=== PATIENT | male | born 1940 | race Caucasian/White ===

== ENCOUNTER 2017-01-29 10:31 | Inpatient (IN) | payer OTHER ==
[2017-01-29 10:45] VITALS: BMI 25.8
--- NOTE | 2017-01-29 10:51 | PDOC ---
History of Present Illness - General Chief Complaint: Weakness Stated Complaint: WEAKNESS Time Seen by Provider: 01/29/17 10:47 History Source: Patient Exam Limitations: No Limitations - History of Present Illness Initial Comments: 01/29/17 10:51 Patient is a 76 year old male with history of ESRD and DM who presents with a reported lab abnormality According to patient's PCP the patient is refusing dialysis following 2 failed/ infected grafts. Patient denies refusal of dialysis but states he does not want a graft until continuous dialysis is required. PCP: Dr. Donis at [facility] ([phone]) Past History - Past Medical History Allergies/Adverse Reactions: Allergies Allergy/AdvReac Type Severity Reaction Status Date / Time No Known Allergies Allergy Verified 02/12/16 16:59 Home Medications: Ambulatory Orders Metoprolol Succinate [Toprol XL -] 100 mg PO DAILY 02/12/16 Ferrous Sulfate 325 mg PO DAILY 02/14/16 Cyanocobalamin [Vitamin B12 -] 1,000 mcg PO DAILY tablet 02/24/16 Cholecalciferol (Vitamin D3) [Vitamin D -] 2,000 unit PO DAILY 01/29/17 Hydralazine HCl [Apresoline -] 25 mg PO BID 01/29/17 Docusate Sodium [Colace -] 100 mg PO TID #90 cap 01/31/17 Rosuvastatin [Crestor -] 20 mg PO HS tablet 01/31/17 Sitagliptin Phosphate [Januvia] 25 mg PO DAILY #30 tablet 01/31/17 Sodium Bicarbonate - 650 mg PO BID #60 tablet 01/31/17 Anemia: No Asthma: No Cancer: No Cardiac Disorders: No CVA: No COPD: No CHF: No Dementia: No Diabetes: Yes GI Disorders: Yes (GERD) Disorders: No HTN: Yes Hypercholesterolemia: Yes Liver Disease: No Seizures: No Thyroid Disease: No - Surgical History Abdominal Surgery: No Appendectomy: No Cardiac Surgery: No Cholecystectomy: No Lung Surgery: No Neurologic Surgery: Yes (back sx) Orthopedic Surgery: No - Family Disease History Family Disease History: Diabetes: Mother, Heart Disease: Father - Immunization History Immunization Up to Date: Yes - Psycho/Social/Smoking Cessation Hx Anxiety: No Suicidal Ideation: No Smoking History: Never smoked Have you smoked in the past 12 months: No Number of Cigarettes Smoked Daily: 10 Hx Alcohol Use: No Drug/Substance Use Hx: No Substance Use Type: None Hx Substance Use Treatment: No Review of Systems - Review of Systems Able to Perform ROS?: Yes Is the patient limited Bengali proficient: No Constitutional: Yes: Loss of Appetite, Weakness, Unintentional Wgt. Loss, Other (Fatigue). No: Chills, Fever HEENTM: No: Throat Pain Respiratory: Yes: SOB with Exertion, SOB at Rest (Mild). No: Stridor, Wheezing , Hemoptysis Cardiac (ROS): No: Chest Pain, Lightheadedness, Palpitations, Syncope ABD/GI: No: Blood Streaked Bowels, Constipated, Diarrhea, Nausea, Rectal Bleeding, Vomiting : No: Hematuria Musculoskeletal: Yes: Muscle Weakness Integumentary: Yes: Change in Color (Pallor), Pallor. No: Bruising Neurological: Yes: Weakness. No: Headache, Numbness, Dizziness Hematologic/Lymphatic: Yes: Anemia. No: Easy Bleeding, Easy Bruising, Bleeding Diathesis *Physical Exam - Vital Signs Last Vital Signs Temp Pulse Resp BP Pulse Ox 97.4 F L 62 14 174/54 100 01/29/17 10:40 01/29/17 10:40 01/29/17 10:40 01/29/17 10:40 01/29/17 10:40 - Physical Exam General Appearance: Yes: Appropriately Dressed, Mild Distress, Other (Very pale , difficult staying awake, easil aroused) HEENT: positive: EOMI, ANGELIA, Pale Conjunctivae, Hearing Grossly Normal. negative: Normal ENT Inspection (Significant pallor of eyes, eye lids, oral mucosa, tounge, lips) Neck: positive: Supple. negative: Tender Respiratory/Chest: positive: Lungs Clear, Normal Breath Sounds. negative: Chest Tender, Respiratory Distress, Accessory Muscle Use, Labored Respiration, Rapid RR, Crackles Cardiovascular: positive: Regular Rhythm, Regular Rate, Other (Diminished heart sounds). negative: Murmur Vascular Pulses: Dorsalis-Pedis (R): 1+, Doralis-Pedis (L): 1+ Gastrointestinal/Abdominal: positive: Normal Bowel Sounds, Flat, Soft. negative : Tender, Pulsatile Mass, Distended, Guarding, Rebound, Mass Rectal Exam: positive: normal exam, other (No song blood) Musculoskeletal: positive: Normal Inspection, Other (multiple PIP/DIP amputations) Extremity: positive: Delayed Capillary Refill, Other (Nailbed pallor ) Integumentary: positive: Pale, Cold. 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 negative: Confused, Disoriented ED Treatment Course - LABORATORY CBC & Chemistry Diagram: 01/31/17 07:30 01/31/17 07:30 Medical Decision Making - Medical Decision Making 01/29/17 10:51 76 year old male with chronic anemia 2/2 ESRD and a hemoglobin of 4.5. Plan Repeat labs RBC transfusion Admit to hospitalist 01/29/17 12:08 CBC WBC 7.5 K/mm3 (4.0-10.0) 01/29/17 11:00 RBC 1.66 M/mm3 (4.00-5.60) L D 01/29/17 11:00 Hgb 4.5 GM/dL (11.7-16.9) L* D 01/29/17 11:00 Hct 14.7 % (35.4-49) L 01/29/17 11:00 MCV 88.3 fl (80-96) 01/29/17 11:00 MCH 27.3 pg (25.7-33.7) 01/29/17 11:00 MCHC 30.9 g/dl (32.0-35.9) L 01/29/17 11:00 RDW 16.1 % (11.9-15.9) H 01/29/17 11:00 Plt Count 191 K/MM3 (134-434) 01/29/17 11:00 MPV 8.7 fl (7.5-11.1) 01/29/17 11:00 Neutrophils % 55.7 % (42.8-82.8) D 01/29/17 11:00 Lymphocytes % 26.2 % (8-40) D 01/29/17 11:00 Monocytes % 13.4 % (3.8-10.2) H 01/29/17 11:00 Eosinophils % 4.2 % (0-4.5) D 01/29/17 11:00 Basophils % 0.5 % (0-2.0) 01/29/17 11:00 Severe anemia per faxed PCP records, patient was 9.4/29 on 07/19/2016 CMP Sodium 140 mmol/L (136-145) 01/29/17 11:00 Potassium 5.2 mmol/L (3.5-5.1) H D 01/29/17 11:00 Chloride 112 mmol/L (98-107) H 01/29/17 11:00 Carbon Dioxide 17 mmol/L (21-32) L 01/29/17 11:00 Anion Gap 11 (8-16) 01/29/17 11:00 BUN 28 mg/dL (7-18) H 01/29/17 11:00 Creatinine 3.1 mg/dL (0.7-1.3) H D 01/29/17 11:00 Creat Clearance w eGFR 19.64 (>60) 01/29/17 11:00 Random Glucose 217 mg/dL (74-106) H D 01/29/17 11:00 Calcium 7.9 mg/dL (8.5-10.1) L 01/29/17 11:00 Total Bilirubin 0.3 mg/dL (0.2-1.0) D 01/29/17 11:00 AST 89 U/L (15-37) H D 01/29/17 11:00 ALT 61 U/L (12-78) D 01/29/17 11:00 Alkaline Phosphatase 94 U/L (45-117) 01/29/17 11:00 Creatine Kinase 3431 IU/L (39-308) H 01/29/17 11:00 Troponin I 0.08 ng/ml (0.00-0.05) H D 01/29/17 11:00 Total Protein 5.8 g/dl (6.4-8.2) L 01/29/17 11:00 Albumin 2.5 g/dl (3.4-5.0) L 01/29/17 11:00 Hyperkalemia 01/29/17 12:16 Per hospitalist patient will be admitted by CARTOGRAPHIC TECHNICIAN service 01/29/17 12:26 Spoke with CARTOGRAPHIC TECHNICIAN service who agreed to admission to [facility] levon Varela 01/29/17 14:44 Patient receiving blood, reports no problems EKG (unofficial): sinus rhythm, slightly bradycardic (59), normal axis, normal intervals, slightly peaked T waves when compared with EKG of 10/19/2014. *DC/Admit/Observation/Transfer Diagnosis at time of Disposition: Anemia Qualifiers: Anemia type: due to chronic kidney disease Chronic kidney disease stage: stage 4 (severe) Qualified Code(s): N18.4 - Chronic kidney disease, stage 4 (severe) - Discharge Dispostion Disposition: HOME Condition at time of disposition: Improved Admit: Yes - Prescriptions - Referrals - Attestations Physician Attestion: 01/29/17 12:35 I, Dr. Tommy Cole, attest that this document has been prepared under my direction and personally reviewed by me in its entirety. I further attest, that it accurately reflects all work, treatment, procedures and medical decision -making performed by me.
[2017-01-29 11:14] LABS: BASOPHIL 0.5 % (0-2.0); EOSINOPHIL 4.2 % (0-4.5); MCH 27.3 pg (25.7-33.7); MCHC 30.9 g/dl (32.0-35.9); MEAN CELL VOLUME 88.3 fl (80-96); MEAN PLT VOLUME 8.7 fl (7.5-11.1); NEUTROPHILS 55.7 % (42.8-82.8); PLATELET COUNT 191 K/MM3 (134-434); RDW 16.1 % (11.9-15.9); WHITE BLOOD COUNT 7.5 K/mm3 (4.0-10.0)
[2017-01-29 11:45] LABS: ALBUMIN 2.5 g/dl (3.4-5.0); ANION GAP 11 (8-16); CALCIUM 7.9 mg/dL (8.5-10.1); CO2 17 mmol/L (21-32); CREATININE 3.1 mg/dL (0.7-1.3); GLUCOSE,RANDOM 217 mg/dL (74-106); SGOT/AST 89 U/L (15-37); SGPT/ALT 61 U/L (12-78)
[2017-01-29 11:46] LABS: INR 1.01 (0.82-1.09); PROTHROMBIN TIME (PATIENT) 11.1 SEC (9.98-11.88)
[2017-01-29 11:47] LABS: BILIRUBIN,TOTAL 0.3 mg/dL (0.2-1.0); TOT PROT 5.8 g/dl (6.4-8.2)
[2017-01-29 12:05] LABS: ALK PHOS 94 U/L (45-117); TROPONIN I 0.08 ng/ml (0.00-0.05)
[2017-01-29 12:10] LABS: CPK 3431 IU/L (39-308)
--- NOTE | 2017-01-29 12:26 | PDOC ---
Attending Attestation - Resident Resident Name: Tommy Cole - ED Attending Attestation I have performed the following: I have examined & evaluated the patient, The case was reviewed & discussed with the resident, I agree w/resident's findings & plan, Exceptions are as noted - HPI HPI: 01/29/17 12:23 76 M with h/o CKD, DM, chronic anemia, presenting to ER after outpt labs showed a Hb of 4.5. Pt complains of severe weakness and lethargy. Denies CP/SOB. Denies syncopal episodes. Denies dark tarry stools or BRBPR. Pt states that he needed a transfusion when he was young but has not required one recently. - Physicial Exam PE: 01/29/17 12:24 "GENERAL: Awake, alert, and fully oriented, in no acute distress HEAD: No signs of trauma EYES: PERRLA, EOMI, sclera anicteric, conjunctiva pale ENT: Auricles normal inspection, hearing grossly normal, nares patent, oropharynx clear without exudates. Moist mucosa NECK: Normal ROM, supple, no lymphadenopathy, JVD, or masses LUNGS: Breath sounds equal, clear to auscultation bilaterally. No wheezes, and no crackles HEART: Regular rate and rhythm, normal S1 and S2, no murmurs, rubs or gallops ABDOMEN: Soft, nontender, normoactive bowel sounds. No guarding, no rebound. No masses EXTREMITIES: Normal range of motion, no edema. No clubbing or cyanosis. No cords, erythema, or tenderness NEUROLOGICAL: Cranial nerves II through XII grossly intact. Normal speech, normal gait SKIN: Warm, Dry, normal turgor, no rashes or lesions noted. " - Medical Decision Making 01/29/17 12:25 76 M with severe anemia. Possibly 2/2 CKD and anemia of chronic disease. Will r/ o GI bleed with stool guaiac and transfuse. - Labs, serial CBCs - Transfuse PRBCs - Admit for further work up
[2017-01-29] MEDS ORDERED: FUROSEMIDE 40 MG/4 ML INJECTABLE VIAL IVPUSH ONE (12:47)
[2017-01-29] MEDS ORDERED: ACETAMINOPHEN 325 MG TABLET (FP) PO PRN (12:48)
--- NOTE | 2017-01-29 12:51 | HP ---
CHIEF COMPLAINT: Weakness PCP: Dr. Walter HISTORY OF PRESENT ILLNESS: This is a 76 year old male with a history of DM ( previously on insulin, but now on Januvia), neuropathy, osteomylitis of the left hand, HTN, and CKD 4. He had 2 attempts at AV graft at [facility] in 2016 both of which were unsuccessful and complicated by infection. He also has a history of anemia and is taking daily iron supplementation, but has never required a transfusion. He presented to the ED today complaining of 3-4 months of generalized weakness and fatigue, now with dyspnea on minimal exertion. He was seen by his PCP yesterday and was found to have a hemoglobin of 4.5. ER course was notable for: (1) H/H 4.5/14.7 (2) EKG: Sinus bradycardia, peaked T waves V2-V4 only (3) Troponin 0.08 with CPK 3431 (4) BUN/Cr 28/3.1, K 5.2 Recent Travel: None PAST MEDICAL HISTORY: As above PAST SURGICAL HISTORY: Left third finger amputation, attempted right AV graft x 2 Last colonoscopy: 2015 and normal Social History: From [place]. 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 Lives with . Smoking: Quit "a few years ago" Alcohol: None Drugs: None NSAIDS: None Family History: No known family history of renal disease Allergies No Known Allergies Allergy (Verified 02/12/16 16:59) HOME MEDICATIONS: Home Medications Medication Instructions Recorded Aspirin [ASA -] 81 mg PO DAILY #30 tab.chew 10/21/14 Metoprolol Succinate [Toprol XL -] 100 mg PO DAILY 02/12/16 Ferrous Sulfate 325 mg PO DAILY 02/14/16 Cyanocobalamin [Vitamin B12 -] 1,000 mcg PO DAILY tablet 02/24/16 Cholecalciferol (Vitamin D3) 2,000 unit PO DAILY 01/29/17 [Vitamin D3 -] Hydralazine HCl [Apresoline -] 25 mg PO BID 01/29/17 Losartan Potassium [Cozaar] 100 mg PO DAILY 01/29/17 Rosuvastatin [Crestor -] 20 mg PO HS 01/29/17 REVIEW OF SYSTEMS CONSTITUTIONAL: Generalized weakness, fatigue Absent: fever, chills, diaphoresis, loss of appetite, weight change HEENT: Absent: rhinorrhea, nasal congestion, throat pain, throat swelling, difficulty swallowing, mouth swelling, ear pain, eye pain, visual changes CARDIOVASCULAR: Dyspnea on minimal exertion Absent: chest pain, syncope, palpitations, irregular heart rate, lightheadedness , peripheral edema RESPIRATORY: Absent: cough, orthopnea, wheezing, stridor, hemoptysis GASTROINTESTINAL: Absent: abdominal pain, abdominal distension, nausea, vomiting, diarrhea, constipation, melena, hematochezia GENITOURINARY: Absent: dysuria, frequency, urgency, hesitancy, hematuria, flank pain, genital pain MUSCULOSKELETAL: Absent: myalgia, arthralgia, joint swelling, back pain, neck pain SKIN: Absent: rash, itching, pallor HEMATOLOGIC/IMMUNOLOGIC: Absent: easy bleeding, easy bruising, lymphadenopathy, frequent infections ENDOCRINE: Absent: unexplained weight gain, unexplained weight loss, heat intolerance, cold intolerance NEUROLOGIC: Absent: headache, focal weakness or paresthesias, dizziness, unsteady gait, seizure, mental status changes, bladder or bowel incontinence PSYCHIATRIC: Absent: anxiety, depression, suicidal or homicidal ideation, hallucinations. PHYSICAL EXAMINATION Vital Signs - 24 hr 01/29/17 01/29/17 10:40 11:07 Temperature 97.4 F L Pulse Rate 62 Respiratory 14 Rate Blood Pressure 174/54 O2 Sat by Pulse 100 98 Oximetry (%) GENERAL: Awake, alert, and fully oriented, in no acute distress. EYES: Pupils equal, round and reactive to light, extraocular movements intact, sclera anicteric, conjunctivae pale. No lid lag. EARS, NOSE, THROAT: Ears normal, nares patent, oropharynx clear without exudates. Moist mucous membranes. NECK: Normal range of motion, supple without lymphadenopathy, JVD, or masses. LUNGS: Breath sounds equal, clear to auscultation bilaterally. No wheezes, and no crackles. No accessory muscle use. HEART: Regular rate and rhythm, normal S1 and S2 without murmur, rub or gallop. ABDOMEN: Soft, nontender, not distended, normoactive bowel sounds, no guarding, no rebound, no masses. No hepatomegaly or splenomegaly. MUSCULOSKELETAL: Normal range of motion at all joints. No bony deformities or tenderness. No CVA tenderness. UPPER EXTREMITIES: 2+ pulses, warm, well-perfused. No cyanosis. No clubbing. No peripheral edema. LOWER EXTREMITIES: 2+ pulses, warm, well-perfused. No calf tenderness. No peripheral edema. NEUROLOGICAL: Cranial nerves II-XII intact. Normal speech. Normal gait. PSYCHIATRIC: Cooperative. Good eye contact. Appropriate mood and affect. SKIN: Warm, dry, normal turgor, no rashes or lesions noted, normal capillary refill. Laboratory Results - last 24 hr 01/29/17 01/29/17 01/29/17 11:00 11:00 11:00 WBC 7.5 RBC 1.66 L D Hgb 4.5 L* D Hct 14.7 L MCV 88.3 MCH 27.3 MCHC 30.9 L RDW 16.1 H Plt Count 191 MPV 8.7 Neutrophils % 55.7 D Lymphocytes % 26.2 D Monocytes % 13.4 H Eosinophils % 4.2 D Basophils % 0.5 INR 1.01 Sodium 140 Potassium 5.2 H D Chloride 112 H Carbon Dioxide 17 L Anion Gap 11 BUN 28 H Creatinine 3.1 H D Creat Clearance w eGFR 19.64 Random Glucose 217 H D Calcium 7.9 L Total Bilirubin 0.3 D AST 89 H D ALT 61 D Alkaline Phosphatase 94 Creatine Kinase 3431 H Creatine Kinase Index 0.4 CK-MB (CK-2) 15 H Troponin I 0.08 H D Total Protein 5.8 L Albumin 2.5 L Stool Occult Blood Crossmatch 01/29/17 01/29/17 11:00 11:59 WBC RBC Hgb Hct MCV MCH MCHC RDW Plt Count MPV Neutrophils % Lymphocytes % Monocytes % Eosinophils % Basophils % INR Sodium Potassium Chloride Carbon Dioxide Anion Gap BUN Creatinine Creat Clearance w eGFR Random Glucose Calcium Total Bilirubin AST ALT Alkaline Phosphatase Creatine Kinase Creatine Kinase Index CK-MB (CK-2) Troponin I Total Protein Albumin Stool Occult Blood Negative Crossmatch See Detail ASSESSMENT/PLAN: 76 year old male with profound anemia. Problem List - Problem (1) Anemia Assessment/Plan: -Normocytic, mildly hypochromic -No signs of bleeding by history or by exam, stool negative for occult blood -Suspect anemia of renal disease + iron deficiency -Add on iron studies to pre-transfusion labs -Transfuse 2 units PRBCs with Lasix 20mg IVP in between -Check CBC tonight; will likely need additional 1-2 units -Continue iron supplementation -Renal evaluation Code(s): D64.9 - ANEMIA, UNSPECIFIED Qualifiers: Anemia type: due to chronic kidney disease Chronic kidney disease stage : stage 4 (severe) Qualified Code(s): N18.4 - Chronic kidney disease, stage 4 (severe); D63.1 - Anemia in chronic kidney disease (2) Diabetes Assessment/Plan: -Hold Januvia while inpatient -FSACHS -ISS -Check HgbA1C Code(s): E11.9 - TYPE 2 DIABETES MELLITUS WITHOUT COMPLICATIONS (3) Hypertension Assessment/Plan: -Continue metoprolol, hydralazine -Hold Cozaar pending renal evaluation Code(s): I10 - ESSENTIAL (PRIMARY) HYPERTENSION Qualifiers: Hypertension type: essential hypertension Qualified Code(s): I10 - Essential (primary) hypertension (4) CKD (chronic kidney disease) Assessment/Plan: -Progressive -Renal diet -Follow electrolytes -Avoid nephrotoxic meds as able -Renal evaluation Code(s): N18.9 - CHRONIC KIDNEY DISEASE, UNSPECIFIED (5) Hyperkalemia Assessment/Plan: -Mild, but with some ?EKG changes -Receiving Lasix -Repeat in evening post-transfusion Code(s): E87.5 - HYPERKALEMIA (6) Elevated CPK Assessment/Plan: -Trend Code(s): R74.8 - ABNORMAL LEVELS OF OTHER SERUM ENZYMES (7) DVT prophylaxis Assessment/Plan: -Moderate risk -SCDs -Avoid chemical ppx for now given profound anemia Code(s): KBI4752 - Visit type - Emergency Visit Emergency Visit: Yes ED Registration Date: 01/29/17 Care time: The patient presented to the Emergency Department on the above date and was hospitalized for further evaluation of their emergent condition. - New Patient This patient is new to me today: Yes Date on this admission: 01/29/17 - Critical Care Critical Care patient: No
[2017-01-29] MEDS ORDERED: FUROSEMIDE 40 MG/4 ML INJECTABLE VIAL ONE (15:32)
[2017-01-29] MEDS: DOCUSATE SODIUM 100 MG CAPSULE (FP) PO SCH ×2 (15:35→21:42)
--- NOTE | 2017-01-29 15:37 | CON.NEP ---
Consult Consult Specialty:: Nephrology (Td/Faizan) Referred by:: Eliana Peña Reason for Consultation:: CKD, Hyperkalemia, Anemia - History of Present Illness Chief Complaint: Abnormal Labs, low Hgb History of Present Illness: This is a 76 year old Gentleman with PMhx of SAMANTHA/progressive CKD (likely diabetic nephropathy, no Bx done), DM Type 2 (was on insulin, now off), Hx of failed graft placement x 2 at [facility] who presents with abnormal outpatient labs and found to have Hgb of 4.5 with BUN/Cr of 28/3.1 and K of 5.2. Pt was seen by Dr. Appiah in October of this year. Last outpatient Cr we have is 1.9 (07/2016). Pt reports fatigue, weakness, and STINSON. Denies any cough, chest pain, abd pain, melena, hematuria, bruising. Denies any NSAID use. No recent contrast exposure. No flank pain, Good urine output. No recent Abx use. - History Source History Provided By: Patient Limitations to Obtaining History: No Limitations - Past Medical History Renal/: Yes: Renal Inusuff Endocrine: Yes: Diabetes Mellitus - Alcohol/Substance Use Hx Alcohol Use: No - Smoking History Smoking history: Never smoked Have you smoked in the past 12 months: No Aproximately how many cigarettes per day: 10 Home Medications - Allergies Allergies/Adverse Reactions: Allergies Allergy/AdvReac Type Severity Reaction Status Date / Time No Known Allergies Allergy Verified 02/12/16 16:59 - Home Medications Home Medications: Ambulatory Orders Aspirin [ASA -] 81 mg PO DAILY #30 tab.chew 10/21/14 Metoprolol Succinate [Toprol XL -] 100 mg PO DAILY 02/12/16 Ferrous Sulfate 325 mg PO DAILY 02/14/16 Cyanocobalamin [Vitamin B12 -] 1,000 mcg PO DAILY tablet 02/24/16 Cholecalciferol (Vitamin D3) [Vitamin D3 -] 2,000 unit PO DAILY 01/29/17 Hydralazine HCl [Apresoline -] 25 mg PO BID 01/29/17 Losartan Potassium [Cozaar] 100 mg PO DAILY 01/29/17 Rosuvastatin [Crestor -] 20 mg PO HS 01/29/17 Sitagliptin Phosphate [Januvia] 50 mg PO DAILY 01/29/17 Family Disease History - Family Disease History Family History: Unremarkable Review of Systems - Review of Systems Constitutional: reports: Lethargy, Loss of Appetite, Malaise, Weakness Eyes: reports: No Symptoms HENT: reports: No Symptoms Neck: reports: No Symptoms Cardiovascular: reports: No Symptoms Respiratory: reports: No Symptoms Gastrointestinal: reports: No Symptoms Genitourinary: reports: No Symptoms Musculoskeletal: reports: No Symptoms Integumentary: reports: No Symptoms Neurological: reports: No Symptoms Endocrine: reports: No Symptoms Hematology/Lymphatic: reports: No Symptoms Nephrology Consult - Height Height: 5 ft 8 in - Weight Weight: 170 lb - BMI Body Mass Index (BMI): 25.8 - Lab Results Anion Gap: Anion Gap Anion Gap 11 (8-16) 01/29/17 11:00 - Imaging Chest X-ray: Report Reviewed - Physical Examination Vital Signs: Vital Signs Temperature 97.9 F 01/29/17 13:45 Pulse Rate 58 L 01/29/17 13:45 Respiratory Rate 16 01/29/17 13:45 Blood Pressure 145/53 01/29/17 13:45 O2 Sat by Pulse Oximetry (%) 99 01/29/17 13:45 Constitutional: Yes: No Distress, Calm Eyes: Yes: Conjunctiva Clear HENT: Yes: Atraumatic Neck: Yes: Supple, Trachea Midline Cardiovascular: Yes: Regular Rate and Rhythm, S1, S2. No: Murmur, Rub Respiratory: Yes: Regular, CTA Bilaterally. No: Rales, Rhonchi Gastrointestinal: Yes: Normal Bowel Sounds, Soft, Abdomen, Obese. No: Tenderness, Vomiting Renal/: No: Anuria, Bladder Distention, CVA Tenderness - Left, CVA Tenderness - Right, Engle Present Extremities: No: Cold, Cool, Cyanosis Edema: No Peripheral Pulses WNL: Yes Neurological: Yes: Alert, Oriented. No: Asterixis Problem List - Problems (1) Acute renal failure Code(s): N17.9 - ACUTE KIDNEY FAILURE, UNSPECIFIED (2) Anemia Code(s): D64.9 - ANEMIA, UNSPECIFIED Qualifiers: Anemia type: due to chronic kidney disease Chronic kidney disease stage : stage 4 (severe) Qualified Code(s): N18.4 - Chronic kidney disease, stage 4 (severe); D63.1 - Anemia in chronic kidney disease (3) CKD (chronic kidney disease) Code(s): N18.9 - CHRONIC KIDNEY DISEASE, UNSPECIFIED (4) Diabetes Code(s): E11.9 - TYPE 2 DIABETES MELLITUS WITHOUT COMPLICATIONS Assessment/Plan 76 year old Gentleman with PMhx of SAMANTHA / progressive CKD (likely diabetic nephropathy, no Bx done), DM Type 2 (was on insulin, now off), Hx of failed graft placement x 2 at [facility] who presents with abnormal outpatient labs and found to have Hgb of 4.5 with BUN/Cr of 28/3.1 and K of 5.2. #Acute Kidney Injury vs. Progressive CKD Cr was 1.9 in 07/2016, Cr now 3.1 Check Urine studies (FeNa, UPCR) Give PRBC transfusion to keep Hgb > 8 Keep MAP> 65 Trial of gentle IVF : NS at 75cc per hour (hold when getting prbc) Check Renal US to access kidney size and structure no acute indication for dialysis at this time #Acute Anemia with normal stool occult blood pt reports normal colonoscopy last year check LDH, Haptogobin iron profile pending if iron stores are replete can start Epogen given advanced level of kidney disease Transfuse as per primary team #Hyperkalmeia in setting of SAMANTHA/CKD and ARB hold ARB for now low k diet Trend with PRBC transfusion #Metabolic acidosis Non-anion gap acidosis from CKD Check Urine anion gap start sodium bicarb 650mg BID goal Bicarb > 22 Thank you Will follow Slava Gloria DO
[2017-01-29] MEDS ORDERED: SODIUM CHLORIDE 1,000 ML IV SCH (15:45)
[2017-01-29] MEDS: INSULIN SLIDING SCALE (NOVOLOG) 1 VIAL SQ SCH ×3 (16:48→21:46)
[2017-01-29 20:39] LABS: ANION GAP 8 (8-16); BASOPHIL 0.5 % (0-2.0); CO2 18 mmol/L (21-32); EOSINOPHIL 3.4 % (0-4.5); GLUCOSE,RANDOM 176 mg/dL (74-106); MCH 28.2 pg (25.7-33.7); MEAN PLT VOLUME 9.8 fl (7.5-11.1); NEUTROPHILS 43.2 % (42.8-82.8); PLATELET COUNT 191 K/MM3 (134-434); RDW 15.6 % (11.9-15.9); WHITE BLOOD COUNT 6.3 K/mm3 (4.0-10.0)
[2017-01-29 20:54] LABS: TROPONIN I 0.07 ng/ml (0.00-0.05)
[2017-01-29] MEDS ORDERED: ROSUVASTATIN CA 10 MG TABLET (FP) ONE (21:41)
[2017-01-29] MEDS: SODIUM BICARBONATE 650 MG TABLET PO SCH (21:42)
[2017-01-29] MEDS: hydrALAZINE HCL 25 MG TABLET (FP) PO SCH (21:42)
[2017-01-29] MEDS: ROSUVASTATIN CA 20 MG TABLET (FP) PO SCH (21:42)
[2017-01-30] MEDS: INSULIN SLIDING SCALE (NOVOLOG) 1 VIAL SQ SCH ×4 (05:59→22:12)
[2017-01-30] MEDS: DOCUSATE SODIUM 100 MG CAPSULE (FP) PO SCH ×3 (06:01→22:11)
[2017-01-30 06:07] LABS: SERUM IRON 16 ug/dL (38-169); TOTAL IRON BINDING CAPACITY 315 ug/dL (250-450); UIBC 299 ug/dL (111-343)
[2017-01-30 08:56] LABS: BASOPHIL 0.6 % (0-2.0); EOSINOPHIL 3.7 % (0-4.5); MCH 28.6 pg (25.7-33.7); MCHC 33.2 g/dl (32.0-35.9); MEAN CELL VOLUME 86.3 fl (80-96); MEAN PLT VOLUME 8.9 fl (7.5-11.1); NEUTROPHILS 50.3 % (42.8-82.8); PLATELET COUNT 185 K/MM3 (134-434); RDW 14.6 % (11.9-15.9); WHITE BLOOD COUNT 6.8 K/mm3 (4.0-10.0)
[2017-01-30 09:24] LABS: ALBUMIN 2.3 g/dl (3.4-5.0); ANION GAP 8 (8-16); CALCIUM 8.1 mg/dL (8.5-10.1); CO2 20 mmol/L (21-32); CREATININE 2.8 mg/dL (0.7-1.3); GLUCOSE,RANDOM 161 mg/dL (74-106); MAGNESIUM 2.3 mg/dL (1.8-2.4); PHOSPHOROUS 4.5 mg/dL (2.5-4.9); SGOT/AST 83 U/L (15-37); SGPT/ALT 57 U/L (12-78)
[2017-01-30 09:27] LABS: ALK PHOS 89 U/L (45-117); TOT PROT 5.3 g/dl (6.4-8.2)
--- NOTE | 2017-01-30 10:20 | PN ---
Physical Exam: SUBJECTIVE: Patient seen and examined. Patient lying comfortably in bed. Statets his breathing has improved since yesterday. Feels better than before. States his dizziness and generalized weakness has improved. Got 4 units of blood Hb 8.7. OBJECTIVE: Vital Signs Period Temp Pulse Resp BP Sys/Bo Pulse Ox Last 24 Hr 97.4 F-98.3 F 55-65 15-18 133-168/53-80 99-100 GENERAL: The patient is awake, alert, and fully oriented, ENT:moist mucous membranes. NECK: Trachea midline, full range of motion, supple. LUNGS: Breath sounds equal, clear to auscultation bilaterally, no wheezes, no crackles, no accessory muscle use. HEART: s1s2 normal, regular, no murmur ABDOMEN: Soft, nontender, nondistended, normoactive bowel sounds, no guarding, no rebound, EXTREMITIES: warm, no edema. PSYCH: Normal mood, normal affect. SKIN: Warm, dry, Laboratory Results - last 24 hr 01/29/17 01/29/17 01/29/17 14:40 16:46 19:00 WBC 6.3 RBC 2.37 L D Hgb 6.7 L* D Hct 20.9 L D MCV 88.0 MCH 28.2 MCHC 32.0 RDW 15.6 Plt Count 191 MPV 9.8 D Neutrophils % 43.2 D Lymphocytes % 36.6 D Monocytes % 16.3 H Eosinophils % 3.4 Basophils % 0.5 Sodium Potassium Chloride Carbon Dioxide Anion Gap BUN Creatinine Creat Clearance w eGFR POC Glucometer [phone] Random Glucose Calcium Phosphorus Magnesium Iron 16 L TIBC 315 Iron Saturation 5 L Total Bilirubin AST ALT Alkaline Phosphatase LD Total Creatine Kinase Creatine Kinase Index CK-MB (CK-2) Troponin I Total Protein Albumin Vitamin B12 01/29/17 01/29/17 01/29/17 19:00 19:00 19:00 WBC RBC Hgb Hct MCV MCH MCHC RDW Plt Count MPV Neutrophils % Lymphocytes % Monocytes % Eosinophils % Basophils % Sodium 140 Potassium 4.9 Chloride 114 H Carbon Dioxide 18 L Anion Gap 8 BUN 30 H Creatinine 3.0 H Creat Clearance w eGFR POC Glucometer Random Glucose 176 H Calcium 8.0 L Phosphorus Magnesium Iron TIBC Iron Saturation Total Bilirubin AST ALT Alkaline Phosphatase LD Total Creatine Kinase 3626 H Creatine Kinase Index 0.4 CK-MB (CK-2) 16.804 H Troponin I 0.07 H Total Protein Albumin Vitamin B12 454 01/29/17 01/29/17 01/30/17 19:00 21:45 05:56 WBC RBC Hgb Hct MCV MCH MCHC RDW Plt Count MPV Neutrophils % Lymphocytes % Monocytes % Eosinophils % Basophils % Sodium Potassium Chloride Carbon Dioxide Anion Gap BUN Creatinine Creat Clearance w eGFR POC Glucometer 206 148 Random Glucose Calcium Phosphorus Magnesium Iron TIBC Iron Saturation Total Bilirubin AST ALT Alkaline Phosphatase LD Total 278 H D Creatine Kinase Creatine Kinase Index CK-MB (CK-2) Troponin I Total Protein Albumin Vitamin B12 01/30/17 01/30/17 08:40 08:40 WBC 6.8 RBC 3.04 L D Hgb 8.7 L D Hct 26.3 L D MCV 86.3 MCH 28.6 MCHC 33.2 RDW 14.6 Plt Count 185 MPV 8.9 Neutrophils % 50.3 Lymphocytes % 29.0 D Monocytes % 16.4 H Eosinophils % 3.7 Basophils % 0.6 Sodium 140 Potassium 5.3 H Chloride 112 H Carbon Dioxide 20 L Anion Gap 8 BUN 28 H Creatinine 2.8 H Creat Clearance w eGFR 22.08 POC Glucometer Random Glucose 161 H Calcium 8.1 L Phosphorus 4.5 D Magnesium 2.3 D Iron TIBC Iron Saturation Total Bilirubin 1.0 D AST 83 H ALT 57 Alkaline Phosphatase 89 LD Total Creatine Kinase Creatine Kinase Index CK-MB (CK-2) Troponin I Total Protein 5.3 L Albumin 2.3 L Vitamin B12 Active Medications Generic Name Dose Route Start Last Admin Trade Name Freq PRN Reason Stop Dose Admin Acetaminophen 650 mg 01/29/17 12:48 Tylenol - PO Q4H PRN FEVER OR PAIN Cholecalciferol 2,000 unit 01/30/17 10:00 Vitamin D3 - PO DAILY [facility] Cyanocobalamin 1,000 mcg 01/30/17 10:00 Vitamin B12 - PO DAILY [facility] Docusate Sodium 100 mg 01/29/17 14:00 01/30/17 06:01 Colace - PO 100 mg TID ROB Administration Ferrous Sulfate 325 mg 01/30/17 10:00 Feosol - PO DAILY [facility] Hydralazine HCl 25 mg 01/29/17 22:00 01/29/17 21:42 Apresoline - PO 25 mg BID ROB Administration Sodium Chloride 1,000 mls @ 75 mls/hr 01/29/17 15:45 01/29/17 16:41 Normal Saline - IV 01/30/17 15:44 Not Given ASDIR ROB Insulin Aspart 1 vial 01/29/17 16:30 01/30/17 05:59 Novolog Vial Sliding Scale - SQ Not Given ACHS [facility] Protocol Metoprolol Succinate 100 mg 01/30/17 10:00 Toprol Xl - PO DAILY ROB Rosuvastatin Calcium 20 mg 01/29/17 22:00 01/29/17 21:42 Crestor - PO 20 mg HS ROB Administration Sodium Bicarbonate 650 mg 01/29/17 22:00 01/29/17 21:42 Sodium Bicarbonate - PO 650 mg BID ROB Administration ASSESSMENT/PLAN: 76 year old Gentleman with PMhx of SAMANTHA / progressive CKD ( likely diabetic nephropathy, no Bx done), DM Type 2 (was on insulin, now off), Hx of failed graft placement x 2 at [facility] who presents with abnormal outpatient labs and found to have Hgb of 4.5 with BUN/Cr of 28/3.1 and K of 5.2. (1) Acute kidney injury on CKD. (2) Anemia (3) CKD (chronic kidney disease) (4) Diabetes (5) Hyperkalemia (6) metabolic acidosis (7)h/o Failed graft placement x2 in [facility] (8) HTN Plan Got 4 units of blood and Hb increased to 8.7. Goal to keep Hgb> 8 Iron saturation is <20, serum iron is low will start his on IV ferrous sulphate one time ( patient got 4 units of blood that can also increase iron in blood. But his saturation is 5% so we will still give him one time IV) Hepatoglobin is pending but LDH is elevated. No active source of bleeding. Patient reports colonscopy from last year was normal. Sr creatnine improved to 2.8, Urine labs pending. BUN : cr 10, renal ultrasound shows hyperechoic kidney, no hydronephrosis. Sr K is 5.3 could be due to SAMANTHA or multiple blood transfusions. Continue to hold ARB/ samreen inhibitor. Continue with low potassium diet. Metabolic acidosis could be due to CKD Sr bicarb has improved from 18 to 20, continue with sodium bicarb 650 bid, goal to keep bicarb>22. Corrected ca 9.45 Monitor vitals. Monitor intake output. avoid nephrotoxic drugs. Start IV fluid. Repeat iron studies in outpatient. Visit type - Emergency Visit Emergency Visit: Yes ED Registration Date: 01/29/17 Care time: The patient presented to the Emergency Department on the above date and was hospitalized for further evaluation of their emergent condition. - New Patient This patient is new to me today: Yes Date on this admission: 01/30/17 - Critical Care Critical Care patient: No
[2017-01-30] MEDS: hydrALAZINE HCL 25 MG TABLET (FP) PO SCH ×2 (10:58→22:11)
[2017-01-30] MEDS: FERROUS SO4 325 MG TABLET (FP) PO SCH (10:58)
[2017-01-30] MEDS: SODIUM BICARBONATE 650 MG TABLET PO SCH ×2 (10:59→22:11)
[2017-01-30] MEDS: CHOLECALCIFEROL (VITAMIN D3) 1,000 UNIT TABLET (FP) PO SCH (10:59)
[2017-01-30] MEDS: CYANOCOBALAMIN 1,000 MCG TABLET (FP) PO SCH (10:59)
[2017-01-30] MEDS: METOPROLOL SUCCINATE 50 MG TAB.SR.24H (FP) PO SCH (10:59)
--- NOTE | 2017-01-30 11:16 | PN ---
Progress Note (short form) - Note Progress Note: Subjective: The patient was seen at the bedside, he has no complaints at this time. S/p 4u PRBC, Hgb 8.7 today Cr improving 2.8 Current Medications Generic Name Dose Route Start Last Admin Trade Name [place] PRN Reason Stop Dose Admin Acetaminophen 650 mg 01/29/17 12:48 Tylenol - PO Q4H PRN FEVER OR PAIN Cholecalciferol 2,000 unit 01/30/17 10:00 01/30/17 10:59 Vitamin D3 - PO 2,000 unit DAILY ROB Administration Cyanocobalamin 1,000 mcg 01/30/17 10:00 01/30/17 10:59 Vitamin B12 - PO 1,000 mcg DAILY ROB Administration Docusate Sodium 100 mg 01/29/17 14:00 01/30/17 06:01 Colace - PO 100 mg TID ROB Administration Ferrous Sulfate 325 mg 01/30/17 10:00 01/30/17 10:58 Feosol - PO 325 mg DAILY ROB Administration Hydralazine HCl 25 mg 01/29/17 22:00 01/30/17 10:58 Apresoline - PO 25 mg BID ROB Administration Sodium Chloride 1,000 mls @ 75 mls/hr 01/29/17 15:45 01/29/17 16:41 Normal Saline - IV 01/30/17 15:44 Not Given ASDIR ROB Insulin Aspart 1 vial 01/29/17 16:30 01/30/17 05:59 Novolog Vial Sliding Scale - SQ Not Given ACHS [facility] Protocol Metoprolol Succinate 100 mg 01/30/17 10:00 01/30/17 10:59 Toprol Xl - PO 100 mg DAILY ROB Administration Rosuvastatin Calcium 20 mg 01/29/17 22:00 01/29/17 21:42 Crestor - PO 20 mg HS ROB Administration Sodium Bicarbonate 650 mg 01/29/17 22:00 01/30/17 10:59 Sodium Bicarbonate - PO 650 mg BID ROB Administration Objective: Vital Signs Period Temp Pulse Resp BP Sys/Bo Pulse Ox Last 24 Hr 97.4 F-98.3 F 55-65 15-18 133-168/53-80 99-100 Physical Exam: General: NAD, A&Ox3 Lungs: CTA bilaterally Heart: RRR, S1S2 Abd: Soft, non-tender, non-distended. Normoactive bowel sounds Ext: Warm, well-perfused. 2+ DP/PT bilaterally Neuro: CN 2-12 intact CBCD WBC 6.8 K/mm3 (4.0-10.0) 01/30/17 08:40 RBC 3.04 M/mm3 (4.00-5.60) L D 01/30/17 08:40 Hgb 8.7 GM/dL (11.7-16.9) L D 01/30/17 08:40 Hct 26.3 % (35.4-49) L D 01/30/17 08:40 MCV 86.3 fl (80-96) 01/30/17 08:40 MCHC 33.2 g/dl (32.0-35.9) 01/30/17 08:40 RDW 14.6 % (11.9-15.9) 01/30/17 08:40 Plt Count 185 K/MM3 (134-434) 01/30/17 08:40 MPV 8.9 fl (7.5-11.1) 01/30/17 08:40 CMP Sodium 140 mmol/L (136-145) 01/30/17 08:40 Potassium 5.3 mmol/L (3.5-5.1) H 01/30/17 08:40 Chloride 112 mmol/L (98-107) H 01/30/17 08:40 Carbon Dioxide 20 mmol/L (21-32) L 01/30/17 08:40 Anion Gap 8 (8-16) 01/30/17 08:40 BUN 28 mg/dL (7-18) H 01/30/17 08:40 Creatinine 2.8 mg/dL (0.7-1.3) H 01/30/17 08:40 Creat Clearance w eGFR 22.08 (>60) 01/30/17 08:40 Random Glucose 161 mg/dL (74-106) H 01/30/17 08:40 Calcium 8.1 mg/dL (8.5-10.1) L 01/30/17 08:40 Total Bilirubin 1.0 mg/dL (0.2-1.0) D 01/30/17 08:40 AST 83 U/L (15-37) H 01/30/17 08:40 ALT 57 U/L (12-78) 01/30/17 08:40 Alkaline Phosphatase 89 U/L (45-117) 01/30/17 08:40 Total Protein 5.3 g/dl (6.4-8.2) L 01/30/17 08:40 Albumin 2.3 g/dl (3.4-5.0) L 01/30/17 08:40 CARDIAC ENZYMES Creatine Kinase 3626 IU/L (39-308) H 01/29/17 19:00 Troponin I 0.07 ng/ml (0.00-0.05) H 01/29/17 19:00 Assessment: This is a 76 year old male with PMHx of DM, neuropathy, osteomyelitis of the left hand, HTN, CKD stage 4, anemia, who presented to the ED with fatigue and generalized weakness with dyspnea on exertion and was found to have a Hgb of 4.5. Plan: 1) Hematology: Severe symptomatic anemia - S/p 4u PRBC - Hgb 8.7 today. Keep Hgb >8 - Patient reports normal colonoscopy last year - Iron panel reviewed - Continue ferrous sulfate - No evidence of active bleeding, stool for occult blood negative 2) : SAMANTHA on CKD - Cr improving - Kidney ultrasound with slightly hyperechoic kidneys suggesting medical renal disease. No evidence of hydronephrosis or acute renal pathology - Continue sodium bicard for metabolic acidosis. Bicarb improving Elevated CK levels - Continue to trend 3) Endocrine: DM - BGM ACHS - ISS ACHS - HgbA1c pending 4) F/E/N: - Monitor electrolytes - Hyperkalemia: monitor - Renal, diabetic diet 5) Prophylaxis: - Hold all chemica DVT prophylaxis 2/2 severe anemia - SCDs bilaterally - OOB ambulating 6) Dispo: - Requires continued inpatient care CODE STATUS: FULL CODE Visit type - Emergency Visit Emergency Visit: Yes ED Registration Date: 01/29/17 Care time: The patient presented to the Emergency Department on the above date and was hospitalized for further evaluation of their emergent condition. - New Patient This patient is new to me today: Yes Date on this admission: 01/30/17 - Critical Care Critical Care patient: No
[2017-01-30 13:02] LABS: URINE CREATININE 30.9 mg/dL (20-370)
[2017-01-30] MEDS ORDERED: SODIUM CHLORIDE 1,000 ML IV SCH (14:30)
--- NOTE | 2017-01-30 14:38 | PN ---
Progress Note (short form) - Note Progress Note: Renal follow up for CKD Pt seen and examined at the bedside awake and alert no acute complaints feels better s/p transfusion Vital Signs Temperature 97.9 F 01/30/17 10:00 Pulse Rate 66 01/30/17 10:00 Respiratory Rate 18 01/30/17 10:00 Blood Pressure 150/51 01/30/17 10:00 O2 Sat by Pulse Oximetry (%) 99 01/29/17 17:32 Intake & Output 01/27/17 01/28/17 01/29/17 01/30/17 23:59 23:59 23:59 23:59 Intake Total 650 1300 Balance 650 1300 Weight 170 lb 172 lb 4 oz Gen: NAD, awake and alert CVS: RRR, No M/R Lungs: CTA Abd: soft NT/ND Ext: no edema CBC, BMP 01/30/17 08:40 01/30/17 08:40 Current Medications Acetaminophen (Tylenol -) 650 mg PO Q4H PRN PRN Reason: FEVER OR PAIN Cholecalciferol (Vitamin D3 -) 2,000 unit PO DAILY [facility] Last Admin: 01/30/17 10:59 Dose: 2,000 unit Cyanocobalamin (Vitamin B12 -) 1,000 mcg PO DAILY [facility] Last Admin: 01/30/17 10:59 Dose: 1,000 mcg Docusate Sodium (Colace -) 100 mg PO TID [facility] Last Admin: 01/30/17 06:01 Dose: 100 mg Ferrous Sulfate (Feosol -) 325 mg PO DAILY [facility] Last Admin: 01/30/17 10:58 Dose: 325 mg Hydralazine HCl (Apresoline -) 25 mg PO BID [facility] Last Admin: 01/30/17 10:58 Dose: 25 mg Sodium Chloride (Normal Saline -) 1,000 mls @ 75 mls/hr IV ASDIR ROB Stop: 01/30/17 15:44 Last Admin: 01/29/17 16:41 Dose: Not Given Iron Sucrose 200 mg/ Sodium (Chloride) 250 mls @ 250 mls/hr IVPB ONCE ONE Stop: 01/30/17 15:24 Insulin Aspart (Novolog Vial Sliding Scale -) 1 vial SQ ACHS ROB PRN Reason: Protocol Last Admin: 01/30/17 11:43 Dose: Not Given Metoprolol Succinate (Toprol Xl -) 100 mg PO DAILY [facility] Last Admin: 01/30/17 10:59 Dose: 100 mg Rosuvastatin Calcium (Crestor -) 20 mg PO HS [facility] Last Admin: 01/29/17 21:42 Dose: 20 mg Sodium Bicarbonate (Sodium Bicarbonate -) 650 mg PO BID [facility] Last Admin: 01/30/17 10:59 Dose: 650 mg A/P 76 year old Gentleman with PMhx of SAMANTHA / progressive CKD (likely diabetic nephropathy, no Bx done), DM Type 2 (was on insulin, now off), Hx of failed graft placement x 2 at [facility] who presents with abnormal outpatient labs and found to have Hgb of 4.5 with BUN/Cr of 28/3.1 and K of 5.2. #Acute Kidney Injury vs. Progressive CKD Cr was 1.9 in 07/2016 Cr 2.8 today, s/p PRBC transfusion trial of IVF today #Acute Anemia with normal stool occult blood pt reports normal colonoscopy last year Iron studies show very low iron will give iron sucrose 200mg IVPB today start EPOgen [id number] units Q week starting tomorrow #Hyperkalmeia in setting of SAMANTHA/CKD and ARB hold ARB for now low k diet #Metabolic acidosis continue oral sodium bicarb Thank you Will follow Slava Gloria DO Problem List - Problems (1) Acute renal failure Code(s): N17.9 - ACUTE KIDNEY FAILURE, UNSPECIFIED (2) Anemia Code(s): D64.9 - ANEMIA, UNSPECIFIED Qualifiers: Anemia type: due to chronic kidney disease Chronic kidney disease stage : stage 4 (severe) Qualified Code(s): N18.4 - Chronic kidney disease, stage 4 (severe); D63.1 - Anemia in chronic kidney disease (3) CKD (chronic kidney disease) Code(s): N18.9 - CHRONIC KIDNEY DISEASE, UNSPECIFIED (4) Diabetes Code(s): E11.9 - TYPE 2 DIABETES MELLITUS WITHOUT COMPLICATIONS
[2017-01-30] MEDS ORDERED: IRON SUCROSE INJECTION 200 MG in SODIUM CHLORIDE 100 ML IVPB ONE (16:30)
--- NOTE | 2017-01-30 16:42 | EKG ---
Test Reason : Blood Pressure : / mmHG Vent. Rate : 059 BPM Atrial Rate : 059 BPM P-R Int : 180 ms QRS Dur : 094 ms QT Int : 432 ms P-R-T Axes : -10 016 021 degrees QTc Int : 427 ms SINUS BRADYCARDIA OTHERWISE NORMAL ECG WHEN COMPARED WITH ECG OF 12-FEB-2016 18:11, VENT. RATE HAS DECREASED BY 37 BPM T WAVE AMPLITUDE HAS INCREASED IN ANTERIOR LEADS Confirmed by SHEIKH JORGE, HARDY ([id number] on 01/30/2017 4:41:58 PM Referred By: Confirmed By:HARDY ALEXIS MD
[2017-01-30] MEDS ORDERED: INSULIN (NOVOLOG) ASPART 100 UNITS/ML 10ML VIAL ONE (18:46)
[2017-01-30] MEDS ORDERED: ROSUVASTATIN CA 10 MG TABLET (FP) ONE (21:55)
[2017-01-30] MEDS: ROSUVASTATIN CA 20 MG TABLET (FP) PO SCH (22:11)
[2017-01-31] MEDS: DOCUSATE SODIUM 100 MG CAPSULE (FP) PO SCH (06:35)
[2017-01-31] MEDS: INSULIN SLIDING SCALE (NOVOLOG) 1 VIAL SQ SCH ×2 (06:35→11:24)
[2017-01-31 08:35] LABS: BASOPHIL 0.5 % (0-2.0); EOSINOPHIL 2.8 % (0-4.5); MCHC 33.5 g/dl (32.0-35.9); MEAN CELL VOLUME 86.7 fl (80-96); MEAN PLT VOLUME 9.1 fl (7.5-11.1); NEUTROPHILS 51.9 % (42.8-82.8); PLATELET COUNT 234 K/MM3 (134-434); RDW 15.1 % (11.9-15.9); WHITE BLOOD COUNT 8.1 K/mm3 (4.0-10.0)
--- NOTE | 2017-01-31 08:49 | PN ---
Physical Exam: SUBJECTIVE: Patient seen and examined Lying comfortably in bed Denies chest pain, sob, dizziness, nausea, vomiting. Denies swelling in leg. Got IV iron yesterday. Tolerating diet. OBJECTIVE: Vital Signs Period Temp Pulse Resp BP Sys/Bo Pulse Ox Last 24 Hr 97.6 F-98.7 F 61-68 18-20 150-159/51-64 98-98 GENERAL: The patient is awake, alert, and fully oriented, ENT:moist mucous membranes. NECK: Trachea midline, full range of motion, supple. LUNGS: Breath sounds equal, clear to auscultation bilaterally, no wheezes, no crackles, no accessory muscle use. HEART: s1s2 normal, regular, no murmur ABDOMEN: Soft, nontender, nondistended, normoactive bowel sounds, no guarding, no rebound, EXTREMITIES: warm, no edema. PSYCH: Normal mood, normal affect. SKIN: Warm, dry, Laboratory Results - last 24 hr 01/29/17 01/30/17 01/30/17 19:00 08:40 08:40 WBC 6.8 RBC 3.04 L D Hgb 8.7 L D Hct 26.3 L D MCV 86.3 MCH 28.6 MCHC 33.2 RDW 14.6 Plt Count 185 MPV 8.9 Neutrophils % 50.3 Lymphocytes % 29.0 D Monocytes % 16.4 H Eosinophils % 3.7 Basophils % 0.6 Haptoglobin 294 H Sodium 140 Potassium 5.3 H Chloride 112 H Carbon Dioxide 20 L Anion Gap 8 BUN 28 H Creatinine 2.8 H Creat Clearance w eGFR 22.08 POC Glucometer Random Glucose 161 H Calcium 8.1 L Phosphorus 4.5 D Magnesium 2.3 D Total Bilirubin 1.0 D AST 83 H ALT 57 Alkaline Phosphatase 89 Total Protein 5.3 L Albumin 2.3 L Urine Protein U Random Total Protein Ur Random Sodium Ur Random Potassium Ur Random Chloride Urine Creatinine Protein/Creatinin Ratio 01/30/17 01/30/17 01/30/17 10:50 10:50 10:50 WBC RBC Hgb Hct MCV MCH MCHC RDW Plt Count MPV Neutrophils % Lymphocytes % Monocytes % Eosinophils % Basophils % Haptoglobin Sodium Potassium Chloride Carbon Dioxide Anion Gap BUN Creatinine Creat Clearance w eGFR POC Glucometer Random Glucose Calcium Phosphorus Magnesium Total Bilirubin AST ALT Alkaline Phosphatase Total Protein Albumin Urine Protein 232 U Random Total Protein Cancelled 232 H Ur Random Sodium Cancelled 81 Ur Random Potassium Cancelled 16.3 Ur Random Chloride Cancelled 83 Urine Creatinine Cancelled 30.9 Protein/Creatinin Ratio Cancelled 01/30/17 01/30/17 01/30/17 11:42 16:49 22:10 WBC RBC Hgb Hct MCV MCH MCHC RDW Plt Count MPV Neutrophils % Lymphocytes % Monocytes % Eosinophils % Basophils % Haptoglobin Sodium Potassium Chloride Carbon Dioxide Anion Gap BUN Creatinine Creat Clearance w eGFR POC Glucometer 148 195 177 Random Glucose Calcium Phosphorus Magnesium Total Bilirubin AST ALT Alkaline Phosphatase Total Protein Albumin Urine Protein U Random Total Protein Ur Random Sodium Ur Random Potassium Ur Random Chloride Urine Creatinine Protein/Creatinin Ratio 01/31/17 06:34 WBC RBC Hgb Hct MCV MCH MCHC RDW Plt Count MPV Neutrophils % Lymphocytes % Monocytes % Eosinophils % Basophils % Haptoglobin Sodium Potassium Chloride Carbon Dioxide Anion Gap BUN Creatinine Creat Clearance w eGFR POC Glucometer 133 Random Glucose Calcium Phosphorus Magnesium Total Bilirubin AST ALT Alkaline Phosphatase Total Protein Albumin Urine Protein U Random Total Protein Ur Random Sodium Ur Random Potassium Ur Random Chloride Urine Creatinine Protein/Creatinin Ratio Active Medications Generic Name Dose Route Start Last Admin Trade Name Freq PRN Reason Stop Dose Admin Acetaminophen 650 mg 01/29/17 12:48 Tylenol - PO Q4H PRN FEVER OR PAIN Cholecalciferol 2,000 unit 01/30/17 10:00 01/30/17 10:59 Vitamin D3 - PO 2,000 unit DAILY ROB Administration Cyanocobalamin 1,000 mcg 01/30/17 10:00 01/30/17 10:59 Vitamin B12 - PO 1,000 mcg DAILY [facility] Administration Docusate Sodium 100 mg 01/29/17 14:00 01/31/17 06:35 Colace - PO 100 mg TID ROB Administration Ferrous Sulfate 325 mg 01/30/17 10:00 01/30/17 10:58 Feosol - PO 325 mg DAILY [facility] Administration Hydralazine HCl 25 mg 01/29/17 22:00 01/30/17 22:11 Apresoline - PO 25 mg BID ROB Administration Insulin Aspart 1 vial 01/29/17 16:30 01/31/17 06:35 Novolog Vial Sliding Scale - SQ Not Given ACHS [facility] Protocol Metoprolol Succinate 100 mg 01/30/17 10:00 01/30/17 10:59 Toprol Xl - PO 100 mg DAILY ROB Administration Rosuvastatin Calcium 20 mg 01/29/17 22:00 01/30/17 22:11 Crestor - PO 20 mg HS ROB Administration Sodium Bicarbonate 650 mg 01/29/17 22:00 01/30/17 22:11 Sodium Bicarbonate - PO 650 mg BID ROB Administration ASSESSMENT/PLAN: 76 year old Gentleman with PMhx of SAMANTHA / progressive CKD (likely diabetic nephropathy, no Bx done), DM Type 2 (was on insulin, now off), Hx of failed graft placement x 2 at [facility] who presents with abnormal outpatient labs and found to have Hgb of 4.5 with BUN/Cr of 28/3.1 and K of 5.2. (1) Acute kidney injury on CKD. (2) Anemia (3) CKD (chronic kidney disease) (4) Diabetes (5) Hyperkalemia (6) metabolic acidosis (7)h/o Failed graft placement x2 in [facility] (8) HTN Plan Hgb 9.7 s/p 4 unit BT. Patient reports colonscopy from last year was normal. Got IV iron yesterday. Need to repeat iron studies after two week as an outpatient Metabolic acidosis could be due to CKD. Continue with Sodium bicarb. Goal >22 Potassium decreased to 4.4. Creatinine stable at 2.7 Labs pending. Corrected ca 9.45 Monitor vitals. Monitor intake output. Avoid nephrotoxic drugs. Visit type - Emergency Visit Emergency Visit: Yes ED Registration Date: 01/29/17 Care time: The patient presented to the Emergency Department on the above date and was hospitalized for further evaluation of their emergent condition. - New Patient This patient is new to me today: No - Critical Care Critical Care patient: No
[2017-01-31 08:58] LABS: ALBUMIN 2.5 g/dl (3.4-5.0); ANION GAP 9 (8-16); CALCIUM 8.1 mg/dL (8.5-10.1); CO2 20 mmol/L (21-32); GLUCOSE,RANDOM 141 mg/dL (74-106); MAGNESIUM 2.2 mg/dL (1.8-2.4); PHOSPHOROUS 3.7 mg/dL (2.5-4.9); SGOT/AST 63 U/L (15-37)
[2017-01-31 09:00] LABS: ALK PHOS 103 U/L (45-117); BILIRUBIN,TOTAL 0.8 mg/dL (0.2-1.0); CREATININE 2.7 mg/dL (0.7-1.3); SGPT/ALT 56 U/L (12-78)
[2017-01-31 10:21] VITALS: TEMP 98.3
[2017-01-31 10:30] VITALS: PULSE 69
--- NOTE | 2017-01-31 10:53 | PN ---
Progress Note (short form) - Note Progress Note: Subjective: The patient was seen at the bedside, he has no complaints at this time. Current Medications Generic Name Dose Route Start Last Admin Trade Name Derek PRN Reason Stop Dose Admin Acetaminophen 650 mg 01/29/17 12:48 Tylenol - PO Q4H PRN FEVER OR PAIN Cholecalciferol 2,000 unit 01/30/17 10:00 01/30/17 10:59 Vitamin D3 - PO 2,000 unit DAILY ROB Administration Cyanocobalamin 1,000 mcg 01/30/17 10:00 01/30/17 10:59 Vitamin B12 - PO 1,000 mcg DAILY ROB Administration Docusate Sodium 100 mg 01/29/17 14:00 01/31/17 06:35 Colace - PO 100 mg TID ROB Administration Epoetin Aakash 20,000 units 01/31/17 10:32 Epogen - SQ 01/31/17 10:33 ONCE ONE Ferrous Sulfate 325 mg 01/30/17 10:00 01/30/17 10:58 Feosol - PO 325 mg DAILY ROB Administration Hydralazine HCl 25 mg 01/29/17 22:00 01/30/17 22:11 Apresoline - PO 25 mg BID ROB Administration Insulin Aspart 1 vial 01/29/17 16:30 01/31/17 06:35 Novolog Vial Sliding Scale - SQ Not Given ACHS [facility] Protocol Metoprolol Succinate 100 mg 01/30/17 10:00 01/30/17 10:59 Toprol Xl - PO 100 mg DAILY ROB Administration Rosuvastatin Calcium 20 mg 01/29/17 22:00 01/30/17 22:11 Crestor - PO 20 mg HS ROB Administration Sodium Bicarbonate 650 mg 01/29/17 22:00 01/30/17 22:11 Sodium Bicarbonate - PO 650 mg BID ROB Administration Objective: Vital Signs Period Temp Pulse Resp BP Sys/Bo Pulse Ox Last 24 Hr 97.6 F-98.7 F 61-69 18-20 156-159/52-64 98-98 Physical Exam: General: NAD, A&Ox3 Lungs: CTA bilaterally Heart: RRR, S1S2 Abd: Soft, non-tender, non-distended. Normoactive bowel sounds Ext: Warm, well-perfused. 2+ DP/PT bilaterally Neuro: CN 2-12 intact CBCD WBC 8.1 K/mm3 (4.0-10.0) 01/31/17 07:30 RBC 3.35 M/mm3 (4.00-5.60) L 01/31/17 07:30 Hgb 9.7 GM/dL (11.7-16.9) L D 01/31/17 07:30 Hct 29.0 % (35.4-49) L 01/31/17 07:30 MCV 86.7 fl (80-96) 01/31/17 07:30 MCHC 33.5 g/dl (32.0-35.9) 01/31/17 07:30 RDW 15.1 % (11.9-15.9) 01/31/17 07:30 Plt Count 234 K/MM3 (134-434) D 01/31/17 07:30 MPV 9.1 fl (7.5-11.1) 01/31/17 07:30 CMP Sodium 141 mmol/L (136-145) 01/31/17 07:30 Potassium 4.4 mmol/L (3.5-5.1) 01/31/17 07:30 Chloride 112 mmol/L (98-107) H 01/31/17 07:30 Carbon Dioxide 20 mmol/L (21-32) L 01/31/17 07:30 Anion Gap 9 (8-16) 01/31/17 07:30 BUN 27 mg/dL (7-18) H 01/31/17 07:30 Creatinine 2.7 mg/dL (0.7-1.3) H 01/31/17 07:30 Creat Clearance w eGFR 23.03 (>60) 01/31/17 07:30 Random Glucose 141 mg/dL (74-106) H 01/31/17 07:30 Calcium 8.1 mg/dL (8.5-10.1) L 01/31/17 07:30 Total Bilirubin 0.8 mg/dL (0.2-1.0) 01/31/17 07:30 AST 63 U/L (15-37) H D 01/31/17 07:30 ALT 56 U/L (12-78) 01/31/17 07:30 Alkaline Phosphatase 103 U/L (45-117) 01/31/17 07:30 Total Protein 6.0 g/dl (6.4-8.2) L 01/31/17 07:30 Albumin 2.5 g/dl (3.4-5.0) L 01/31/17 07:30 CARDIAC ENZYMES Creatine Kinase 3626 IU/L (39-308) H 01/29/17 19:00 Troponin I 0.07 ng/ml (0.00-0.05) H 01/29/17 19:00 Assessment: This is a 76 year old male with PMHx of DM, neuropathy, osteomyelitis of the left hand, HTN, CKD stage 4, anemia, who presented to the ED with fatigue and generalized weakness with dyspnea on exertion and was found to have a Hgb of 4.5. Plan: 1) Hematology: Severe symptomatic anemia - S/p 4u PRBC - Hgb 9.7 today. Keep Hgb >8 - Patient reports normal colonoscopy last year - Iron panel reviewed - Continue ferrous sulfate - No evidence of active bleeding, stool for occult blood negative - Received Venofer yesterday - Epogen today 2) : SAMANTHA on CKD - Cr improving - Kidney ultrasound with slightly hyperechoic kidneys suggesting medical renal disease. No evidence of hydronephrosis or acute renal pathology - Continue sodium bicard for metabolic acidosis. Bicarb 20 today Elevated CK levels - Continue to trend 3) Endocrine: DM - BGM ACHS - ISS ACHS - HgbA1c pending 4) F/E/N: - Monitor electrolytes - Hyperkalemia: monitor - Renal, diabetic diet 5) Prophylaxis: - Hold all chemica DVT prophylaxis 2/2 severe anemia - SCDs bilaterally - OOB ambulating 6) Dispo: - Requires continued inpatient care - May be discharged if CK wnl CODE STATUS: FULL CODE Visit type - Emergency Visit Emergency Visit: Yes ED Registration Date: 01/29/17 Care time: The patient presented to the Emergency Department on the above date and was hospitalized for further evaluation of their emergent condition. - New Patient This patient is new to me today: No - Critical Care Critical Care patient: No
[2017-01-31] MEDS: CYANOCOBALAMIN 1,000 MCG TABLET (FP) PO SCH (11:05)
[2017-01-31] MEDS: hydrALAZINE HCL 25 MG TABLET (FP) PO SCH (11:05)
[2017-01-31] MEDS: SODIUM BICARBONATE 650 MG TABLET PO SCH (11:05)
[2017-01-31] MEDS: METOPROLOL SUCCINATE 50 MG TAB.SR.24H (FP) PO SCH (11:05)
[2017-01-31] MEDS: FERROUS SO4 325 MG TABLET (FP) PO SCH (11:06)
[2017-01-31] MEDS: CHOLECALCIFEROL (VITAMIN D3) 1,000 UNIT TABLET (FP) PO SCH (11:06)
[2017-01-31 11:11] VITALS: BP 130/60
[2017-01-31] MEDS ORDERED: EPOETIN ALFA 20,000 UNIT/1 ML VIAL SQ ONE (12:15)
[2017-01-31 12:37] LABS: CPK 1873 IU/L (39-308)
--- NOTE | 2017-01-31 13:14 | DS ---
Physical Examination Vital Signs: Vital Signs Temperature 98.3 F 01/31/17 10:00 Pulse Rate 69 01/31/17 10:00 Respiratory Rate 20 01/31/17 10:00 Blood Pressure 130/60 01/31/17 11:11 O2 Sat by Pulse Oximetry (%) 98 01/31/17 09:00 Labs: CBC, BMP 01/31/17 07:30 01/31/17 07:30 Discharge Summary Reason For Visit: ANEMIA Current Active Problems Acute renal failure (Acute) Anemia (Acute) Avulsed fingernail (Acute) CKD (chronic kidney disease) (Acute) DVT prophylaxis (Acute) Diabetes (Acute) Diabetic neuropathy (Acute) Diarrhea (Acute) Elevated CPK (Acute) Finger osteomyelitis, left (Acute) GERD (gastroesophageal reflux disease) (Acute) Hyperkalemia (Acute) Hyperlipidemia (Acute) Osteomyelitis of finger (Acute) Previous back surgery (Acute) Hospital Course: Discussed with Dr. Gloria, CPK reviewed, recommending discharge with close follow -up and instructions to drink plenty of water. Condition: Improved - Instructions Diet, Activity, Other Instructions: Please return to the ED with new, persistent, or worsening symptoms. Please follow-up with providers as indicated. Continue to drink plenty of water and follow-up in 1 week with your primary care provider to have your creatinine phospokinase checked. Referrals: Jayshree Soto MD [Primary Care Provider] - (Please follow-up with your pcp within 1 week for further management of your blood pressure and diabetes) Slava Gloria MD [Staff Physician] - (Please follow-up with nephrology (Dr. Gloria) within 1 week for further management of your anemia and chronic kidney disease. ) Disposition: HOME - Home Medications Comprehensive Discharge Medication List: Ambulatory Orders Metoprolol Succinate [Toprol XL -] 100 mg PO DAILY 02/12/16 Ferrous Sulfate 325 mg PO DAILY 02/14/16 Cyanocobalamin [Vitamin B12 -] 1,000 mcg PO DAILY tablet 02/24/16 Cholecalciferol (Vitamin D3) [Vitamin D -] 2,000 unit PO DAILY 01/29/17 Hydralazine HCl [Apresoline -] 25 mg PO BID 01/29/17 Docusate Sodium [Colace -] 100 mg PO TID #90 cap 01/31/17 Rosuvastatin [Crestor -] 20 mg PO HS tablet 01/31/17 Sitagliptin Phosphate [Januvia] 25 mg PO DAILY #30 tablet 01/31/17 Sodium Bicarbonate - 650 mg PO BID #60 tablet 01/31/17
--- NOTE | 2017-01-31 13:47 | PN ---
Progress Note (short form) - Note Progress Note: Renal follow up for CKD Pt seen and examined at the bedside no complaints for discharge home Vital Signs Temperature 98.3 F 01/31/17 10:00 Pulse Rate 69 01/31/17 10:00 Respiratory Rate 20 01/31/17 10:00 Blood Pressure 130/60 01/31/17 11:11 O2 Sat by Pulse Oximetry (%) 98 01/31/17 09:00 Gen: NAD, awake and alert CVS: RRR, No M/R Lungs: CTA Abd: soft NT/ND Ext: no edema CBC, BMP 01/31/17 07:30 01/31/17 07:30 Current Medications Acetaminophen (Tylenol -) 650 mg PO Q4H PRN PRN Reason: FEVER OR PAIN Cholecalciferol (Vitamin D3 -) 2,000 unit PO DAILY [facility] Last Admin: 01/31/17 11:06 Dose: 2,000 unit Cyanocobalamin (Vitamin B12 -) 1,000 mcg PO DAILY [facility] Last Admin: 01/31/17 11:05 Dose: 1,000 mcg Docusate Sodium (Colace -) 100 mg PO TID [facility] Last Admin: 01/31/17 06:35 Dose: 100 mg Ferrous Sulfate (Feosol -) 325 mg PO DAILY [facility] Last Admin: 01/31/17 11:06 Dose: 325 mg Hydralazine HCl (Apresoline -) 25 mg PO BID [facility] Last Admin: 01/31/17 11:05 Dose: 25 mg Insulin Aspart (Novolog Vial Sliding Scale -) 1 vial SQ ACHS [facility] PRN Reason: Protocol Last Admin: 01/31/17 11:24 Dose: 2 units Metoprolol Succinate (Toprol Xl -) 100 mg PO DAILY [facility] Last Admin: 01/31/17 11:05 Dose: 100 mg Rosuvastatin Calcium (Crestor -) 20 mg PO HS [facility] Last Admin: 01/30/17 22:11 Dose: 20 mg Sodium Bicarbonate (Sodium Bicarbonate -) 650 mg PO BID [facility] Last Admin: 01/31/17 11:05 Dose: 650 mg A/P 76 year old Gentleman with PMhx of SAMANTHA / progressive CKD (likely diabetic nephropathy, no Bx done), DM Type 2 (was on insulin, now off), Hx of failed graft placement x 2 at [facility] who presents with abnormal outpatient labs and found to have Hgb of 4.5 with BUN/Cr of 28/3.1 and K of 5.2. #Acute Kidney Injury vs. Progressive CKD Renal function stable would maintain off ARB for now low potassium diet #Acute Anemia with normal stool occult blood s/p Transfusion, IV iron and JOSE DAVID will trend as outpatient #Hyperkalmeia in setting of SAMANTHA/CKD and ARB hold ARB for now low k diet #Metabolic acidosis continue oral sodium bicarb #Elevated CK levels improving encourage oral hydration to follow up in the office as outpatient Slava Gloria DO Problem List - Problems (1) Acute renal failure Code(s): N17.9 - ACUTE KIDNEY FAILURE, UNSPECIFIED (2) Anemia Code(s): D64.9 - ANEMIA, UNSPECIFIED Qualifiers: Anemia type: due to chronic kidney disease Chronic kidney disease stage : stage 4 (severe) Qualified Code(s): N18.4 - Chronic kidney disease, stage 4 (severe); D63.1 - Anemia in chronic kidney disease (3) CKD (chronic kidney disease) Code(s): N18.9 - CHRONIC KIDNEY DISEASE, UNSPECIFIED (4) Diabetes Code(s): E11.9 - TYPE 2 DIABETES MELLITUS WITHOUT COMPLICATIONS
== END 2017-01-31 14:01 | disposition home or self-care (01) | DRG 683 ==
LOC: JER 10:31 → JERBED 12:35 → J6S 18:05
PROVIDERS: ADMIT Internal Medicine; ATTEND Registered Nurse
PROC: 30233N1 Transfusion of Nonautologous Red Blood Cells into Peripheral Vein, Percutaneous Approach (ICD-10-PCS; principal; 2017-01-29)
DX: I12.9 Hypertensive chronic kidney disease with stage 1 through stage 4 chronic kidney disease, or unspecified chronic kidney disease (principal); N17.9 Acute kidney failure, unspecified; E87.2 Acidosis; N18.4 Chronic kidney disease, stage 4 (severe); E87.5 Hyperkalemia; E11.22 Type 2 diabetes mellitus with diabetic chronic kidney disease; D63.1 Anemia in chronic kidney disease
CPT/HCPCS: 36415; 36430; 71010-TC; 76775-TC; 76856-TC; 80048; 80053; 82272; 82436; 82553; 82570; 82607; 83010; 83036; 83540; 83550; 83615; 83735; 84100; 84133; 84156; 84300; 84484; 85025; 85610; 86850; 86900; 86901; 86922; 87081; 93005; 93010; 99285-25; J0885; J1756; P9021; P9038; P9058

== ENCOUNTER 2019-01-27 16:01 | Inpatient (IN) | payer OTHER ==
--- NOTE | 2019-01-27 17:20 | PDOC ---
Documentation entered by Dolores Kee SCRIBE, acting as scribe for Laura Sher MD. Laura Sher MD: This documentation has been prepared by the Vidhya tang Xhesika, SCRIBE, under my direction and personally reviewed by me in its entirety. I confirm that the documentation accurately reflects all work, treatment, procedures, and medical decision making performed by me. History of Present Illness - General Chief Complaint: Shortness of Breath Stated Complaint: SOB Time Seen by Provider: 01/27/19 16:43 History Source: Patient Exam Limitations: No Limitations - History of Present Illness Initial Comments: 01/27/19 17:02 The patient is a 78 year old male with a significant PMH of CKD, DM, HLD, HTN, CHF, CAD s/p angioplasty, and chronic anemia who presents to the emergency department with "many weeks" of progressive difficulty breathing, generalized weakness and lightheadedness. He reports feeling SOB with minimal exertion across the room. Patient states he had a scheduled appointment with Dr. Guerra this AM, the patient was noted to be hypotensive (98/50) and pale appearing and was advised to come to the ED for further evaluation. Pt notes he endorses poor appetite and he lost 29 pounds in the last couple weeks (went from 219 to 190). Patient notes he had a similar episode years back and was told he has anemia. The patient denies any recent travels, chest pain, headache and focal weakness/ dizziness. Denies fever, chills, cough, nausea, vomiting, diarrhea and constipation. Denies dysuria, frequency, urgency and hematuria. Allergies: NKDA PCP: Jayshree Pardo Past History - Past Medical History Allergies/Adverse Reactions: Allergies Allergy/AdvReac Type Severity Reaction Status Date / Time No Known Allergies Allergy Verified 01/27/19 18:42 Home Medications: Ambulatory Orders Metoprolol Succinate [Toprol XL -] 100 mg PO DAILY 02/12/16 Ferrous Sulfate 325 mg PO DAILY 02/14/16 Cholecalciferol (Vitamin D3) [Vitamin D -] 2,000 unit PO DAILY 01/29/17 hydrALAZINE HCL [Apresoline -] 25 mg PO BID 01/29/17 Docusate Sodium [Colace -] 100 mg PO TID #90 cap 01/31/17 Sitagliptin Phosphate [Januvia] 25 mg PO DAILY #30 tablet 01/31/17 Aspirin [ASA -] 81 mg PO DAILY 01/27/19 Cyanocobalamin [Vitamin B12 -] 1,000 mcg PO DAILY 01/27/19 Fluticasone Prop 0.05% Nasal [Flonase -] 1 - 2 spray NS DAILY 01/27/19 Furosemide [Lasix] 20 mg PO DAILY 01/27/19 Gabapentin [Neurontin -] 100 mg PO HS 01/27/19 Insulin Glargine,Hum.rec.anlog [Lantus] 8 unit SQ HS 01/27/19 Losartan Potassium 100 mg PO DAILY 01/27/19 Rosuvastatin Calcium [Crestor] 20 mg PO DAILY 01/27/19 Anemia: No Asthma: No Cancer: No Cardiac Disorders: No CVA: No COPD: No CHF: No Dementia: No Diabetes: Yes GI Disorders: Yes (GERD) Disorders: No HTN: Yes Hypercholesterolemia: Yes Liver Disease: No Seizures: No Thyroid Disease: No - Surgical History Abdominal Surgery: No Appendectomy: No Cardiac Surgery: No Cholecystectomy: No Lung Surgery: No Neurologic Surgery: Yes (back sx) Orthopedic Surgery: No - Family Disease History Family Disease History: Diabetes: Mother, Heart Disease: Father - Immunization History Immunization Up to Date: Yes - Suicide/Smoking/Psychosocial Hx Smoking History: Never smoked Have you smoked in the past 12 months: No Number of Cigarettes Smoked Daily: 10 Hx Alcohol Use: No Drug/Substance Use Hx: No Substance Use Type: None Hx Substance Use Treatment: No Review of Systems - Review of Systems Able to Perform ROS?: Yes Comments:: 01/27/19 17:03 GENERAL/CONSTITUTIONAL: No fever or chills. (+) generalized weakness. HEAD, EYES, EARS, NOSE AND THROAT: No change in vision. No ear pain or discharge. No sore throat. GASTROINTESTINAL: No nausea, vomiting, diarrhea or constipation. GENITOURINARY: No dysuria, frequency, or change in urination. CARDIOVASCULAR: No chest pain. (+) shortness of breath. RESPIRATORY: No cough, wheezing, or hemoptysis. MUSCULOSKELETAL: No joint or muscle swelling or pain. No neck or back pain. SKIN: No rash NEUROLOGIC: (+) lightheaded. No headache, vertigo, loss of consciousness, or change in strength/sensation. ENDOCRINE: No increased thirst. No abnormal weight change. HEMATOLOGIC/LYMPHATIC: No anemia, easy bleeding, or history of blood clots. ALLERGIC/IMMUNOLOGIC: No hives or skin allergy. *Physical Exam - Physical Exam Comments: 01/27/19 17:04 GENERAL: Awake, alert, and fully oriented, in no acute distress. Pale. EYES: PERRLA, EOMI, sclera anicteric, conjunctiva clear ENT: Nares patent, oropharynx clear without exudates. Moist mucosa NECK: Normal ROM, supple, no lymphadenopathy, JVD, or masses LUNGS: Breath sounds equal, clear to auscultation bilaterally. No wheezes, and no crackles HEART: Regular rate and rhythm, normal S1 and S2, no murmurs, rubs or gallops ABDOMEN: Soft, nontender, normoactive bowel sounds. No guarding, no rebound. No masses : brown stool, non bloody. Rectal temp 98.3 EXTREMITIES: Normal range of motion, no edema. No clubbing or cyanosis. No cords , erythema, or tenderness BACK: No midline spinal tenderness in cervical/thoracic/lumbar region NEUROLOGICAL: Normal speech, cranial nerves intact,5/5 strength in all 4 extremities, normal sensation to light touch in all 4 extremities, normal cerebellar exam, normal gait, normal reflexes and tone SKIN: L lateral proximal wood with healing 1x1cm wound. Minimal surrounding erythema, no induration or discharge. Otherwise, warm, Dry, normal turgor, no rashes or lesions noted. Heart Score/ECG Review #1 01/27/19 17:18 EKG read and interpreted by me: NSR, rate 76. Wavy baseline but no VILMA ED Treatment Course - LABORATORY CBC & Chemistry Diagram: 01/27/19 17:15 01/27/19 17:15 - ADDITIONAL ORDERS Additional order review: Laboratory Results 01/27/19 16:30 POC Glucometer 190 01/27/19 16:30 POC Glucometer 190 - RADIOLOGY Radiology Studies Ordered: Category Date Time Status CHEST X-RAY PORTABLE* [RAD] Stat Radiology 01/27/19 16:56 Ordered Medical Decision Making - Medical Decision Making 01/27/19 17:18 78yo M with MMP including CKD, CAD, DM presents to the ED with several weeks of paleness, SOB, weakness. Vitals with improved BP compared to hypotension at clinic Rectal temp afebrile Likely anemia 2/2 CKD but will do broad metabolic, infectious, ischemic w/u Anticipate admission CBC,CMP WBC 6.1 K/mm3 (4.0-10.0) 01/27/19 17:15 RBC 2.24 M/mm3 (4.00-5.60) L 01/27/19 17:15 Hgb 6.8 GM/dL (11.7-16.9) L* 01/27/19 17:15 Hct 20.7 % (35.4-49) L D 01/27/19 17:15 MCV 92.3 fl (80-96) 01/27/19 17:15 MCH 30.3 pg (25.7-33.7) 01/27/19 17:15 MCHC 32.9 g/dl (32.0-35.9) 01/27/19 17:15 RDW 14.9 % (11.9-15.9) 01/27/19 17:15 Plt Count 199 K/MM3 (134-434) 01/27/19 17:15 MPV 8.3 fl (7.5-11.1) 01/27/19 17:15 Absolute Neuts (auto) 4.2 K/mm3 (1.5-8.0) 01/27/19 17:15 Neutrophils % 68.2 % (42.8-82.8) D 01/27/19 17:15 Lymphocytes % 15.9 % (8-40) D 01/27/19 17:15 Monocytes % 13.3 % (3.8-10.2) H 01/27/19 17:15 Eosinophils % 1.9 % (0-4.5) 01/27/19 17:15 Basophils % 0.7 % (0-2.0) 01/27/19 17:15 Nucleated RBC % 0 % (0-0) 01/27/19 17:15 Sodium 143 mmol/L (136-145) 01/27/19 17:15 Potassium 5.6 mmol/L (3.5-5.1) H 01/27/19 17:15 Chloride 118 mmol/L (98-107) H 01/27/19 17:15 Carbon Dioxide 17 mmol/L (21-32) L 01/27/19 17:15 Anion Gap 8 MMOL/L (8-16) 01/27/19 17:15 BUN 52.8 mg/dL (7-18) H 01/27/19 17:15 Creatinine 6.9 mg/dL (0.55-1.3) H 01/27/19 17:15 Est GFR (CKD-EPI)AfAm 7.99 01/27/19 17:15 Est GFR (CKD-EPI)NonAf 6.90 01/27/19 17:15 POC Glucometer 103 UNITS (80-120) 01/27/19 20:27 Random Glucose 151 mg/dL (74-106) H 01/27/19 17:15 Calcium 7.7 mg/dL (8.5-10.1) L 01/27/19 17:15 Magnesium 2.3 mg/dL (1.8-2.4) 01/27/19 17:15 Total Bilirubin 0.2 mg/dL (0.2-1) 01/27/19 17:15 AST 12 U/L (15-37) L 01/27/19 17:15 ALT 11 U/L (13-61) L 01/27/19 17:15 Alkaline Phosphatase 107 U/L (45-117) 01/27/19 17:15 Troponin I 0.05 ng/ml (0.00-0.05) 01/27/19 17:15 Total Protein 5.5 g/dl (6.4-8.2) L 01/27/19 17:15 Albumin 2.4 g/dl (3.4-5.0) L 01/27/19 17:15 TSH 1.04 uIU/ml (0.358-3.74) 01/27/19 17:15 01/27/19 20:02 Hgb 6.8 -> Pt ordered for 1 unit PRBC Consented, risks/benefits discussed Labs also with elevated creatinine, hyperK to 5.6 EKG with no peak t wives, normal QRS/p waves Treated with bicarb, d50, insulin, lasix Case discussed with Dr. Morse, pt accepted for admission to Dr. Boone's service Case discussed in detail with admitting physician including history, physical exam and ancillary studies. Admitting physician has assumed care for the patient, will follow all pending diagnostics and will complete the evaluation and treatment. *DC/Admit/Observation/Transfer Diagnosis at time of Disposition: Renal failure, Anemia requiring transfusions - Discharge Dispostion Condition at time of disposition: Stable Decision to Admit order Date/Time: Decision to Admit Order Category Date Time Status Decision to Admit to Hospital Routine Admission 01/27/19 16:56 Active - Referrals - Patient Instructions - Post Discharge Activity - Attestations Physician Attestion: 01/27/19 22:26 I, Dr. Laura Sher MD, attest that this document has been prepared under my direction and personally reviewed by me in its entirety. I further attest, that it accurately reflects all work, treatment, procedures and medical decision -making performed by me.
[2019-01-27 18:20] LABS: BASO % 0.7 % (0-2.0); EOS % 1.9 % (0-4.5); LYMPH % 15.9 % (8-40); MCH 30.3 pg (25.7-33.7); MCHC 32.9 g/dl (32.0-35.9); MEAN CELL VOLUME 92.3 fl (80-96); MEAN PLT VOLUME 8.3 fl (7.5-11.1); MONO % 13.3 % (3.8-10.2); NEUT % 68.2 % (42.8-82.8); PLATELET COUNT 199 K/MM3 (134-434); RBC 2.24 M/mm3 (4.00-5.60); RDW 14.9 % (11.9-15.9); WHITE BLOOD COUNT 6.1 K/mm3 (4.0-10.0)
[2019-01-27 18:31] LABS: HEMATOCRIT 20.7 % (35.4-49); HEMOGLOBIN 6.8 GM/dL (11.7-16.9)
[2019-01-27 18:43] LABS: INR 0.95 (0.83-1.09); PROTHROMBIN TIME (PATIENT) 11.2 SEC (9.7-13.0)
[2019-01-27 19:01] LABS: ALBUMIN 2.4 g/dl (3.4-5.0); BILIRUBIN,TOTAL 0.2 mg/dL (0.2-1); BLOOD UREA NITROGEN 52.8 mg/dL (7-18); CALCIUM 7.7 mg/dL (8.5-10.1); CREATININE 6.9 mg/dL (0.55-1.3); POTASSIUM 5.6 mmol/L (3.5-5.1); TOT PROT 5.5 g/dl (6.4-8.2)
[2019-01-27 19:08] LABS: EPI CELLS 2.5 /HPF (0-5/HPF); HYALINE CASTS 7 /lpf (0-8); URINE APPEARANCE CLEAR; URINE BACTERIA 3.5 /hpf (NEGATIVE); URINE BILIRUBIN NEGATIVE (NEGATIVE); URINE COLOR YELLOW; URINE GLUCOSE (UA) 1+ (NEGATIVE); URINE KETONE NEGATIVE (NEGATIVE); URINE LEUK ESTERASE NEGATIVE (NEGATIVE); URINE NITRITE NEGATIVE (NEGATIVE); URINE PROTEIN 4+ (NEGATIVE); URINE RBC 0 /hpf (0-4); URINE UROBILINOGEN 0.2 mg/dL (0.2-1.0); URINE WBC 0 /hpf (0-5)
[2019-01-27] MEDS ORDERED: SODIUM BICARBONATE 8.4% 50 MEQ/50 ML DISP.SYRIN IVPUSH ONE (19:48)
[2019-01-27] MEDS ORDERED: INSULIN REGULAR HUMAN 100 UNITS/ML *VIAL IVPUSH ONE (19:49)
[2019-01-27] MEDS ORDERED: DEXTROSE 50%-WATER - 25 GM/50 ML VIAL IVPUSH ONE (19:49)
[2019-01-27] MEDS ORDERED: SODIUM BICARBONATE 8.4% 50 MEQ/50 ML VIAL ONE (20:15)
[2019-01-27] MEDS ORDERED: FUROSEMIDE 40 MG/4 ML INJECTABLE VIAL ONE (20:15)
[2019-01-27] MEDS ORDERED: DEXTROSE 50%-WATER - 25 GM/50 ML VIAL ONE (20:16)
[2019-01-27] MEDS ORDERED: PANTOPRAZOLE SODIUM 40 MG VIAL IVPUSH ONE (20:29)
[2019-01-27] MEDS: FUROSEMIDE 40 MG/4 ML INJECTABLE VIAL IVPUSH ONE (20:30)
--- NOTE | 2019-01-27 22:17 | HP ---
CHIEF COMPLAINT: sob, decreased appetite, weight loss recent, weakness PCP: Dr. Guerra, HISTORY OF PRESENT ILLNESS: 78 y/o M, pmh of DM type 2, HLD, CKD, left hearing loss, presents to the ED from his doctor's office, Dr. Guerra, s/p hypotension (98/50) and sob. Pt reports sob, weakness, dizziness and recent weight loss of several weeks duration that has since worsened. Pt says that he has dysnea on exertion that improves with rest. He gives hx of multiple night time awakenings due to sob. 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 In the ED he was found with anemia of 6.8 hg and blood transfusion was started. He has had similar episodes in the past requiring blood transfusions, 3 at [facility] and 2 at [facility] as per family. Pt also reports middle digit infection treated w/ abx and amputation at [place] a few years ago. Pt was also supposed to begin dialysis for CKD via right arm fistula, however, fistula did not mature and patient declined any further tests or procedures, therefore denying dialysis. Currently pt appears asymptomatic and stable. Denies f/c/n/v/d, chest pain, LOC, headaches, changes in vision. ROS is negative. ER course was notable for: (1) pRBC transfused (2) Fluids given- BP stable (3) CXR-pending Recent Travel: denies PAST MEDICAL HISTORY: CKD, DM, HLD, left hearing loss PAST SURGICAL HISTORY: Colonoscopy several years ago- as per pt it was normal Left middle digit amputation Denies CAD or angioplasty Social History: Smoking: denies Alcohol: denies Drugs: denies Family History: Diabetes: Mother, Heart Disease: Father Allergies Clindamycin, amp/sulbactam-- rash HOME MEDICATIONS: Home Medications Medication Instructions Recorded Metoprolol Succinate [Toprol XL -] 100 mg PO DAILY 02/12/16 Ferrous Sulfate 325 mg PO DAILY 02/14/16 Cholecalciferol (Vitamin D3) 2,000 unit PO DAILY 01/29/17 [Vitamin D -] hydrALAZINE HCL [Apresoline -] 25 mg PO BID 01/29/17 Docusate Sodium [Colace -] 100 mg PO TID #90 cap 01/31/17 Sitagliptin Phosphate [Januvia] 25 mg PO DAILY #30 tablet 01/31/17 Aspirin [ASA -] 81 mg PO DAILY 01/27/19 Cyanocobalamin [Vitamin B12 -] 1,000 mcg PO DAILY 01/27/19 Fluticasone Prop 0.05% Nasal 1 - 2 spray NS DAILY 01/27/19 [Flonase -] Furosemide [Lasix] 20 mg PO DAILY 01/27/19 Gabapentin [Neurontin -] 100 mg PO HS 01/27/19 Insulin Glargine,Hum.rec.anlog 8 unit SQ HS 01/27/19 [Lantus] Losartan Potassium 100 mg PO DAILY 01/27/19 Rosuvastatin Calcium [Crestor] 20 mg PO DAILY 01/27/19 REVIEW OF SYSTEMS CONSTITUTIONAL: Admits: diaphoresis, generalized weakness, malaise, loss of appetite, weight loss- dropped from 129 Ibs to 190 Ibs over the past few months Absent: fever, chills, HEENT: Absent: throat pain, difficulty swallowing, ear pain, eye pain, visual changes CARDIOVASCULAR: Admits: lightheadedness, Absent: chest pain, syncope, palpitations, irregular heart rate, peripheral edema RESPIRATORY: Admits: shortness of breath, dyspnea with exertion, Absent: cough, orthopnea, wheezing, stridor, hemoptysis GASTROINTESTINAL: Absent: abdominal pain, abdominal distension, nausea, vomiting, diarrhea, constipation, melena, hematochezia GENITOURINARY: Absent: dysuria, frequency, hematuria, SKIN: Absent: rash, itching, pallor NEUROLOGIC: Absent: headache, focal weakness or paresthesias, bladder or bowel incontinence PSYCHIATRIC: Absent: anxiety, depression, PHYSICAL EXAMINATION Vital Signs - 24 hr Last Vital Signs Temp Pulse Resp BP Pulse Ox 98.2 F 78 18 153/71 98 01/27/19 18:29 01/27/19 18:07 01/27/19 18:07 01/27/19 18:07 01/27/19 18:29 GENERAL: Awake, alert, and fully oriented, in no acute distress. EYES: Pupils equal, round and reactive to light, extraocular movements intact NECK: supple without lymphadenopathy, JVD, or masses. LUNGS: Breath sounds equal, clear to auscultation bilaterally. No wheezes, and no crackles. HEART: Regular rate and rhythm, normal S1 and S2 without murmur, rub or gallop. ABDOMEN: Soft, nontender, not distended, normoactive bowel sounds, no guarding, no rebound, no masses. No hepatomegaly or splenomegaly. UPPER EXTREMITIES: Fistula on right arm- murmur present, patent fistula. 2+ pulses, warm, well-perfused. No cyanosis. No peripheral edema. LOWER EXTREMITIES: decreased pulses b/l, warm. No calf tenderness. No peripheral edema. PSYCHIATRIC: Cooperative. Good eye contact. Appropriate mood and affect. Laboratory Results - last 24 hr CBC, BMP 01/27/19 17:15 01/27/19 17:15 ASSESSMENT/PLAN: 78 y/o M, pmh of DM type 2, HLD, CKD, left hearing loss, presents to the ED from his doctor's office s/p hypotension (98/50) and sob likely 2/2 to anemia #Anemia SOB and hypotension likely 2/2 to anemia which could be 2/2 to GI bleed vs chronic disease v.s Unknown source 1 Unit pRBC transfused in ED FOBT+ Protonix 80 bolus given + 40 daily after 12 hrs f/u CBC reticulocytes stat ordered Keep on Tele Iron-TIBC profile ordered Iron ordered GI consulted #Cannot r/o CHF exacerbation although does not appear to be overloaded or exacerbation Per pt denies CHF f/u ECHO ordered EKG- no acute changes BNP ordered #DM A1c stat BGM-f/u Insulin sliding scale #CKD UA showed protein, r/o nephrotic syndrome 24 hr protein ordered EPO and Vit D ordered #Hypotension Hold metoprolol BP normalized continue BP monitoring #Hyperkalemia monitor postassium r/p BMP midnight #HLD continue home med- Rosuvastatin, ASA #DVT ppx SCDs FEN: NPO Dispo: f/u ECHO, consult GI, monitor Hg, transfuse if <7 hg Visit type - Emergency Visit Emergency Visit: Yes ED Registration Date: 01/27/19 Care time: The patient presented to the Emergency Department on the above date and was hospitalized for further evaluation of their emergent condition. - New Patient This patient is new to me today: Yes Date on this admission: 02/03/19 - Critical Care Critical Care patient: No ATTENDING PHYSICIAN STATEMENT I saw and evaluated the patient. I reviewed the resident's note and discussed the case with the resident. I agree with the resident's findings and plan as documented. SUBJECTIVE: OBJECTIVE: ASSESSMENT AND PLAN:
--- NOTE | 2019-01-27 23:13 | PN ---
Teaching Attending Note Name of Resident: Nito Matson ATTENDING PHYSICIAN STATEMENT I saw and evaluated the patient. I reviewed the resident's note and discussed the case with the resident. I agree with the resident's findings and plan as documented. Seen and examined; please refer to resident note for further historical information. Bettie, chun is a 78 y/o male presenting to the ER with worsening renal failure and anemia; he has seen Dr. Pedersen before and has history of failed grafting resulting in transfusion; s/p finger amputation, was XF to tertiary center, etc. Some dyspnea on exertion but he minimally exerts himself at baseline (room to room, no stairs, etc.) Today he has Hb in high 6- range with no noted bleeding but +FOBT (brown stool without obvious blood on glove with exam) and once again is denying any melena or hematochezia/ hemetemesis. I spoke with his son at length; son is HCP and he postulates that his dad would not want to be dialysis-dependent and that he has a worsening functional status at home. He is full code but will discuss. Tranfused unfortuantely before the anemia workup was drawn. Admitting to medicine with nephrology, GI consultation. VS, labs, imaging reviewed NAD, pale, resting in bed asleep NC AT EOMI PERRLA RRR s1/2 NT ND +BS Trace LE edema, no calf tenderness CN2-12 wnl, no fnd Normal mood, appropriate affect. Arrousable. EKG reviewed CXR reviewed. ASSESSMENT AND PLAN: Patient presents with worsening renal failure and anemia; he is unsure if he would want HD. Consulting nephrology, transfusing, and monitoring on the floor. # Advanced CKD # Dyspnea on Exertion # Severe anemia, likely symptomatic # AV graft issues # Hyperkalemia # NAGMA # Hx HTN #
[2019-01-28] MEDS ORDERED: PANTOPRAZOLE SODIUM 40 MG VIAL ONE (00:24)
[2019-01-28] MEDS: INSULIN SLIDING SCALE (NOVOLOG) 1 VIAL SQ SCH ×5 (00:55→22:47)
[2019-01-28] MEDS: SODIUM BICARBONATE 650 MG TABLET PO SCH ×3 (00:55→22:46)
[2019-01-28 01:17] LABS: HEMATOCRIT 23.4 % (35.4-49); HEMOGLOBIN 7.5 GM/dL (11.7-16.9); MCH 29.7 pg (25.7-33.7); MCHC 32.2 g/dl (32.0-35.9); MEAN CELL VOLUME 92.3 fl (80-96); MEAN PLT VOLUME 8.3 fl (7.5-11.1); PLATELET COUNT 186 K/MM3 (134-434); RBC 2.53 M/mm3 (4.00-5.60); RDW 14.5 % (11.9-15.9); WHITE BLOOD COUNT 5.9 K/mm3 (4.0-10.0)
[2019-01-28 01:21] LABS: EPI CELLS 1.4 /HPF (0-5/HPF); HYALINE CASTS 2 /lpf (0-8); URINE APPEARANCE CLEAR; URINE BACTERIA 1.5 /hpf (NEGATIVE); URINE BILIRUBIN NEGATIVE (NEGATIVE); URINE COLOR YELLOW; URINE GLUCOSE (UA) 1+ (NEGATIVE); URINE KETONE NEGATIVE (NEGATIVE); URINE LEUK ESTERASE NEGATIVE (NEGATIVE); URINE NITRITE NEGATIVE (NEGATIVE); URINE PROTEIN 3+ (NEGATIVE); URINE RBC 0 /hpf (0-4); URINE UROBILINOGEN 0.2 mg/dL (0.2-1.0); URINE WBC 0 /hpf (0-5)
[2019-01-28 01:35] LABS: BLOOD UREA NITROGEN 50.9 mg/dL (7-18); CALCIUM 7.5 mg/dL (8.5-10.1); CREATININE 6.8 mg/dL (0.55-1.3); POTASSIUM 5.1 mmol/L (3.5-5.1)
[2019-01-28 02:13] LABS: PREALBUMIN 17.4 mg/dl (20-40)
[2019-01-28 07:06] LABS: HEMATOCRIT 21.6 % (35.4-49); HEMOGLOBIN 7.3 GM/dL (11.7-16.9); MCH 30.6 pg (25.7-33.7); MCHC 33.6 g/dl (32.0-35.9); MEAN CELL VOLUME 91.1 fl (80-96); MEAN PLT VOLUME 8.3 fl (7.5-11.1); PLATELET COUNT 176 K/MM3 (134-434); RBC 2.37 M/mm3 (4.00-5.60); RDW 14.3 % (11.9-15.9)
[2019-01-28 07:30] LABS: ALBUMIN 2.2 g/dl (3.4-5.0); BILIRUBIN,TOTAL 0.7 mg/dL (0.2-1); BLOOD UREA NITROGEN 49.3 mg/dL (7-18); CALCIUM 7.4 mg/dL (8.5-10.1); CREATININE 6.9 mg/dL (0.55-1.3); POTASSIUM 5.3 mmol/L (3.5-5.1); TOT PROT 4.9 g/dl (6.4-8.2)
--- NOTE | 2019-01-28 07:33 | PN ---
Physical Exam: SUBJECTIVE: Patient seen and examined at bed side , complain of generalized fatigue , light headedness and sob on exertion for the last 2 weeks . denies any cp , abdominal pain , N/V/D/C, he recieved one unit of blood over night denies nay blood in stool or urine , recent colonoscopy 2 years ago with negative founding per pt. OBJECTIVE: Vital Signs Period Temp Pulse Resp BP Sys/Bo Pulse Ox Last 24 Hr 97.3 F-98.2 F 78-86 14-20 153-186/58-72 97-100 GENERAL: AAOx3 in NAD HEAD: NC/AT EYES: EOMI, Conjunctiva clear, sclera anicteric ENT: moist mucous membrane NECK: Supple, no JVD LUNGS: CTA B/L, no crackles no wheezing no accessory muscle use. HEART: RRR, normal s1, s2 no M/R/G ABDOMEN: Obese Soft, ND, NT, +BS 4 Q, no CVA Tenderness LOWER EXTREMITIES: no edema, +2DP pulse, NEUROLOGICAL: No focal deficit. Normal speech. gait not observed. PSYCHIATRIC: Cooperative. Good eye contact. Appropriate mood and affect. SKIN: Warm, dry, Laboratory Results - last 24 hr 01/27/19 01/27/19 01/27/19 16:30 17:15 17:15 WBC 6.1 RBC 2.24 L Hgb 6.8 L* Hct 20.7 L D MCV 92.3 MCH 30.3 MCHC 32.9 RDW 14.9 Plt Count 199 MPV 8.3 Absolute Neuts (auto) 4.2 Neutrophils % 68.2 D Lymphocytes % 15.9 D Monocytes % 13.3 H Eosinophils % 1.9 Basophils % 0.7 Nucleated RBC % 0 ESR Retic Count PT with INR INR PTT (Actin FS) 30.5 Sodium Potassium Chloride Carbon Dioxide Anion Gap BUN Creatinine Est GFR (CKD-EPI)AfAm Est GFR (CKD-EPI)NonAf POC Glucometer 190 Random Glucose Hemoglobin A1c % Calcium Phosphorus Magnesium Iron TIBC Iron Saturation Unsaturated IBC Total Bilirubin AST ALT Alkaline Phosphatase Troponin I C-Reactive Protein Total Protein Albumin Prealbumin Vitamin B12 TSH Urine Color Urine Appearance Urine pH Ur Specific Gordon Urine Protein Urine Glucose (UA) Urine Ketones Urine Blood Urine Nitrite Urine Bilirubin Urine Urobilinogen Ur Leukocyte Esterase Urine WBC (Auto) Urine RBC (Auto) Urine Casts (Auto) U Epithel Cells (Auto) Urine Bacteria (Auto) Stool Occult Blood Blood Type Antibody Screen Crossmatch 01/27/19 01/27/19 01/27/19 17:15 17:15 17:15 WBC RBC Hgb Hct MCV MCH MCHC RDW Plt Count MPV Absolute Neuts (auto) Neutrophils % Lymphocytes % Monocytes % Eosinophils % Basophils % Nucleated RBC % ESR Retic Count PT with INR 11.20 INR 0.95 PTT (Actin FS) Sodium 143 Potassium 5.6 H Chloride 118 H Carbon Dioxide 17 L Anion Gap 8 BUN 52.8 H Creatinine 6.9 H Est GFR (CKD-EPI)AfAm 7.99 Est GFR (CKD-EPI)NonAf 6.90 POC Glucometer Random Glucose 151 H Hemoglobin A1c % Calcium 7.7 L Phosphorus Magnesium 2.3 Iron TIBC Iron Saturation Unsaturated IBC Total Bilirubin 0.2 AST 12 L ALT 11 L Alkaline Phosphatase 107 Troponin I 0.05 C-Reactive Protein Total Protein 5.5 L Albumin 2.4 L Prealbumin Vitamin B12 TSH 1.04 Urine Color Urine Appearance Urine pH Ur Specific Gordon Urine Protein Urine Glucose (UA) Urine Ketones Urine Blood Urine Nitrite Urine Bilirubin Urine Urobilinogen Ur Leukocyte Esterase Urine WBC (Auto) Urine RBC (Auto) Urine Casts (Auto) U Epithel Cells (Auto) Urine Bacteria (Auto) Stool Occult Blood Blood Type Antibody Screen Crossmatch 01/27/19 01/27/19 01/27/19 17:15 17:15 18:00 WBC RBC Hgb Hct MCV MCH MCHC RDW Plt Count MPV Absolute Neuts (auto) Neutrophils % Lymphocytes % Monocytes % Eosinophils % Basophils % Nucleated RBC % ESR Retic Count PT with INR INR PTT (Actin FS) Sodium Potassium Chloride Carbon Dioxide Anion Gap BUN Creatinine Est GFR (CKD-EPI)AfAm Est GFR (CKD-EPI)NonAf POC Glucometer Random Glucose Hemoglobin A1c % Calcium Phosphorus Magnesium Iron TIBC Iron Saturation Unsaturated IBC Total Bilirubin AST ALT Alkaline Phosphatase Troponin I C-Reactive Protein Total Protein Albumin Prealbumin Vitamin B12 TSH Urine Color Yellow Urine Appearance Clear Urine pH 6.0 Ur Specific Gordon 1.016 Urine Protein 4+ H Urine Glucose (UA) 1+ H Urine Ketones Negative Urine Blood Negative Urine Nitrite Negative Urine Bilirubin Negative Urine Urobilinogen 0.2 Ur Leukocyte Esterase Negative Urine WBC (Auto) 0 Urine RBC (Auto) 0 Urine Casts (Auto) 7 U Epithel Cells (Auto) 2.5 Urine Bacteria (Auto) 3.5 Stool Occult Blood Positive Blood Type O POSITIVE Antibody Screen Negative Crossmatch See Detail 01/27/19 01/28/19 01/28/19 20:27 00:44 00:45 WBC 5.9 RBC 2.53 L Hgb 7.5 L Hct 23.4 L MCV 92.3 MCH 29.7 MCHC 32.2 RDW 14.5 Plt Count 186 MPV 8.3 Absolute Neuts (auto) Neutrophils % Lymphocytes % Monocytes % Eosinophils % Basophils % Nucleated RBC % ESR Retic Count PT with INR INR PTT (Actin FS) Sodium Potassium Chloride Carbon Dioxide Anion Gap BUN Creatinine Est GFR (CKD-EPI)AfAm Est GFR (CKD-EPI)NonAf POC Glucometer 103 99 Random Glucose Hemoglobin A1c % Calcium Phosphorus Magnesium Iron TIBC Iron Saturation Unsaturated IBC Total Bilirubin AST ALT Alkaline Phosphatase Troponin I C-Reactive Protein Total Protein Albumin Prealbumin Vitamin B12 TSH Urine Color Urine Appearance Urine pH Ur Specific Gordon Urine Protein Urine Glucose (UA) Urine Ketones Urine Blood Urine Nitrite Urine Bilirubin Urine Urobilinogen Ur Leukocyte Esterase Urine WBC (Auto) Urine RBC (Auto) Urine Casts (Auto) U Epithel Cells (Auto) Urine Bacteria (Auto) Stool Occult Blood Blood Type Antibody Screen Crossmatch 01/28/19 01/28/19 01/28/19 00:45 00:45 00:45 WBC RBC Hgb Hct MCV MCH MCHC RDW Plt Count MPV Absolute Neuts (auto) Neutrophils % Lymphocytes % Monocytes % Eosinophils % Basophils % Nucleated RBC % ESR 115 H Retic Count PT with INR INR PTT (Actin FS) Sodium 147 H Potassium 5.1 Chloride 119 H Carbon Dioxide 19 L Anion Gap 8 BUN 50.9 H Creatinine 6.8 H Est GFR (CKD-EPI)AfAm 8.14 Est GFR (CKD-EPI)NonAf 7.02 POC Glucometer Random Glucose 98 Hemoglobin A1c % Calcium 7.5 L Phosphorus Magnesium Iron 93 TIBC 228 L Iron Saturation 40 H Unsaturated IBC 135 L Total Bilirubin AST ALT Alkaline Phosphatase Troponin I C-Reactive Protein 0.4 H Total Protein Albumin Prealbumin 17.4 L Vitamin B12 551 TSH Urine Color Urine Appearance Urine pH Ur Specific Gordon Urine Protein Urine Glucose (UA) Urine Ketones Urine Blood Urine Nitrite Urine Bilirubin Urine Urobilinogen Ur Leukocyte Esterase Urine WBC (Auto) Urine RBC (Auto) Urine Casts (Auto) U Epithel Cells (Auto) Urine Bacteria (Auto) Stool Occult Blood Blood Type Antibody Screen Crossmatch 01/28/19 01/28/19 01/28/19 00:45 00:45 00:45 WBC RBC Hgb Hct MCV MCH MCHC RDW Plt Count MPV Absolute Neuts (auto) Neutrophils % Lymphocytes % Monocytes % Eosinophils % Basophils % Nucleated RBC % ESR Retic Count PT with INR INR PTT (Actin FS) Sodium Potassium Chloride Carbon Dioxide Anion Gap BUN Creatinine Est GFR (CKD-EPI)AfAm Est GFR (CKD-EPI)NonAf POC Glucometer Random Glucose Hemoglobin A1c % 6.5 H Calcium Phosphorus Magnesium Iron Cancelled TIBC Cancelled Iron Saturation Cancelled Unsaturated IBC Cancelled Total Bilirubin AST ALT Alkaline Phosphatase Troponin I C-Reactive Protein Total Protein Albumin Prealbumin Cancelled Vitamin B12 TSH Urine Color Urine Appearance Urine pH Ur Specific Gordon Urine Protein Urine Glucose (UA) Urine Ketones Urine Blood Urine Nitrite Urine Bilirubin Urine Urobilinogen Ur Leukocyte Esterase Urine WBC (Auto) Urine RBC (Auto) Urine Casts (Auto) U Epithel Cells (Auto) Urine Bacteria (Auto) Stool Occult Blood Blood Type Antibody Screen Crossmatch 01/28/19 01/28/19 01/28/19 00:45 00:45 00:48 WBC RBC Hgb Hct MCV MCH MCHC RDW Plt Count MPV Absolute Neuts (auto) Neutrophils % Lymphocytes % Monocytes % Eosinophils % Basophils % Nucleated RBC % ESR Retic Count 1.07 PT with INR INR PTT (Actin FS) Sodium Potassium Chloride Carbon Dioxide Anion Gap BUN Creatinine Est GFR (CKD-EPI)AfAm Est GFR (CKD-EPI)NonAf POC Glucometer Random Glucose Hemoglobin A1c % Calcium Phosphorus Magnesium Iron TIBC Iron Saturation Unsaturated IBC Total Bilirubin AST ALT Alkaline Phosphatase Troponin I C-Reactive Protein Total Protein Albumin Prealbumin Vitamin B12 Cancelled TSH Urine Color Yellow Urine Appearance Clear Urine pH 6.0 Ur Specific Gordon 1.013 Urine Protein 3+ H Urine Glucose (UA) 1+ H Urine Ketones Negative Urine Blood Negative Urine Nitrite Negative Urine Bilirubin Negative Urine Urobilinogen 0.2 Ur Leukocyte Esterase Negative Urine WBC (Auto) 0 Urine RBC (Auto) 0 Urine Casts (Auto) 2 U Epithel Cells (Auto) 1.4 Urine Bacteria (Auto) 1.5 Stool Occult Blood Blood Type Antibody Screen Crossmatch 01/28/19 01/28/19 06:16 06:36 WBC RBC Hgb Hct MCV MCH MCHC RDW Plt Count MPV Absolute Neuts (auto) Neutrophils % Lymphocytes % Monocytes % Eosinophils % Basophils % Nucleated RBC % ESR Retic Count PT with INR INR PTT (Actin FS) Sodium 145 Potassium 5.3 H Chloride 118 H Carbon Dioxide 18 L Anion Gap 9 BUN 49.3 H Creatinine 6.9 H Est GFR (CKD-EPI)AfAm 7.99 Est GFR (CKD-EPI)NonAf 6.90 POC Glucometer 85 Random Glucose 87 Hemoglobin A1c % Calcium 7.4 L Phosphorus 6.0 H Magnesium 2.0 Iron TIBC Iron Saturation Unsaturated IBC Total Bilirubin 0.7 AST 10 L ALT 10 L Alkaline Phosphatase 95 Troponin I C-Reactive Protein Total Protein 4.9 L Albumin 2.2 L Prealbumin Vitamin B12 TSH Urine Color Urine Appearance Urine pH Ur Specific Gordon Urine Protein Urine Glucose (UA) Urine Ketones Urine Blood Urine Nitrite Urine Bilirubin Urine Urobilinogen Ur Leukocyte Esterase Urine WBC (Auto) Urine RBC (Auto) Urine Casts (Auto) U Epithel Cells (Auto) Urine Bacteria (Auto) Stool Occult Blood Blood Type Antibody Screen Crossmatch Active Medications Generic Name Dose Route Start Last Admin Trade Name Freq PRN Reason Stop Dose Admin Aspirin 81 mg 01/28/19 10:00 Asa - PO DAILY [facility] Cholecalciferol 2,000 unit 01/28/19 10:00 Vitamin D3 - PO DAILY [facility] Cyanocobalamin 1,000 mcg 01/28/19 10:00 Vitamin B12 - PO DAILY [facility] Ferrous Sulfate 325 mg 01/28/19 10:00 Feosol - PO DAILY [facility] Furosemide 40 mg 01/28/19 19:49 01/27/19 20:30 Lasix Injection - IVPUSH 01/28/19 19:50 40 mg ONCE ONE Administration Gabapentin 100 mg 01/28/19 22:00 Neurontin - PO HS [facility] Insulin Aspart 1 vial 01/27/19 23:30 01/28/19 06:23 Novolog Vial Sliding Scale - SQ Not Given Q6H [facility] Protocol Pantoprazole Sodium 40 mg 01/28/19 10:00 Protonix Iv IVPUSH BID ROB Rosuvastatin Calcium 20 mg 01/28/19 22:00 Crestor - PO HS ROB Sodium Bicarbonate 650 mg 01/27/19 22:00 01/28/19 06:23 Sodium Bicarbonate - PO 650 mg TID ROB Administration CBC, BMP 01/28/19 06:36 01/28/19 06:36 ASSESSMENT/PLAN: 78 y/o M, pmh of DM type 2, HLD, CKD, left hearing loss, presents to the ED from his doctor's office s/p hypotension (98/50) and sob likely 2/2 to anemia #Anemia acute on chronic * SOB and fatigue and lightheaded likely 2/2 to anemia which could be 2/2 to GI bleed vs chronic disease v.s Unknown source * S.P 1 Unit pRBC transfused in ED * FOBT+ * Protonix 40 IV BID * monitor H/H daily * reticulocytes stat ordered * monitor on Tele * GI consulted * irone studies done after transfusion #Cannot r/o CHF exacerbation * f/u ECHO ordered * EKG- no acute changes * BNP ordered #DM * A1c stat 6.5 * BGM ACHS * Insulin sliding scale #Acute on CKD * UA showed protein, r/o nephrotic syndrome * 24 hr protein ordered * EPO and Vit D ordered * consult Dr Faizan Pedersen Nephrology recommend Renal/bladder US, phosphate binders, JOSE DAVID, sodium bicarbonate. #Hypertension * continue Hydralizine and hold losartan for now due to hyperkalemia * #Hyperkalemia 5.3 this am no EKG changes will trate with Gluconate Ca, and kayexylate * recheck BMP after noon #HLD * continue home med- Rosuvastatin, * hold ASA #DVT ppx * SCDs #FEN: * clear liquid * monitor lytes Dispo : pending clinical improvement , consult paliative care for goal of care as pt refusing HD Visit type - Emergency Visit Emergency Visit: Yes ED Registration Date: 01/27/19 Care time: The patient presented to the Emergency Department on the above date and was hospitalized for further evaluation of their emergent condition. - New Patient This patient is new to me today: Yes Date on this admission: 01/28/19 - Critical Care Critical Care patient: No ATTENDING PHYSICIAN STATEMENT I saw and evaluated the patient. I reviewed the resident's note and discussed the case with the resident. I agree with the resident's findings and plan as documented. SUBJECTIVE: OBJECTIVE: ASSESSMENT AND PLAN:
[2019-01-28] MEDS ORDERED: SODIUM POLYSTYRENE SULFONATE 15 GM/60 ML BOTTLE PO ONE (09:49)
[2019-01-28] MEDS ORDERED: CALCIUM GLUCONATE 10% - 1,000 MG/10 ML VIAL IVPB ONE (09:50)
[2019-01-28] MEDS ORDERED: SODIUM POLYSTYRENE SULFONATE 15 GM/60 ML BOTTLE ONE (09:56)
[2019-01-28] MEDS ORDERED: CALCIUM GLUCONATE 10% - 1,000 MG/10 ML VIAL ONE (09:56)
[2019-01-28] MEDS ORDERED: PANTOPRAZOLE SODIUM 40 MG VIAL IVPUSH SCH (10:00)
[2019-01-28] MEDS ORDERED: ASPIRIN 81 MG CHEWABLE TABLETS PO SCH (10:00)
[2019-01-28] MEDS: CHOLECALCIFEROL (VIT D3) 1,000 UNIT (25 MCG) TABLET PO SCH (10:19)
[2019-01-28] MEDS: PANTOPRAZOLE SODIUM 40 MG VIAL IVPUSH SCH ×2 (10:19→22:45)
[2019-01-28] MEDS: CYANOCOBALAMIN 1,000 MCG TABLET (FP) PO SCH (10:19)
[2019-01-28] MEDS: FERROUS SO4 325 MG TABLET (FP) PO SCH (10:19)
[2019-01-28] MEDS ORDERED: hydrALAZINE HCL 25 MG TABLET (FP) ONE (10:50)
[2019-01-28] MEDS: hydrALAZINE HCL 25 MG TABLET (FP) PO SCH ×2 (11:15→22:46)
--- NOTE | 2019-01-28 12:10 | CONSULT ---
Consult - text type - Consultation Consultation Note: Renal consult for SAMANTHA on CKD This is a 78 year old gentleman with history of CKD stage 4, DM type 2 on insulin, hyperlipidemia, hypertension and hearing loss who presented with complaints of SOB over several days and admitted for acute CHF exacerbation with SAMANTHA and anemia. Pt awake and alert in the ER. Reports making urine w/o difficutly. Denies any flank pain, lower abd pain, frequency, uregency or dysuria. Denies any NSAID use, no recent contrast exposure. No skin rash. No COLLINS , chest pain, fever, chills, n/v/d. Had a AVF placed in [facility] about 2 years ago but has not followed with a medical orderly since then. PMHx: as above Allergies: NKDA Family Hx: NC Social Hx: No T/A/D ROS: as per HPI, all other pertinent ros negative Home Medications Medication Instructions Recorded Metoprolol Succinate [Toprol XL -] 100 mg PO DAILY 02/12/16 Ferrous Sulfate 325 mg PO DAILY 02/14/16 Cholecalciferol (Vitamin D3) 2,000 unit PO DAILY 01/29/17 [Vitamin D -] hydrALAZINE HCL [Apresoline -] 25 mg PO BID 01/29/17 Docusate Sodium [Colace -] 100 mg PO TID #90 cap 01/31/17 Sitagliptin Phosphate [Januvia] 25 mg PO DAILY #30 tablet 01/31/17 Aspirin [ASA -] 81 mg PO DAILY 01/27/19 Cyanocobalamin [Vitamin B12 -] 1,000 mcg PO DAILY 01/27/19 Fluticasone Prop 0.05% Nasal 1 - 2 spray NS DAILY 01/27/19 [Flonase -] Furosemide [Lasix] 20 mg PO DAILY 01/27/19 Gabapentin [Neurontin -] 100 mg PO HS 01/27/19 Insulin Glargine,Hum.rec.anlog 8 unit SQ HS 01/27/19 [Lantus] Losartan Potassium 100 mg PO DAILY 01/27/19 Rosuvastatin Calcium [Crestor] 20 mg PO DAILY 01/27/19 Vital Signs Temperature 97.9 F 01/28/19 00:55 Pulse Rate 91 H 01/28/19 11:52 Respiratory Rate 14 01/28/19 10:00 Blood Pressure 176/59 H 01/28/19 10:00 O2 Sat by Pulse Oximetry (%) 100 01/28/19 10:00 Intake & Output 01/25/19 01/26/19 01/27/19 01/28/19 23:59 23:59 23:59 23:59 Weight 86.183 kg NAD awake and alert neck supple, no JVD RRR, M/R/G CTA, no rales soft NT/ND no Le edema no bladder distension no asterxisis/flap CBC, BMP 01/28/19 06:36 01/28/19 06:36 Laboratory Tests 01/28/19 06:36 Calcium 7.4 L Phosphorus 6.0 H Magnesium 2.0 Albumin 2.2 L Current Medications Cholecalciferol (Vitamin D3 -) 2,000 unit PO DAILY ON LICENSE OF [facility] Last Admin: 01/28/19 10:19 Dose: 2,000 unit Cyanocobalamin (Vitamin B12 -) 1,000 mcg PO DAILY ON LICENSE OF [facility] Last Admin: 01/28/19 10:19 Dose: 1,000 mcg Docusate Sodium (Colace -) 100 mg PO TID ON LICENSE OF [facility] Ferrous Sulfate (Feosol -) 325 mg PO DAILY ON LICENSE OF [facility] Last Admin: 01/28/19 10:19 Dose: 325 mg Furosemide (Lasix Injection -) 40 mg IVPUSH ONCE ONE Stop: 01/28/19 19:50 Last Admin: 01/27/19 20:30 Dose: 40 mg Gabapentin (Neurontin -) 100 mg PO [facility] Hydralazine HCl (Apresoline -) 25 mg PO BID ON LICENSE OF [facility] Last Admin: 01/28/19 11:15 Dose: 25 mg Insulin Aspart (Novolog Vial Sliding Scale -) 1 vial SQ Q6H ON LICENSE OF [facility]; Protocol Last Admin: 01/28/19 11:15 Dose: Not Given Pantoprazole Sodium (Protonix Iv) 40 mg IVPUSH BID ON LICENSE OF [facility] Last Admin: 01/28/19 10:19 Dose: 40 mg Rosuvastatin Calcium (Crestor -) 20 mg PO HS ON LICENSE OF [facility] Sodium Bicarbonate (Sodium Bicarbonate -) 650 mg PO TID ON LICENSE OF [facility] Last Admin: 01/28/19 06:23 Dose: 650 mg 78 year old gentleman with history of CKD stage 4, DM type 2 on insulin , hyperlipidemia, hypertension and hearing loss who presented with complaints of SOB over several days and admitted for acute CHF exacerbation with SAMANTHA and anemia. 1. Acute Kidney injury vs. progressive CKD 2. CKD stage 4 3. Proteinuria 4. Hyperphosphtaemia 5. Fluid overload/CHF 6. Anemia (acute vs. chronic) 7. Metabolic acidosis 8. Hyperkalemia Unclear at this time if the rise in BUN/Cr is acute injury vs. progressive underlying CKD. Check Renal and Bladder US to r/o obstruction and access kidney size and structure. Check Urine studies for FeUrea and urine protein to creatinine ratio. Prior work up showed No M-spike on Spep and normal complement levels At this time there is no emergent indication for dialysis as pt is responsive to diuretics. Start a renal diet and start phos binders for hyperphosphtemia Continue Lasix Daily and trend weights Check ECHO to monitor LV function Check iron studies, no emergent indication for transfusion at this time. Likely would benifit from JOSE DAVID/Venofer. Start Sodium bicarb 650mg BID for metabolic acidosis. Trend serum K on renal diet, treat if K > 5.5 (can consider Lokelma) Thank you Will follow Slava Gloria DO
[2019-01-28] MEDS ORDERED: Darbepoetin Alfa in Polysorbat 25 MCG/0.4 ML DISP.SYRIN SQ ONE (12:16)
[2019-01-28] MEDS ORDERED: DOCUSATE SODIUM 100 MG CAPSULE (FP) PO ONE (12:56)
[2019-01-28] MEDS: DOCUSATE SODIUM 100 MG CAPSULE (FP) PO SCH ×2 (13:02→22:45)
--- NOTE | 2019-01-28 13:17 | PN ---
Teaching Attending Note Name of Resident: Johnny Mendosa ATTENDING PHYSICIAN STATEMENT I saw and evaluated the patient. I reviewed the resident's note and discussed the case with the resident. I agree with the resident's findings and plan as documented with exceptions below. SUBJECTIVE: Patient seen and examined. reports exertional dyspnea, dizziness and weakness, currently resting with no complaints. Denies any nausea, vomiting, abdominal pain, dark or bloody stools. Reports poor appetite and recent weight loss. OBJECTIVE: Vital Signs Period Temp Pulse Resp BP Sys/Bo Pulse Ox Last 24 Hr 97.3 F-98.2 F 78-100 14-20 153-186/58-72 97-100 Intake & Output 01/25/19 01/26/19 01/27/19 01/28/19 23:59 23:59 23:59 23:59 Weight 190 lb General: sitting in bed in no acute distress, pos pallor Neck: soft, supple, no JVD CVS:S1S2 regular Chest: no rales or wheezing, good air entry bilaterally Abdomen:Soft, NT throughout, ND, pos bowel sounds Extremities: no edema Home Medications Medication Instructions Recorded Metoprolol Succinate [Toprol XL -] 100 mg PO DAILY 02/12/16 Ferrous Sulfate 325 mg PO DAILY 02/14/16 Cholecalciferol (Vitamin D3) 2,000 unit PO DAILY 01/29/17 [Vitamin D -] hydrALAZINE HCL [Apresoline -] 25 mg PO BID 01/29/17 Docusate Sodium [Colace -] 100 mg PO TID #90 cap 01/31/17 Sitagliptin Phosphate [Januvia] 25 mg PO DAILY #30 tablet 01/31/17 Aspirin [ASA -] 81 mg PO DAILY 01/27/19 Cyanocobalamin [Vitamin B12 -] 1,000 mcg PO DAILY 01/27/19 Fluticasone Prop 0.05% Nasal 1 - 2 spray NS DAILY 01/27/19 [Flonase -] Furosemide [Lasix] 20 mg PO DAILY 01/27/19 Gabapentin [Neurontin -] 100 mg PO HS 01/27/19 Insulin Glargine,Hum.rec.anlog 8 unit SQ HS 01/27/19 [Lantus] Losartan Potassium 100 mg PO DAILY 01/27/19 Rosuvastatin Calcium [Crestor] 20 mg PO DAILY 01/27/19 Active Medications Calcium Acetate (Phoslo -) 667 mg PO TIDCM [facility] Cholecalciferol (Vitamin D3 -) 2,000 unit PO DAILY [facility] Last Admin: 01/28/19 10:19 Dose: 2,000 unit Cyanocobalamin (Vitamin B12 -) 1,000 mcg PO DAILY [facility] Last Admin: 01/28/19 10:19 Dose: 1,000 mcg Docusate Sodium (Colace -) 100 mg PO TID [facility] Last Admin: 01/28/19 13:02 Dose: 100 mg Ferrous Sulfate (Feosol -) 325 mg PO DAILY [facility] Last Admin: 01/28/19 10:19 Dose: 325 mg Furosemide (Lasix Injection -) 40 mg IVPUSH ONCE ONE Stop: 01/28/19 19:50 Last Admin: 01/27/19 20:30 Dose: 40 mg Gabapentin (Neurontin -) 100 mg PO [facility] Hydralazine HCl (Apresoline -) 25 mg PO BID [facility] Last Admin: 01/28/19 11:15 Dose: 25 mg Insulin Aspart (Novolog Vial Sliding Scale -) 1 vial SQ Q6H [facility]; Protocol Last Admin: 01/28/19 11:15 Dose: Not Given Metoprolol Succinate (Toprol Xl -) 100 mg PO DAILY [facility] Last Admin: 01/28/19 13:02 Dose: 100 mg Pantoprazole Sodium (Protonix Iv) 40 mg IVPUSH BID [facility] Last Admin: 01/28/19 10:19 Dose: 40 mg Rosuvastatin Calcium (Crestor -) 20 mg PO HS [facility] Sodium Bicarbonate (Sodium Bicarbonate -) 650 mg PO BID [facility] Laboratory Results - last 24 hr 01/27/19 01/27/19 01/27/19 16:30 17:15 17:15 WBC 6.1 RBC 2.24 L Hgb 6.8 L* Hct 20.7 L D MCV 92.3 MCH 30.3 MCHC 32.9 RDW 14.9 Plt Count 199 MPV 8.3 Absolute Neuts (auto) 4.2 Neutrophils % 68.2 D Lymphocytes % 15.9 D Monocytes % 13.3 H Eosinophils % 1.9 Basophils % 0.7 Nucleated RBC % 0 ESR Retic Count PT with INR INR PTT (Actin FS) 30.5 Sodium Potassium Chloride Carbon Dioxide Anion Gap BUN Creatinine Est GFR (CKD-EPI)AfAm Est GFR (CKD-EPI)NonAf POC Glucometer 190 Random Glucose Hemoglobin A1c % Calcium Phosphorus Magnesium Iron TIBC Iron Saturation Unsaturated IBC Total Bilirubin AST ALT Alkaline Phosphatase Troponin I C-Reactive Protein B-Natriuretic Peptide Total Protein Albumin Prealbumin Vitamin B12 TSH Urine Color Urine Appearance Urine pH Ur Specific [place] Urine Protein Urine Glucose (UA) Urine Ketones Urine Blood Urine Nitrite Urine Bilirubin Urine Urobilinogen Ur Leukocyte Esterase Urine WBC (Auto) Urine RBC (Auto) Urine Casts (Auto) U Epithel Cells (Auto) Urine Bacteria (Auto) Stool Occult Blood Blood Type Antibody Screen Crossmatch 01/27/19 01/27/19 01/27/19 17:15 17:15 17:15 WBC RBC Hgb Hct MCV MCH MCHC RDW Plt Count MPV Absolute Neuts (auto) Neutrophils % Lymphocytes % Monocytes % Eosinophils % Basophils % Nucleated RBC % ESR Retic Count PT with INR 11.20 INR 0.95 PTT (Actin FS) Sodium 143 Potassium 5.6 H Chloride 118 H Carbon Dioxide 17 L Anion Gap 8 BUN 52.8 H Creatinine 6.9 H Est GFR (CKD-EPI)AfAm 7.99 Est GFR (CKD-EPI)NonAf 6.90 POC Glucometer Random Glucose 151 H Hemoglobin A1c % Calcium 7.7 L Phosphorus Magnesium 2.3 Iron TIBC Iron Saturation Unsaturated IBC Total Bilirubin 0.2 AST 12 L ALT 11 L Alkaline Phosphatase 107 Troponin I 0.05 C-Reactive Protein B-Natriuretic Peptide Total Protein 5.5 L Albumin 2.4 L Prealbumin Vitamin B12 TSH 1.04 Urine Color Urine Appearance Urine pH Ur Specific [place] Urine Protein Urine Glucose (UA) Urine Ketones Urine Blood Urine Nitrite Urine Bilirubin Urine Urobilinogen Ur Leukocyte Esterase Urine WBC (Auto) Urine RBC (Auto) Urine Casts (Auto) U Epithel Cells (Auto) Urine Bacteria (Auto) Stool Occult Blood Blood Type Antibody Screen Crossmatch 01/27/19 01/27/19 01/27/19 17:15 17:15 18:00 WBC RBC Hgb Hct MCV MCH MCHC RDW Plt Count MPV Absolute Neuts (auto) Neutrophils % Lymphocytes % Monocytes % Eosinophils % Basophils % Nucleated RBC % ESR Retic Count PT with INR INR PTT (Actin FS) Sodium Potassium Chloride Carbon Dioxide Anion Gap BUN Creatinine Est GFR (CKD-EPI)AfAm Est GFR (CKD-EPI)NonAf POC Glucometer Random Glucose Hemoglobin A1c % Calcium Phosphorus Magnesium Iron TIBC Iron Saturation Unsaturated IBC Total Bilirubin AST ALT Alkaline Phosphatase Troponin I C-Reactive Protein B-Natriuretic Peptide Total Protein Albumin Prealbumin Vitamin B12 TSH Urine Color Yellow Urine Appearance Clear Urine pH 6.0 Ur Specific [place] 1.016 Urine Protein 4+ H Urine Glucose (UA) 1+ H Urine Ketones Negative Urine Blood Negative Urine Nitrite Negative Urine Bilirubin Negative Urine Urobilinogen 0.2 Ur Leukocyte Esterase Negative Urine WBC (Auto) 0 Urine RBC (Auto) 0 Urine Casts (Auto) 7 U Epithel Cells (Auto) 2.5 Urine Bacteria (Auto) 3.5 Stool Occult Blood Positive Blood Type O POSITIVE Antibody Screen Negative Crossmatch See Detail 01/27/19 01/28/19 01/28/19 20:27 00:44 00:45 WBC 5.9 RBC 2.53 L Hgb 7.5 L Hct 23.4 L MCV 92.3 MCH 29.7 MCHC 32.2 RDW 14.5 Plt Count 186 MPV 8.3 Absolute Neuts (auto) Neutrophils % Lymphocytes % Monocytes % Eosinophils % Basophils % Nucleated RBC % ESR Retic Count PT with INR INR PTT (Actin FS) Sodium Potassium Chloride Carbon Dioxide Anion Gap BUN Creatinine Est GFR (CKD-EPI)AfAm Est GFR (CKD-EPI)NonAf POC Glucometer 103 99 Random Glucose Hemoglobin A1c % Calcium Phosphorus Magnesium Iron TIBC Iron Saturation Unsaturated IBC Total Bilirubin AST ALT Alkaline Phosphatase Troponin I C-Reactive Protein B-Natriuretic Peptide Total Protein Albumin Prealbumin Vitamin B12 TSH Urine Color Urine Appearance Urine pH Ur Specific [place] Urine Protein Urine Glucose (UA) Urine Ketones Urine Blood Urine Nitrite Urine Bilirubin Urine Urobilinogen Ur Leukocyte Esterase Urine WBC (Auto) Urine RBC (Auto) Urine Casts (Auto) U Epithel Cells (Auto) Urine Bacteria (Auto) Stool Occult Blood Blood Type Antibody Screen Crossmatch 01/28/19 01/28/19 01/28/19 00:45 00:45 00:45 WBC RBC Hgb Hct MCV MCH MCHC RDW Plt Count MPV Absolute Neuts (auto) Neutrophils % Lymphocytes % Monocytes % Eosinophils % Basophils % Nucleated RBC % ESR 115 H Retic Count PT with INR INR PTT (Actin FS) Sodium 147 H Potassium 5.1 Chloride 119 H Carbon Dioxide 19 L Anion Gap 8 BUN 50.9 H Creatinine 6.8 H Est GFR (CKD-EPI)AfAm 8.14 Est GFR (CKD-EPI)NonAf 7.02 POC Glucometer Random Glucose 98 Hemoglobin A1c % Calcium 7.5 L Phosphorus Magnesium Iron 93 TIBC 228 L Iron Saturation 40 H Unsaturated IBC 135 L Total Bilirubin AST ALT Alkaline Phosphatase Troponin I C-Reactive Protein 0.4 H B-Natriuretic Peptide 5177.0 H Total Protein Albumin Prealbumin 17.4 L Vitamin B12 551 TSH Urine Color Urine Appearance Urine pH Ur Specific [place] Urine Protein Urine Glucose (UA) Urine Ketones Urine Blood Urine Nitrite Urine Bilirubin Urine Urobilinogen Ur Leukocyte Esterase Urine WBC (Auto) Urine RBC (Auto) Urine Casts (Auto) U Epithel Cells (Auto) Urine Bacteria (Auto) Stool Occult Blood Blood Type Antibody Screen Crossmatch 01/28/19 01/28/19 01/28/19 00:45 00:45 00:45 WBC RBC Hgb Hct MCV MCH MCHC RDW Plt Count MPV Absolute Neuts (auto) Neutrophils % Lymphocytes % Monocytes % Eosinophils % Basophils % Nucleated RBC % ESR Retic Count PT with INR INR PTT (Actin FS) Sodium Potassium Chloride Carbon Dioxide Anion Gap BUN Creatinine Est GFR (CKD-EPI)AfAm Est GFR (CKD-EPI)NonAf POC Glucometer Random Glucose Hemoglobin A1c % 6.5 H Calcium Phosphorus Magnesium Iron Cancelled TIBC Cancelled Iron Saturation Cancelled Unsaturated IBC Cancelled Total Bilirubin AST ALT Alkaline Phosphatase Troponin I C-Reactive Protein B-Natriuretic Peptide Total Protein Albumin Prealbumin Cancelled Vitamin B12 TSH Urine Color Urine Appearance Urine pH Ur Specific [place] Urine Protein Urine Glucose (UA) Urine Ketones Urine Blood Urine Nitrite Urine Bilirubin Urine Urobilinogen Ur Leukocyte Esterase Urine WBC (Auto) Urine RBC (Auto) Urine Casts (Auto) U Epithel Cells (Auto) Urine Bacteria (Auto) Stool Occult Blood Blood Type Antibody Screen Crossmatch 01/28/19 01/28/19 01/28/19 00:45 00:45 00:48 WBC RBC Hgb Hct MCV MCH MCHC RDW Plt Count MPV Absolute Neuts (auto) Neutrophils % Lymphocytes % Monocytes % Eosinophils % Basophils % Nucleated RBC % ESR Retic Count 1.07 PT with INR INR PTT (Actin FS) Sodium Potassium Chloride Carbon Dioxide Anion Gap BUN Creatinine Est GFR (CKD-EPI)AfAm Est GFR (CKD-EPI)NonAf POC Glucometer Random Glucose Hemoglobin A1c % Calcium Phosphorus Magnesium Iron TIBC Iron Saturation Unsaturated IBC Total Bilirubin AST ALT Alkaline Phosphatase Troponin I C-Reactive Protein B-Natriuretic Peptide Total Protein Albumin Prealbumin Vitamin B12 Cancelled TSH Urine Color Yellow Urine Appearance Clear Urine pH 6.0 Ur Specific [place] 1.013 Urine Protein 3+ H Urine Glucose (UA) 1+ H Urine Ketones Negative Urine Blood Negative Urine Nitrite Negative Urine Bilirubin Negative Urine Urobilinogen 0.2 Ur Leukocyte Esterase Negative Urine WBC (Auto) 0 Urine RBC (Auto) 0 Urine Casts (Auto) 2 U Epithel Cells (Auto) 1.4 Urine Bacteria (Auto) 1.5 Stool Occult Blood Blood Type Antibody Screen Crossmatch 01/28/19 01/28/19 01/28/19 06:16 06:36 06:36 WBC 6.0 RBC 2.37 L Hgb 7.3 L Hct 21.6 L MCV 91.1 MCH 30.6 MCHC 33.6 RDW 14.3 Plt Count 176 MPV 8.3 Absolute Neuts (auto) Neutrophils % Lymphocytes % Monocytes % Eosinophils % Basophils % Nucleated RBC % ESR Retic Count PT with INR INR PTT (Actin FS) Sodium 145 Potassium 5.3 H Chloride 118 H Carbon Dioxide 18 L Anion Gap 9 BUN 49.3 H Creatinine 6.9 H Est GFR (CKD-EPI)AfAm 7.99 Est GFR (CKD-EPI)NonAf 6.90 POC Glucometer 85 Random Glucose 87 Hemoglobin A1c % Calcium 7.4 L Phosphorus 6.0 H Magnesium 2.0 Iron TIBC Iron Saturation Unsaturated IBC Total Bilirubin 0.7 AST 10 L ALT 10 L Alkaline Phosphatase 95 Troponin I C-Reactive Protein B-Natriuretic Peptide Total Protein 4.9 L Albumin 2.2 L Prealbumin Vitamin B12 TSH Urine Color Urine Appearance Urine pH Ur Specific [place] Urine Protein Urine Glucose (UA) Urine Ketones Urine Blood Urine Nitrite Urine Bilirubin Urine Urobilinogen Ur Leukocyte Esterase Urine WBC (Auto) Urine RBC (Auto) Urine Casts (Auto) U Epithel Cells (Auto) Urine Bacteria (Auto) Stool Occult Blood Blood Type Antibody Screen Crossmatch 01/28/19 11:10 WBC RBC Hgb Hct MCV MCH MCHC RDW Plt Count MPV Absolute Neuts (auto) Neutrophils % Lymphocytes % Monocytes % Eosinophils % Basophils % Nucleated RBC % ESR Retic Count PT with INR INR PTT (Actin FS) Sodium Potassium Chloride Carbon Dioxide Anion Gap BUN Creatinine Est GFR (CKD-EPI)AfAm Est GFR (CKD-EPI)NonAf POC Glucometer 89 Random Glucose Hemoglobin A1c % Calcium Phosphorus Magnesium Iron TIBC Iron Saturation Unsaturated IBC Total Bilirubin AST ALT Alkaline Phosphatase Troponin I C-Reactive Protein B-Natriuretic Peptide Total Protein Albumin Prealbumin Vitamin B12 TSH Urine Color Urine Appearance Urine pH Ur Specific [place] Urine Protein Urine Glucose (UA) Urine Ketones Urine Blood Urine Nitrite Urine Bilirubin Urine Urobilinogen Ur Leukocyte Esterase Urine WBC (Auto) Urine RBC (Auto) Urine Casts (Auto) U Epithel Cells (Auto) Urine Bacteria (Auto) Stool Occult Blood Blood Type Antibody Screen Crossmatch CXR results reviewed EKG: NSR, with sinus arrhythmia ASSESSMENT AND PLAN: 78 yom with PMHx of DM type II, HTN, HLD, CKD stage IV, hearing attempts, ? prior attempts with AV fistula admitted with progressive exertional dyspnea/ dizziness, poor appetite and weight loss. -SAMANTHA vs progressive CKD, now stage V -Anemia, acute vs chronic -Occult GI bleed -Fluid overload/CHF, ?systolic vs diastolic -Hyperkalemia -Hyperphosphatemia -Metabolic acidosis -Hyperkalemia -NIDDM -HTN -HLD -Hearing loss Plan: s/p 1 unit PRBC. Monitor h/h. For JOSE DAVID. Iron panel noted (?sent post transfusion) . FOBT pos, no gross evidence of blood. PPI IV BID. GI consulted. Anticipate additional w/u once renal function/volume status stabilized unless gross evidence of bleed, drop in h/h or acute concerns noted. Place on clears for now, follow up with GI for additional input. Renal input noted. Renal/bladder US, phosphate binders, JOSE DAVID, sodium bicarbonate. Lasix per Renal, strict I/Os and daily weights, bob for now to ensure adequate monitoring of volume status. HD per renal. resume metoprolol, hydralazine. Hold ARB. Lokelma if K > 5.5. No concerning EKG changes, monitor for now. Check 2D echo. Continue statin. ISS, hold januvia. Check A1c. DVTPPX SCDs Dispo pending clinical improvement. Prior records with patient ?refusing HD. Palliative care consult for goals of care. Discussed with patient. Care co-ordinated with Dr. Gloria.
--- NOTE | 2019-01-28 13:29 | ECHO ---
Name: ZAINA HERNANDEZ Exam:Adult Echocardiogram Study Date: 01/28/2019 07:50 AM Age: 78 yrs Reason For Study: CHF Height: 69 in Weight: 190 lb BSA: 2.0 m2 MMode/2D Measurements & Calculations IVSd: 1.4 cm Ao root diam: 4.0 cm LVIDd: 4.5 cm LA dimension: 3.0 cm LVIDs: 3.3 cm LVPWd: 1.2 cm EDV(Teich): 90.1 ml LVOT diam: 2.0 cm ESV(Teich): 43.3 ml LAV (MOD-bp): 46.7 ml Doppler Measurements & Calculations MV E max ramirez: 68.4 cm/sec Ao V2 max: 178.5 cm/sec MV A max ramirez: 137.3 cm/sec Ao max P.8 mmHg MV E/A: 0.50 Ao V2 mean: 110.4 cm/sec MV dec time: 0.14 sec Ao mean P.1 mmHg Ao V2 VTI: 32.3 cm MONSERRAT(V,D): 1.8 cm2 LV V1 max P.2 mmHg TR max ramirez: 221.3 cm/sec LV V1 max: 101.9 cm/sec TR max P.8 mmHg PA V2 max: 122.2 cm/sec PA max P.0 mmHg Procedure A two-dimensional transthoracic echocardiogram with color flow and Doppler was performed. The study w as technically difficult with many images being suboptimal in quality. Left Ventricle There is moderate concentric left ventricular hypertrophy. The left ventricle is not well visualized. The left ventricular ejection fraction is normal. E/A reversal consistent with but not diagnostic of poor LV compliance. Regional wall motion abnormalities cannot be excluded due to limited visualization. Right Ventricle The right ventricle is not well visualized. Atria Normal left and right atrial size and function. Mitral Valve The mitral valve is not well visualized. There is no mitral valve stenosis. There is trace to mild mi tral regurgitation. Tricuspid Valve The tricuspid valve is not well visualized. There is no tricuspid stenosis. There is trace tricuspid regurgitation. Right ventricular systolic pressure is normal. Aortic Valve The aortic valve is normal in structure and function. No hemodynamically significant valvular aortic stenosis. No aortic regurgitation is present. Pulmonic Valve The pulmonic valve is not well visualized. Great Vessels Mild aortic root dilatation. Pericardium/Pleura There is no pericardial effusion. Interpretation Summary There is moderate concentric left ventricular hypertrophy. The left ventricular ejection fraction is normal. Mild aortic root dilatation. There is trace tricuspid regurgitation. Right ventricular systolic pressure is normal. The study was technically difficult with many images being suboptimal in quality. The left ventricle is not well visualized. Regional wall motion abnormalities cannot be excluded due to limited visualization. There is trace to mild mitral regurgitation. E/A reversal consistent with but not diagnostic of poor LV compliance MD Jorge Roman 01/28/2019 01:29 PM
[2019-01-28 16:01] LABS: HEMATOCRIT 22.4 % (35.4-49); HEMOGLOBIN 7.4 GM/dL (11.7-16.9); MCH 30.1 pg (25.7-33.7); MEAN CELL VOLUME 91.2 fl (80-96); PLATELET COUNT 174 K/MM3 (134-434); RBC 2.46 M/mm3 (4.00-5.60); RDW 14.6 % (11.9-15.9); WHITE BLOOD COUNT 5.6 K/mm3 (4.0-10.0)
--- NOTE | 2019-01-28 16:04 | EKG ---
Test Reason : Blood Pressure : / mmHG Vent. Rate : 076 BPM Atrial Rate : 076 BPM P-R Int : 194 ms QRS Dur : 094 ms QT Int : 388 ms P-R-T Axes : 028 037 043 degrees QTc Int : 436 ms NORMAL SINUS RHYTHM WITH SINUS ARRHYTHMIA NORMAL ECG WHEN COMPARED WITH ECG OF 29-JAN-2017 13:16, NO SIGNIFICANT CHANGE WAS FOUND Confirmed by SUZANNE DA SILVA MD ([id number]) on 01/28/2019 4:04:11 PM Referred By: Confirmed By:SUZANNE DA SILVA MD
[2019-01-28] MEDS: CALCIUM ACETATE 667 MG CAPSULE (FP) PO SCH (17:40)
[2019-01-28] MEDS ORDERED: FUROSEMIDE 20 MG TABLET (FP) PO SCH (19:00)
[2019-01-28] MEDS: ROSUVASTATIN CA 20 MG TABLET (FP) PO SCH (22:45)
[2019-01-28] MEDS: GABAPENTIN 100 MG CAPSULE (FP) PO SCH (22:46)
[2019-01-28] MEDS: FUROSEMIDE 40 MG/4 ML INJECTABLE VIAL IVPUSH ONE (22:49)
[2019-01-29] MEDS: INSULIN SLIDING SCALE (NOVOLOG) 1 VIAL SQ SCH ×4 (06:51→23:03)
[2019-01-29] MEDS: DOCUSATE SODIUM 100 MG CAPSULE (FP) PO SCH ×3 (06:52→22:44)
[2019-01-29 07:20] LABS: BASO % 0.6 % (0-2.0); EOS % 4.3 % (0-4.5); HEMATOCRIT 21.8 % (35.4-49); HEMOGLOBIN 7.2 GM/dL (11.7-16.9); LYMPH % 30.6 % (8-40); MCH 30.1 pg (25.7-33.7); MCHC 32.9 g/dl (32.0-35.9); MEAN CELL VOLUME 91.3 fl (80-96); MEAN PLT VOLUME 8.7 fl (7.5-11.1); MONO % 15.6 % (3.8-10.2); NEUT % 48.9 % (42.8-82.8); PLATELET COUNT 171 K/MM3 (134-434); RBC 2.39 M/mm3 (4.00-5.60); RDW 14.5 % (11.9-15.9); WHITE BLOOD COUNT 5.2 K/mm3 (4.0-10.0)
[2019-01-29 07:46] LABS: BILIRUBIN,TOTAL 0.3 mg/dL (0.2-1); CALCIUM 7.6 mg/dL (8.5-10.1); CREATININE 7.1 mg/dL (0.55-1.3); MAGNESIUM 2.1 mg/dL (1.8-2.4); PHOSPHOROUS 6.8 mg/dL (2.5-4.9); POTASSIUM 5.3 mmol/L (3.5-5.1); TOT PROT 4.7 g/dl (6.4-8.2)
[2019-01-29] MEDS: CALCIUM ACETATE 667 MG CAPSULE (FP) PO SCH ×4 (08:10→17:30)
[2019-01-29] MEDS: FUROSEMIDE 40 MG TABLET (FP) PO SCH (09:18)
[2019-01-29] MEDS: FERROUS SO4 325 MG TABLET (FP) PO SCH (09:18)
[2019-01-29] MEDS: SODIUM BICARBONATE 650 MG TABLET PO SCH ×2 (09:18→22:44)
[2019-01-29] MEDS: CYANOCOBALAMIN 1,000 MCG TABLET (FP) PO SCH (09:19)
[2019-01-29] MEDS: hydrALAZINE HCL 25 MG TABLET (FP) PO SCH ×2 (09:19→22:44)
[2019-01-29] MEDS: CHOLECALCIFEROL (VIT D3) 1,000 UNIT (25 MCG) TABLET PO SCH (09:24)
[2019-01-29 10:43] LABS: RATIO URIN PROTEIN/URIN CREAT 9.14 MG/DL
[2019-01-29] MEDS: PANTOPRAZOLE SODIUM 40 MG VIAL IVPUSH SCH ×2 (11:10→22:44)
[2019-01-29 14:06] VITALS: BMI 27.4
--- NOTE | 2019-01-29 14:19 | PN ---
Teaching Attending Note Name of Resident: Johnny Mendosa ATTENDING PHYSICIAN STATEMENT I saw and evaluated the patient. I reviewed the resident's note and discussed the case with the resident. I agree with the resident's findings and plan as documented with exceptions below. SUBJECTIVE: Patient seen and examined, asking for solid food. No pain or complaints otherwise. OBJECTIVE: Vital Signs Period Temp Pulse Resp BP Sys/Bo Pulse Ox Last 24 Hr 97.7 F-98 F 60-87 18-20 149-164/56-98 98-100 Intake & Output 01/26/19 01/27/19 01/28/19 01/29/19 23:59 23:59 23:59 23:59 Intake Total 300 300 Balance 300 300 Weight 190 lb 190 lb 186 lb General: sitting in bed in no acute distress CVS:S1S2 irregular neck: soft, supple no JVD Chest: no rales or wheezing Abdomen:soft, NT, Nd, pos bowel sounds Extremities: no edema Home Medications Medication Instructions Recorded Metoprolol Succinate [Toprol XL -] 100 mg PO DAILY 02/12/16 Ferrous Sulfate 325 mg PO DAILY 02/14/16 Cholecalciferol (Vitamin D3) 2,000 unit PO DAILY 01/29/17 [Vitamin D -] hydrALAZINE HCL [Apresoline -] 25 mg PO BID 01/29/17 Docusate Sodium [Colace -] 100 mg PO TID #90 cap 01/31/17 Aspirin [ASA -] 81 mg PO DAILY 01/27/19 Cyanocobalamin [Vitamin B12 -] 1,000 mcg PO DAILY 01/27/19 Fluticasone Prop 0.05% Nasal 1 - 2 spray NS DAILY 01/27/19 [Flonase -] Furosemide [Lasix] 20 mg PO DAILY 01/27/19 Gabapentin [Neurontin -] 100 mg PO HS 01/27/19 Insulin Glargine,Hum.rec.anlog 8 unit SQ HS 01/27/19 [Lantus] Losartan Potassium 100 mg PO DAILY 01/27/19 Rosuvastatin Calcium [Crestor] 20 mg PO DAILY 01/27/19 Sitagliptin Phosphate [Januvia] 50 tab PO DAILY 01/28/19 Active Medications Calcium Acetate (Phoslo -) 667 mg PO TIDCM [facility] Last Admin: 01/29/19 13:05 Dose: 667 mg Cholecalciferol (Vitamin D3 -) 2,000 unit PO DAILY [facility] Last Admin: 01/29/19 09:24 Dose: 2,000 unit Cyanocobalamin (Vitamin B12 -) 1,000 mcg PO DAILY [facility] Last Admin: 01/29/19 09:19 Dose: 1,000 mcg Docusate Sodium (Colace -) 100 mg PO TID [facility] Last Admin: 01/29/19 13:50 Dose: 100 mg Ferrous Sulfate (Feosol -) 325 mg PO DAILY [facility] Last Admin: 01/29/19 09:18 Dose: 325 mg Furosemide (Lasix -) 40 mg PO DAILY [facility] Last Admin: 01/29/19 09:18 Dose: 40 mg Gabapentin (Neurontin -) 100 mg PO [facility] Last Admin: 01/28/19 22:46 Dose: 100 mg Hydralazine HCl (Apresoline -) 25 mg PO BID [facility] Last Admin: 01/29/19 09:19 Dose: 25 mg Insulin Aspart (Novolog Vial Sliding Scale -) 1 vial SQ Q6H [facility]; Protocol Last Admin: 01/29/19 11:09 Dose: Not Given Metoprolol Succinate (Toprol Xl -) 100 mg PO DAILY [facility] Last Admin: 01/29/19 09:18 Dose: 100 mg Pantoprazole Sodium (Protonix Iv) 40 mg IVPUSH BID [facility] Last Admin: 01/29/19 11:10 Dose: 40 mg Rosuvastatin Calcium (Crestor -) 20 mg PO HS [facility] Last Admin: 01/28/19 22:45 Dose: 20 mg Sodium Bicarbonate (Sodium Bicarbonate -) 650 mg PO BID [facility] Last Admin: 01/29/19 09:18 Dose: 650 mg Laboratory Results - last 24 hr 01/27/19 01/28/19 01/28/19 20:27 00:45 00:45 WBC RBC Hgb Hct MCV MCH MCHC RDW Plt Count MPV Absolute Neuts (auto) Neutrophils % Lymphocytes % Monocytes % Eosinophils % Basophils % Nucleated RBC % Sodium Potassium Chloride Carbon Dioxide Anion Gap BUN Creatinine Est GFR (CKD-EPI)AfAm Est GFR (CKD-EPI)NonAf POC Glucometer Random Glucose Calcium Phosphorus Magnesium Erythropoietin 13.8 Total Bilirubin AST ALT Alkaline Phosphatase Total Protein Albumin Vitamin D 25-Hydroxy 18.2 L U Random Total Protein Ur Random Urea Nitrogn Urine Creatinine Protein/Creatinin Ratio HIV 1&2 Ag/Ab, 4th Gen Non reactive 01/28/19 01/28/19 01/28/19 15:00 17:47 22:44 WBC 5.6 RBC 2.46 L Hgb 7.4 L Hct 22.4 L MCV 91.2 MCH 30.1 MCHC 33.0 RDW 14.6 Plt Count 174 MPV 8.0 Absolute Neuts (auto) Neutrophils % Lymphocytes % Monocytes % Eosinophils % Basophils % Nucleated RBC % Sodium Potassium Chloride Carbon Dioxide Anion Gap BUN Creatinine Est GFR (CKD-EPI)AfAm Est GFR (CKD-EPI)NonAf POC Glucometer 92 88 Random Glucose Calcium Phosphorus Magnesium Erythropoietin Total Bilirubin AST ALT Alkaline Phosphatase Total Protein Albumin Vitamin D 25-Hydroxy U Random Total Protein Ur Random Urea Nitrogn Urine Creatinine Protein/Creatinin Ratio HIV 1&2 Ag/Ab, 4th Gen 01/29/19 01/29/19 01/29/19 05:18 05:18 06:02 WBC 5.2 RBC 2.39 L Hgb 7.2 L Hct 21.8 L MCV 91.3 MCH 30.1 MCHC 32.9 RDW 14.5 Plt Count 171 MPV 8.7 Absolute Neuts (auto) 2.6 Neutrophils % 48.9 D Lymphocytes % 30.6 D Monocytes % 15.6 H Eosinophils % 4.3 D Basophils % 0.6 Nucleated RBC % 0 Sodium 148 H Potassium 5.3 H Chloride 116 H Carbon Dioxide 22 Anion Gap 10 BUN 55.0 H Creatinine 7.1 H Est GFR (CKD-EPI)AfAm 7.72 Est GFR (CKD-EPI)NonAf 6.66 POC Glucometer 83 Random Glucose 89 Calcium 7.6 L Phosphorus 6.8 H Magnesium 2.1 Erythropoietin Total Bilirubin 0.3 AST 11 L ALT 8 L Alkaline Phosphatase 95 Total Protein 4.7 L Albumin 2.0 L Vitamin D 25-Hydroxy U Random Total Protein Ur Random Urea Nitrogn Urine Creatinine Protein/Creatinin Ratio HIV 1&2 Ag/Ab, 4th Gen 01/29/19 01/29/19 01/29/19 06:45 06:45 11:05 WBC RBC Hgb Hct MCV MCH MCHC RDW Plt Count MPV Absolute Neuts (auto) Neutrophils % Lymphocytes % Monocytes % Eosinophils % Basophils % Nucleated RBC % Sodium Potassium Chloride Carbon Dioxide Anion Gap BUN Creatinine Est GFR (CKD-EPI)AfAm Est GFR (CKD-EPI)NonAf POC Glucometer 89 Random Glucose Calcium Phosphorus Magnesium Erythropoietin Total Bilirubin AST ALT Alkaline Phosphatase Total Protein Albumin Vitamin D 25-Hydroxy U Random Total Protein 777.1 H Ur Random Urea Nitrogn 382 Urine Creatinine 85.0 Protein/Creatinin Ratio 9.140 HIV 1&2 Ag/Ab, 4th Gen Microbiology 01/28/19 11:14 Nares - Mrsa Screen - Left MRSA Screen - Final NO MRSA ISOLATED 01/27/19 18:00 Urine - Urine Clean Catch Urine Culture - Final NO GROWTH OBTAINED ASSESSMENT AND PLAN: 78 yom with PMHx of DM type II, HTN, HLD, CKD stage IV, hearing attempts, ? prior attempts with AV fistula admitted with progressive exertional dyspnea/ dizziness, poor appetite and weight loss. -SAMANTHA vs progressive CKD, now stage V -Anemia, acute vs chronic -Occult GI bleed -Fluid overload/CHF, ?systolic vs diastolic -Hyperkalemia -Hyperphosphatemia -Metabolic acidosis -Hyperkalemia -NIDDM -HTN -HLD -Hearing loss Plan: s/p 1 unit PRBC. Monitor h/h. For JOSE DAVID. Iron panel noted (?sent post transfusion) . FOBT pos, no gross evidence of blood. PPI IV BID. Follow up GI input Anticipate additional w/u once renal function/volume status stabilized unless gross evidence of bleed, drop in h/h or acute concerns noted. Advance diet as tolerated for now. Renal input noted. Renal/bladder US noted, phosphate binders, JOSE DAVID, sodium bicarbonate. Lasix per Renal, strict I/Os and daily weights, declining bob, bladder scan q6h. HD per renal. Continue metoprolol, hydralazine. Hold ARB. Lokelma if K > 5.5. No concerning EKG changes, monitor for now. 2D echo noted. Continue statin. ISS, hold januvia. A1c 6.5. DVTPPX SCDs Dispo pending clinical improvement. Prior records with patient ?refusing HD. Palliative care consult for goals of care. Discussed with patient and nursing.
--- NOTE | 2019-01-29 15:55 | PN ---
Progress Note (short form) - Note Progress Note: Renal follow up for CKD/SAMANTHA Pt seen and examined at the bedside. Awake and alert. reports that sob is improved continues to feel fatigued no chest pain, abdominal pain, N/V/D, fever, chills making urine Vital Signs Temperature 97.9 F 01/29/19 14:00 Pulse Rate 67 01/29/19 14:00 Respiratory Rate 18 01/29/19 14:00 Blood Pressure 158/63 01/29/19 14:00 O2 Sat by Pulse Oximetry (%) 100 01/29/19 09:00 Intake & Output 01/26/19 01/27/19 01/28/19 01/29/19 23:59 23:59 23:59 23:59 Intake Total 300 320 Balance 300 320 Weight 86.183 kg 86.183 kg 84.368 kg NAD RRR, M/R/G CTA, no rales soft NT/ND + edema in LE no bladder distension no asterxisis/flap CBC, BMP 01/29/19 05:18 01/29/19 05:18 Current Medications Calcium Acetate (Phoslo -) 667 mg PO TIDCM [facility] Last Admin: 01/29/19 13:05 Dose: 667 mg Cholecalciferol (Vitamin D3 -) 2,000 unit PO DAILY [facility] Last Admin: 01/29/19 09:24 Dose: 2,000 unit Cyanocobalamin (Vitamin B12 -) 1,000 mcg PO DAILY [facility] Last Admin: 01/29/19 09:19 Dose: 1,000 mcg Docusate Sodium (Colace -) 100 mg PO TID [facility] Last Admin: 01/29/19 13:50 Dose: 100 mg Ferrous Sulfate (Feosol -) 325 mg PO DAILY [facility] Last Admin: 01/29/19 09:18 Dose: 325 mg Furosemide (Lasix -) 40 mg PO DAILY [facility] Last Admin: 01/29/19 09:18 Dose: 40 mg Gabapentin (Neurontin -) 100 mg PO HS [facility] Last Admin: 01/28/19 22:46 Dose: 100 mg Hydralazine HCl (Apresoline -) 25 mg PO BID [facility] Last Admin: 01/29/19 09:19 Dose: 25 mg Insulin Aspart (Novolog Vial Sliding Scale -) 1 vial SQ Q6H [facility]; Protocol Last Admin: 08/15/19 11:09 Dose: Not Given Metoprolol Succinate (Toprol Xl -) 100 mg PO DAILY [facility] Last Admin: 01/29/19 09:18 Dose: 100 mg Pantoprazole Sodium (Protonix Iv) 40 mg IVPUSH BID [facility] Last Admin: 01/29/19 11:10 Dose: 40 mg Rosuvastatin Calcium (Crestor -) 20 mg PO HS [facility] Last Admin: 01/28/19 22:45 Dose: 20 mg Sodium Bicarbonate (Sodium Bicarbonate -) 650 mg PO BID [facility] Last Admin: 01/29/19 09:18 Dose: 650 mg 78 year old gentleman with history of CKD stage 4, DM type 2 on insulin , hyperlipidemia, hypertension and hearing loss who presented with complaints of SOB over several days and admitted for acute CHF exacerbation with SAMANTHA and anemia. 1. Acute Kidney injury vs. progressive CKD 2. CKD stage 4 3. Proteinuria 4. Hyperphosphtaemia 5. Fluid overload/CHF 6. Anemia (acute vs. chronic) 7. Metabolic acidosis 8. Hyperkalemia Renal function unchanged since admission. no overt hyperkalemia, acidosis, uremia to warrent dialysis. Renal US showed atrophic kidneys with cysts, w/o obstructon. Urine studies show nephrotic range proteinuira. Check renal vein doppler to r/o thrombosis. Check PAO, ANCA, SPEP, RPR. Continue IV Lasix trend weights Start Sodium bicarb 650mg BID for metabolic acidosis. Trend serum K on renal diet, treat if K > 5.5 (can consider Lokelma) Discussed at length with patient regarding his poor kidney function and the possible need for dialysis. Patient understands his kidneys are doing poorly but does not want to pursue dialysis or dialysis planning at this time. The risks and benefits of dialysis were explained to him. He was made aware that he could potentially pass away from his progressive kidney dysfunction without dialysis. He expressed understanding and still would not like to pursue dialysis. It was explained to him that we can continue medical management of his CKD and volume issues if he were not to pursue dialysis. Thank you Will follow Slava Gloria DO
[2019-01-29] MEDS: ROSUVASTATIN CA 20 MG TABLET (FP) PO SCH (22:44)
[2019-01-29] MEDS: GABAPENTIN 100 MG CAPSULE (FP) PO SCH (22:44)
--- NOTE | 2019-01-30 00:02 | CON.GI ---
Consult Consult Specialty:: GI Referred by:: Hospitalist Service Reason for Consultation:: Anemia - History of Present Illness Chief Complaint: Shortness of breath History of Present Illness: 78M admitted for evaluation of progressive shortness of breath and hypotensive at his OPMD's office. Noted to have Hgb 6.8 in ER and was guaiac +. Transfused. Has received transfusions in the past for anemia. Had EGD/Colonoscopy with Dr. Silveira in 2011. Colonoscopy revealed multiple colon polyps and a repeat in 1 year was suggested. EGD revealed antral erosions. He believes that he had procedures after that at [facility], however, in review of [employer] I did not see any other procedures. He denies overt bleeding, melena, change in bowel habits. - History Source History Provided By: Patient, Medical Record Limitations to Obtaining History: Poor Historian - Past Medical History Cardio/Vascular: Yes: HTN Gastrointestinal: Yes: Other (colon polyps) Renal/: Yes: Renal Inusuff Heme/Onc: Yes: Anemia Endocrine: Yes: Diabetes Mellitus - Past Surgical History Additional Surgical History: back surgery - Alcohol/Substance Use Hx Alcohol Use: No History of Substance Use: reports: None - Smoking History Smoking history: Never smoked Have you smoked in the past 12 months: No Aproximately how many cigarettes per day: 10 If you are a former smoker, when did you quit?: 5 years ago - Social History Usual Living Arrangement: With Spouse ADL: Independent Place of : Other ([place] Came to [place]year[place] 1957 History of Recent Travel: No Home Medications - Allergies Allergies/Adverse Reactions: Allergies Allergy/AdvReac Type Severity Reaction Status Date / Time ampicillin [From Unasyn] AdvReac Rash Verified 01/27/19 22:44 clindamycin AdvReac Verified 01/27/19 22:44 sulbactam [From Unasyn] AdvReac Rash Verified 01/27/19 22:44 - Home Medications Home Medications: Ambulatory Orders Metoprolol Succinate [Toprol XL -] 100 mg PO DAILY 02/12/16 Ferrous Sulfate 325 mg PO DAILY 02/14/16 Cholecalciferol (Vitamin D3) [Vitamin D -] 2,000 unit PO DAILY 01/29/17 hydrALAZINE HCL [Apresoline -] 25 mg PO BID 01/29/17 Docusate Sodium [Colace -] 100 mg PO TID #90 cap 01/31/17 Aspirin [ASA -] 81 mg PO DAILY 01/27/19 Cyanocobalamin [Vitamin B12 -] 1,000 mcg PO DAILY 01/27/19 Fluticasone Prop 0.05% Nasal [Flonase -] 1 - 2 spray NS DAILY 01/27/19 Furosemide [Lasix] 20 mg PO DAILY 01/27/19 Gabapentin [Neurontin -] 100 mg PO HS 01/27/19 Insulin Glargine,Hum.rec.anlog [Lantus] 8 unit SQ HS 01/27/19 Losartan Potassium 100 mg PO DAILY 01/27/19 Rosuvastatin Calcium [Crestor] 20 mg PO DAILY 01/27/19 Sitagliptin Phosphate [Januvia] 50 tab PO DAILY 01/28/19 Family Disease History - Family Disease History Family Disease History: Other: Father (: Old age), Mother (: Old age), Son (3, healthy), Daughter (4, healthy) Other Family History: 13 siblings: some were killed. No h/o colon cancer Review of Systems - Review of Systems Constitutional: denies: Fever, Loss of Appetite, Unintentional Wgt. Loss Cardiovascular: denies: Chest Pain Respiratory: reports: SOB Gastrointestinal: denies: Abdominal Pain, Melena, Nausea, Rectal Bleeding, Vomiting Physical Exam-GI Vital Signs: Vital Signs Temperature 97.8 F 01/29/19 17:00 Pulse Rate 67 01/29/19 17:00 Respiratory Rate 18 01/29/19 17:00 Blood Pressure 157/67 01/29/19 17:00 O2 Sat by Pulse Oximetry (%) 100 01/29/19 09:00 Constitutional: Yes: Calm Eyes: No: Sclera Icterus Cardiovascular: Yes: Regular Rate and Rhythm. No: Murmur Respiratory: Yes: CTA Bilaterally Gastrointestinal Inspection: No: Distention, Scars ...Auscultate: Yes: Normoactive Bowel Sounds ...Palpate: Yes: Soft, Tenderness. No: Hepatomegaly, Splenomegaly ...Percussion: No: Tympanitic ...Rectal Exam: Yes: Other (No external lesions, no masses, light brown guaiac + stool. + nodular prostate) Edema: No (No LE edema) Neurological: Yes: Alert Labs: CBC, BMP 01/29/19 05:18 01/29/19 05:18 INR, PTT INR 0.95 (0.83-1.09) 01/27/19 17:15 Problem List - Problems (1) Anemia Assessment/Plan: Discussed finding of anemia and guaiac + stool. Explained to Mr. Skyler Medina that to exclude GI sources of blood loss such as bleeding blood vessels, PUD, polyps or cancer of the GI tract such as colon cancer, EGD/Colonoscopy could be undertaken. Mr. Holland is refusing procedures currently, stating that he is OK. I asked that he think about these options and possibly discuss with his family if necessary. I asked that if he changes his mind that he should let his medical doctors know. Advance diet Protonix 40mg once daily Recall if Mr. Skyler Medina is amenable to procedures and medically cleared. Code(s): D64.9 - ANEMIA, UNSPECIFIED Qualifiers: Anemia type: due to chronic kidney disease Chronic kidney disease stage: stage 4 (severe) Qualified Code(s): N18.4 - Chronic kidney disease, stage 4 ( severe)
[2019-01-30] MEDS: INSULIN SLIDING SCALE (NOVOLOG) 1 VIAL SQ SCH ×4 (05:47→23:53)
[2019-01-30] MEDS: DOCUSATE SODIUM 100 MG CAPSULE (FP) PO SCH ×3 (05:47→22:04)
[2019-01-30] MEDS: CALCIUM ACETATE 667 MG CAPSULE (FP) PO SCH ×3 (07:42→17:03)
[2019-01-30] MEDS: FUROSEMIDE 40 MG TABLET (FP) PO SCH (09:50)
[2019-01-30] MEDS: CHOLECALCIFEROL (VIT D3) 1,000 UNIT (25 MCG) TABLET PO SCH (09:50)
[2019-01-30] MEDS: SODIUM BICARBONATE 650 MG TABLET PO SCH ×2 (09:50→22:04)
[2019-01-30] MEDS: PANTOPRAZOLE SODIUM 40 MG VIAL IVPUSH SCH (09:50)
[2019-01-30] MEDS: CYANOCOBALAMIN 1,000 MCG TABLET (FP) PO SCH (09:51)
[2019-01-30] MEDS: FERROUS SO4 325 MG TABLET (FP) PO SCH (09:51)
[2019-01-30] MEDS: hydrALAZINE HCL 25 MG TABLET (FP) PO SCH ×2 (09:51→22:04)
--- NOTE | 2019-01-30 11:03 | PN ---
Physical Exam: SUBJECTIVE: Patient seen and examined denies cp or sob but still complain of dizziness refuse HD and refuse EGD/colonoscopy waork up OBJECTIVE: Vital Signs Period Temp Pulse Resp BP Sys/Bo Pulse Ox Last 24 Hr 97.7 F-98.4 F 65-69 18-18 133-158/61-82 96-96 GENERAL: AAOx3 in NAD HEAD: NC/AT EYES: EOMI, Conjunctiva clear, sclera anicteric ENT: moist mucous membrane NECK: Supple, no JVD LUNGS: CTA B/L, no crackles no wheezing no accessory muscle use. HEART: RRR, normal s1, s2 no M/R/G ABDOMEN: Obese Soft, ND, NT, +BS 4 Q, no CVA Tenderness LOWER EXTREMITIES: no edema, +2DP pulse, NEUROLOGICAL: No focal deficit. Normal speech. gait not observed. PSYCHIATRIC: Cooperative. Good eye contact. Appropriate mood and affect. SKIN: Warm, dry, Laboratory Results - last 24 hr 01/29/19 01/29/19 01/29/19 11:05 16:55 22:52 POC Glucometer 89 131 190 RPR Titer 01/30/19 01/30/19 05:20 05:41 POC Glucometer 120 RPR Titer Nonreactive Active Medications Generic Name Dose Route Start Last Admin Trade Name Matiasq PRN Reason Stop Dose Admin Calcium Acetate 667 mg 01/28/19 17:30 01/30/19 07:42 Phoslo - PO 667 mg TIDCM ROB Administration Cholecalciferol 2,000 unit 01/28/19 10:00 01/30/19 09:50 Vitamin D3 - PO 2,000 unit DAILY ROB Administration Cyanocobalamin 1,000 mcg 01/28/19 10:00 01/30/19 09:51 Vitamin B12 - PO 1,000 mcg DAILY ROB Administration Docusate Sodium 100 mg 01/28/19 14:00 01/30/19 05:47 Colace - PO Not Given TID ROB Ferrous Sulfate 325 mg 01/28/19 10:00 01/30/19 09:51 Feosol - PO 325 mg DAILY ROB Administration Furosemide 40 mg 01/29/19 10:00 01/30/19 09:50 Lasix - PO 40 mg DAILY ROB Administration Gabapentin 100 mg 01/28/19 22:00 01/29/19 22:44 Neurontin - PO 100 mg HS ROB Administration Hydralazine HCl 25 mg 01/28/19 10:15 01/30/19 09:51 Apresoline - PO 25 mg BID ROB Administration Insulin Aspart 1 vial 01/27/19 23:30 01/30/19 05:47 Novolog Vial Sliding Scale - SQ Not Given Q6H [facility] Protocol Metoprolol Succinate 100 mg 01/28/19 12:30 01/30/19 09:50 Toprol Xl - PO 100 mg DAILY [facility] Administration Pantoprazole Sodium 40 mg 01/28/19 10:00 01/30/19 09:50 Protonix Iv IVPUSH 40 mg BID [facility] Administration Rosuvastatin Calcium 20 mg 01/28/19 22:00 01/29/19 22:44 Crestor - PO 20 mg HS [facility] Administration Sodium Bicarbonate 650 mg 01/28/19 22:00 01/30/19 09:50 Sodium Bicarbonate - PO 650 mg BID ROB Administration CBC, BMP 01/30/19 11:58 01/30/19 09:54 ASSESSMENT/PLAN: 78 y/o M, pmh of DM type 2, HLD, CKD, left hearing loss, presents to the ED from his doctor's office s/p hypotension (98/50) and sob likely 2/2 to anemia #Anemia acute on chronic * SOB and fatigue and lightheaded likely 2/2 to anemia which could be 2/2 to GI bleed vs chronic disease v.s Unknown source * S.P 1 Unit pRBC transfused in ED. * refuse EGD/Colonoscopy * FOBT+ * Protonix 40 po BID * monitor H/H daily * reticulocytes stat ordered * monitor on Tele * GI consulted * iron studies done after transfusion #Cannot r/o CHF exacerbation * ECHO mild LVH, normal EF , mild aortic root dilation , TR , RV systolic pressure normal , can nor r.o wall motion abnormalties. * EKG- no acute changes * BNP 5500 #DM * A1c stat 6.5 * BGM ACHS * Insulin sliding scale #Acute on CKD * UA showed protein, r/o nephrotic syndrome * 24 hr protein ordered * EPO and Vit D ordered * consult Dr Faizan Pedersen Nephrology recommend Renal/bladder US, phosphate binders, JOSE DAVID, sodium bicarbonate. * Renal US showed atrophic kidneys with cysts, w/o obstructon. * urine studies shows nephrotic range protienuria #Hypertension * continue Hydralizine and hold losartan for now due to hyperkalemia #Hyperkalemia 5.0 this am no EKG changes , treat if above 5.5 * recheck BMP daily * sodium bicarb 650 BID #HLD * continue home med- Rosuvastatin, * hold ASA #DVT ppx * SCDs #FEN: * renal diet * monitor lytes Dispo : pending clinical improvement , consult palliative care for goal of care as pt refusing HD Visit type - Emergency Visit Emergency Visit: Yes ED Registration Date: 01/27/19 Care time: The patient presented to the Emergency Department on the above date and was hospitalized for further evaluation of their emergent condition. - New Patient This patient is new to me today: No - Critical Care Critical Care patient: No ATTENDING PHYSICIAN STATEMENT I saw and evaluated the patient. I reviewed the resident's note and discussed the case with the resident. I agree with the resident's findings and plan as documented. SUBJECTIVE: OBJECTIVE: ASSESSMENT AND PLAN:
[2019-01-30 11:13] LABS: CALCIUM 7.2 mg/dL (8.5-10.1); MAGNESIUM 2.1 mg/dL (1.8-2.4); PHOSPHOROUS 6.9 mg/dL (2.5-4.9)
[2019-01-30 11:18] LABS: CREATININE 7.4 mg/dL (0.55-1.3)
--- NOTE | 2019-01-30 11:58 | PN ---
Teaching Attending Note Name of Resident: Johnny Mendosa ATTENDING PHYSICIAN STATEMENT I saw and evaluated the patient. I reviewed the resident's note and discussed the case with the resident. I agree with the resident's findings and plan as documented with exceptions below. SUBJECTIVE: Patient seen and examined. no complaints, feels better. OBJECTIVE: Vital Signs Period Temp Pulse Resp BP Sys/Bo Pulse Ox Last 24 Hr 97.7 F-98.4 F 65-69 18-18 133-158/61-82 96-96 Intake & Output 01/27/19 01/28/19 01/29/19 01/30/19 23:59 23:59 23:59 23:59 Intake Total 300 520 30 Balance 300 520 30 Weight 190 lb 190 lb 186 lb 184 lb General: sitting in bed in no acute distress Neck: soft, supple, no JVD Chest: no rales or wheezing appreciated Abdomen:Soft, NT, ND, pos bowel sounds Extremities: No edema CVS:S1S2 regular Home Medications Medication Instructions Recorded Metoprolol Succinate [Toprol XL -] 100 mg PO DAILY 02/12/16 Ferrous Sulfate 325 mg PO DAILY 02/14/16 Cholecalciferol (Vitamin D3) 2,000 unit PO DAILY 01/29/17 [Vitamin D -] hydrALAZINE HCL [Apresoline -] 25 mg PO BID 01/29/17 Docusate Sodium [Colace -] 100 mg PO TID #90 cap 01/31/17 Aspirin [ASA -] 81 mg PO DAILY 01/27/19 Cyanocobalamin [Vitamin B12 -] 1,000 mcg PO DAILY 01/27/19 Fluticasone Prop 0.05% Nasal 1 - 2 spray NS DAILY 01/27/19 [Flonase -] Furosemide [Lasix] 20 mg PO DAILY 01/27/19 Gabapentin [Neurontin -] 100 mg PO HS 01/27/19 Insulin Glargine,Hum.rec.anlog 8 unit SQ HS 01/27/19 [Lantus] Losartan Potassium 100 mg PO DAILY 01/27/19 Rosuvastatin Calcium [Crestor] 20 mg PO DAILY 01/27/19 Sitagliptin Phosphate [Januvia] 50 tab PO DAILY 01/28/19 Active Medications Calcium Acetate (Phoslo -) 667 mg PO TIDCM [facility] Last Admin: 01/30/19 07:42 Dose: 667 mg Cholecalciferol (Vitamin D3 -) 2,000 unit PO DAILY [facility] Last Admin: 01/30/19 09:50 Dose: 2,000 unit Cyanocobalamin (Vitamin B12 -) 1,000 mcg PO DAILY [facility] Last Admin: 01/30/19 09:51 Dose: 1,000 mcg Docusate Sodium (Colace -) 100 mg PO TID [facility] Last Admin: 01/30/19 05:47 Dose: Not Given Ferrous Sulfate (Feosol -) 325 mg PO DAILY [facility] Last Admin: 01/30/19 09:51 Dose: 325 mg Furosemide (Lasix -) 40 mg PO DAILY [facility] Last Admin: 01/30/19 09:50 Dose: 40 mg Gabapentin (Neurontin -) 100 mg PO [facility] Last Admin: 01/29/19 22:44 Dose: 100 mg Hydralazine HCl (Apresoline -) 25 mg PO BID [facility] Last Admin: 01/30/19 09:51 Dose: 25 mg Insulin Aspart (Novolog Vial Sliding Scale -) 1 vial SQ Q6H [facility]; Protocol Last Admin: 01/30/19 05:47 Dose: Not Given Metoprolol Succinate (Toprol Xl -) 100 mg PO DAILY [facility] Last Admin: 01/30/19 09:50 Dose: 100 mg Pantoprazole Sodium (Protonix Iv) 40 mg IVPUSH BID [facility] Last Admin: 01/30/19 09:50 Dose: 40 mg Rosuvastatin Calcium (Crestor -) 20 mg PO HS [facility] Last Admin: 01/29/19 22:44 Dose: 20 mg Sodium Bicarbonate (Sodium Bicarbonate -) 650 mg PO BID [facility] Last Admin: 01/30/19 09:50 Dose: 650 mg Laboratory Results - last 24 hr 01/29/19 01/29/19 01/30/19 16:55 22:52 05:20 Sodium Potassium Chloride Carbon Dioxide Anion Gap BUN Creatinine Est GFR (CKD-EPI)AfAm Est GFR (CKD-EPI)NonAf POC Glucometer 131 190 Random Glucose Calcium Phosphorus Magnesium RPR Titer Nonreactive 01/30/19 01/30/19 05:41 09:54 Sodium 145 Potassium 5.0 Chloride 114 H Carbon Dioxide 21 Anion Gap 9 BUN 61.0 H Creatinine 7.4 H* Est GFR (CKD-EPI)AfAm 7.35 Est GFR (CKD-EPI)NonAf 6.34 POC Glucometer 120 Random Glucose 105 Calcium 7.2 L Phosphorus 6.9 H Magnesium 2.1 RPR Titer Microbiology 01/28/19 11:14 Nares - Mrsa Screen - Left MRSA Screen - Final NO MRSA ISOLATED 01/27/19 18:00 Urine - Urine Clean Catch Urine Culture - Final NO GROWTH OBTAINED ASSESSMENT AND PLAN: 78 yom with PMHx of DM type II, HTN, HLD, CKD stage IV, hearing attempts, ? prior attempts with AV fistula admitted with progressive exertional dyspnea/ dizziness, poor appetite and weight loss. -SAMANTHA vs progressive CKD, now stage V -Anemia, acute vs chronic -Occult GI bleed -Fluid overload/CHF, ?systolic vs diastolic -Hyperkalemia -Hyperphosphatemia -Metabolic acidosis -Hyperkalemia -NIDDM -HTN -HLD -Hearing loss Plan: s/p 1 unit PRBC. Monitor h/h. JOSE DAVID per renal. Iron panel noted (?sent post transfusion). FOBT pos, no gross evidence of blood. GI input noted. Change PPI to PO BID. PO as tolerated. Renal input noted. Renal/bladder US noted, phosphate binders, JOSE DAVID, sodium bicarbonate. Lasix per Renal, strict I/Os and daily weights, declining bob, bladder scan q6h. HD per renal. Continue metoprolol, hydralazine. Hold ARB. Lokelma if K > 5.5. No concerning EKG changes, monitor for now. 2D echo noted. Continue statin. ISS, hold januvia. A1c 6.5. DVTPPX SCDs Dispo pending clinical improvement. Patient refusing HD, GI work up. Palliative care consult for goals of care. Discussed with patient and nursing.
--- NOTE | 2019-01-30 12:31 | PN ---
Progress Note (short form) - Note Progress Note: Renal follow up for CKD/SAMANTHA Pt seen and examined at the bedside. Awake and alert. reports that sob is improved feels fatigued making urine Vital Signs Temperature 98.4 F 01/30/19 09:00 Pulse Rate 65 01/30/19 09:00 Respiratory Rate 18 01/30/19 09:00 Blood Pressure 149/63 01/30/19 09:00 O2 Sat by Pulse Oximetry (%) 96 01/30/19 09:00 Intake & Output 01/27/19 01/28/19 01/29/19 01/30/19 23:59 23:59 23:59 23:59 Intake Total 300 520 30 Balance 300 520 30 Weight 86.183 kg 86.183 kg 84.368 kg 83.461 kg NAD RRR, M/R/G CTA, no rales soft NT/ND + edema in LE no bladder distension no asterxisis/flap CBC, BMP 01/29/19 05:18 01/30/19 09:54 Current Medications Calcium Acetate (Phoslo -) 667 mg PO TIDCM [facility] Last Admin: 01/30/19 12:05 Dose: 667 mg Cholecalciferol (Vitamin D3 -) 2,000 unit PO DAILY [facility] Last Admin: 01/30/19 09:50 Dose: 2,000 unit Cyanocobalamin (Vitamin B12 -) 1,000 mcg PO DAILY [facility] Last Admin: 01/30/19 09:51 Dose: 1,000 mcg Docusate Sodium (Colace -) 100 mg PO TID [facility] Last Admin: 01/30/19 05:47 Dose: Not Given Ferrous Sulfate (Feosol -) 325 mg PO DAILY [facility] Last Admin: 01/30/19 09:51 Dose: 325 mg Furosemide (Lasix -) 40 mg PO DAILY [facility] Last Admin: 01/30/19 09:50 Dose: 40 mg Gabapentin (Neurontin -) 100 mg PO HS [facility] Last Admin: 01/29/19 22:44 Dose: 100 mg Hydralazine HCl (Apresoline -) 25 mg PO BID [facility] Last Admin: 01/30/19 09:51 Dose: 25 mg Insulin Aspart (Novolog Vial Sliding Scale -) 1 vial SQ Q6H [facility]; Protocol Last Admin: 01/30/19 11:56 Dose: 2 units Metoprolol Succinate (Toprol Xl -) 100 mg PO DAILY [facility] Last Admin: 01/30/19 09:50 Dose: 100 mg Pantoprazole Sodium (Protonix -) 40 mg PO DAILY [facility] Rosuvastatin Calcium (Crestor -) 20 mg PO HS [facility] Last Admin: 01/29/19 22:44 Dose: 20 mg Sodium Bicarbonate (Sodium Bicarbonate -) 650 mg PO BID [facility] Last Admin: 01/30/19 09:50 Dose: 650 mg 78 year old gentleman with history of CKD stage 4, DM type 2 on insulin , hyperlipidemia, hypertension and hearing loss who presented with complaints of SOB over several days and admitted for acute CHF exacerbation with SAMANTHA and anemia. 1. Acute Kidney injury vs. progressive CKD 2. CKD stage 4 3. Proteinuria 4. Hyperphosphtaemia 5. Fluid overload/CHF 6. Anemia (acute vs. chronic) 7. Metabolic acidosis 8. Hyperkalemia Renal function unchanged since admission. no overt hyperkalemia, acidosis, uremia to warrent dialysis. Renal US showed atrophic kidneys with cysts, w/o obstructon. Urine studies show nephrotic range proteinuira. renal vein doppler did not show any thrombosis Serologic work up collected, results pending Continue IV Lasix for edema management trend weights continue Sodium bicarb 650mg BID for metabolic acidosis. Trend serum K on renal diet, treat if K > 5.5 (can consider Lokelma) Discussed at length with patient regarding his poor kidney function and the possible need for dialysis. Patient understands his kidneys are doing poorly but does not want to pursue dialysis or dialysis planning at this time. The risks and benefits of dialysis were explained to him. He was made aware that he could potentially pass away from his progressive kidney dysfunction without dialysis. He expressed understanding and still would not like to pursue dialysis. It was explained to him that we can continue medical management of his CKD and volume issues if he were not to pursue dialysis. Thank you Will follow Slava Gloria DO
[2019-01-30 13:46] LABS: BASO % 0.6 % (0-2.0); EOS % 3.5 % (0-4.5); HEMATOCRIT 23.6 % (35.4-49); HEMOGLOBIN 7.8 GM/dL (11.7-16.9); LYMPH % 24.6 % (8-40); MCH 30.3 pg (25.7-33.7); MCHC 33.1 g/dl (32.0-35.9); MEAN CELL VOLUME 91.7 fl (80-96); MEAN PLT VOLUME 8.5 fl (7.5-11.1); NEUT % 58.3 % (42.8-82.8); PLATELET COUNT 173 K/MM3 (134-434); RBC 2.57 M/mm3 (4.00-5.60); RDW 14.6 % (11.9-15.9); WHITE BLOOD COUNT 5.2 K/mm3 (4.0-10.0)
[2019-01-30] MEDS ORDERED: PANTOPRAZOLE 40 MG TABLET (FP) PO SCH (22:00)
[2019-01-30] MEDS: ROSUVASTATIN CA 20 MG TABLET (FP) PO SCH (22:04)
[2019-01-30] MEDS: GABAPENTIN 100 MG CAPSULE (FP) PO SCH (22:04)
[2019-01-31] MEDS: INSULIN SLIDING SCALE (NOVOLOG) 1 VIAL SQ SCH ×4 (05:25→23:02)
[2019-01-31] MEDS: DOCUSATE SODIUM 100 MG CAPSULE (FP) PO SCH ×3 (05:25→23:02)
[2019-01-31 07:37] LABS: BLOOD UREA NITROGEN 61.5 mg/dL (7-18); CALCIUM 7.1 mg/dL (8.5-10.1); CREATININE 7.3 mg/dL (0.55-1.3); MAGNESIUM 2.1 mg/dL (1.8-2.4); PHOSPHOROUS 6.9 mg/dL (2.5-4.9); POTASSIUM 4.9 mmol/L (3.5-5.1)
--- NOTE | 2019-01-31 07:52 | PN.GI ---
GI Progress Note Subjective: NO NEW COMPLAINTS - FEELING WELL TODAY NOW AGREES TO ENDOSCOPIC EVALUATION FOR HIS ANEMIA DENIES MELENA / BRBR/ ABDOMINAL PAIN / N/V - Objective Vital Signs: Vital Signs Temperature 97.9 F 01/31/19 05:00 Pulse Rate 56 L 01/31/19 05:00 Respiratory Rate 18 01/31/19 05:00 Blood Pressure 146/65 01/31/19 05:00 O2 Sat by Pulse Oximetry (%) 99 01/30/19 21:00 Constitutional: Well Nourished, No Distress, Calm Eyes: Yes: WNL HENT: Yes: WNL Neck: Yes: WNL Cardiovascular: Yes: WNL, Regular Rate and Rhythm Respiratory: Yes: WNL, Regular, CTA Bilaterally Gastrointestinal Inspection: Yes: WNL ...Auscultate: Yes: Normoactive Bowel Sounds Extremities: Yes: WNL Edema: No Labs: CBC, BMP 01/30/19 11:58 01/31/19 05:27 INR, PTT INR 0.95 (0.83-1.09) 01/27/19 17:15 Problem List - Problems (1) Acute renal failure Code(s): N17.9 - ACUTE KIDNEY FAILURE, UNSPECIFIED (2) Anemia Assessment/Plan: CREATININE OVER 6 TODAY - NEPHROLOGY OK WITH ENDOSCOPIC PROCEDURES FOR SATURDAY CLEAR LIQUID DIET & BOWEL PREP SATURDAY MONITOR H/H QD PPI Code(s): D64.9 - ANEMIA, UNSPECIFIED Qualifiers: Anemia type: due to chronic kidney disease Chronic kidney disease stage: stage 4 (severe) Qualified Code(s): N18.4 - Chronic kidney disease, stage 4 ( severe) (3) CKD (chronic kidney disease) Code(s): N18.9 - CHRONIC KIDNEY DISEASE, UNSPECIFIED
[2019-01-31] MEDS: CALCIUM ACETATE 667 MG CAPSULE (FP) PO SCH ×3 (08:49→16:54)
[2019-01-31] MEDS: FERROUS SO4 325 MG TABLET (FP) PO SCH (09:48)
[2019-01-31] MEDS: FUROSEMIDE 40 MG TABLET (FP) PO SCH (09:48)
[2019-01-31] MEDS: SODIUM BICARBONATE 650 MG TABLET PO SCH ×2 (09:48→23:02)
[2019-01-31] MEDS: PANTOPRAZOLE 40 MG TABLET (FP) PO SCH (09:48)
[2019-01-31] MEDS: hydrALAZINE HCL 25 MG TABLET (FP) PO SCH ×2 (09:48→23:02)
[2019-01-31] MEDS: CHOLECALCIFEROL (VIT D3) 1,000 UNIT (25 MCG) TABLET PO SCH (09:48)
[2019-01-31] MEDS: CYANOCOBALAMIN 1,000 MCG TABLET (FP) PO SCH (09:49)
--- NOTE | 2019-01-31 09:50 | PN ---
Progress Note (short form) - Note Progress Note: Renal follow up for CKD/SAMANTHA Pt seen and examined at the bedside. Awake and alert. no acute complaints making urine sob improved, fatigue improved Vital Signs Temperature 97.9 F 01/31/19 08:16 Pulse Rate 57 L 01/31/19 08:16 Respiratory Rate 18 01/31/19 08:16 Blood Pressure 149/57 L 01/31/19 08:16 O2 Sat by Pulse Oximetry (%) 99 01/31/19 08:16 Intake & Output 01/28/19 01/29/19 01/30/19 01/31/19 23:59 23:59 23:59 23:59 Intake Total 300 520 350 20 Balance 300 520 350 20 Weight 86.183 kg 84.368 kg 83.461 kg 83.189 kg NAD RRR, M/R/G CTA, no rales soft NT/ND + edema in LE no bladder distension no asterxisis/flap CBC, BMP 01/30/19 11:58 01/31/19 05:27 Current Medications Calcium Acetate (Phoslo -) 667 mg PO TIDCM [facility] Last Admin: 01/31/19 08:49 Dose: 667 mg Cholecalciferol (Vitamin D3 -) 2,000 unit PO DAILY [facility] Last Admin: 01/30/19 09:50 Dose: 2,000 unit Cyanocobalamin (Vitamin B12 -) 1,000 mcg PO DAILY [facility] Last Admin: 01/30/19 09:51 Dose: 1,000 mcg Docusate Sodium (Colace -) 100 mg PO TID [facility] Last Admin: 01/31/19 05:25 Dose: 100 mg Ferrous Sulfate (Feosol -) 325 mg PO DAILY [facility] Last Admin: 01/30/19 09:51 Dose: 325 mg Furosemide (Lasix -) 40 mg PO DAILY [facility] Last Admin: 01/30/19 09:50 Dose: 40 mg Gabapentin (Neurontin -) 100 mg PO HS [facility] Last Admin: 01/30/19 22:04 Dose: 100 mg Hydralazine HCl (Apresoline -) 25 mg PO BID [facility] Last Admin: 01/30/19 22:04 Dose: 25 mg Insulin Aspart (Novolog Vial Sliding Scale -) 1 vial SQ Q6H [facility]; Protocol Last Admin: 01/31/19 05:25 Dose: Not Given Metoprolol Succinate (Toprol Xl -) 100 mg PO DAILY [facility] Last Admin: 01/30/19 09:50 Dose: 100 mg Pantoprazole Sodium (Protonix -) 40 mg PO DAILY [facility] Rosuvastatin Calcium (Crestor -) 20 mg PO HS [facility] Last Admin: 01/30/19 22:04 Dose: 20 mg Sodium Bicarbonate (Sodium Bicarbonate -) 650 mg PO BID [facility] Last Admin: 01/30/19 22:04 Dose: 650 mg 78 year old gentleman with history of CKD stage 4, DM type 2 on insulin , hyperlipidemia, hypertension and hearing loss who presented with complaints of SOB over several days and admitted for acute CHF exacerbation with SAMANTHA and anemia. 1. Acute Kidney injury vs. progressive CKD 2. CKD stage 4 3. Proteinuria 4. Hyperphosphtaemia 5. Fluid overload/CHF 6. Anemia (acute vs. chronic) 7. Metabolic acidosis 8. Hyperkalemia Renal function unchanged since admission. no overt hyperkalemia, acidosis, uremia to warrent dialysis. Renal US showed atrophic kidneys with cysts, w/o obstruction. Urine studies show nephrotic range proteinuira. renal vein doppler did not show any thrombosis Serologic work up collected, results pending Continue IV Lasix for 1 more day, can convert to Lasix 80mg PO tomorrow trend weights continue Sodium bicarb 650mg BID for metabolic acidosis. Trend serum K on renal diet, treat if K > 5.5 (can consider Lokelma) Continue phoslo for hyperphosphtemia after discussion with palliative care team pt reaffirmed decision not to pursue dialysis. Thank you Will follow Slava Gloria DO
--- NOTE | 2019-01-31 13:54 | PN ---
Physical Exam: SUBJECTIVE: Patient seen and examined, no complaints, feeling better, agreeable to GI work up as indicated. Urinating well. OBJECTIVE: Vital Signs Period Temp Pulse Resp BP Sys/Bo Pulse Ox Last 24 Hr 97.5 F-97.9 F 56-63 18-20 135-165/57-70 99-99 Intake & Output 01/28/19 01/29/19 01/30/19 01/31/19 23:59 23:59 23:59 23:59 Intake Total 300 520 350 20 Balance 300 520 350 20 Weight 190 lb 186 lb 184 lb 183 lb 6.4 oz General: sitting in bed in no acute distress Neck: soft, supple, no JVD Chest: no rales or wheezing appreciated Abdomen:Soft, NT, ND, pos bowel sounds Extremities: No edema CVS:S1S2 regular Psych: pleasant, co-operative Laboratory Results - last 24 hr 01/27/19 01/29/19 01/29/19 17:15 05:18 05:18 Sodium Potassium Chloride Carbon Dioxide Anion Gap BUN Creatinine Est GFR (CKD-EPI)AfAm Est GFR (CKD-EPI)NonAf POC Glucometer Random Glucose Calcium Phosphorus Magnesium Total Protein (PEP) 4.7 L Albumin (PEP) 2.2 L Globulin 2.5 Albumin/Globulin Ratio 0.9 Beta Globulins 0.7 MASSIMO M-Zain Not observed PAO Screen Negative Blood Type O POSITIVE Antibody Screen Negative Crossmatch See Detail 01/30/19 01/30/19 01/31/19 16:40 22:05 05:23 Sodium Potassium Chloride Carbon Dioxide Anion Gap BUN Creatinine Est GFR (CKD-EPI)AfAm Est GFR (CKD-EPI)NonAf POC Glucometer 118 163 85 Random Glucose Calcium Phosphorus Magnesium Total Protein (PEP) Albumin (PEP) Globulin Albumin/Globulin Ratio Beta Globulins MASSIMO M-Zain PAO Screen Blood Type Antibody Screen Crossmatch 01/31/19 01/31/19 05:27 12:04 Sodium 143 Potassium 4.9 Chloride 112 H Carbon Dioxide 20 L Anion Gap 11 BUN 61.5 H Creatinine 7.3 H Est GFR (CKD-EPI)AfAm 7.47 Est GFR (CKD-EPI)NonAf 6.44 POC Glucometer 158 Random Glucose 77 Calcium 7.1 L Phosphorus 6.9 H Magnesium 2.1 Total Protein (PEP) Albumin (PEP) Globulin Albumin/Globulin Ratio Beta Globulins MASSIMO M-Zain PAO Screen Blood Type Antibody Screen Crossmatch Active Medications Generic Name Dose Route Start Last Admin Trade Name Derek PRN Reason Stop Dose Admin Calcium Acetate 667 mg 01/28/19 17:30 01/31/19 12:02 Phoslo - PO 667 mg TIDCM [facility] Administration Cholecalciferol 2,000 unit 01/28/19 10:00 01/31/19 09:48 Vitamin D3 - PO 2,000 unit DAILY [facility] Administration Cyanocobalamin 1,000 mcg 01/28/19 10:00 01/31/19 09:49 Vitamin B12 - PO 1,000 mcg DAILY [facility] Administration Docusate Sodium 100 mg 01/28/19 14:00 01/31/19 13:22 Colace - PO 100 mg TID [facility] Administration Ferrous Sulfate 325 mg 01/28/19 10:00 01/31/19 09:48 Feosol - PO 325 mg DAILY [facility] Administration Furosemide 80 mg 02/01/19 10:00 Lasix - PO DAILY [facility] Gabapentin 100 mg 01/28/19 22:00 01/30/19 22:04 Neurontin - PO 100 mg HS [facility] Administration Hydralazine HCl 25 mg 01/28/19 10:15 01/31/19 09:48 Apresoline - PO 25 mg BID [facility] Administration Insulin Aspart 1 vial 01/27/19 23:30 01/31/19 12:06 Novolog Vial Sliding Scale - SQ Not Given Q6H [facility] Protocol Metoprolol Succinate 100 mg 01/28/19 12:30 01/31/19 09:48 Toprol Xl - PO 100 mg DAILY [facility] Administration Pantoprazole Sodium 40 mg 01/31/19 10:00 01/31/19 09:48 Protonix - PO 40 mg DAILY [facility] Administration Rosuvastatin Calcium 20 mg 01/28/19 22:00 01/30/19 22:04 Crestor - PO 20 mg HS [facility] Administration Sodium Bicarbonate 650 mg 01/28/19 22:00 01/31/19 09:48 Sodium Bicarbonate - PO 650 mg BID [facility] Administration Microbiology 01/29/19 06:00 Nares - Left Nares MRSA Screen - Preliminary NO MRSA ISOLATED 01/29/19 06:00 Nares - Right Nares MRSA Screen - Preliminary NO MRSA ISOLATED 01/28/19 11:14 Nares - Mrsa Screen - Left MRSA Screen - Final NO MRSA ISOLATED 01/27/19 18:00 Urine - Urine Clean Catch Urine Culture - Final NO GROWTH OBTAINED ASSESSMENT/PLAN: 78 yom with PMHx of DM type II, HTN, HLD, CKD stage IV, hearing attempts, ? prior attempts with AV fistula admitted with progressive exertional dyspnea/ dizziness, poor appetite and weight loss. -SAMANTHA vs progressive CKD, now stage V -Anemia, acute vs chronic -Occult GI bleed -Fluid overload/CHF, ?systolic vs diastolic -Hyperkalemia -Hyperphosphatemia -Metabolic acidosis -Hyperkalemia -NIDDM -HTN -HLD -Hearing loss Plan: s/p 1 unit PRBC. Monitor h/h. JOSE DAVID per renal. Iron panel noted (?sent post transfusion). FOBT pos, no gross evidence of blood. GI input noted. PPI BID. Patient agreable to Gi work up as indicated. discussed with Dr. Gloria, no contraindications for colonoscopy, avoid phosphate bowel prep and close volume status monitoring. Discussed with Dr. Valente, possible EGD/colonoscopy Saturday. Monitor h/h for now. Renal input noted. Renal/bladder US noted, phosphate binders, JOSE DAVID, sodium bicarbonate. Lasix per Renal, strict I/Os and daily weights, declining bob, bladder scan q6h. Patient declines HD currently. Plan per renal. Continue metoprolol, hydralazine. Hold ARB. Lokelma if K > 5.5. No concerning EKG changes, monitor for now. 2D echo noted. Continue statin. ISS, hold januvia. A1c 6.5. DVTPPX SCDs Palliative care input appreciated, follow up on MOLST and goals of care. Dispo anticipate early next week pending GI work up, with close outpatient nephrology follow up. Discussed with patient and nursing. Visit type - Emergency Visit Emergency Visit: Yes ED Registration Date: 01/27/19 Care time: The patient presented to the Emergency Department on the above date and was hospitalized for further evaluation of their emergent condition. - New Patient This patient is new to me today: No - Critical Care Critical Care patient: No - Discharge Referral Referred to [facility] No
[2019-01-31] MEDS: GABAPENTIN 100 MG CAPSULE (FP) PO SCH (23:02)
[2019-01-31] MEDS: ROSUVASTATIN CA 20 MG TABLET (FP) PO SCH (23:02)
[2019-02-01] MEDS: DOCUSATE SODIUM 100 MG CAPSULE (FP) PO SCH ×3 (06:51→22:31)
[2019-02-01] MEDS: INSULIN SLIDING SCALE (NOVOLOG) 1 VIAL SQ SCH ×4 (06:51→22:31)
[2019-02-01 07:38] LABS: BASO % 0.4 % (0-2.0); EOS % 4.8 % (0-4.5); HEMATOCRIT 23.6 % (35.4-49); HEMOGLOBIN 7.8 GM/dL (11.7-16.9); MCH 30.2 pg (25.7-33.7); MCHC 33.2 g/dl (32.0-35.9); MEAN CELL VOLUME 90.8 fl (80-96); MEAN PLT VOLUME 8.9 fl (7.5-11.1); MONO % 15.5 % (3.8-10.2); NEUT % 50.3 % (42.8-82.8); PLATELET COUNT 171 K/MM3 (134-434); RDW 14.2 % (11.9-15.9); WHITE BLOOD COUNT 5.8 K/mm3 (4.0-10.0)
[2019-02-01 07:57] LABS: BLOOD UREA NITROGEN 59.4 mg/dL (7-18); CALCIUM 7.6 mg/dL (8.5-10.1); CREATININE 7.3 mg/dL (0.55-1.3); MAGNESIUM 2.2 mg/dL (1.8-2.4); PHOSPHOROUS 6.2 mg/dL (2.5-4.9); POTASSIUM 4.7 mmol/L (3.5-5.1)
--- NOTE | 2019-02-01 08:22 | PN.GI ---
GI Progress Note Subjective: NO NEW COMPLAINTS - Objective Vital Signs: Vital Signs Temperature 98.0 F 02/01/19 06:00 Pulse Rate 62 02/01/19 06:00 Respiratory Rate 16 02/01/19 07:49 Blood Pressure 147/57 L 02/01/19 06:00 O2 Sat by Pulse Oximetry (%) 100 02/01/19 07:49 Constitutional: Well Nourished, No Distress, Calm Eyes: Yes: WNL, Conjunctiva Clear, EOM Intact HENT: Yes: WNL Neck: Yes: WNL, Supple Cardiovascular: Yes: WNL, Regular Rate and Rhythm Respiratory: Yes: WNL, Regular, CTA Bilaterally Gastrointestinal Inspection: Yes: WNL ...Auscultate: Yes: Normoactive Bowel Sounds Musculoskeletal: Yes: WNL Extremities: Yes: WNL Edema: No Labs: CBC, BMP 02/01/19 05:40 02/01/19 05:40 INR, PTT INR 0.95 (0.83-1.09) 01/27/19 17:15 Problem List - Problems (1) Acute renal failure Code(s): N17.9 - ACUTE KIDNEY FAILURE, UNSPECIFIED (2) Anemia Assessment/Plan: CLEAR LIQUID DIET & BOWEL PREP ORDERED ; NPO MIDNIGHT FOR EGD / COLONOSCOPY ON SATURDAY MONITOR H/H QD PPI Code(s): D64.9 - ANEMIA, UNSPECIFIED Qualifiers: Anemia type: due to chronic kidney disease Chronic kidney disease stage: stage 4 (severe) Qualified Code(s): N18.4 - Chronic kidney disease, stage 4 ( severe) (3) CKD (chronic kidney disease) Code(s): N18.9 - CHRONIC KIDNEY DISEASE, UNSPECIFIED
[2019-02-01] MEDS: CALCIUM ACETATE 667 MG CAPSULE (FP) PO SCH ×3 (08:46→17:03)
[2019-02-01] MEDS: CYANOCOBALAMIN 1,000 MCG TABLET (FP) PO SCH (09:30)
[2019-02-01] MEDS: FERROUS SO4 325 MG TABLET (FP) PO SCH (09:31)
[2019-02-01] MEDS: SODIUM BICARBONATE 650 MG TABLET PO SCH ×2 (09:31→22:31)
[2019-02-01] MEDS: FUROSEMIDE 40 MG TABLET (FP) PO SCH (09:31)
[2019-02-01] MEDS: CHOLECALCIFEROL (VIT D3) 1,000 UNIT (25 MCG) TABLET PO SCH (09:31)
[2019-02-01] MEDS: PANTOPRAZOLE 40 MG TABLET (FP) PO SCH (09:31)
[2019-02-01] MEDS: hydrALAZINE HCL 25 MG TABLET (FP) PO SCH ×2 (09:33→22:30)
--- NOTE | 2019-02-01 09:54 | PN ---
Progress Note (short form) - Note Progress Note: Renal follow up for CKD/SAMANTHA Pt seen and examined at the bedside. Awake and alert. no acute complaints Vital Signs Temperature 98.0 F 02/01/19 06:00 Pulse Rate 62 02/01/19 06:00 Respiratory Rate 16 02/01/19 07:49 Blood Pressure 147/57 L 02/01/19 06:00 O2 Sat by Pulse Oximetry (%) 100 02/01/19 07:49 Intake & Output 01/29/19 01/30/19 01/31/19 02/01/19 23:59 23:59 23:59 23:59 Intake Total 520 350 260 10 Output Total 250 Balance 520 350 10 10 Weight 84.368 kg 83.461 kg 83.189 kg 83.007 kg NAD RRR, M/R/G CTA, no rales soft NT/ND trace edema in LE no bladder distension no asterxisis/flap CBC, BMP 02/01/19 05:40 02/01/19 05:40 Current Medications Calcium Acetate (Phoslo -) 667 mg PO TIDCM [facility] Last Admin: 02/01/19 08:46 Dose: 667 mg Cholecalciferol (Vitamin D3 -) 2,000 unit PO DAILY [facility] Last Admin: 02/01/19 09:31 Dose: 2,000 unit Cyanocobalamin (Vitamin B12 -) 1,000 mcg PO DAILY [facility] Last Admin: 02/01/19 09:30 Dose: 1,000 mcg Docusate Sodium (Colace -) 100 mg PO TID [facility] Last Admin: 02/01/19 06:51 Dose: 100 mg Ferrous Sulfate (Feosol -) 325 mg PO DAILY [facility] Last Admin: 02/01/19 09:31 Dose: 325 mg Furosemide (Lasix -) 80 mg PO DAILY [facility] Last Admin: 02/01/19 09:31 Dose: 80 mg Gabapentin (Neurontin -) 100 mg PO HS [facility] Last Admin: 01/31/19 23:02 Dose: 100 mg Hydralazine HCl (Apresoline -) 25 mg PO BID [facility] Last Admin: 02/01/19 09:33 Dose: 25 mg Insulin Aspart (Novolog Vial Sliding Scale -) 1 vial SQ Q6H [facility]; Protocol Last Admin: 02/01/19 06:51 Dose: Not Given Metoprolol Succinate (Toprol Xl -) 100 mg PO DAILY [facility] Last Admin: 02/01/19 09:33 Dose: Not Given Pantoprazole Sodium (Protonix -) 40 mg PO DAILY [facility] Last Admin: 02/01/19 09:31 Dose: 40 mg Rosuvastatin Calcium (Crestor -) 20 mg PO HS [facility] Last Admin: 01/31/19 23:02 Dose: 20 mg Sodium Bicarbonate (Sodium Bicarbonate -) 650 mg PO BID [facility] Last Admin: 02/01/19 09:31 Dose: 650 mg 78 year old gentleman with history of CKD stage 4, DM type 2 on insulin , hyperlipidemia, hypertension and hearing loss who presented with complaints of SOB over several days and admitted for acute CHF exacerbation with SAMANTHA and anemia. 1. Acute Kidney injury vs. progressive CKD 2. CKD stage 4 3. Proteinuria 4. Hyperphosphtaemia 5. Fluid overload/CHF 6. Anemia (acute vs. chronic) 7. Metabolic acidosis 8. Hyperkalemia Renal function without improvement but no emergent indication for STORE HAND. Pt and family wish not to pursue dialysis and would like continued medical management of CKD. Renal US showed atrophic kidneys with cysts, w/o obstruction. Urine studies show nephrotic range proteinuira. renal vein doppler did not show any thrombosis Serologic work up collected, results pending Continue PO Lasix 80mg Daily continue Sodium bicarb 650mg BID for metabolic acidosis. Trend serum K on renal diet, treat if K > 5.5 (can consider Lokelma) Continue phoslo for hyperphosphtemia There is no renal contraindication to any planned GI diagnostic procedure. Would avoid phosphate based bowel preps. Thank you Will follow Slava Gloria DO
[2019-02-01] MEDS ORDERED: BISACODYL 5 MG TABLET.DR (FP) PO ONE (15:31)
--- NOTE | 2019-02-01 15:36 | PN ---
Physical Exam: SUBJECTIVE: Patient seen and examined, still dizzy. No other complaints. Overall feels better OBJECTIVE: Vital Signs Period Temp Pulse Resp BP Sys/Bo Pulse Ox Last 24 Hr 97.5 F-98.2 F 55-64 16-19 120-152/41-72 100-100 Intake & Output 01/29/19 01/30/19 01/31/19 02/01/19 23:59 23:59 23:59 23:59 Intake Total 520 350 260 10 Output Total 250 Balance 520 350 10 10 Weight 186 lb 184 lb 183 lb 6.4 oz 183 lb General: sitting in bed in no acute distress Neck: soft, supple, no JVD Chest: no rales or wheezing appreciated Abdomen:Soft, NT, ND, pos bowel sounds Extremities: No edema CVS:S1S2 regular Psych: pleasant, co-operative Laboratory Results - last 24 hr 01/31/19 01/31/19 02/01/19 16:36 22:56 05:40 WBC 5.8 RBC 2.60 L Hgb 7.8 L Hct 23.6 L MCV 90.8 MCH 30.2 MCHC 33.2 RDW 14.2 Plt Count 171 MPV 8.9 Absolute Neuts (auto) 2.9 Neutrophils % 50.3 Lymphocytes % 29.0 Monocytes % 15.5 H Eosinophils % 4.8 H Basophils % 0.4 Nucleated RBC % 0 Sodium Potassium Chloride Carbon Dioxide Anion Gap BUN Creatinine Est GFR (CKD-EPI)AfAm Est GFR (CKD-EPI)NonAf POC Glucometer 172 171 Random Glucose Calcium Phosphorus Magnesium 02/01/19 02/01/19 02/01/19 05:40 06:50 11:41 WBC RBC Hgb Hct MCV MCH MCHC RDW Plt Count MPV Absolute Neuts (auto) Neutrophils % Lymphocytes % Monocytes % Eosinophils % Basophils % Nucleated RBC % Sodium 143 Potassium 4.7 Chloride 111 H Carbon Dioxide 21 Anion Gap 11 BUN 59.4 H Creatinine 7.3 H Est GFR (CKD-EPI)AfAm 7.47 Est GFR (CKD-EPI)NonAf 6.44 POC Glucometer 104 151 Random Glucose 102 Calcium 7.6 L Phosphorus 6.2 H Magnesium 2.2 Active Medications Generic Name Dose Route Start Last Admin Trade Name Freq PRN Reason Stop Dose Admin Bisacodyl 10 mg 02/01/19 15:31 Dulcolax - PO 02/01/19 15:32 ONCE ONE Calcium Acetate 667 mg 01/28/19 17:30 02/01/19 12:29 Phoslo - PO 667 mg TIDCM ROB Administration Cholecalciferol 2,000 unit 01/28/19 10:00 02/01/19 09:31 Vitamin D3 - PO 2,000 unit DAILY ROB Administration Cyanocobalamin 1,000 mcg 01/28/19 10:00 02/01/19 09:30 Vitamin B12 - PO 1,000 mcg DAILY ROB Administration Docusate Sodium 100 mg 01/28/19 14:00 02/01/19 13:18 Colace - PO 100 mg TID ROB Administration Ferrous Sulfate 325 mg 01/28/19 10:00 02/01/19 09:31 Feosol - PO 325 mg DAILY ROB Administration Furosemide 80 mg 02/01/19 10:00 02/01/19 09:31 Lasix - PO 80 mg DAILY ROB Administration Gabapentin 100 mg 01/28/19 22:00 01/31/19 23:02 Neurontin - PO 100 mg HS ROB Administration Hydralazine HCl 25 mg 01/28/19 10:15 02/01/19 09:33 Apresoline - PO 25 mg BID ROB Administration Insulin Aspart 1 vial 01/27/19 23:30 02/01/19 12:24 Novolog Vial Sliding Scale - SQ 2 units Q6H ROB Administration Protocol Metoprolol Succinate 100 mg 01/28/19 12:30 02/01/19 09:33 Toprol Xl - PO Not Given DAILY ROB Pantoprazole Sodium 40 mg 01/31/19 10:00 02/01/19 09:31 Protonix - PO 40 mg DAILY ROB Administration Rosuvastatin Calcium 20 mg 01/28/19 22:00 01/31/19 23:02 Crestor - PO 20 mg HS ROB Administration Sodium Bicarbonate 650 mg 01/28/19 22:00 02/01/19 09:31 Sodium Bicarbonate - PO 650 mg BID ROB Administration ASSESSMENT/PLAN: 78 yom with PMHx of DM type II, HTN, HLD, CKD stage IV, hearing attempts, ? prior attempts with AV fistula admitted with progressive exertional dyspnea/ dizziness, poor appetite and weight loss. -SAMANTHA vs progressive CKD, now stage V -Anemia, acute vs chronic -Occult GI bleed -Fluid overload/CHF, ?systolic vs diastolic -Hyperkalemia -Hyperphosphatemia -Metabolic acidosis -Hyperkalemia -NIDDM -HTN -HLD -Hearing loss Plan: s/p 1 unit PRBC. Monitor h/h. JOSE DAVID per renal. Iron panel noted (?sent post transfusion). FOBT pos, no gross evidence of blood. GI input noted. PPI BID. Patient agreable to GI work up as indicated. Renal/GI input appreciated. Plan for EGD/colonoscopy tomorrow. Renal input noted. Renal/bladder US noted, phosphate binders, JOSE DAVID, sodium bicarbonate. Lasix per Renal, strict I/Os and daily weights, declining bob, bladder scan q6h. Patient declines HD currently. Plan per renal. Continue metoprolol, hydralazine. Hold ARB. Lokelma if K > 5.5. No concerning EKG changes, monitor for now. 2D echo noted. Continue statin. ISS, hold januvia. A1c 6.5. DVTPPX SCDs Palliative care input appreciated, follow up on MOLST and goals of care. Dispo anticipate early next week pending GI work up, with close outpatient nephrology follow up. Discussed with patient and nursing. Visit type - Emergency Visit Emergency Visit: Yes ED Registration Date: 01/27/19 Care time: The patient presented to the Emergency Department on the above date and was hospitalized for further evaluation of their emergent condition. - New Patient This patient is new to me today: No - Critical Care Critical Care patient: No - Discharge Referral Referred to [facility] No
[2019-02-01] MEDS ORDERED: PEG 3350/NA SULF BICARB CL/KCL 4000 ML SOLN.RECON PO ONE (17:00)
[2019-02-01] MEDS: ROSUVASTATIN CA 20 MG TABLET (FP) PO SCH (22:31)
[2019-02-01] MEDS: GABAPENTIN 100 MG CAPSULE (FP) PO SCH (22:31)
[2019-02-02] MEDS: INSULIN SLIDING SCALE (NOVOLOG) 1 VIAL SQ SCH ×4 (06:13→22:34)
[2019-02-02] MEDS: DOCUSATE SODIUM 100 MG CAPSULE (FP) PO SCH ×3 (06:13→21:50)
--- NOTE | 2019-02-02 07:16 | PN ---
Physical Exam: SUBJECTIVE: Patient seen and examined no new complain , NPO for EGD/Colonoscopy today OBJECTIVE: Vital Signs Period Temp Pulse Resp BP Sys/Bo Pulse Ox Last 24 Hr 97.0 F-98.1 F 55-68 16-20 140-207/63-76 100-100 GENERAL: AAOx3 in NAD HEAD: NC/AT EYES: EOMI, Conjunctiva clear, sclera anicteric ENT: moist mucous membrane NECK: Supple, no JVD LUNGS: CTA B/L, no crackles no wheezing no accessory muscle use. HEART: RRR, normal s1, s2 no M/R/G ABDOMEN: Obese Soft, ND, NT, +BS 4 Q, no CVA Tenderness LOWER EXTREMITIES: no edema, +2DP pulse, NEUROLOGICAL: No focal deficit. Normal speech. gait not observed. PSYCHIATRIC: Cooperative. Good eye contact. Appropriate mood and affect. SKIN: Warm, dry, Laboratory Results - last 24 hr 02/01/19 02/01/19 02/01/19 05:40 05:40 11:41 WBC 5.8 RBC 2.60 L Hgb 7.8 L Hct 23.6 L MCV 90.8 MCH 30.2 MCHC 33.2 RDW 14.2 Plt Count 171 MPV 8.9 Absolute Neuts (auto) 2.9 Neutrophils % 50.3 Lymphocytes % 29.0 Monocytes % 15.5 H Eosinophils % 4.8 H Basophils % 0.4 Nucleated RBC % 0 Sodium 143 Potassium 4.7 Chloride 111 H Carbon Dioxide 21 Anion Gap 11 BUN 59.4 H Creatinine 7.3 H Est GFR (CKD-EPI)AfAm 7.47 Est GFR (CKD-EPI)NonAf 6.44 POC Glucometer 151 Random Glucose 102 Calcium 7.6 L Phosphorus 6.2 H Magnesium 2.2 02/01/19 02/01/19 02/02/19 17:01 22:28 05:51 WBC RBC Hgb Hct MCV MCH MCHC RDW Plt Count MPV Absolute Neuts (auto) Neutrophils % Lymphocytes % Monocytes % Eosinophils % Basophils % Nucleated RBC % Sodium Potassium Chloride Carbon Dioxide Anion Gap BUN Creatinine Est GFR (CKD-EPI)AfAm Est GFR (CKD-EPI)NonAf POC Glucometer 95 114 102 Random Glucose Calcium Phosphorus Magnesium Active Medications Generic Name Dose Route Start Last Admin Trade Name Freq PRN Reason Stop Dose Admin Calcium Acetate 667 mg 01/28/19 17:30 02/01/19 17:03 Phoslo - PO 667 mg TIDCM ROB Administration Cholecalciferol 2,000 unit 01/28/19 10:00 02/01/19 09:31 Vitamin D3 - PO 2,000 unit DAILY ROB Administration Cyanocobalamin 1,000 mcg 01/28/19 10:00 02/01/19 09:30 Vitamin B12 - PO 1,000 mcg DAILY ROB Administration Docusate Sodium 100 mg 01/28/19 14:00 02/02/19 06:13 Colace - PO Not Given TID ROB Ferrous Sulfate 325 mg 01/28/19 10:00 02/01/19 09:31 Feosol - PO 325 mg DAILY ROB Administration Furosemide 80 mg 02/01/19 10:00 02/01/19 09:31 Lasix - PO 80 mg DAILY ROB Administration Gabapentin 100 mg 01/28/19 22:00 02/01/19 22:31 Neurontin - PO 100 mg HS ROB Administration Hydralazine HCl 25 mg 01/28/19 10:15 02/01/19 22:30 Apresoline - PO 25 mg BID ROB Administration Insulin Aspart 1 vial 01/27/19 23:30 02/02/19 06:13 Novolog Vial Sliding Scale - SQ Not Given Q6H [facility] Protocol Metoprolol Succinate 100 mg 01/28/19 12:30 02/01/19 09:33 Toprol Xl - PO Not Given DAILY ROB Pantoprazole Sodium 40 mg 01/31/19 10:00 02/01/19 09:31 Protonix - PO 40 mg DAILY ROB Administration Rosuvastatin Calcium 20 mg 01/28/19 22:00 02/01/19 22:31 Crestor - PO 20 mg HS ROB Administration Sodium Bicarbonate 650 mg 01/28/19 22:00 02/01/19 22:31 Sodium Bicarbonate - PO 650 mg BID ROB Administration CBC, BMP 02/02/19 06:55 02/02/19 06:55 ASSESSMENT/PLAN: 78 y/o M, pmh of DM type 2, HLD, CKD, left hearing loss, presents to the ED from his doctor's office s/p hypotension (98/50) and sob likely 2/2 to anemia #Anemia acute on chronic * SOB and fatigue and lightheaded likely 2/2 to anemia which could be 2/2 to GI bleed vs chronic disease v.s Unknown source * S.P 1 Unit pRBC transfused in ED. * For EGD/Colonoscopy * FOBT+ * Protonix 40 po BID * monitor H/H daily * reticulocytes stat ordered * monitor on Tele * GI consulted * iron studies done after transfusion #Cannot r/o CHF exacerbation * ECHO mild LVH, normal EF , mild aortic root dilation , TR , RV systolic pressure normal , can nor r.o wall motion abnormalties. * EKG- no acute changes * BNP 5500 #DM * A1c stat 6.5 * BGM ACHS * Insulin sliding scale #Acute on CKD * UA showed protein, r/o nephrotic syndrome * 24 hr protein ordered * EPO and Vit D ordered * consult Dr Faizan Pedersen Nephrology recommend Renal/bladder US, phosphate binders, JOSE DAVID, sodium bicarbonate. * Renal US showed atrophic kidneys with cysts, w/o obstructon. * urine studies shows nephrotic range protienuria #Hypertension * continue Hydralizine and hold losartan for now due to hyperkalemia #Hyperkalemia 5.0 this am no EKG changes , treat if above 5.5 with lokelma * recheck BMP daily * sodium bicarb 650 BID #HLD * continue home med- Rosuvastatin, * hold ASA #DVT ppx * SCDs #FEN: * renal diet * monitor lytes Dispo : pending clinical improvement , consult palliative care for goal of care as pt refusing HD Visit type - Emergency Visit Emergency Visit: Yes ED Registration Date: 01/27/19 Care time: The patient presented to the Emergency Department on the above date and was hospitalized for further evaluation of their emergent condition. - New Patient This patient is new to me today: No - Critical Care Critical Care patient: No ATTENDING PHYSICIAN STATEMENT I saw and evaluated the patient. I reviewed the resident's note and discussed the case with the resident. I agree with the resident's findings and plan as documented. SUBJECTIVE: OBJECTIVE: ASSESSMENT AND PLAN:
[2019-02-02 08:19] LABS: BASO % 0.5 % (0-2.0); EOS % 3.9 % (0-4.5); HEMATOCRIT 22.6 % (35.4-49); HEMOGLOBIN 7.6 GM/dL (11.7-16.9); LYMPH % 22.1 % (8-40); MCH 30.4 pg (25.7-33.7); MCHC 33.6 g/dl (32.0-35.9); MEAN CELL VOLUME 90.3 fl (80-96); MONO % 15.3 % (3.8-10.2); NEUT % 58.2 % (42.8-82.8); PLATELET COUNT 158 K/MM3 (134-434); RDW 14.3 % (11.9-15.9); WHITE BLOOD COUNT 4.8 K/mm3 (4.0-10.0)
[2019-02-02] MEDS: CALCIUM ACETATE 667 MG CAPSULE (FP) PO SCH ×3 (08:19→18:00)
[2019-02-02] MEDS: FUROSEMIDE 40 MG TABLET (FP) PO SCH ×2 (08:42→15:07)
[2019-02-02] MEDS: hydrALAZINE HCL 25 MG TABLET (FP) PO SCH ×3 (08:43→21:50)
[2019-02-02 08:50] LABS: BLOOD UREA NITROGEN 57.8 mg/dL (7-18); CALCIUM 7.8 mg/dL (8.5-10.1); PHOSPHOROUS 5.5 mg/dL (2.5-4.9); POTASSIUM 4.3 mmol/L (3.5-5.1)
--- NOTE | 2019-02-02 12:54 | PN ---
Teaching Attending Note Name of Resident: Johnny Mendosa ATTENDING PHYSICIAN STATEMENT I saw and evaluated the patient. I reviewed the resident's note and discussed the case with the resident. I agree with the resident's findings and plan as documented with exceptions below. SUBJECTIVE: Patient seen and examined. No complaints, awaiting scope, asking to eat, no complaints otherwise. OBJECTIVE: Vital Signs Period Temp Pulse Resp BP Sys/Bo Pulse Ox Last 24 Hr 80 F-98.1 F 55-68 18-20 140-207/63-79 100-100 Intake & Output 01/30/19 01/31/19 02/01/19 02/02/19 23:59 23:59 23:59 23:59 Intake Total 522 723 9489 Output Total 250 Balance 731 71 8311 Weight 184 lb 183 lb 6.4 oz 183 lb 181 lb 9.6 oz General: sitting in bed in no acute distress Neck: soft, supple, no JVD Chest: no rales or wheezing appreciated Abdomen:Soft, NT, ND, pos bowel sounds Extremities: No edema CVS:S1S2 regular Psych: pleasant, co-operative Home Medications Medication Instructions Recorded Metoprolol Succinate [Toprol XL -] 100 mg PO DAILY 02/12/16 Ferrous Sulfate 325 mg PO DAILY 02/14/16 Cholecalciferol (Vitamin D3) 2,000 unit PO DAILY 01/29/17 [Vitamin D -] hydrALAZINE HCL [Apresoline -] 25 mg PO BID 01/29/17 Docusate Sodium [Colace -] 100 mg PO TID #90 cap 01/31/17 Aspirin [ASA -] 81 mg PO DAILY 01/27/19 Cyanocobalamin [Vitamin B12 -] 1,000 mcg PO DAILY 01/27/19 Fluticasone Prop 0.05% Nasal 1 - 2 spray NS DAILY 01/27/19 [Flonase -] Furosemide [Lasix] 20 mg PO DAILY 01/27/19 Gabapentin [Neurontin -] 100 mg PO HS 01/27/19 Insulin Glargine,Hum.rec.anlog 8 unit SQ HS 01/27/19 [Lantus] Losartan Potassium 100 mg PO DAILY 01/27/19 Rosuvastatin Calcium [Crestor] 20 mg PO DAILY 01/27/19 Sitagliptin Phosphate [Januvia] 50 tab PO DAILY 01/28/19 Active Medications Calcium Acetate (Phoslo -) 667 mg PO TIDCM [facility] Last Admin: 02/02/19 08:19 Dose: Not Given Cholecalciferol (Vitamin D3 -) 2,000 unit PO DAILY [facility] Last Admin: 02/01/19 09:31 Dose: 2,000 unit Cyanocobalamin (Vitamin B12 -) 1,000 mcg PO DAILY [facility] Last Admin: 02/01/19 09:30 Dose: 1,000 mcg Docusate Sodium (Colace -) 100 mg PO TID [facility] Last Admin: 02/02/19 06:13 Dose: Not Given Ferrous Sulfate (Feosol -) 325 mg PO DAILY [facility] Last Admin: 02/01/19 09:31 Dose: 325 mg Furosemide (Lasix -) 80 mg PO DAILY [facility] Last Admin: 02/02/19 08:42 Dose: 80 mg Gabapentin (Neurontin -) 100 mg PO HS [facility] Last Admin: 02/01/19 22:31 Dose: 100 mg Hydralazine HCl (Apresoline -) 25 mg PO BID [facility] Last Admin: 02/02/19 08:43 Dose: 25 mg Insulin Aspart (Novolog Vial Sliding Scale -) 1 vial SQ Q6H [facility]; Protocol Last Admin: 02/02/19 11:43 Dose: Not Given Metoprolol Succinate (Toprol Xl -) 100 mg PO DAILY [facility] Last Admin: 02/02/19 08:42 Dose: 100 mg Pantoprazole Sodium (Protonix -) 40 mg PO DAILY [facility] Last Admin: 02/01/19 09:31 Dose: 40 mg Rosuvastatin Calcium (Crestor -) 20 mg PO [facility] Last Admin: 02/01/19 22:31 Dose: 20 mg Sodium Bicarbonate (Sodium Bicarbonate -) 650 mg PO BID [facility] Last Admin: 02/01/19 22:31 Dose: 650 mg Laboratory Results - last 24 hr 02/01/19 02/01/19 02/02/19 17:01 22:28 05:51 WBC RBC Hgb Hct MCV MCH MCHC RDW Plt Count MPV Absolute Neuts (auto) Neutrophils % Lymphocytes % Monocytes % Eosinophils % Basophils % Nucleated RBC % Sodium Potassium Chloride Carbon Dioxide Anion Gap BUN Creatinine Est GFR (CKD-EPI)AfAm Est GFR (CKD-EPI)NonAf POC Glucometer 95 114 102 Random Glucose Calcium Phosphorus Magnesium 02/02/19 02/02/19 06:55 06:55 WBC 4.8 RBC 2.50 L Hgb 7.6 L Hct 22.6 L MCV 90.3 MCH 30.4 MCHC 33.6 RDW 14.3 Plt Count 158 MPV 9.0 Absolute Neuts (auto) 2.8 Neutrophils % 58.2 Lymphocytes % 22.1 D Monocytes % 15.3 H Eosinophils % 3.9 Basophils % 0.5 Nucleated RBC % 0 Sodium 140 Potassium 4.3 Chloride 106 Carbon Dioxide 22 Anion Gap 12 BUN 57.8 H Creatinine 7.0 H Est GFR (CKD-EPI)AfAm 7.86 Est GFR (CKD-EPI)NonAf 6.78 POC Glucometer Random Glucose 100 Calcium 7.8 L Phosphorus 5.5 H Magnesium 2.0 ASSESSMENT AND PLAN: 78 yom with PMHx of DM type II, HTN, HLD, CKD stage IV, hearing attempts, ? prior attempts with AV fistula admitted with progressive exertional dyspnea/ dizziness, poor appetite and weight loss. -SAMANTHA vs progressive CKD, now stage V -Anemia, acute vs chronic -Occult GI bleed -Fluid overload/CHF, ?systolic vs diastolic -Hyperkalemia -Hyperphosphatemia -Metabolic acidosis -Hyperkalemia -NIDDM -HTN -HLD -Hearing loss Plan: s/p 1 unit PRBC. H/h low but stable. JOSE DAVID per renal. Iron panel noted (?sent post transfusion). FOBT pos, no gross evidence of blood. GI input noted. PPI BID. Patient agreable to GI work up as indicated. Renal/GI input appreciated. Plan for EGD/colonoscopy today. Renal input noted. Renal/bladder US noted, phosphate binders, JOSE DAVID, sodium bicarbonate. Lasix per Renal, strict I/Os and daily weights, declining bob, bladder scan q6h. Patient declines HD currently. Plan per renal. Continue metoprolol, hydralazine. Hold ARB. Lokelma if K > 5.5. No concerning EKG changes, monitor for now. 2D echo noted. Continue statin. ISS, hold januvia. A1c 6.5. DVTPPX SCDs Palliative care input appreciated, follow up on MOLST and goals of care. Dispo PT eval and d/c home in 24 hours if GI w/u non concerning and no new events. Discussed with patient and nursing.
[2019-02-02] MEDS: FERROUS SO4 325 MG TABLET (FP) PO SCH (15:12)
[2019-02-02] MEDS: CYANOCOBALAMIN 1,000 MCG TABLET (FP) PO SCH (15:12)
[2019-02-02] MEDS: PANTOPRAZOLE 40 MG TABLET (FP) PO SCH (15:12)
[2019-02-02] MEDS: SODIUM BICARBONATE 650 MG TABLET PO SCH ×2 (15:12→21:50)
[2019-02-02] MEDS: CHOLECALCIFEROL (VIT D3) 1,000 UNIT (25 MCG) TABLET PO SCH (15:13)
[2019-02-02 17:11] LABS: ANTIGLOMERULAR BASEMENT MEN.AB 3 units (0-20)
[2019-02-02 18:11] LABS: ATYPICAL pANCA <1:20 titer (Neg:<1:20); C-ANCA <1:20 titer (Neg:<1:20)
[2019-02-02] MEDS: ROSUVASTATIN CA 20 MG TABLET (FP) PO SCH (21:50)
[2019-02-02] MEDS: GABAPENTIN 100 MG CAPSULE (FP) PO SCH (21:50)
[2019-02-03 06:23] VITALS: TEMP 97.4
[2019-02-03] MEDS: INSULIN SLIDING SCALE (NOVOLOG) 1 VIAL SQ SCH ×2 (06:23→12:40)
[2019-02-03] MEDS: DOCUSATE SODIUM 100 MG CAPSULE (FP) PO SCH ×2 (06:23→14:42)
[2019-02-03 06:49] LABS: BASO % 0.5 % (0-2.0); EOS % 2.1 % (0-4.5); HEMATOCRIT 22.7 % (35.4-49); HEMOGLOBIN 7.7 GM/dL (11.7-16.9); LYMPH % 22.4 % (8-40); MCH 30.7 pg (25.7-33.7); MCHC 33.8 g/dl (32.0-35.9); MEAN CELL VOLUME 90.7 fl (80-96); MONO % 11.4 % (3.8-10.2); NEUT % 63.6 % (42.8-82.8); PLATELET COUNT 161 K/MM3 (134-434); RDW 13.9 % (11.9-15.9); WHITE BLOOD COUNT 6.7 K/mm3 (4.0-10.0)
[2019-02-03 07:16] LABS: ALBUMIN 2.3 g/dl (3.4-5.0); BILIRUBIN,TOTAL 0.4 mg/dL (0.2-1); CALCIUM 7.6 mg/dL (8.5-10.1); CREATININE 7.1 mg/dL (0.55-1.3); POTASSIUM 4.2 mmol/L (3.5-5.1); TOT PROT 5.2 g/dl (6.4-8.2)
--- NOTE | 2019-02-03 07:28 | PN ---
Physical Exam: SUBJECTIVE: Patient seen and examined OBJECTIVE: Vital Signs Period Temp Pulse Resp BP Sys/Bo Pulse Ox Last 24 Hr 97.3 F-98.7 F 60-69 12-20 99-190/38-79 94-100 GENERAL: The patient is awake, alert, and fully oriented, in no acute distress. HEAD: Normal with no signs of trauma. EYES: PERRL, extraocular movements intact, sclera anicteric, conjunctiva clear. No ptosis. ENT: Ears normal, nares patent, oropharynx clear without exudates, moist mucous membranes. NECK: Trachea midline, full range of motion, supple. LUNGS: Breath sounds equal, clear to auscultation bilaterally, no wheezes, no crackles, no accessory muscle use. HEART: Regular rate and rhythm, S1, S2 without murmur, rub or gallop. ABDOMEN: Soft, nontender, nondistended, normoactive bowel sounds, no guarding, no rebound, no hepatosplenomegaly, no masses. EXTREMITIES: 2+ pulses, warm, well-perfused, no edema. NEUROLOGICAL: Cranial nerves II through XII grossly intact. Normal speech, gait not observed. PSYCH: Normal mood, normal affect. SKIN: Warm, dry, normal turgor, no rashes or lesions noted Laboratory Results - last 24 hr 01/30/19 02/02/19 02/02/19 05:20 06:55 06:55 WBC 4.8 RBC 2.50 L Hgb 7.6 L Hct 22.6 L MCV 90.3 MCH 30.4 MCHC 33.6 RDW 14.3 Plt Count 158 MPV 9.0 Absolute Neuts (auto) 2.8 Neutrophils % 58.2 Lymphocytes % 22.1 D Monocytes % 15.3 H Eosinophils % 3.9 Basophils % 0.5 Nucleated RBC % 0 Sodium 140 Potassium 4.3 Chloride 106 Carbon Dioxide 22 Anion Gap 12 BUN 57.8 H Creatinine 7.0 H Est GFR (CKD-EPI)AfAm 7.86 Est GFR (CKD-EPI)NonAf 6.78 POC Glucometer Random Glucose 100 Calcium 7.8 L Phosphorus 5.5 H Magnesium 2.0 Total Bilirubin AST ALT Alkaline Phosphatase Total Protein Albumin c-ANCA <1:20 Proteinase 3 (PR3) <3.5 p-ANCA <1:20 Atypical p-ANCA <1:20 Myeloperoxidase Ab <9.0 Glomerular Base Memb Ab 3 02/02/19 02/02/19 02/03/19 17:59 21:22 05:24 WBC 6.7 RBC 2.50 L Hgb 7.7 L Hct 22.7 L MCV 90.7 MCH 30.7 MCHC 33.8 RDW 13.9 Plt Count 161 MPV 9.0 Absolute Neuts (auto) 4.3 Neutrophils % 63.6 Lymphocytes % 22.4 Monocytes % 11.4 H Eosinophils % 2.1 Basophils % 0.5 Nucleated RBC % 0 Sodium Potassium Chloride Carbon Dioxide Anion Gap BUN Creatinine Est GFR (CKD-EPI)AfAm Est GFR (CKD-EPI)NonAf POC Glucometer 175 118 Random Glucose Calcium Phosphorus Magnesium Total Bilirubin AST ALT Alkaline Phosphatase Total Protein Albumin c-ANCA Proteinase 3 (PR3) p-ANCA Atypical p-ANCA Myeloperoxidase Ab Glomerular Base Memb Ab 02/03/19 02/03/19 05:24 05:25 WBC RBC Hgb Hct MCV MCH MCHC RDW Plt Count MPV Absolute Neuts (auto) Neutrophils % Lymphocytes % Monocytes % Eosinophils % Basophils % Nucleated RBC % Sodium 141 Potassium 4.2 Chloride 107 Carbon Dioxide 22 Anion Gap 12 BUN 56.0 H Creatinine 7.1 H Est GFR (CKD-EPI)AfAm 7.72 Est GFR (CKD-EPI)NonAf 6.66 POC Glucometer 107 Random Glucose 121 H Calcium 7.6 L Phosphorus Magnesium Total Bilirubin 0.4 AST 12 L ALT 11 L Alkaline Phosphatase 103 Total Protein 5.2 L Albumin 2.3 L c-ANCA Proteinase 3 (PR3) p-ANCA Atypical p-ANCA Myeloperoxidase Ab Glomerular Base Memb Ab Active Medications Generic Name Dose Route Start Last Admin Trade Name Freq PRN Reason Stop Dose Admin Calcium Acetate 667 mg 01/28/19 17:30 02/02/19 18:00 Phoslo - PO 667 mg TIDCM ROB Administration Cholecalciferol 2,000 unit 01/28/19 10:00 02/02/19 15:13 Vitamin D3 - PO 2,000 unit DAILY ROB Administration Cyanocobalamin 1,000 mcg 01/28/19 10:00 02/02/19 15:12 Vitamin B12 - PO 1,000 mcg DAILY ROB Administration Docusate Sodium 100 mg 01/28/19 14:00 02/03/19 06:23 Colace - PO Not Given TID ROB Ferrous Sulfate 325 mg 01/28/19 10:00 02/02/19 15:12 Feosol - PO 325 mg DAILY ROB Administration Furosemide 80 mg 02/01/19 10:00 02/02/19 15:07 Lasix - PO Not Given DAILY ROB Gabapentin 100 mg 01/28/19 22:00 02/02/19 21:50 Neurontin - PO 100 mg HS ROB Administration Hydralazine HCl 25 mg 01/28/19 10:15 02/02/19 21:50 Apresoline - PO 25 mg BID ROB Administration Insulin Aspart 1 vial 01/27/19 23:30 02/03/19 06:23 Novolog Vial Sliding Scale - SQ Not Given Q6H [facility] Protocol Metoprolol Succinate 100 mg 01/28/19 12:30 02/02/19 15:07 Toprol Xl - PO Not Given DAILY ROB Pantoprazole Sodium 40 mg 01/31/19 10:00 02/02/19 15:12 Protonix - PO 40 mg DAILY ROB Administration Rosuvastatin Calcium 20 mg 01/28/19 22:00 02/02/19 21:50 Crestor - PO 20 mg HS ROB Administration Sodium Bicarbonate 650 mg 01/28/19 22:00 02/02/19 21:50 Sodium Bicarbonate - PO 650 mg BID ROB Administration ASSESSMENT/PLAN: ATTENDING PHYSICIAN STATEMENT I saw and evaluated the patient. I reviewed the resident's note and discussed the case with the resident. I agree with the resident's findings and plan as documented. SUBJECTIVE: OBJECTIVE: ASSESSMENT AND PLAN:
--- NOTE | 2019-02-03 10:25 | PN ---
Teaching Attending Note Name of Resident: Johnny Mendosa ATTENDING PHYSICIAN STATEMENT I saw and evaluated the patient. I reviewed the resident's note and discussed the case with the resident. I agree with the resident's findings and plan as documented with exceptions below. SUBJECTIVE: patient seen and examined, no complaints, tolerating diet, doing well. OBJECTIVE: Vital Signs Period Temp Pulse Resp BP Sys/Bo Pulse Ox Last 24 Hr 97.3 F-98.7 F 60-69 12-20 99-190/38-76 94-100 Intake & Output 01/31/19 02/01/19 02/02/19 02/03/19 23:59 23:59 23:59 23:59 Intake Total 260 4510 700 Output Total 250 50 Balance 10 4510 650 Weight 183 lb 6.4 oz 183 lb 181 lb 9.6 oz General: lying in bed in no acute distress CVS:S1S2 regular Chest: CTAB,n o rales or wheezing Abdomen: soft, NT, ND extremities: no edema, right arm AV fistula with thrill neck: soft, supple, no JVD Home Medications Medication Instructions Recorded Metoprolol Succinate [Toprol XL -] 100 mg PO DAILY 02/12/16 Ferrous Sulfate 325 mg PO DAILY 02/14/16 Cholecalciferol (Vitamin D3) 2,000 unit PO DAILY 01/29/17 [Vitamin D -] hydrALAZINE HCL [Apresoline -] 25 mg PO BID 01/29/17 Docusate Sodium [Colace -] 100 mg PO TID #90 cap 01/31/17 Aspirin [ASA -] 81 mg PO DAILY 01/27/19 Cyanocobalamin [Vitamin B12 -] 1,000 mcg PO DAILY 01/27/19 Fluticasone Prop 0.05% Nasal 1 - 2 spray NS DAILY 01/27/19 [Flonase -] Furosemide [Lasix] 20 mg PO DAILY 01/27/19 Gabapentin [Neurontin -] 100 mg PO HS 01/27/19 Insulin Glargine,Hum.rec.anlog 8 unit SQ HS 01/27/19 [Lantus] Losartan Potassium 100 mg PO DAILY 01/27/19 Rosuvastatin Calcium [Crestor] 20 mg PO DAILY 01/27/19 Sitagliptin Phosphate [Januvia] 50 tab PO DAILY 01/28/19 Active Medications Calcium Acetate (Phoslo -) 667 mg PO TIDCM [facility] Last Admin: 02/02/19 18:00 Dose: 667 mg Cholecalciferol (Vitamin D3 -) 2,000 unit PO DAILY [facility] Last Admin: 02/02/19 15:13 Dose: 2,000 unit Cyanocobalamin (Vitamin B12 -) 1,000 mcg PO DAILY [facility] Last Admin: 02/02/19 15:12 Dose: 1,000 mcg Docusate Sodium (Colace -) 100 mg PO TID [facility] Last Admin: 02/03/19 06:23 Dose: Not Given Ferrous Sulfate (Feosol -) 325 mg PO DAILY [facility] Last Admin: 02/02/19 15:12 Dose: 325 mg Furosemide (Lasix -) 80 mg PO DAILY [facility] Last Admin: 02/02/19 15:07 Dose: Not Given Gabapentin (Neurontin -) 100 mg PO HS [facility] Last Admin: 02/02/19 21:50 Dose: 100 mg Hydralazine HCl (Apresoline -) 25 mg PO BID [facility] Last Admin: 02/02/19 21:50 Dose: 25 mg Insulin Aspart (Novolog Vial Sliding Scale -) 1 vial SQ Q6H [facility]; Protocol Last Admin: 02/03/19 06:23 Dose: Not Given Metoprolol Succinate (Toprol Xl -) 100 mg PO DAILY [facility] Last Admin: 02/02/19 15:07 Dose: Not Given Pantoprazole Sodium (Protonix -) 40 mg PO DAILY [facility] Last Admin: 02/02/19 15:12 Dose: 40 mg Rosuvastatin Calcium (Crestor -) 20 mg PO [facility] Last Admin: 02/02/19 21:50 Dose: 20 mg Sodium Bicarbonate (Sodium Bicarbonate -) 650 mg PO BID [facility] Last Admin: 02/02/19 21:50 Dose: 650 mg Laboratory Results - last 24 hr 01/30/19 02/02/19 02/02/19 05:20 17:59 21:22 WBC RBC Hgb Hct MCV MCH MCHC RDW Plt Count MPV Absolute Neuts (auto) Neutrophils % Lymphocytes % Monocytes % Eosinophils % Basophils % Nucleated RBC % Sodium Potassium Chloride Carbon Dioxide Anion Gap BUN Creatinine Est GFR (CKD-EPI)AfAm Est GFR (CKD-EPI)NonAf POC Glucometer 175 118 Random Glucose Calcium Total Bilirubin AST ALT Alkaline Phosphatase Total Protein Albumin c-ANCA <1:20 Proteinase 3 (PR3) <3.5 p-ANCA <1:20 Atypical p-ANCA <1:20 Myeloperoxidase Ab <9.0 Glomerular Base Memb Ab 3 02/03/19 02/03/19 02/03/19 05:24 05:24 05:25 WBC 6.7 RBC 2.50 L Hgb 7.7 L Hct 22.7 L MCV 90.7 MCH 30.7 MCHC 33.8 RDW 13.9 Plt Count 161 MPV 9.0 Absolute Neuts (auto) 4.3 Neutrophils % 63.6 Lymphocytes % 22.4 Monocytes % 11.4 H Eosinophils % 2.1 Basophils % 0.5 Nucleated RBC % 0 Sodium 141 Potassium 4.2 Chloride 107 Carbon Dioxide 22 Anion Gap 12 BUN 56.0 H Creatinine 7.1 H Est GFR (CKD-EPI)AfAm 7.72 Est GFR (CKD-EPI)NonAf 6.66 POC Glucometer 107 Random Glucose 121 H Calcium 7.6 L Total Bilirubin 0.4 AST 12 L ALT 11 L Alkaline Phosphatase 103 Total Protein 5.2 L Albumin 2.3 L c-ANCA Proteinase 3 (PR3) p-ANCA Atypical p-ANCA Myeloperoxidase Ab Glomerular Base Memb Ab Microbiology 01/29/19 06:00 Nares - Left Nares MRSA Screen - Final NO MRSA ISOLATED 01/29/19 06:00 Nares - Right Nares MRSA Screen - Final NO MRSA ISOLATED 01/28/19 11:14 Nares - Mrsa Screen - Left MRSA Screen - Final NO MRSA ISOLATED 01/27/19 18:00 Urine - Urine Clean Catch Urine Culture - Final NO GROWTH OBTAINED Colonoscopy results reviewed ASSESSMENT AND PLAN: 78 yom with PMHx of DM type II, HTN, HLD, CKD stage IV, hearing attempts, ? prior attempts with AV fistula admitted with progressive exertional dyspnea/ dizziness, poor appetite and weight loss. -SAMANTHA vs progressive CKD, now stage V -Anemia, acute vs chronic -Occult GI bleed, colonic polyps -Fluid overload/CHF, ?systolic vs diastolic -Hyperkalemia -Hyperphosphatemia -Metabolic acidosis -Hyperkalemia -NIDDM -HTN -HLD -Hearing loss Plan: Colonoscopy results noted, s/p polyp removal, repeat colonoscopy in 6 months. Outpatient follow up for biopsy results. NO NSAIDs. h/h stable low. Ongoing JOSE DAVID per renal, to continue outpatient. Continue PO Fe. Renal input noted, lasix 80 mg daily, sodium bicarb/phoslo. Close outpatient renal monitoring. Blood sugars stable off insulin or meds, suspect from underlying worse renal function. Will hold januvia/lantus on dc and advise home blood glucose monitoring and follow up with PCP. PT laura noted. dc home with services and close outpatient renal monitoring. Plan discussed with patient and nursing, all questions answered.
[2019-02-03 10:53] VITALS: BP 149/60; PULSE 57
[2019-02-03] MEDS: SODIUM BICARBONATE 650 MG TABLET PO SCH (12:05)
[2019-02-03] MEDS: CYANOCOBALAMIN 1,000 MCG TABLET (FP) PO SCH (12:05)
[2019-02-03] MEDS: CALCIUM ACETATE 667 MG CAPSULE (FP) PO SCH ×2 (12:05→14:53)
[2019-02-03] MEDS: hydrALAZINE HCL 25 MG TABLET (FP) PO SCH (12:05)
[2019-02-03] MEDS: FERROUS SO4 325 MG TABLET (FP) PO SCH (12:05)
[2019-02-03] MEDS: FUROSEMIDE 40 MG TABLET (FP) PO SCH (12:05)
[2019-02-03] MEDS: PANTOPRAZOLE 40 MG TABLET (FP) PO SCH (12:05)
[2019-02-03] MEDS: CHOLECALCIFEROL (VIT D3) 1,000 UNIT (25 MCG) TABLET PO SCH (12:05)
--- NOTE | 2019-02-03 13:05 | DS ---
Physical Exam: SUBJECTIVE: Patient seen and examined doing well, no new complain , s.p colonoscopy with polyp removal , denies nay fever, chills, N/V/D/C. needs to follow up with dermatology for skin changes. OBJECTIVE: Vital Signs Period Temp Pulse Resp BP Sys/Bo Pulse Ox Last 24 Hr 97.4 F-98.7 F 57-69 12-20 109-190/51-76 94-100 PHYSICAL EXAM GENERAL: AAOx3 in NAD HEAD: NC/AT EYES: EOMI, Conjunctiva clear, sclera anicteric ENT: moist mucous membrane NECK: Supple, no JVD LUNGS: CTA B/L, no crackles no wheezing no accessory muscle use. HEART: RRR, normal s1, s2 no M/R/G ABDOMEN: Obese Soft, ND, NT, +BS 4 Q, no CVA Tenderness LOWER EXTREMITIES: no edema, +2DP pulse, NEUROLOGICAL: No focal deficit. Normal speech. gait not observed. PSYCHIATRIC: Cooperative. Good eye contact. Appropriate mood and affect. SKIN: Warm, dry, LABS Laboratory Results - last 24 hr 01/30/19 02/02/19 02/02/19 05:20 17:59 21:22 WBC RBC Hgb Hct MCV MCH MCHC RDW Plt Count MPV Absolute Neuts (auto) Neutrophils % Lymphocytes % Monocytes % Eosinophils % Basophils % Nucleated RBC % Sodium Potassium Chloride Carbon Dioxide Anion Gap BUN Creatinine Est GFR (CKD-EPI)AfAm Est GFR (CKD-EPI)NonAf POC Glucometer 175 118 Random Glucose Calcium Total Bilirubin AST ALT Alkaline Phosphatase Total Protein Albumin c-ANCA <1:20 Proteinase 3 (PR3) <3.5 p-ANCA <1:20 Atypical p-ANCA <1:20 Myeloperoxidase Ab <9.0 Glomerular Base Memb Ab 3 02/03/19 02/03/19 02/03/19 05:24 05:24 05:25 WBC 6.7 RBC 2.50 L Hgb 7.7 L Hct 22.7 L MCV 90.7 MCH 30.7 MCHC 33.8 RDW 13.9 Plt Count 161 MPV 9.0 Absolute Neuts (auto) 4.3 Neutrophils % 63.6 Lymphocytes % 22.4 Monocytes % 11.4 H Eosinophils % 2.1 Basophils % 0.5 Nucleated RBC % 0 Sodium 141 Potassium 4.2 Chloride 107 Carbon Dioxide 22 Anion Gap 12 BUN 56.0 H Creatinine 7.1 H Est GFR (CKD-EPI)AfAm 7.72 Est GFR (CKD-EPI)NonAf 6.66 POC Glucometer 107 Random Glucose 121 H Calcium 7.6 L Total Bilirubin 0.4 AST 12 L ALT 11 L Alkaline Phosphatase 103 Total Protein 5.2 L Albumin 2.3 L c-ANCA Proteinase 3 (PR3) p-ANCA Atypical p-ANCA Myeloperoxidase Ab Glomerular Base Memb Ab 02/03/19 11:54 WBC RBC Hgb Hct MCV MCH MCHC RDW Plt Count MPV Absolute Neuts (auto) Neutrophils % Lymphocytes % Monocytes % Eosinophils % Basophils % Nucleated RBC % Sodium Potassium Chloride Carbon Dioxide Anion Gap BUN Creatinine Est GFR (CKD-EPI)AfAm Est GFR (CKD-EPI)NonAf POC Glucometer 134 Random Glucose Calcium Total Bilirubin AST ALT Alkaline Phosphatase Total Protein Albumin c-ANCA Proteinase 3 (PR3) p-ANCA Atypical p-ANCA Myeloperoxidase Ab Glomerular Base Memb Ab CBC, BMP 02/03/19 05:24 02/03/19 05:24 HOSPITAL COURSE: Date of Admission:01/27/19 Date of Discharge: 02/03/19 78 y/o M, pmh of DM type 2, HLD, CKD, left hearing loss, presents to the ED from his doctor's office s/p hypotension (98/50) and sob likely 2/2 to anemia, s.p one units of PRBCS , colonoscopy was doen with extensive polyps and diverticulosis , 13 mm poly was removed and send to pathology please follow pathology reports with Dr Duncan.avoid any nSAIDS and ASA till seen by GI. pt was evaluted bt nephroloist Dr Faizan Mariee due to worsening CKD stage 4 , pt is refusing Dialaysis , he s started on lasix 80 daily , Sodium bicarb BID and Phoslo TID .and to follow up with his pcpand choir accompanist to repeat cbc and bmp.pt bgm has been stable during hispitalisation with minimal ISS , advice to stop all DM meds for now , monitor BGM daily ACHS and follow up with PCP , he might stop all his DM meds if well controlled. A1c 6.5. for chf , HTN , HLD he can resume all home meds. pt will follow with pcp , GI and Nephrology as out pt. and he needs to see Skin docotr for skin changes on his left later wood and his back as it s suspicious for malignancy. information was relied to pt before discharged and he understand and repeat all the information provided. Minutes to complete discharge: 45 Discharge Summary Reason For Visit: DYSPENA Current Active Problems Anemia (Chronic) CKD (chronic kidney disease) (Chronic) GERD (gastroesophageal reflux disease) (Chronic) Hypertension (Chronic) Condition: Stable - Instructions Diet, Activity, Other Instructions: you presented to the hospital due to weakness and dizziness you were found to have anemia due to polyp bleeding from your colon. you were seen by High School Director, and polyp was removed , please stop using any NSAIDS (Advil, Ibuprofen , Alleve , Aspirin ... )stop aspirin till you see your primary doctor. you need to follow up on pathology Report with Dr Charlie Duncan and repeat colonoscopy after 6 month. your kidney function is worsening and you need to follow up with Dr Faizan Pedersen kidney doctor for that MEDICATIONS: START these new medications: Lasix increased to 80 daily Sodium becarbonate 650 Twice daily Phoslo 3 times daily with meals Ferrous sulfate supplement daily STOP these medications: Januvia Levemir insulin. Stop using any NSAIDs (Advil, ibuproen, Aleve, Aspirin, etc.) Continue other medications as before INSTRUCTIONS: Weigh yourself daily and notify your doctor if weight gain > 3lbs in 2 days or any concerns noted. PLEASE NOTE THAT YOU HAVE CURRENTLY REFUSED DIALYSIS AND YOU WILL NEED CLOSE MONITORING OF YOUR KIDNEY FUNCTION AND CLOSE FOLLOW UP WITH TATTOO DESIGNER. ALSO YOUR BLOOD COUNTS FOR BLEEDING NEED CLOSE MONITORING AND YOU WILL BENEFIT FROM WEEKLY INJECTIONS BY YOUR RESTORATIVE AIDE. Please discuss on next visit. All your diabetes medications have been discontinued. You are provided with prescription for glucometer and strips. Please check your blood sugars before all meals and at bedtime and maintain a diary. Notify your doctor if < 75 persistently > 200 or any reading > 350 noted. Follow strict Diabetic Cardiac Renal diet. FOLLOW UP: Blood work CBC, BMP in 1 week with your doctor With Dr. Gloria in 1 week With your primary care physician in [address] Duncan in 1 week (discuss colonscopy biopsy results and further plan) if you develop fever , chills, chest pain, trouble breathing, confusion or noted changes in mental status, inability to urinate or decreased urination, dark or bloody stools or your symptoms worsen please call 911 or return to emergency room rightaway. . Referrals: Jose Duncan DO [Staff Physician] - 1 Month Jayshree Soto MD [Primary Care Provider] - 1 Week Slava Gloria MD [Staff Physician] - 1 Week Disposition: VNS/HOME HEALTH CARE - Home Medications Comprehensive Discharge Medication List: Ambulatory Orders Metoprolol Succinate [Toprol XL -] 100 mg PO DAILY 02/12/16 Ferrous Sulfate 325 mg PO DAILY 02/14/16 Cholecalciferol (Vitamin D3) [Vitamin D -] 2,000 unit PO DAILY 01/29/17 hydrALAZINE HCL [Apresoline -] 25 mg PO BID 01/29/17 Docusate Sodium [Colace -] 100 mg PO TID #90 cap 01/31/17 Cyanocobalamin [Vitamin B12 -] 1,000 mcg PO DAILY 01/27/19 Fluticasone Prop 0.05% Nasal [Flonase -] 1 - 2 spray NS DAILY 01/27/19 Gabapentin [Neurontin -] 100 mg PO HS 01/27/19 Rosuvastatin Calcium [Crestor] 20 mg PO DAILY 01/27/19 Calcium Acetate [Phoslo -] 667 mg PO TIDCM #60 capsule 02/03/19 Furosemide [Lasix -] 80 mg PO DAILY #60 tablet 02/03/19 Lancets/Blood Glucose Strips [Fora [id number] Strp-Lnct] 1 each ACHS # 100 combo..pkg 02/03/19 Miscellaneous Medical Supply [Glucometer Device] 1 each .ROUTE ASDIR #1 kit Sodium Bicarbonate - 650 mg PO BID #60 tablet 02/03/19 This patient is new to me today: No Emergency Visit: Yes ED Registration Date: 01/27/19 Care time: The patient presented to the Emergency Department on the above date and was hospitalized for further evaluation of their emergent condition. Critical Care patient: No - Discharge Referral Referred to [facility] Med P.C.: No ATTENDING PHYSICIAN STATEMENT I saw and evaluated the patient. I reviewed the resident's note and discussed the case with the resident. I agree with the resident's findings and plan as documented. SUBJECTIVE: OBJECTIVE: ASSESSMENT AND PLAN:
--- NOTE | 2019-02-03 16:40 | PATH ---
Surgical Pathology Report Patient Name: ZAINA HERNANDEZ [facility]. Rec. #: [id number] /Age/Gender: 1940 (Age: 78) / M Account: [id number] Location: 4 W TELEMETRY U Taken: 02/02/2019 Received: 02/02/2019 Reported: 02/03/2019 Physicians: Yolanda Camacho MD Specimen(s) Received A: BX POLYPS HEPATIC FLEXURE B: BX TRANSVERSE COLON POLYPS C: POLYP SIGMOID Clinical History Guaiac positive stool Postoperative diagnosis: Colon polyps, diverticulosis Final Diagnosis A. HEPATIC FLEXURE POLYPS, POLYPECTOMY: TUBULAR ADENOMA, TWO FRAGMENTS. INFLAMMATORY POLYP, ONE FRAGMENT. B. TRANSVERSE COLON POLYPS, POLYPECTOMY: TUBULAR ADENOMA, THREE FRAGMENTS. C. SIGMOID POLYP POLYPECTOMY: TUBULAR ADENOMA. Electronically Signed Quentin Claire M.D. Gross Description A. Received in formalin, labeled "polyps hepatic flexure" are 4 melchor, irregular to polypoid portions of soft tissue ranging from 0.3-0.7 cm. in greatest dimension. The specimens are submitted in toto in one cassette. B. Received in formalin, labeled "biopsy transverse colon polyps" are 4 melchor, irregular portions of soft tissue ranging from 0.3-0.4 cm. in greatest dimension. The specimens are submitted in toto in one cassette. C. Received in formalin, labeled "biopsy sigmoid polyps" are 2 melchor, irregular portions of soft tissue measuring 0.2 and 0.3 cm. in greatest dimension. The specimens are submitted in toto in one cassette. 02/02/2019 saudi02/02/2019
== END 2019-02-03 15:07 | disposition home health service (06) | DRG 683 ==
LOC: JER 16:01 → JERBED 16:56 → JER 20:40 → J4W 01-28 21:50
PROVIDERS: ADMIT Internal Medicine; ATTEND Hospitalist
PROC: 30233N1 Transfusion of Nonautologous Red Blood Cells into Peripheral Vein, Percutaneous Approach (ICD-10-PCS; 2019-01-27)
PROC: 0DBN8ZZ Excision of Sigmoid Colon, Via Natural or Artificial Opening Endoscopic (ICD-10-PCS; 2019-02-02)
PROC: 0DBL8ZZ Excision of Transverse Colon, Via Natural or Artificial Opening Endoscopic (ICD-10-PCS; principal; 2019-02-02 12:45)
DX: N17.9 Acute kidney failure, unspecified (principal); I13.0 Hypertensive heart and chronic kidney disease with heart failure and stage 1 through stage 4 chronic kidney disease, or unspecified chronic kidney disease; K92.2 Gastrointestinal hemorrhage, unspecified; E87.2 Acidosis; N18.4 Chronic kidney disease, stage 4 (severe); D64.9 Anemia, unspecified; E11.9 Type 2 diabetes mellitus without complications; E78.5 Hyperlipidemia, unspecified; I95.9 Hypotension, unspecified; E87.5 Hyperkalemia; K21.9 Gastro-esophageal reflux disease without esophagitis; K63.5 Polyp of colon; E83.39 Other disorders of phosphorus metabolism; I50.9 Heart failure, unspecified; E87.70 Fluid overload, unspecified; K57.90 Diverticulosis of intestine, part unspecified, without perforation or abscess without bleeding
CPT/HCPCS: 36415; 36430; 36511; 71045-TC-FY; 76775-TC; 76856-TC; 80048; 80053; 81003; 82272; 82306; 82570; 82607; 82668; 82962; 83036; 83516; 83520; 83540; 83550; 83735; 83880; 84100; 84134; 84155; 84156; 84165; 84443; 84484; 84540; 85025; 85027; 85044; 85610; 85651; 85730; 86038; 86140; 86256; 86593; 86850; 86900; 86901; 86922; 87081; 87086; 87389; 88305-TC; 93005; 93010; 93306-TC; 93976; 97116-GP; 99285-25; J0881; P9038; P9058

== ENCOUNTER 2019-03-11 16:24 | Inpatient (IN) | payer OTHER ==
[2019-03-11 17:42] LABS: HEMOGLOBIN 8.2 GM/dL (11.7-16.9); MCH 30.1 pg (25.7-33.7); MCHC 31.7 g/dl (32.0-35.9); MEAN CELL VOLUME 94.9 fl (80-96); MEAN PLT VOLUME 8.3 fl (7.5-11.1); MONO % 9.1 % (3.8-10.2); NEUT % 76.9 % (42.8-82.8); PLATELET COUNT 211 K/MM3 (134-434); RBC 2.74 M/mm3 (4.00-5.60); RDW 16.4 % (11.9-15.9); WHITE BLOOD COUNT 6.6 K/mm3 (4.0-10.0)
--- NOTE | 2019-03-11 17:45 | PDOC ---
History of Present Illness - General Chief Complaint: Shortness of Breath Stated Complaint: WEAKNESS Time Seen by Provider: 03/11/19 17:26 History Source: Patient, Spouse, Other (Clinic records) - History of Present Illness Initial Comments: 03/11/19 17:39 78 yo M PMH HTN, CHF, progressive ESRD currently refusing dialysis, anemia, sent from nephrology clinic for SOB. Notably, patient was seen last month here with SOB and found to have worsening CKD, CHF, and acute on chronic anemia (Hgb 7.7). Patient states that he has been lethargic and SOB for the past three days. However, when asked name, location, year, patient states "I don't know" and refers us to his . Patient's verifies that he has been having worsening SOB and lethargy for the past three days. Patient denies CP, abdominal pain, fevers at home, urinary complaints. Does endorse having to sleep with multiple pillows. Past History - Past Medical History Allergies/Adverse Reactions: Allergies Allergy/AdvReac Type Severity Reaction Status Date / Time ampicillin [From Unasyn] AdvReac Rash Verified 01/27/19 22:44 clindamycin AdvReac Verified 01/27/19 22:44 sulbactam [From Unasyn] AdvReac Rash Verified 01/27/19 22:44 Home Medications: Ambulatory Orders Metoprolol Succinate [Toprol XL -] 100 mg PO DAILY 02/12/16 Ferrous Sulfate 325 mg PO TID 02/14/16 Cholecalciferol (Vitamin D3) [Vitamin D -] 2,000 unit PO DAILY 01/29/17 hydrALAZINE HCL [Apresoline -] 100 mg PO TID 01/29/17 Docusate Sodium [Colace -] 100 mg PO TID #90 cap 01/31/17 Cyanocobalamin [Vitamin B12 -] 5,000 mcg PO DAILY 01/27/19 Fluticasone Prop 0.05% Nasal [Flonase -] 1 - 2 spray NS DAILY 01/27/19 Gabapentin [Neurontin -] 100 mg PO HS 01/27/19 Rosuvastatin Calcium [Crestor] 20 mg PO DAILY 01/27/19 Calcium Acetate [Phoslo -] 667 mg PO TIDCM #60 capsule 02/03/19 Lancets/Blood Glucose Strips [Fora [id number] Strp-Lnct] 1 each ACHS # 100 combo..pkg 02/03/19 Miscellaneous Medical Supply [Glucometer Device] 1 each .ROUTE ASDIR #1 kit Sodium Bicarbonate - 650 mg PO BID #60 tablet 02/03/19 Aspirin [Ecotrin] 81 mg PO DAILY 03/12/19 Cholecalciferol (Vitamin D3) [D3-50] 50,000 unit PO WEEKLY 03/12/19 Docusate Sodium [Colace] 100 mg PO TID 03/12/19 Furosemide [Lasix -] 40 mg PO BID 03/12/19 Sitagliptin Phosphate [Januvia] 50 mg PO DAILY 03/12/19 Anemia: Yes Asthma: No Cancer: No Cardiac Disorders: (cad,) CVA: No COPD: No CHF: Yes Dementia: No Diabetes: Yes GI Disorders: Yes (GERD) Disorders: No HTN: Yes Hypercholesterolemia: Yes Liver Disease: No Seizures: No Thyroid Disease: No - Surgical History Abdominal Surgery: No Appendectomy: No Cardiac Surgery: No Cholecystectomy: No Lung Surgery: No Neurologic Surgery: Yes (back sx) Orthopedic Surgery: Yes (left middle finger amputated.) - Immunization History Immunization Up to Date: Yes - Psycho Social/Smoking Cessation Hx Smoking History: Unknown if ever smoked Have you smoked in the past 12 months: No Number of Cigarettes Smoked Daily: 10 If you are a former smoker, when did you quit?: 5 years ago Hx Alcohol Use: No Drug/Substance Use Hx: No Substance Use Type: None Hx Substance Use Treatment: No Review of Systems - Review of Systems Able to Perform ROS?: Yes Constitutional: No: Chills, Fever HEENTM: No: Eye Pain, Throat Swelling, Mouth Swelling Respiratory: Yes: Shortness of Breath, SOB with Exertion, SOB at Rest. No: Cough Cardiac (ROS): No: Chest Pain, Edema, Palpitations ABD/GI: No: Constipated, Diarrhea, Nausea, Vomiting : No: Burning, Dysuria, Discharge, Frequency, Flank Pain Musculoskeletal: No: Back Pain Neurological: No: Headache, Numbness, Tingling *Physical Exam - Vital Signs Last Vital Signs Temp Pulse Resp BP Pulse Ox 98.2 F 65 28 H 168/90 100 03/11/19 16:43 03/11/19 16:43 03/11/19 16:43 03/11/19 16:43 03/11/19 16:43 - Physical Exam Comments: 03/11/19 17:46 Gen: nourished, appears pale, protecting airway HEENT: atraumatic, normocephalic, conjuctival pallor Neck: trachea midline, supple CV: regular rhythm, regular rate, normal S1 and S2 Pulm: diffuse rhonchi Abd: soft, non-distended, non-tender Extr: no edema, 2+, 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 - CBC, CMP, coags, T+S - EKG, trop - CXR port - ctm 03/11/19 18:25 K 5.9 (new), Cr 6.9 (similar to previous). Will admit patient. 03/11/19 18:[address] Gloria's office for collateral information, will await call back. 03/11/19 18:[address] Appiah (partner of Dr. Gloria, covering today), patient continued to refuse dialysis when seen today. Was sent to the ED due to fluid overload and looking extremely pale. 03/11/19 18:55 EKG normal sinus without peaked T waves. Will give Kayexalate, insulin/D50, and calcium gluconate for hyperK. 03/11/19 20:04 Chest X ray missing lower lung bartholomew, otherwise unremarkable. Spoke with hospitalist team, will admit to Dr. Dewey. Discharge - Discharge Information Problems reviewed: Yes Clinical Impression/Diagnosis: SOB (shortness of breath), Hyperkalemia - Follow up/Referral - Patient Discharge Instructions - Post Discharge Activity
[2019-03-11 17:54] LABS: INR 0.94 (0.83-1.09); PROTHROMBIN TIME (PATIENT) 11.1 SEC (9.7-13.0)
[2019-03-11 17:56] LABS: ACTIVATED PTT 31.2 SECONDS (25.2-36.5)
[2019-03-11 18:13] LABS: ALBUMIN 2.6 g/dl (3.4-5.0); ALK PHOS 123 U/L (45-117); ANION GAP 9 MMOL/L (8-16); BILIRUBIN,TOTAL 0.2 mg/dL (0.2-1); BLOOD UREA NITROGEN 49.1 mg/dL (7-18); CALCIUM 8.1 mg/dL (8.5-10.1); CHLORIDE 114 mmol/L (98-107); CO2 17 mmol/L (21-32); CREATININE 6.7 mg/dL (0.55-1.3); GLUCOSE,RANDOM 189 mg/dL (74-106); N-TERMINAL BNP 5979.5 pg/ml (5-450); POTASSIUM 5.9 mmol/L (3.5-5.1); SGOT/AST 12 U/L (15-37); SGPT/ALT 16 U/L (13-61); SODIUM 139 mmol/L (136-145); TOT PROT 6.1 g/dl (6.4-8.2)
[2019-03-11] MEDS ORDERED: SODIUM POLYSTYRENE SULFONATE 15 GM/60 ML BOTTLE PO ONE ×2 (18:53→22:16)
[2019-03-11] MEDS ORDERED: DEXTROSE 50%-WATER - 25 GM/50 ML VIAL IVPUSH ONE (18:53)
[2019-03-11] MEDS ORDERED: INSULIN REGULAR HUMAN 100 UNITS/ML *VIAL IVPUSH ONE (18:53)
[2019-03-11] MEDS ORDERED: CALCIUM GLUCONATE 10% - 1,000 MG/10 ML VIAL IVPB ONE (19:05)
[2019-03-11] MEDS ORDERED: DEXTROSE 50%-WATER - 25 GM/50 ML VIAL ONE (19:25)
[2019-03-11] MEDS ORDERED: SODIUM POLYSTYRENE SULFONATE 15 GM/60 ML BOTTLE ONE (19:27)
--- NOTE | 2019-03-11 19:31 | PN ---
Teaching Attending Note Name of Resident: Ronaldo Greene ATTENDING PHYSICIAN STATEMENT I saw and evaluated the patient. I reviewed the resident's note and discussed the case with the resident. I agree with the resident's findings and plan as documented. SUBJECTIVE: Patient is 78 year old man with PMH of CKD ?stage 5 (Refusing dialysis), HTN, CHF, Multiple antibiotics allergy and Anemia, sent from Nephrology clinic for SOB. Notably, patient was seen last month here with SOB and found to have worsening CKD, CHF, and acute on chronic anemia (Hgb 7.7). Patient states that he has been lethargic and SOB for the past three days. However, when asked name , location and year, patient states "I don't know" and refers to his . Patient's verifies that he has been having worsening SOB and lethargy for the past three days. Patient denies chest pain, abdominal pain, fevers, dysuria , hematuria, frequency or diarrhea. Sleeps with multiple pillows. No documented smoking history, alcohol abuse or use of illicit drugs. OBJECTIVE: Alert Vital Signs Period Temp Pulse Resp BP Sys/Bo Pulse Ox Last 24 Hr 98.2 F 65 16-28 165-168/68-90 100-100 HEENT: No Jaundice, eye redness or discharge, PERRLA, EOMI. Normocephalic, atraumatic. External ears are normal and hearing is grossly intact. No nasal discharge. Neck: Supple, nontender. No palpable adenopathy or thyromegaly. No JVD Chest: Good effort. Clear to auscultation and percussion. Heart: Regular. No S3, rub or murmur Abdomen: Not distended, soft, nontender and no HSM. No rebound or guarding. Normal bowel sounds. Ext: Peripheral pulses intact. No leg edema. Left middle finger amputation. Diminished sensation below the knees. Skin: Warm and dry. No petechiae, rash or ecchymosis. Neuro: Alert. Oriented to person. CN 2-12 grossly intact. Sensation grossly intact in all four extremities and DTR are symmetric. Psych: Appropriate mood and affect. Good insight. Home Medications Medication Instructions Recorded Metoprolol Succinate [Toprol XL -] 100 mg PO DAILY 02/12/16 Ferrous Sulfate 325 mg PO DAILY 02/14/16 Cholecalciferol (Vitamin D3) 2,000 unit PO DAILY 01/29/17 [Vitamin D -] hydrALAZINE HCL [Apresoline -] 25 mg PO BID 01/29/17 Docusate Sodium [Colace -] 100 mg PO TID #90 cap 01/31/17 Cyanocobalamin [Vitamin B12 -] 1,000 mcg PO DAILY 01/27/19 Fluticasone Prop 0.05% Nasal 1 - 2 spray NS DAILY 01/27/19 [Flonase -] Gabapentin [Neurontin -] 100 mg PO HS 01/27/19 Rosuvastatin Calcium [Crestor] 20 mg PO DAILY 01/27/19 Calcium Acetate [Phoslo -] 667 mg PO TIDCM #60 capsule 02/03/19 Furosemide [Lasix -] 80 mg PO DAILY #60 tablet 02/03/19 Lancets/Blood Glucose Strips [Fora 1 each ACHS #100 combo..pkg 02/03/19 [id number] Strp-Lnct] Miscellaneous Medical Supply 1 each .ROUTE ASDIR #1 kit 02/03/19 [Glucometer Device] Sodium Bicarbonate - 650 mg PO BID #60 tablet 02/03/19 Abnormal Lab Results 03/11/19 03/11/19 17:30 17:30 RBC 2.74 L Hgb 8.2 L Hct 26.0 L MCHC 31.7 L RDW 16.4 H Potassium 5.9 H Chloride 114 H Carbon Dioxide 17 L BUN 49.1 H Creatinine 6.7 H Random Glucose 189 H Calcium 8.1 L AST 12 L Alkaline Phosphatase 123 H B-Natriuretic Peptide 5979.5 H Total Protein 6.1 L Albumin 2.6 L ASSESSMENT AND PLAN: 1. Uremia, hyperkalemia and fluid overload - Likely that most of his symptoms are related to advanced CKD. EKG shows NSR with no significant ST-T wave changes. No acute infiltrate on CXR though the bases were not visualized. His most recent ECHO from 01/28/19 showed normal LVEF and no documented diastolic dysfunction. Will get head CT to rule out intracranial pathology, diurese with IV lasix, treat hyperkalemia with insulin/glucose and kayexalate and correct anemia. Get UA and consult PT. Will consult nephrology and avoid nephrotoxic agents such as NSAIDS, aminoglycosides, contrast dyes and certain Alternative medicine products. Will continue comprehensive care for all of patients comorbid conditions and optimize conservative therapeutic measures for uremia. 2. Hypoalbuminemia - Possibly due to combined effects of malnutrition and inflammation associated with comorbid chronic conditions. Will ensure adequate dietary protein intake and also consult math and physics instructor. 3. Anemia -Likely chiefly due to CKD. Will do basic anemia work up including serial stool guaiacs, reticulocyte count and iron studies. Would benefit from Procrit therapy once iron replete. Will give Venofer 500 mg IV x 2 doses. 4. Hypertension - Restart suitable outpatient antihypertensive drugs when clinically appropriate. Revise regimen to ensure [id number] excellent BP control and staff counselor patient on the injurious effects of uncontrolled hypertension. Nonpharmacologic measures to control hypertension like weight loss , salt restriction and exercise discussed. Importance of adherence to treatment regimen and attainment of normotension emphasized. 5. DVT prophylaxis - Heparin 5000u sq tid. 6. Advance directives - Full code
[2019-03-11] MEDS ORDERED: FUROSEMIDE 40 MG/4 ML INJECTABLE VIAL IVPUSH ONE (20:07)
[2019-03-11] MEDS ORDERED: FUROSEMIDE 40 MG/4 ML INJECTABLE VIAL ONE (21:03)
--- NOTE | 2019-03-11 21:51 | PDOC ---
Attending Attestation - Resident Resident Name: Herman Cornelius - ED Attending Attestation I have performed the following: I have examined & evaluated the patient, The case was reviewed & discussed with the resident, I agree w/resident's findings & plan, Exceptions are as noted - HPI HPI: 03/11/19 21:45 78 yo male h./o esrd, chf htn anemia, previously refusing dialysis here c/o worsening sob. pt was sent from nephrology clinic for worsening sob, pallor and c/o generalized weakness. pt states sob is worse with lying flat and walking very small distances. his provides additional history saying he can only walk across room before he becomes sob. no f/c no cough. no worsening leg edema. has been feeling pale. denies black stool. states he is not interested in having dialysis. - Physicial Exam PE: 03/11/19 21:47 awake alert pale. pt with crackles at bilat lung bases. normal respiratory effort. pulse ox 98% RA. heart rrr no mrg abd soft nt nd ext wwp. nuero alert oriented x 3. - Medical Decision Making 03/11/19 21:51 78 yo male h/o esrd chf htn here with c/o sob. differential anemia, chf , worsening renal failure, uremia, pneumonia, mi, plan cbc lytes ekg cxr benjynile admit pt hgb 8.2 previously was 7. persistantly elevated creatinine 6. potassium 5.9 given calcium dextrose and insuline in addition to kaexylate. cxr pending. contact nephrology. pt will require admission. possible transfusion with diruesis, will hold for now due to severe fluid overload. admit.
[2019-03-11] MEDS ORDERED: IRON SUCROSE INJECTION 200 MG in SODIUM CHLORIDE 90 ML IVPB ONE (22:17)
--- NOTE | 2019-03-12 01:40 | HP ---
CHIEF COMPLAINT: Altered mental status, shortness of breath PCP: Dr. Camargo HISTORY OF PRESENT ILLNESS: 78 y.o. 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 As per patient's the patient is not mentating at baseline. As per patients the patient has been not his usual self for a few days but today she said he did not recognize who she was. He has never has an episode like this in the past. Yesterday pt had 2 episodes NBNB emesis. PT also has progressive SOB over the past day. SOB is present at rest, worsens w/ lying flat, improved w/ sitting up. Pt had recent hospital admission for dyspnea where he was started on Lasix 80mg daily, sodium bicarb and phoslo. On ROS, pt denies CP/ COLLINS/ fevers/ N/ V/ D/ myalgias. ER course was notable for: (1) BUN/Cr 49.1/6.7; K+ 5.9 (2) Kayexalate 30mg PO, 5U regular insulin, [id number] IV, Ca gluconate 1g IV (3) Lasix 80mg IV; CXR done, unremarkable Recent Travel: denies PAST MEDICAL HISTORY: as per HPI PAST SURGICAL HISTORY: back surgery in [place]- pt has no sensation b/l LE since this procedure Social History: Smoking: quit 10 yrs ago Alcohol: quit 10 yrs ago Drugs: denies Allergies ampicillin [From Unasyn] Adverse Reaction (Verified 01/27/19 22:44) Rash clindamycin Adverse Reaction (Verified 01/27/19 22:44) sulbactam [From Unasyn] Adverse Reaction (Verified 01/27/19 22:44) Rash HOME MEDICATIONS: Home Medications Medication Instructions Recorded Metoprolol Succinate [Toprol XL -] 100 mg PO DAILY 02/12/16 Ferrous Sulfate 325 mg PO DAILY 02/14/16 Cholecalciferol (Vitamin D3) 2,000 unit PO DAILY 01/29/17 [Vitamin D -] hydrALAZINE HCL [Apresoline -] 25 mg PO BID 01/29/17 Docusate Sodium [Colace -] 100 mg PO TID #90 cap 08/17/17 Cyanocobalamin [Vitamin B12 -] 1,000 mcg PO DAILY 01/27/19 Fluticasone Prop 0.05% Nasal 1 - 2 spray NS DAILY 01/27/19 [Flonase -] Gabapentin [Neurontin -] 100 mg PO HS 01/27/19 Rosuvastatin Calcium [Crestor] 20 mg PO DAILY 01/27/19 Calcium Acetate [Phoslo -] 667 mg PO TIDCM #60 capsule 02/03/19 Lancets/Blood Glucose Strips [Fora 1 each ACHS #100 combo..pkg 02/03/19 [id number] Strp-Lnct] Miscellaneous Medical Supply 1 each .ROUTE ASDIR #1 kit 02/03/19 [Glucometer Device] Sodium Bicarbonate - 650 mg PO BID #60 tablet 02/03/19 Aspirin [Ecotrin] 81 mg PO DAILY 03/12/19 Cholecalciferol (Vitamin D3) 50,000 unit PO WEEKLY 03/12/19 [D3-50] Docusate Sodium [Colace] 100 mg PO TID 03/12/19 Furosemide [Lasix -] 80 mg PO DAILY 03/12/19 Sitagliptin Phosphate [Januvia] 50 mg PO DAILY 03/12/19 REVIEW OF SYSTEMS CONSTITUTIONAL: Absent: fever, chills, diaphoresis, generalized weakness, malaise, loss of appetite, weight change HEENT: Absent: rhinorrhea, nasal congestion, throat pain, throat swelling, difficulty swallowing, mouth swelling, ear pain, eye pain, visual changes CARDIOVASCULAR: Absent: chest pain, syncope, palpitations, irregular heart rate, lightheadedness , peripheral edema RESPIRATORY: Absent: cough, shortness of breath, dyspnea with exertion, orthopnea, wheezing, stridor, hemoptysis GASTROINTESTINAL: Absent: abdominal pain, abdominal distension, nausea, vomiting, diarrhea, constipation, melena, hematochezia GENITOURINARY: Absent: dysuria, frequency, urgency, hesitancy, hematuria, flank pain, genital pain MUSCULOSKELETAL: Absent: myalgia, arthralgia, joint swelling, back pain, neck pain SKIN: Absent: rash, itching, pallor HEMATOLOGIC/IMMUNOLOGIC: Absent: easy bleeding, easy bruising, lymphadenopathy, frequent infections ENDOCRINE: Absent: unexplained weight gain, unexplained weight loss, heat intolerance, cold intolerance NEUROLOGIC: Absent: headache, focal weakness or paresthesias, dizziness, unsteady gait, seizure, mental status changes, bladder or bowel incontinence PSYCHIATRIC: Absent: anxiety, depression, suicidal or homicidal ideation, hallucinations. PHYSICAL EXAMINATION Vital Signs - 24 hr 03/11/19 03/11/19 03/12/19 16:43 16:47 00:09 Temperature 98.2 F 97.9 F Pulse Rate 65 Pulse Rate [ 93 H Right Radial] Respiratory 28 H 16 16 Rate Blood Pressure 168/90 Blood Pressure 165/68 155/67 [Left Arm] O2 Sat by Pulse 100 100 97 Oximetry (%) GENERAL: AOx0. Not oriented to self/ time/ place. HEENT: Fundoscopy exam reveals + red light reflex. Vessels appear WNL. No retinopathy noted LUNGS: Wheezing noted RLL. No accessory muscle use. HEART: Regular rate and rhythm, normal S1 and S2 without murmur, rub or gallop. ABDOMEN: Soft, nontender, not distended, normoactive bowel sounds, no guarding UPPER EXTREMITIES: 2+ pulses, warm, well-perfused. No cyanosis. No clubbing. No peripheral edema. LOWER EXTREMITIES: 2+ pulses, warm, well-perfused. No calf tenderness. No peripheral edema. NEUROLOGICAL: Cranial nerves II-XII intact. No pain sensation b/l LE below knees. Motor strength WNL. PSYCHIATRIC: Cooperative. Good eye contact. Appropriate mood and affect. Laboratory Results - last 24 hr 03/11/19 03/11/19 03/11/19 17:30 17:30 17:30 WBC 6.6 RBC 2.74 L Hgb 8.2 L Hct 26.0 L MCV 94.9 MCH 30.1 MCHC 31.7 L RDW 16.4 H Plt Count 211 D MPV 8.3 Absolute Neuts (auto) 5.1 Neutrophils % 76.9 D Lymphocytes % 12.0 D Monocytes % 9.1 Eosinophils % 1.0 Basophils % 1.0 Nucleated RBC % 0 PT with INR 11.10 INR 0.94 PTT (Actin FS) 31.2 Sodium 139 Potassium 5.9 H Chloride 114 H Carbon Dioxide 17 L Anion Gap 9 BUN 49.1 H Creatinine 6.7 H Est GFR (CKD-EPI)AfAm 8.28 Est GFR (CKD-EPI)NonAf 7.15 Random Glucose 189 H Calcium 8.1 L Ferritin Total Bilirubin 0.2 AST 12 L ALT 16 Alkaline Phosphatase 123 H Troponin I < 0.02 B-Natriuretic Peptide 5979.5 H Total Protein 6.1 L Albumin 2.6 L Stool Occult Blood Blood Type Antibody Screen 03/11/19 03/11/19 03/11/19 19:20 23:37 23:48 WBC RBC Hgb Hct MCV MCH MCHC RDW Plt Count MPV Absolute Neuts (auto) Neutrophils % Lymphocytes % Monocytes % Eosinophils % Basophils % Nucleated RBC % PT with INR INR PTT (Actin FS) Sodium Potassium Chloride Carbon Dioxide Anion Gap BUN Creatinine Est GFR (CKD-EPI)AfAm Est GFR (CKD-EPI)NonAf Random Glucose Calcium Ferritin 29.6 Total Bilirubin AST ALT Alkaline Phosphatase Troponin I B-Natriuretic Peptide Total Protein Albumin Stool Occult Blood Negative Blood Type O POSITIVE Antibody Screen Negative ASSESSMENT/PLAN: 78 y.o. 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 #Fluid overload likely 2/2 advanced renal disease vs acute CHF exacerbation -BNP 5979 -EKG: NSR, no peaked t waves -CXR: No congestive changes, but lung bases not visualized in imaging study -Echo 01/28/19: Normal LVEF, mild ao root dil, trace TR, MR, moderate LVH -C/w Lasix -C/w sodium bicarb -C/w phoslo -Strict Is & Os #Hyperkalemia -S/p 30g kayexalate 2 of 3 doses -S/p Ca gluconate 1g, 25g D50W -F/u repeat BMP #Acute toxic metabolic encephalopathy -F/u CT head r/o acute pathology -AOx3- repeat neuro check #HTN -On hydralazine 35mg BID, metoprolol 100mg daily --home meds -holding meds, med rec to confirm #Normocytic anemia -IV venofer -D/c'd Fe sulfate -F/u iron studies, ferritin, transferrin -FOBT negative #DM -Holding home meds -ISS -BGMs #DVT PPX -Heparin SQ 5000U TID Visit type - Emergency Visit Emergency Visit: Yes ED Registration Date: 03/11/19 Care time: The patient presented to the Emergency Department on the above date and was hospitalized for further evaluation of their emergent condition. - New Patient This patient is new to or today: Yes Date on this admission: 03/12/19 - Critical Care Critical Care patient: No ATTENDING PHYSICIAN STATEMENT I saw and evaluated the patient. I reviewed the resident's note and discussed the case with the resident. I agree with the resident's findings and plan as documented. SUBJECTIVE: OBJECTIVE: ASSESSMENT AND PLAN:
[2019-03-12 04:11] LABS: EPI CELLS 6.3 /HPF (0-5/HPF); HYALINE CASTS 114 /lpf (0-8); PH,URINE 5.5 (5.0-8.0); URINE APPEARANCE CLOUDY; URINE BACTERIA 152.2 /hpf (NEGATIVE); URINE BILIRUBIN NEGATIVE (NEGATIVE); URINE COLOR YELLOW; URINE GLUCOSE (UA) 2+ (NEGATIVE); URINE KETONE NEGATIVE (NEGATIVE); URINE LEUK ESTERASE NEGATIVE (NEGATIVE); URINE NITRITE POSITIVE (NEGATIVE); URINE PROTEIN 4+ (NEGATIVE); URINE UROBILINOGEN 0.2 mg/dL (0.2-1.0); URINE WBC 1 /hpf (0-5)
[2019-03-12] MEDS ORDERED: hydrALAZINE HCL 25 MG TABLET (FP) PO ONE (05:00)
[2019-03-12] MEDS: HEPARIN NA (PORCINE) 5,000 UNITS/ML 1ML VIAL SQ SCH ×3 (05:52→21:33)
[2019-03-12] MEDS: INSULIN SLIDING SCALE (NOVOLOG) 1 VIAL SQ SCH ×4 (06:55→21:41)
[2019-03-12 08:14] LABS: HEMATOCRIT 22.8 % (35.4-49); HEMOGLOBIN 7.4 GM/dL (11.7-16.9); MCH 30.4 pg (25.7-33.7); MCHC 32.6 g/dl (32.0-35.9); MEAN CELL VOLUME 93.3 fl (80-96); MEAN PLT VOLUME 8.4 fl (7.5-11.1); PLATELET COUNT 195 K/MM3 (134-434); RBC 2.44 M/mm3 (4.00-5.60); RDW 16.9 % (11.9-15.9); WHITE BLOOD COUNT 7.5 K/mm3 (4.0-10.0)
[2019-03-12 08:24] LABS: ALBUMIN 2.3 g/dl (3.4-5.0); BILIRUBIN,TOTAL 0.3 mg/dL (0.2-1); BLOOD UREA NITROGEN 48.8 mg/dL (7-18); CALCIUM 7.7 mg/dL (8.5-10.1); CREATININE 6.7 mg/dL (0.55-1.3); MAGNESIUM 2.1 mg/dL (1.8-2.4); PHOSPHOROUS 5.5 mg/dL (2.5-4.9); POTASSIUM 4.7 mmol/L (3.5-5.1); TOT PROT 5.5 g/dl (6.4-8.2)
[2019-03-12] MEDS: CALCIUM ACETATE 667 MG CAPSULE (FP) PO SCH ×3 (09:00→17:56)
[2019-03-12] MEDS ORDERED: SODIUM BICARBONATE 650 MG TABLET PO SCH (10:00)
[2019-03-12 10:01] LABS: URINE RBC 1.4 /hpf (0-4)
[2019-03-12] MEDS ORDERED: PT OWN MED DRAWER 7, Y5N ONE ×2 (10:47→18:09)
[2019-03-12] MEDS ORDERED: SODIUM CHLORIDE 0.45% 1,000 ML IV SCH (13:00)
--- NOTE | 2019-03-12 14:09 | EKG ---
Test Reason : Blood Pressure : / mmHG Vent. Rate : 061 BPM Atrial Rate : 061 BPM P-R Int : 188 ms QRS Dur : 094 ms QT Int : 432 ms P-R-T Axes : 012 018 007 degrees QTc Int : 434 ms NORMAL SINUS RHYTHM SEPTAL INFARCT , AGE UNDETERMINED ABNORMAL ECG WHEN COMPARED WITH ECG OF 27-JAN-2019 16:30, NO SIGNIFICANT CHANGE WAS FOUND Confirmed by TAMRA NESBITT MD ([id number]) on 03/12/2019 2:08:55 PM Referred By: Confirmed By:TAMRA NESBITT MD
--- NOTE | 2019-03-12 15:17 | PN ---
Progress Note (short form) - Note Progress Note: Vascular Surgery Pt seen and examined. Spoke to nephrology Pt needs permacath. CAn do deandre at 1030am. NPO past midnite Clyde Townsend dO
--- NOTE | 2019-03-12 15:41 | CONSULT ---
Consult - text type - Consultation Consultation Note: Renal consult for CKD stage 5 This is a 78 year old gentleman with history of CKD stage 5, DM type 2, hypertension, hearing loss, chronic anemia who was sent to the ED from our office with altered mental status, shortness of breath and generalized weakness. He had been refusing dialysis up until this time due to a bad experience he had when he was having a AVF placed at [facility] many years ago. He has anorexia, weakness, shortness or breath. In the ED he was noted to have a Hgb of 8 and K of 6. Currently he feels a little better. Now is agreeable to doing dialysis. PMhx: as above Allergies: NKDA Family hx: NC Social Hx: No T/A/D ROS: as per HPI Home Medications Medication Instructions Recorded Metoprolol Succinate [Toprol XL -] 100 mg PO DAILY 02/12/16 Ferrous Sulfate 325 mg PO TID 02/14/16 Cholecalciferol (Vitamin D3) 2,000 unit PO DAILY 01/29/17 [Vitamin D -] hydrALAZINE HCL [Apresoline -] 100 mg PO TID 01/29/17 Docusate Sodium [Colace -] 100 mg PO TID #90 cap 01/31/17 Cyanocobalamin [Vitamin B12 -] 5,000 mcg PO DAILY 01/27/19 Fluticasone Prop 0.05% Nasal 1 - 2 spray NS DAILY 01/27/19 [Flonase -] Gabapentin [Neurontin -] 100 mg PO HS 01/27/19 Rosuvastatin Calcium [Crestor] 20 mg PO DAILY 01/27/19 Calcium Acetate [Phoslo -] 667 mg PO TIDCM #60 capsule 02/03/19 Lancets/Blood Glucose Strips [Fora 1 each ACHS #100 combo..pkg 02/03/19 [id number] Strp-Lnct] Miscellaneous Medical Supply 1 each .ROUTE ASDIR #1 kit 02/03/19 [Glucometer Device] Sodium Bicarbonate - 650 mg PO BID #60 tablet 02/03/19 Aspirin [Ecotrin] 81 mg PO DAILY 03/12/19 Cholecalciferol (Vitamin D3) 50,000 unit PO WEEKLY 03/12/19 [D3-50] Docusate Sodium [Colace] 100 mg PO TID 03/12/19 Furosemide [Lasix -] 40 mg PO BID 03/12/19 Sitagliptin Phosphate [Januvia] 50 mg PO DAILY 03/12/19 Vital Signs Temperature 98.7 F 03/12/19 10:41 Pulse Rate 77 03/12/19 12:00 Respiratory Rate 20 03/12/19 12:00 Blood Pressure 151/63 03/12/19 12:00 O2 Sat by Pulse Oximetry (%) 98 03/12/19 06:03 Intake & Output 03/09/19 03/10/19 03/11/19 03/12/19 23:59 23:59 23:59 23:59 Intake Total 20 Balance 20 Weight 77.564 kg 78.653 kg NAD awake and alert neck supple RRR, no M/R CTA soft NT/ND no LE edema CBC, BMP 03/12/19 06:40 03/12/19 06:40 Current Medications Calcium Acetate (Phoslo -) 667 mg PO TIDCM [facility] Last Admin: 03/12/19 12:03 Dose: Not Given Heparin Sodium (Porcine) (Heparin -) 5,000 unit SQ TID [facility] Last Admin: 03/12/19 14:35 Dose: 5,000 unit Hydralazine HCl (Apresoline -) 25 mg PO BID [facility] Sodium Chloride (1/2 Normal Saline) 1,000 mls @ 75 mls/hr IV ASDIR [facility] Stop: 03/13/19 02:19 Insulin Aspart (Novolog Vial Sliding Scale -) 1 vial SQ [facility]; Protocol Last Admin: 03/12/19 12:01 Dose: 2 units Metoprolol Succinate (Toprol Xl -) 100 mg PO DAILY [facility] Last Admin: 03/12/19 12:05 Dose: 100 mg Sodium Bicarbonate (Sodium Bicarbonate -) 650 mg PO TID [facility] 78 year old gentleman with history of CKD stage 5, DM type 2, hypertension, hearing loss, chronic anemia who was sent to the ED from our office with altered mental status, shortness of breath and generalized weakness. 1. CKD stage 5 now ESRD requiring dialysis 2. CKD related Anemia 3. Metabolic acidosis 4. Hypertension 5. CHF/Fluid overload 6. DM Type 2 Many of Mr. Holland's symptoms appear to be uremic (anorexia, weakness) Pt is not agreeable to starting dialysis and monitoring for improvement in symptoms. The risk and benefits of dialysis were explained to the patient he he expressed understanding. will consult vascular surgery for tunneled HD catheter placement. Will arrange for first dialysis tomorrow. will need outpatient HD arranged will give JOSE DAVID and Iron with HD, if Hgb < 7 will need PRBC transfusion continue Lasix 80mg Daily would hold IVF. Continue sodium bicarb TID Thank you Will Follow Slava Gloria DO
[2019-03-12] MEDS ORDERED: SODIUM CHLORIDE 250 ML IV PRN (15:49)
--- NOTE | 2019-03-12 15:58 | SPA.PREOP ---
- PRE-OP NOTE Dx: Renal failure Planned Procedure: Permacath placement Surgeon: Clyde Townsend, DO Last Vital Signs Temp Pulse Resp BP Pulse Ox 98.4 F 77 20 106/48 L 98 03/12/19 14:00 03/12/19 14:00 03/12/19 12:00 03/12/19 14:00 03/12/19 06:03 Lab Results WBC 7.5 K/mm3 (4.0-10.0) 03/12/19 06:40 RBC 2.44 M/mm3 (4.00-5.60) L 03/12/19 06:40 Hgb 7.4 GM/dL (11.7-16.9) L 03/12/19 06:40 Hct 22.8 % (35.4-49) L 03/12/19 06:40 MCV 93.3 fl (80-96) 03/12/19 06:40 MCHC 32.6 g/dl (32.0-35.9) 03/12/19 06:40 RDW 16.9 % (11.9-15.9) H 03/12/19 06:40 Plt Count 195 K/MM3 (134-434) 03/12/19 06:40 Sodium 142 mmol/L (136-145) 03/12/19 06:40 Potassium 4.7 mmol/L (3.5-5.1) 03/12/19 06:40 Chloride 115 mmol/L (98-107) H 03/12/19 06:40 Carbon Dioxide 15 mmol/L (21-32) L 03/12/19 06:40 Anion Gap 12 MMOL/L (8-16) 03/12/19 06:40 BUN 48.8 mg/dL (7-18) H 03/12/19 06:40 Creatinine 6.7 mg/dL (0.55-1.3) H 03/12/19 06:40 Random Glucose 190 mg/dL (74-106) H 03/12/19 06:40 Calcium 7.7 mg/dL (8.5-10.1) L 03/12/19 06:40 Blood Type O POSITIVE 03/11/19 19:20 Antibody Screen Negative 03/11/19 19:20 INR 0.94 (0.83-1.09) 09/25/19 17:30 - ASSESSMENT/PLAN 1. Make NPO after midnight except po meds 2. GI/DVT PPX 3. Medical optimization / clearance 4. Consent to be obtained by surgeon after risks, benefits and alternatives discussed with patient and or Health Care Proxy.
--- NOTE | 2019-03-12 17:33 | PN ---
Physical Exam: SUBJECTIVE: Patient seen and examined. pt offered no complaints at the time. OBJECTIVE: Vital Signs Period Temp Pulse Resp BP Sys/Bo Pulse Ox Last 24 Hr 97.9 F-98.7 F 65-113 16-20 101-187/42-87 97-98 GENERAL: The patient is awake, alert, AOOx3, in no acute distress. HEAD: Normal with no signs of trauma. EYES: PERRL, extraocular movements intact, sclera anicteric, conjunctiva clear. No ptosis. ENT: oropharynx clear without exudates, moist mucous membranes. LUNGS: Breath sounds equal, clear to auscultation bilaterally, no wheezes, no crackles, no accessory muscle use. HEART: Regular rate and rhythm, S1, S2 without murmur, rub or gallop. ABDOMEN: Soft, nontender, nondistended, normoactive bowel sounds, no guarding, no rebound, no hepatosplenomegaly, no masses. EXTREMITIES: 2+ pulses, warm, well-perfused, no edema. NEUROLOGICAL: Cranial nerves II through XII grossly intact. Normal speech, gait not observed. SKIN: Warm, dry, normal turgor. BLACK LESION IN BACK OF NEG WITH 2 COLOR TONE BUT <6MM Laboratory Results - last 24 hr 03/11/19 03/11/19 03/11/19 17:30 17:30 17:30 WBC 6.6 RBC 2.74 L Hgb 8.2 L Hct 26.0 L MCV 94.9 MCH 30.1 MCHC 31.7 L RDW 16.4 H Plt Count 211 D MPV 8.3 Absolute Neuts (auto) 5.1 Neutrophils % 76.9 D Lymphocytes % 12.0 D Monocytes % 9.1 Eosinophils % 1.0 Basophils % 1.0 Nucleated RBC % 0 PT with INR 11.10 INR 0.94 PTT (Actin FS) 31.2 Sodium 139 Potassium 5.9 H Chloride 114 H Carbon Dioxide 17 L Anion Gap 9 BUN 49.1 H Creatinine 6.7 H Est GFR (CKD-EPI)AfAm 8.28 Est GFR (CKD-EPI)NonAf 7.15 POC Glucometer Random Glucose 189 H Calcium 8.1 L Phosphorus Magnesium Iron TIBC Iron Saturation Unsaturated IBC Ferritin Total Bilirubin 0.2 AST 12 L ALT 16 Alkaline Phosphatase 123 H Ammonia Troponin I < 0.02 B-Natriuretic Peptide 5979.5 H Total Protein 6.1 L Albumin 2.6 L TSH Urine Color Urine Appearance Urine pH Ur Specific [place] Urine Protein Urine Glucose (UA) Urine Ketones Urine Blood Urine Nitrite Urine Bilirubin Urine Urobilinogen Ur Leukocyte Esterase Urine WBC (Auto) Urine RBC (Auto) Urine Casts (Auto) U Pathogenic Cast Auto U Epithel Cells (Auto) U Sm Round Cell (Auto) Urine Bacteria (Auto) Stool Occult Blood Blood Type Antibody Screen 03/11/19 03/11/19 03/11/19 19:20 23:37 23:48 WBC RBC Hgb Hct MCV MCH MCHC RDW Plt Count MPV Absolute Neuts (auto) Neutrophils % Lymphocytes % Monocytes % Eosinophils % Basophils % Nucleated RBC % PT with INR INR PTT (Actin FS) Sodium Potassium Chloride Carbon Dioxide Anion Gap BUN Creatinine Est GFR (CKD-EPI)AfAm Est GFR (CKD-EPI)NonAf POC Glucometer Random Glucose Calcium Phosphorus Magnesium Iron 66 TIBC 286 Iron Saturation 23 Unsaturated IBC 220 Ferritin 29.6 Total Bilirubin AST ALT Alkaline Phosphatase Ammonia Troponin I B-Natriuretic Peptide Total Protein Albumin TSH Urine Color Urine Appearance Urine pH Ur Specific [place] Urine Protein Urine Glucose (UA) Urine Ketones Urine Blood Urine Nitrite Urine Bilirubin Urine Urobilinogen Ur Leukocyte Esterase Urine WBC (Auto) Urine RBC (Auto) Urine Casts (Auto) U Pathogenic Cast Auto U Epithel Cells (Auto) U Sm Round Cell (Auto) Urine Bacteria (Auto) Stool Occult Blood Negative Blood Type O POSITIVE Antibody Screen Negative 03/12/19 03/12/19 03/12/19 03:13 05:48 06:40 WBC 7.5 RBC 2.44 L Hgb 7.4 L Hct 22.8 L MCV 93.3 MCH 30.4 MCHC 32.6 RDW 16.9 H Plt Count 195 MPV 8.4 Absolute Neuts (auto) Neutrophils % Lymphocytes % Monocytes % Eosinophils % Basophils % Nucleated RBC % PT with INR INR PTT (Actin FS) Sodium Potassium Chloride Carbon Dioxide Anion Gap BUN Creatinine Est GFR (CKD-EPI)AfAm Est GFR (CKD-EPI)NonAf POC Glucometer 176 Random Glucose Calcium Phosphorus Magnesium Iron TIBC Iron Saturation Unsaturated IBC Ferritin Total Bilirubin AST ALT Alkaline Phosphatase Ammonia Troponin I B-Natriuretic Peptide Total Protein Albumin TSH Urine Color Yellow Urine Appearance Cloudy Urine pH 5.5 Ur Specific [place] 1.016 Urine Protein 4+ H Urine Glucose (UA) 2+ H Urine Ketones Negative Urine Blood Negative Urine Nitrite Positive H Urine Bilirubin Negative Urine Urobilinogen 0.2 Ur Leukocyte Esterase Negative Urine WBC (Auto) 1 Urine RBC (Auto) 1.4 Urine Casts (Auto) 114 U Pathogenic Cast Auto None seen U Epithel Cells (Auto) 6.3 U Sm Round Cell (Auto) None seen Urine Bacteria (Auto) 152.2 Stool Occult Blood Blood Type Antibody Screen 03/12/19 03/12/19 03/12/19 06:40 09:06 11:59 WBC RBC Hgb Hct MCV MCH MCHC RDW Plt Count MPV Absolute Neuts (auto) Neutrophils % Lymphocytes % Monocytes % Eosinophils % Basophils % Nucleated RBC % PT with INR INR PTT (Actin FS) Sodium 142 Potassium 4.7 Chloride 115 H Carbon Dioxide 15 L Anion Gap 12 BUN 48.8 H Creatinine 6.7 H Est GFR (CKD-EPI)AfAm 8.28 Est GFR (CKD-EPI)NonAf 7.15 POC Glucometer 156 Random Glucose 190 H Calcium 7.7 L Phosphorus 5.5 H Magnesium 2.1 Iron TIBC Iron Saturation Unsaturated IBC Ferritin Total Bilirubin 0.3 AST 9 L ALT 11 L Alkaline Phosphatase 118 H Ammonia 24.80 Troponin I B-Natriuretic Peptide Total Protein 5.5 L Albumin 2.3 L TSH 1.24 D Urine Color Urine Appearance Urine pH Ur Specific [place] Urine Protein Urine Glucose (UA) Urine Ketones Urine Blood Urine Nitrite Urine Bilirubin Urine Urobilinogen Ur Leukocyte Esterase Urine WBC (Auto) Urine RBC (Auto) Urine Casts (Auto) U Pathogenic Cast Auto U Epithel Cells (Auto) U Sm Round Cell (Auto) Urine Bacteria (Auto) Stool Occult Blood Blood Type Antibody Screen 03/12/19 17:14 WBC RBC Hgb Hct MCV MCH MCHC RDW Plt Count MPV Absolute Neuts (auto) Neutrophils % Lymphocytes % Monocytes % Eosinophils % Basophils % Nucleated RBC % PT with INR INR PTT (Actin FS) Sodium Potassium Chloride Carbon Dioxide Anion Gap BUN Creatinine Est GFR (CKD-EPI)AfAm Est GFR (CKD-EPI)NonAf POC Glucometer 95 Random Glucose Calcium Phosphorus Magnesium Iron TIBC Iron Saturation Unsaturated IBC Ferritin Total Bilirubin AST ALT Alkaline Phosphatase Ammonia Troponin I B-Natriuretic Peptide Total Protein Albumin TSH Urine Color Urine Appearance Urine pH Ur Specific [place] Urine Protein Urine Glucose (UA) Urine Ketones Urine Blood Urine Nitrite Urine Bilirubin Urine Urobilinogen Ur Leukocyte Esterase Urine WBC (Auto) Urine RBC (Auto) Urine Casts (Auto) U Pathogenic Cast Auto U Epithel Cells (Auto) U Sm Round Cell (Auto) Urine Bacteria (Auto) Stool Occult Blood Blood Type Antibody Screen Active Medications Generic Name Dose Route Start Last Admin Trade Name Freq PRN Reason Stop Dose Admin Calcium Acetate 667 mg 03/12/19 08:00 03/12/19 12:03 Phoslo - PO Not Given TIDCM ROB Epoetin Aakash 20,000 unit 03/13/19 06:00 Epogen - IVPUSH 03/13/19 06:01 ONCE ONE Heparin Sodium (Porcine) 5,000 unit 03/12/19 06:00 03/12/19 14:35 Heparin - SQ 5,000 unit TID ROB Administration Hydralazine HCl 25 mg 03/12/19 22:00 Apresoline - PO BID ROB Sodium Chloride 250 mls @ 3,000 mls/hr 03/12/19 15:49 Normal Saline - IV 03/13/19 15:49 PRN PRN Hypotension during Dialysis Iron Sucrose 100 mg/ Sodium 100 mls @ 200 mls/hr 03/13/19 06:00 Chloride IVPB 03/13/19 06:29 ONCE ONE Insulin Aspart 1 vial 03/12/19 07:00 03/12/19 17:16 Novolog Vial Sliding Scale - SQ Not Given ACHS [facility] Protocol Metoprolol Succinate 100 mg 03/12/19 11:30 03/12/19 12:05 Toprol Xl - PO 100 mg DAILY ROB Administration Sodium Bicarbonate 650 mg 03/12/19 22:00 Sodium Bicarbonate - PO TID [facility] ASSESSMENT/PLAN: 78 y.o. 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 Fluid overload likely 2/2 advanced renal disease vs acute CHF exacerbation BNP 5979 EKG: NSR, no peaked t waves CXR: No congestive changes, but lung bases not visualized in imaging study Echo 01/28/19: Normal LVEF, mild ao root dil, trace TR, MR, moderate LVH Lasix, sodium bicarb, phoslo Strict Is & Os Per Nephro, for first dialysis tomorrow.will need outpatient HD arranged.will give JOSE DAVID and Iron with HD, if Hgb < 7 will need PRBC transfusion Hyperkalemia potassium at 4.7 from 5.9 S/p 30g kayexalate S/p Ca gluconate 1g, 25g D50W repeat BMP for tomorrow continue Lasix 80mg Daily Continue sodium bicarb TID Acute toxic metabolic encephalopathy CT head no acute pathology AOx3-cont neuro check TSH and FT4 for tomorrow HTN On hydralazine 35mg BID, metoprolol 100mg daily Normocytic anemia iron studies Fe 66,TIBC 286, Iron sat 23, Unsat IBC 220, transferrin pending, ferritin 29.6 FOBT negative DM ISS BGMs DVT PPX Heparin SQ 5000U TID Visit type - Emergency Visit Emergency Visit: Yes ED Registration Date: 03/11/19 Care time: The patient presented to the Emergency Department on the above date and was hospitalized for further evaluation of their emergent condition. - New Patient This patient is new to me today: Yes Date on this admission: 03/12/19 - Critical Care Critical Care patient: No - Discharge Referral Referred to [facility] No ATTENDING PHYSICIAN STATEMENT I saw and evaluated the patient. I reviewed the resident's note and discussed the case with the resident. I agree with the resident's findings and plan as documented. SUBJECTIVE: OBJECTIVE: ASSESSMENT AND PLAN:
[2019-03-12] MEDS: PANTOPRAZOLE SODIUM 40 MG VIAL IVPUSH SCH (17:57)
--- NOTE | 2019-03-12 19:52 | PN ---
Teaching Attending Note Name of Resident: Giovana Christianson ATTENDING PHYSICIAN STATEMENT I saw and evaluated the patient. I reviewed the resident's note and discussed the case with the resident. I agree with the resident's findings and plan as documented. SUBJECTIVE: Patient is comfortable with no acute distress. feels tired . OBJECTIVE: Vital Signs Temperature 98.5 F 03/12/19 18:20 Pulse Rate 65 03/12/19 18:20 Respiratory Rate 20 03/12/19 18:20 Blood Pressure 138/63 03/12/19 18:20 O2 Sat by Pulse Oximetry (%) 98 03/12/19 06:03 GENERAL: The patient is awake, alert, and fully oriented, in no acute distress. HEAD: Normal with no signs of trauma. EYES: PERRL, extraocular movements intact, sclera anicteric, conjunctiva clear. ENT: Ears normal, oropharynx clear without exudates, moist mucous membranes. NECK: Trachea midline, full range of motion, supple. LUNGS: Breath sounds equal, clear to auscultation bilaterally, no wheezes, no crackles, no accessory muscle use. HEART: Regular rate and rhythm, S1, S2 without murmur, rub or gallop. ABDOMEN: Soft, nontender, nondistended, normoactive bowel sounds, no guarding, no rebound, no hepatosplenomegaly, no masses. EXTREMITIES: 2+ pulses, warm, well-perfused, no edema. NEUROLOGICAL: Cranial nerves II through XII grossly intact. Normal speech, gait not observed. PSYCH: Normal mood, normal affect. SKIN: Warm, dry, normal turgor, no rashes or lesions noted CBCD WBC 7.5 K/mm3 (4.0-10.0) 03/12/19 06:40 RBC 2.44 M/mm3 (4.00-5.60) L 03/12/19 06:40 Hgb 7.4 GM/dL (11.7-16.9) L 03/12/19 06:40 Hct 22.8 % (35.4-49) L 03/12/19 06:40 MCV 93.3 fl (80-96) 03/12/19 06:40 MCHC 32.6 g/dl (32.0-35.9) 03/12/19 06:40 RDW 16.9 % (11.9-15.9) H 03/12/19 06:40 Plt Count 195 K/MM3 (134-434) 03/12/19 06:40 MPV 8.4 fl (7.5-11.1) 03/12/19 06:40 CMP Sodium 142 mmol/L (136-145) 03/12/19 06:40 Potassium 4.7 mmol/L (3.5-5.1) 03/12/19 06:40 Chloride 115 mmol/L (98-107) H 03/12/19 06:40 Carbon Dioxide 15 mmol/L (21-32) L 03/12/19 06:40 Anion Gap 12 MMOL/L (8-16) 03/12/19 06:40 BUN 48.8 mg/dL (7-18) H 03/12/19 06:40 Creatinine 6.7 mg/dL (0.55-1.3) H 03/12/19 06:40 Random Glucose 190 mg/dL (74-106) H 03/12/19 06:40 Calcium 7.7 mg/dL (8.5-10.1) L 03/12/19 06:40 Total Bilirubin 0.3 mg/dL (0.2-1) 03/12/19 06:40 AST 9 U/L (15-37) L 03/12/19 06:40 ALT 11 U/L (13-61) L 03/12/19 06:40 Alkaline Phosphatase 118 U/L (45-117) H 03/12/19 06:40 Total Protein 5.5 g/dl (6.4-8.2) L 03/12/19 06:40 Albumin 2.3 g/dl (3.4-5.0) L 03/12/19 06:40 CARDIAC ENZYMES Troponin I < 0.02 ng/ml (0.00-0.05) 03/11/19 17:30 Current Medications Generic Name Dose Route Start Last Admin Trade Name Matiasq PRN Reason Stop Dose Admin Calcium Acetate 667 mg 03/12/19 08:00 03/12/19 17:56 Phoslo - PO 667 mg TIDCM ROB Administration Epoetin Aakash 20,000 unit 03/13/19 06:00 Epogen - IVPUSH 03/13/19 06:01 ONCE ONE Heparin Sodium (Porcine) 5,000 unit 03/12/19 06:00 03/12/19 14:35 Heparin - SQ 5,000 unit TID [facility] Administration Hydralazine HCl 25 mg 03/12/19 22:00 Apresoline - PO BID ROB Sodium Chloride 250 mls @ 3,000 mls/hr 03/12/19 15:49 Normal Saline - IV 03/13/19 15:49 PRN PRN Hypotension during Dialysis Iron Sucrose 100 mg/ Sodium 100 mls @ 200 mls/hr 03/13/19 06:00 Chloride IVPB 03/13/19 06:29 ONCE ONE Insulin Aspart 1 vial 03/12/19 07:00 03/12/19 17:16 Novolog Vial Sliding Scale - SQ Not Given [facility] Protocol Metoprolol Succinate 100 mg 03/12/19 11:30 03/12/19 12:05 Toprol Xl - PO 100 mg DAILY [facility] Administration Pantoprazole Sodium 40 mg 03/12/19 17:45 03/12/19 17:57 Protonix Iv IVPUSH 40 mg DAILY [facility] Administration Sodium Bicarbonate 650 mg 03/12/19 22:00 Sodium Bicarbonate - PO TID [facility] Home Medications Medication Instructions Recorded Metoprolol Succinate [Toprol XL -] 100 mg PO DAILY 02/12/16 Ferrous Sulfate 325 mg PO TID 02/14/16 Cholecalciferol (Vitamin D3) 2,000 unit PO DAILY 01/29/17 [Vitamin D -] hydrALAZINE HCL [Apresoline -] 100 mg PO TID 01/29/17 Docusate Sodium [Colace -] 100 mg PO TID #90 cap 01/31/17 Cyanocobalamin [Vitamin B12 -] 5,000 mcg PO DAILY 01/27/19 Fluticasone Prop 0.05% Nasal 1 - 2 spray NS DAILY 01/27/19 [Flonase -] Gabapentin [Neurontin -] 100 mg PO HS 01/27/19 Rosuvastatin Calcium [Crestor] 20 mg PO DAILY 01/27/19 Calcium Acetate [Phoslo -] 667 mg PO TIDCM #60 capsule 02/03/19 Lancets/Blood Glucose Strips [Fora 1 each ACHS #100 combo..pkg 02/03/19 [id number] Strp-Lnct] Miscellaneous Medical Supply 1 each .ROUTE ASDIR #1 kit 02/03/19 [Glucometer Device] Sodium Bicarbonate - 650 mg PO BID #60 tablet 02/03/19 Aspirin [Ecotrin] 81 mg PO DAILY 03/12/19 Cholecalciferol (Vitamin D3) 50,000 unit PO WEEKLY 03/12/19 [D3-50] Docusate Sodium [Colace] 100 mg PO TID 03/12/19 Furosemide [Lasix -] 40 mg PO BID 03/12/19 Sitagliptin Phosphate [Januvia] 50 mg PO DAILY 03/12/19 ASSESSMENT AND PLAN: 78 year old gentleman with history of CKD stage 5, DM type 2, hypertension, hearing loss, chronic anemia who was sent to the ED from our office with altered mental status, shortness of breath and generalized weakness. #Acute over CKD stage 5, ESRD requiring dialysis. needing permacath , vascular consult , agrees to have dialysis , nephro # CKD related Anemia: on IV iron ,if Hgb < 7 will need PRBC transfusion # Metabolic acidosis due to CKD Continue sodium bicarb TID # Hypertension controlled # CHF/Fluid overload continue Lasix 80mg Daily # DM Type 2 on Januvia DVT Px: heparin sq
[2019-03-12] MEDS: SODIUM BICARBONATE 650 MG TABLET PO SCH (21:32)
[2019-03-12] MEDS: hydrALAZINE HCL 25 MG TABLET (FP) PO SCH (21:32)
[2019-03-13] MEDS ORDERED: EPOETIN ALFA 2,000 UNIT/1 ML VIAL IVPUSH ONE (06:00)
[2019-03-13] MEDS ORDERED: IRON SUCROSE INJECTION 100 MG in SODIUM CHLORIDE 95 ML IVPB ONE ×2 (06:00→12:30)
[2019-03-13] MEDS ORDERED: PT OWN MED DRAWER 7, Y5N ONE (06:14)
[2019-03-13] MEDS: HEPARIN NA (PORCINE) 5,000 UNITS/ML 1ML VIAL SQ SCH ×3 (06:44→21:31)
[2019-03-13] MEDS: INSULIN SLIDING SCALE (NOVOLOG) 1 VIAL SQ SCH ×4 (06:44→21:30)
[2019-03-13] MEDS: SODIUM BICARBONATE 650 MG TABLET PO SCH (06:45)
[2019-03-13] MEDS ORDERED: LIDOCAINE HCL 1%, 10 MG/ML (20ML VIAL) ONE (08:25)
[2019-03-13 08:44] LABS: BLOOD UREA NITROGEN 47.7 mg/dL (7-18); CALCIUM 7.7 mg/dL (8.5-10.1); CREATININE 7.2 mg/dL (0.55-1.3); POTASSIUM 4.1 mmol/L (3.5-5.1)
[2019-03-13] MEDS: CALCIUM ACETATE 667 MG CAPSULE (FP) PO SCH ×3 (09:00→16:35)
[2019-03-13] MEDS ORDERED: MIDAZOLAM HCL 2 MG/2 ML SINGLE DOSE VIAL ONE (09:10)
[2019-03-13] MEDS ORDERED: LIDOCAINE HCL 1%, 10 MG/ML (50 mL VIAL) IJ ONE ×2 (09:31)
--- NOTE | 2019-03-13 10:02 | OP ---
Operative Note - Note: Operative Date: 03/13/19 Pre-Operative Diagnosis: ESRD Operation: Insertion of permacath Post-Operative Diagnosis: Same as Pre-op Surgeon: Clyde Townsend Anesthesia: Fractional Estimated Blood Loss (mls): 20 Operative Report Dictated: Yes
[2019-03-13] MEDS ORDERED: SODIUM CHLORIDE 250 ML IV PRN ×3 (10:29→15:11)
[2019-03-13] MEDS ORDERED: EPOETIN ALFA 20,000 UNIT/1 ML VIAL IVPUSH ONE (12:30)
[2019-03-13 12:57] LABS: MCH 30.8 pg (25.7-33.7); MCHC 32.9 g/dl (32.0-35.9); MEAN CELL VOLUME 93.6 fl (80-96); MEAN PLT VOLUME 8.2 fl (7.5-11.1); PLATELET COUNT 177 K/MM3 (134-434); RBC 2.24 M/mm3 (4.00-5.60); RDW 16.9 % (11.9-15.9); WHITE BLOOD COUNT 6.6 K/mm3 (4.0-10.0)
[2019-03-13 13:01] LABS: HEMOGLOBIN 6.9 GM/dL (11.7-16.9)
[2019-03-13] MEDS ORDERED: SODIUM BICARBONATE 650 MG TABLET PO SCH (14:00)
[2019-03-13 14:06] LABS: MAGNESIUM 1.8 mg/dL (1.8-2.4); PHOSPHOROUS 5.3 mg/dL (2.5-4.9)
--- NOTE | 2019-03-13 14:13 | PN ---
Physical Exam: SUBJECTIVE: Patient seen and examined. Pt went for Permacath at time of encounter. OBJECTIVE: Vital Signs Period Temp Pulse Resp BP Sys/Bo Pulse Ox Last 24 Hr 97.8 F-98.7 F 65-82 14-20 118-156/47-68 97-100 Physical exam not performed. Laboratory Results - last 24 hr 03/11/19 03/11/19 03/12/19 19:20 23:37 17:14 WBC RBC Hgb Hct MCV MCH MCHC RDW Plt Count MPV Sodium Potassium Chloride Carbon Dioxide Anion Gap BUN Creatinine Est GFR (CKD-EPI)AfAm Est GFR (CKD-EPI)NonAf POC Glucometer 95 Random Glucose Calcium Phosphorus Magnesium Transferrin 206 TSH Free T4 Blood Type O POSITIVE Antibody Screen Negative Crossmatch See Detail 03/12/19 03/13/19 03/13/19 21:36 06:11 07:29 WBC RBC Hgb Hct MCV MCH MCHC RDW Plt Count MPV Sodium 143 Potassium 4.1 Chloride 115 H Carbon Dioxide 17 L Anion Gap 12 BUN 47.7 H Creatinine 7.2 H Est GFR (CKD-EPI)AfAm 7.59 Est GFR (CKD-EPI)NonAf 6.55 POC Glucometer 165 86 Random Glucose 107 H Calcium 7.7 L Phosphorus Magnesium Transferrin TSH 0.91 D Free T4 0.88 Blood Type Antibody Screen Crossmatch 03/13/19 03/13/19 03/13/19 11:30 12:30 12:30 WBC 6.6 RBC 2.24 L Hgb 6.9 L* Hct 21.0 L MCV 93.6 MCH 30.8 MCHC 32.9 RDW 16.9 H Plt Count 177 MPV 8.2 Sodium Potassium Chloride Carbon Dioxide Anion Gap BUN Creatinine Est GFR (CKD-EPI)AfAm Est GFR (CKD-EPI)NonAf POC Glucometer 112 Random Glucose Calcium Phosphorus 5.3 H Magnesium 1.8 Transferrin TSH Free T4 Blood Type Antibody Screen Crossmatch Active Medications Generic Name Dose Route Start Last Admin Trade Name Freq PRN Reason Stop Dose Admin Calcium Acetate 667 mg 03/13/19 12:00 Phoslo - PO TIDCM ROB Heparin Sodium (Porcine) 5,000 unit 03/13/19 14:00 Heparin - SQ TID RBO Hydralazine HCl 25 mg 03/13/19 22:00 Apresoline - PO BID ROB Sodium Chloride 250 mls @ 3,000 mls/hr 03/13/19 10:29 Normal Saline - IV 03/14/19 10:29 PRN PRN Hypotension during Dialysis Sodium Chloride 250 mls @ 3,000 mls/hr 03/13/19 10:44 Normal Saline - IV 03/13/19 15:49 PRN PRN Hypotension during Dialysis Insulin Aspart 1 vial 03/13/19 11:00 03/13/19 11:32 Novolog Vial Sliding Scale - SQ Not Given ACHS [facility] Protocol Metoprolol Succinate 100 mg 03/14/19 10:00 Toprol Xl - PO DAILY ROB Pantoprazole Sodium 40 mg 03/14/19 10:00 Protonix Iv IVPUSH DAILY [facility] Sodium Bicarbonate 650 mg 03/13/19 14:00 Sodium Bicarbonate - PO TID [facility] ASSESSMENT/PLAN: 78 y.o. M PMH HTN, CHF, CKD stage 4 w/ ESRD (initially refusing dialysis), anemia, L sided hearing loss presenting w/ AMS and SOB. Fluid overload likely 2/2 advanced renal disease Pt went for permacath today and Dialysis today. JOSE DAVID , IRon and one pack RBC given during HD (h/h 6.9 at the time) CXR 03/12/19: No congestive changes, but lung bases not visualized in imaging study Echo 01/28/19: Normal LVEF, mild ao root dil, trace TR, MR, moderate LVH sodium bicarb, phoslo (phos 5.7 today) Strict Is & Os Hyperkalemia potassium 4.1 today S/p 30g kayexalate S/p Ca gluconate 1g, 25g D50W repeat BMP s/p HD Continue sodium bicarb TID Acute toxic metabolic encephalopathy Pt mentation improved CT head no acute pathology AOx3-cont neuro check TSH 0.91 and FT4 0.88 HTN On hydralazine 35mg BID, metoprolol 100mg daily Normocytic anemia iron studies Fe 66,TIBC 286, Iron sat 23, Unsat IBC 220, transferrin 206, ferritin 29.6 FOBT negative DM ISS BGMs DVT PPX Heparin SQ 5000U TID Visit type - Emergency Visit Emergency Visit: Yes ED Registration Date: 03/11/19 Care time: The patient presented to the Emergency Department on the above date and was hospitalized for further evaluation of their emergent condition. - New Patient This patient is new to me today: No - Critical Care Critical Care patient: No - Discharge Referral Referred to [facility] No ATTENDING PHYSICIAN STATEMENT I saw and evaluated the patient. I reviewed the resident's note and discussed the case with the resident. I agree with the resident's findings and plan as documented. SUBJECTIVE: OBJECTIVE: ASSESSMENT AND PLAN:
[2019-03-13] MEDS: hydrALAZINE HCL 25 MG TABLET (FP) PO SCH ×2 (14:24→21:30)
[2019-03-13] MEDS: PANTOPRAZOLE SODIUM 40 MG VIAL IVPUSH SCH (14:24)
--- NOTE | 2019-03-13 15:11 | PN ---
Progress Note (short form) - Note Progress Note: Renal follow up for CKD stage 5/ESRD Seen and examined during dialysis using newly placed tunneled catheter for dialysis BP stable, BFR at goal. Pt offers no complaints denies any sob, cp, abd pain, fever or chills Vital Signs Temperature 98 F 03/13/19 14:40 Pulse Rate 82 03/13/19 14:40 Respiratory Rate 18 03/13/19 14:40 Blood Pressure 125/44 L 03/13/19 14:40 O2 Sat by Pulse Oximetry (%) 99 03/13/19 11:00 Intake & Output 03/10/19 03/11/19 03/12/19 03/13/19 23:59 23:59 23:59 23:59 Intake Total 620 1375 Output Total 1010 Balance 620 365 Weight 77.564 kg 78.653 kg 122.606 kg NAD awake and alert RRR CTA no LE edema CBC, BMP 03/13/19 12:30 03/13/19 07:29 Current Medications Calcium Acetate (Phoslo -) 667 mg PO TIDCM [facility] Last Admin: 03/13/19 14:23 Dose: Not Given Heparin Sodium (Porcine) (Heparin -) 5,000 unit SQ TID [facility] Last Admin: 03/13/19 14:23 Dose: Not Given Hydralazine HCl (Apresoline -) 25 mg PO BID [facility] Sodium Chloride (Normal Saline -) 250 mls @ 3,000 mls/hr IV PRN PRN PRN Reason: Hypotension during Dialysis Stop: 03/14/19 10:29 Sodium Chloride (Normal Saline -) 250 mls @ 3,000 mls/hr IV PRN PRN PRN Reason: Hypotension during Dialysis Stop: 03/13/19 15:49 Insulin Aspart (Novolog Vial Sliding Scale -) 1 vial SQ ACHS [facility]; Protocol Last Admin: 03/13/19 11:32 Dose: Not Given Metoprolol Succinate (Toprol Xl -) 100 mg PO DAILY ROB Pantoprazole Sodium (Protonix Iv) 40 mg IVPUSH DAILY [facility] Sodium Bicarbonate (Sodium Bicarbonate -) 650 mg PO TID [facility] Last Admin: 03/13/19 14:23 Dose: Not Given 78 year old gentleman with history of CKD stage 5, DM type 2, hypertension, hearing loss, chronic anemia who was sent to the ED from our office with altered mental status, shortness of breath and generalized weakness. 1. CKD stage 5 now ESRD requiring dialysis 2. CKD related Anemia 3. Metabolic acidosis 4. Hypertension 5. CHF/Fluid overload 6. DM Type 2 s/p insertion of tunneled HD catheter. Tolerating first dialysis session well. Will plan on second session being tomorrow. Renal diet and 1.2L fluid restriction. Will need outpatient HD unit placement upon discharge. Will transfuse 1 unit PRBC with HD today, will plan on giving additional unit tomorrow with dialysis as well. Will continue JOSE DAVID and Venofer with dialysis. Can D/c Sodium bicarb Continue daily oral lasix. Slava Gloria DO
--- NOTE | 2019-03-13 15:31 | PN ---
Teaching Attending Note Name of Resident: Giovana Christianson ATTENDING PHYSICIAN STATEMENT I saw and evaluated the patient. I reviewed the resident's note and discussed the case with the resident. I agree with the resident's findings and plan as documented. SUBJECTIVE: Patient is comfortable going for permacath. OBJECTIVE: Vital Signs Temperature 98 F 03/13/19 14:40 Pulse Rate 82 03/13/19 14:40 Respiratory Rate 18 03/13/19 14:40 Blood Pressure 125/44 L 03/13/19 14:40 O2 Sat by Pulse Oximetry (%) 99 03/13/19 11:00 GENERAL: The patient is awake, alert, and fully oriented, in no acute distress. HEAD: Normal with no signs of trauma. EYES: PERRL, extraocular movements intact, sclera anicteric, conjunctiva clear. ENT: Ears normal, oropharynx clear without exudates, moist mucous membranes. NECK: Trachea midline, full range of motion, supple. positive for permacath LUNGS: Breath sounds equal, clear to auscultation bilaterally, no wheezes, no crackles, no accessory muscle use. HEART: Regular rate and rhythm, S1, S2 without murmur, rub or gallop. ABDOMEN: Soft, nontender, nondistended, normoactive bowel sounds, no guarding, no rebound, no hepatosplenomegaly, no masses. EXTREMITIES: 2+ pulses, warm, well-perfused, no edema. NEUROLOGICAL: Cranial nerves II through XII grossly intact. Normal speech, gait not observed. PSYCH: Normal mood, normal affect. SKIN: Warm, dry, normal turgor, no rashes or lesions noted CBCD WBC 6.6 K/mm3 (4.0-10.0) 03/13/19 12:30 RBC 2.24 M/mm3 (4.00-5.60) L 03/13/19 12:30 Hgb 6.9 GM/dL (11.7-16.9) L* 03/13/19 12:30 Hct 21.0 % (35.4-49) L 03/13/19 12:30 MCV 93.6 fl (80-96) 03/13/19 12:30 MCHC 32.9 g/dl (32.0-35.9) 03/13/19 12:30 RDW 16.9 % (11.9-15.9) H 03/13/19 12:30 Plt Count 177 K/MM3 (134-434) 03/13/19 12:30 MPV 8.2 fl (7.5-11.1) 03/13/19 12:30 CMP Sodium 143 mmol/L (136-145) 03/13/19 07:29 Potassium 4.1 mmol/L (3.5-5.1) 03/13/19 07:29 Chloride 115 mmol/L (98-107) H 03/13/19 07:29 Carbon Dioxide 17 mmol/L (21-32) L 03/13/19 07:29 Anion Gap 12 MMOL/L (8-16) 03/13/19 07:29 BUN 47.7 mg/dL (7-18) H 03/13/19 07:29 Creatinine 7.2 mg/dL (0.55-1.3) H 03/13/19 07:29 Random Glucose 107 mg/dL (74-106) H 03/13/19 07:29 Calcium 7.7 mg/dL (8.5-10.1) L 03/13/19 07:29 Total Bilirubin 0.3 mg/dL (0.2-1) 03/12/19 06:40 AST 9 U/L (15-37) L 03/12/19 06:40 ALT 11 U/L (13-61) L 03/12/19 06:40 Alkaline Phosphatase 118 U/L (45-117) H 03/12/19 06:40 Total Protein 5.5 g/dl (6.4-8.2) L 03/12/19 06:40 Albumin 2.3 g/dl (3.4-5.0) L 03/12/19 06:40 CARDIAC ENZYMES Troponin I < 0.02 ng/ml (0.00-0.05) 03/11/19 17:30 Current Medications Generic Name Dose Route Start Last Admin Trade Name Freq PRN Reason Stop Dose Admin Calcium Acetate 667 mg 03/13/19 12:00 03/13/19 14:23 Phoslo - PO Not Given TIDCM ROB Furosemide 80 mg 03/14/19 10:00 Lasix - PO DAILY ROB Heparin Sodium (Porcine) 5,000 unit 03/13/19 14:00 03/13/19 14:23 Heparin - SQ Not Given TID ROB Hydralazine HCl 25 mg 03/13/19 22:00 Apresoline - PO BID ROB Sodium Chloride 250 mls @ 3,000 mls/hr 03/13/19 10:29 Normal Saline - IV 03/14/19 10:29 PRN PRN Hypotension during Dialysis Sodium Chloride 250 mls @ 3,000 mls/hr 03/13/19 10:44 Normal Saline - IV 03/13/19 15:49 PRN PRN Hypotension during Dialysis Sodium Chloride 250 mls @ 3,000 mls/hr 03/13/19 15:11 Normal Saline - IV 03/14/19 15:11 PRN PRN Hypotension during Dialysis Insulin Aspart 1 vial 03/13/19 11:00 03/13/19 11:32 Novolog Vial Sliding Scale - SQ Not Given ACHS [facility] Protocol Metoprolol Succinate 100 mg 03/14/19 10:00 Toprol Xl - PO DAILY [facility] Pantoprazole Sodium 40 mg 03/14/19 10:00 Protonix Iv IVPUSH DAILY [facility] Home Medications Medication Instructions Recorded Metoprolol Succinate [Toprol XL -] 100 mg PO DAILY 02/12/16 Ferrous Sulfate 325 mg PO TID 02/14/16 Cholecalciferol (Vitamin D3) 2,000 unit PO DAILY 01/29/17 [Vitamin D -] hydrALAZINE HCL [Apresoline -] 100 mg PO TID 01/29/17 Docusate Sodium [Colace -] 100 mg PO TID #90 cap 01/31/17 Cyanocobalamin [Vitamin B12 -] 5,000 mcg PO DAILY 01/27/19 Fluticasone Prop 0.05% Nasal 1 - 2 spray NS DAILY 01/27/19 [Flonase -] Gabapentin [Neurontin -] 100 mg PO HS 01/27/19 Rosuvastatin Calcium [Crestor] 20 mg PO DAILY 01/27/19 Calcium Acetate [Phoslo -] 667 mg PO TIDCM #60 capsule 02/03/19 Lancets/Blood Glucose Strips [Fora 1 each ACHS #100 combo..pkg 02/03/19 [id number] Strp-Lnct] Miscellaneous Medical Supply 1 each .ROUTE ASDIR #1 kit 02/03/19 [Glucometer Device] Sodium Bicarbonate - 650 mg PO BID #60 tablet 02/03/19 Aspirin [Ecotrin] 81 mg PO DAILY 03/12/19 Cholecalciferol (Vitamin D3) 50,000 unit PO WEEKLY 03/12/19 [D3-50] Docusate Sodium [Colace] 100 mg PO TID 03/12/19 Furosemide [Lasix -] 40 mg PO BID 03/12/19 Sitagliptin Phosphate [Januvia] 50 mg PO DAILY 03/12/19 ASSESSMENT AND PLAN: 78 year old gentleman with history of CKD stage 5, DM type 2, hypertension, hearing loss, chronic anemia who was sent to the ED from our office with altered mental status, shortness of breath and generalized weakness. #Acute over CKD stage 5, ESRD requiring dialysis, s/p permacath for dialysis today nephro # CKD related Anemia: on IV iron ,if Hgb < 7 will need PRBC transfusion # Metabolic acidosis due to CKD Continue sodium bicarb TID # Hypertension controlled # CHF/Fluid overload continue Lasix 80mg Daily # DM Type 2 on Januvia DVT Px: heparin sq
[2019-03-13] MEDS ORDERED: INSULIN (NOVOLOG) ASPART 100 UNITS/ML 10ML VIAL ONE ×2 (16:33→21:29)
[2019-03-14] MEDS: HEPARIN NA (PORCINE) 5,000 UNITS/ML 1ML VIAL SQ SCH ×3 (06:18→21:42)
[2019-03-14] MEDS: INSULIN SLIDING SCALE (NOVOLOG) 1 VIAL SQ SCH ×4 (06:23→21:43)
--- NOTE | 2019-03-14 07:21 | OP ---
DATE OF OPERATION: 03/13/2019 PREOPERATIVE DIAGNOSIS: End-stage renal disease. POSTOPERATIVE DIAGNOSIS: End-stage renal disease PROCEDURE: Insertion of Perma-Cath. SURGEON: Clyde Watson DO ANESTHESIA: Fractional. BLOOD LOSS: 20 mL. DESCRIPTION OF PROCEDURE: Patient is a 78-year-old male who comes in and needs temporary dilation and curettage placement. Patient was consented for the procedure understanding all risks, benefits, alternatives then taken to the operating room. Once in the operating room, was laid on the operating room table in supine manner, and the area of the left neck and chest were prepped and draped in a sterile surgical manner. Under ultrasound guidance, we did visualize the left internal jugular vein, and 10 mL of lidocaine was then injected there. We then took our micropuncture needle and punctured the left internal jugular vein under ultrasound guidance. Micropuncture wire was inserted. Micropuncture sheath was inserted, and a 0.035 floppy guidewire was inserted under fluoroscopy. We then injected 10 mL of lidocaine 1% above and below the clavicle. We then took an 11 blade and made a 1-cm incision at the puncture site. We then took a 15 blade and made a 1-cm incision below the clavicle. We then tunneled the Perma-Cath up to the puncture site. We then used our breakaway sheath, placed it over the guidewire and into the vein under fluoroscopy. Inner cannula and guidewire were removed. Catheter was placed inside the sheath, and sheath was broken away as the catheter was placed inside the vein. Neck of the catheter was nice and smooth. Tip of the catheter was located outside the right atrium. We then anthony back on each port of the catheter, and there was good flow. Heparinized saline was injected, 2000 units of IV heparin was injected into each port. Biosyn 4-0 and 2 simple sutures were placed at the puncture site, 3-0 nylon was used and the catheter was attached to the skin. Biopatch, Steri-Strips, 4 x 4, Tegaderms were placed. Patient tolerated the procedure with no complications. Patient transferred to the PACU in stable condition where chest x-ray will be ordered. CLYDE WATSON DO SNOW RANGER/[id number]
[2019-03-14] MEDS: CALCIUM ACETATE 667 MG CAPSULE (FP) PO SCH ×3 (08:35→17:45)
[2019-03-14 09:00] LABS: BASO % 0.5 % (0-2.0); EOS % 1.9 % (0-4.5); HEMATOCRIT 23.9 % (35.4-49); HEMOGLOBIN 7.9 GM/dL (11.7-16.9); LYMPH % 18.8 % (8-40); MCH 30.2 pg (25.7-33.7); MCHC 33.1 g/dl (32.0-35.9); MEAN CELL VOLUME 91.1 fl (80-96); MEAN PLT VOLUME 8.4 fl (7.5-11.1); NEUT % 63.8 % (42.8-82.8); PLATELET COUNT 168 K/MM3 (134-434); RBC 2.63 M/mm3 (4.00-5.60); RDW 17.8 % (11.9-15.9); WHITE BLOOD COUNT 6.2 K/mm3 (4.0-10.0)
[2019-03-14 09:23] LABS: ALBUMIN 2.2 g/dl (3.4-5.0); BILIRUBIN,TOTAL 0.5 mg/dL (0.2-1); BLOOD UREA NITROGEN 33.5 mg/dL (7-18); CALCIUM 7.3 mg/dL (8.5-10.1); CREATININE 5.7 mg/dL (0.55-1.3); MAGNESIUM 1.9 mg/dL (1.8-2.4); POTASSIUM 3.6 mmol/L (3.5-5.1)
[2019-03-14] MEDS: hydrALAZINE HCL 25 MG TABLET (FP) PO SCH ×2 (10:31→21:44)
[2019-03-14] MEDS: PANTOPRAZOLE SODIUM 40 MG VIAL IVPUSH SCH ×2 (10:31→12:24)
[2019-03-14] MEDS: FUROSEMIDE 40 MG TABLET (FP) PO SCH (10:31)
--- NOTE | 2019-03-14 14:21 | PN ---
Progress Note (short form) - Note Progress Note: Patient is feeling better with no acute distress. Vital Signs Temperature 98.5 F 03/14/19 12:12 Pulse Rate 90 03/14/19 12:12 Respiratory Rate 20 03/14/19 12:12 Blood Pressure 156/73 03/14/19 12:12 O2 Sat by Pulse Oximetry (%) 100 03/13/19 21:00 GENERAL: The patient is awake, alert, and fully oriented, in no acute distress. HEAD: Normal with no signs of trauma. EYES: PERRL, extraocular movements intact, sclera anicteric, conjunctiva clear. ENT: Ears normal, oropharynx clear without exudates, moist mucous membranes. NECK: Trachea midline, full range of motion, supple. positive for permacath LUNGS: Breath sounds equal, clear to auscultation bilaterally, no wheezes, no crackles, no accessory muscle use. HEART: Regular rate and rhythm, S1, S2 without murmur, rub or gallop. ABDOMEN: Soft, nontender, nondistended, normoactive bowel sounds, no guarding, no rebound, no hepatosplenomegaly, no masses. EXTREMITIES: 2+ pulses, warm, well-perfused, no edema. NEUROLOGICAL: Cranial nerves II through XII grossly intact. Normal speech, gait not observed. PSYCH: Normal mood, normal affect. SKIN: Warm, dry, normal turgor, no rashes or lesions noted CBCD WBC 6.2 K/mm3 (4.0-10.0) 03/14/19 07:25 RBC 2.63 M/mm3 (4.00-5.60) L 03/14/19 07:25 Hgb 7.9 GM/dL (11.7-16.9) L 03/14/19 07:25 Hct 23.9 % (35.4-49) L 03/14/19 07:25 MCV 91.1 fl (80-96) 03/14/19 07:25 MCHC 33.1 g/dl (32.0-35.9) 03/14/19 07:25 RDW 17.8 % (11.9-15.9) H 03/14/19 07:25 Plt Count 168 K/MM3 (134-434) 03/14/19 07:25 MPV 8.4 fl (7.5-11.1) 03/14/19 07:25 CMP Sodium 143 mmol/L (136-145) 03/14/19 07:25 Potassium 3.6 mmol/L (3.5-5.1) 03/14/19 07:25 Chloride 110 mmol/L (98-107) H 03/14/19 07:25 Carbon Dioxide 23 mmol/L (21-32) 03/14/19 07:25 Anion Gap 11 MMOL/L (8-16) 03/14/19 07:25 BUN 33.5 mg/dL (7-18) H 03/14/19 07:25 Creatinine 5.7 mg/dL (0.55-1.3) H 03/14/19 07:25 Random Glucose 145 mg/dL (74-106) H 03/14/19 07:25 Calcium 7.3 mg/dL (8.5-10.1) L 03/14/19 07:25 Total Bilirubin 0.5 mg/dL (0.2-1) 03/14/19 07:25 AST 9 U/L (15-37) L 03/14/19 07:25 ALT 10 U/L (13-61) L 03/14/19 07:25 Alkaline Phosphatase 104 U/L (45-117) 03/14/19 07:25 Total Protein 5.0 g/dl (6.4-8.2) L 03/14/19 07:25 Albumin 2.2 g/dl (3.4-5.0) L 03/14/19 07:25 CARDIAC ENZYMES Troponin I < 0.02 ng/ml (0.00-0.05) 03/11/19 17:30 Current Medications Generic Name Dose Route Start Last Admin Trade Name Freq PRN Reason Stop Dose Admin Calcium Acetate 667 mg 03/13/19 12:00 03/14/19 12:20 Phoslo - PO 667 mg TIDCM ROB Administration Furosemide 80 mg 03/14/19 10:00 03/14/19 10:31 Lasix - PO Not Given DAILY ROB Heparin Sodium (Porcine) 5,000 unit 03/13/19 14:00 03/14/19 13:57 Heparin - SQ 5,000 unit TID ROB Administration Hydralazine HCl 25 mg 03/13/19 22:00 03/14/19 10:31 Apresoline - PO Not Given BID [facility] Sodium Chloride 250 mls @ 3,000 mls/hr 03/13/19 15:11 Normal Saline - IV 03/14/19 15:11 PRN PRN Hypotension during Dialysis Insulin Aspart 1 vial 03/13/19 11:00 03/14/19 12:21 Novolog Vial Sliding Scale - SQ 2 units ACHS [facility] Administration Protocol Metoprolol Succinate 100 mg 03/14/19 10:00 03/14/19 10:31 Toprol Xl - PO Not Given DAILY [facility] Pantoprazole Sodium 40 mg 03/14/19 10:00 03/14/19 12:24 Protonix Iv IVPUSH 40 mg DAILY [facility] Administration Home Medications Medication Instructions Recorded Metoprolol Succinate [Toprol XL -] 100 mg PO DAILY 02/12/16 Ferrous Sulfate 325 mg PO TID 02/14/16 Cholecalciferol (Vitamin D3) 2,000 unit PO DAILY 01/29/17 [Vitamin D -] hydrALAZINE HCL [Apresoline -] 100 mg PO TID 01/29/17 Docusate Sodium [Colace -] 100 mg PO TID #90 cap 01/31/17 Cyanocobalamin [Vitamin B12 -] 5,000 mcg PO DAILY 01/27/19 Fluticasone Prop 0.05% Nasal 1 - 2 spray NS DAILY 01/27/19 [Flonase -] Gabapentin [Neurontin -] 100 mg PO HS 01/27/19 Rosuvastatin Calcium [Crestor] 20 mg PO DAILY 01/27/19 Calcium Acetate [Phoslo -] 667 mg PO TIDCM #60 capsule 02/03/19 Lancets/Blood Glucose Strips [Fora 1 each ACHS #100 combo..pkg 02/03/19 [id number] Strp-Lnct] Miscellaneous Medical Supply 1 each .ROUTE ASDIR #1 kit 02/03/19 [Glucometer Device] Sodium Bicarbonate - 650 mg PO BID #60 tablet 02/03/19 Aspirin [Ecotrin] 81 mg PO DAILY 03/12/19 Cholecalciferol (Vitamin D3) 50,000 unit PO WEEKLY 03/12/19 [D3-50] Docusate Sodium [Colace] 100 mg PO TID 03/12/19 Furosemide [Lasix -] 40 mg PO BID 03/12/19 Sitagliptin Phosphate [Januvia] 50 mg PO DAILY 03/12/19 ASSESSMENT AND PLAN: 78 year old gentleman with history of CKD stage 5, DM type 2, hypertension, hearing loss, chronic anemia who was sent to the ED from our office with altered mental status, shortness of breath and generalized weakness. #Acute over CKD stage 5, ESRD , hd x 2nd day today , s/p permacath nephro # CKD related Anemia: on IV iron ,if Hgb < 7 will need PRBC transfusion # Hypertension controlled continue home meds # CHF/Fluid overload continue Lasix 80mg Daily # DM Type 2 on Januvia DVT Px: heparin sq Visit type - Emergency Visit Emergency Visit: Yes ED Registration Date: 03/11/19 Care time: The patient presented to the Emergency Department on the above date and was hospitalized for further evaluation of their emergent condition. - New Patient This patient is new to me today: No - Critical Care Critical Care patient: No - Discharge Referral Referred to [facility] Med P.C.: No
--- NOTE | 2019-03-14 14:53 | PN ---
Progress Note (short form) - Note Progress Note: Vital Signs Temperature 98.3 F 03/14/19 14:25 Pulse Rate 18 L 03/14/19 14:25 Respiratory Rate 97 H 03/14/19 14:25 Blood Pressure 137/73 03/14/19 14:25 O2 Sat by Pulse Oximetry (%) 100 03/13/19 21:00 CBCD WBC 6.2 K/mm3 (4.0-10.0) 03/14/19 07:25 RBC 2.63 M/mm3 (4.00-5.60) L 03/14/19 07:25 Hgb 7.9 GM/dL (11.7-16.9) L 03/14/19 07:25 Hct 23.9 % (35.4-49) L 03/14/19 07:25 MCV 91.1 fl (80-96) 03/14/19 07:25 MCHC 33.1 g/dl (32.0-35.9) 03/14/19 07:25 RDW 17.8 % (11.9-15.9) H 03/14/19 07:25 Plt Count 168 K/MM3 (134-434) 03/14/19 07:25 MPV 8.4 fl (7.5-11.1) 03/14/19 07:25 CMP Sodium 143 mmol/L (136-145) 03/14/19 07:25 Potassium 3.6 mmol/L (3.5-5.1) 03/14/19 07:25 Chloride 110 mmol/L (98-107) H 03/14/19 07:25 Carbon Dioxide 23 mmol/L (21-32) 03/14/19 07:25 Anion Gap 11 MMOL/L (8-16) 03/14/19 07:25 BUN 33.5 mg/dL (7-18) H 03/14/19 07:25 Creatinine 5.7 mg/dL (0.55-1.3) H 03/14/19 07:25 Random Glucose 145 mg/dL (74-106) H 03/14/19 07:25 Calcium 7.3 mg/dL (8.5-10.1) L 03/14/19 07:25 Total Bilirubin 0.5 mg/dL (0.2-1) 03/14/19 07:25 AST 9 U/L (15-37) L 03/14/19 07:25 ALT 10 U/L (13-61) L 03/14/19 07:25 Alkaline Phosphatase 104 U/L (45-117) 03/14/19 07:25 Total Protein 5.0 g/dl (6.4-8.2) L 03/14/19 07:25 Albumin 2.2 g/dl (3.4-5.0) L 03/14/19 07:25 CARDIAC ENZYMES Troponin I < 0.02 ng/ml (0.00-0.05) 03/11/19 17:30 Current Medications Generic Name Dose Route Start Last Admin Trade Name Freq PRN Reason Stop Dose Admin Calcium Acetate 667 mg 03/13/19 12:00 03/14/19 12:20 Phoslo - PO 667 mg TIDCM ROB Administration Furosemide 80 mg 03/14/19 10:00 03/14/19 10:31 Lasix - PO Not Given DAILY ROB Heparin Sodium (Porcine) 5,000 unit 03/13/19 14:00 03/14/19 13:57 Heparin - SQ 5,000 unit TID ROB Administration Hydralazine HCl 25 mg 03/13/19 22:00 03/14/19 10:31 Apresoline - PO Not Given BID [facility] Sodium Chloride 250 mls @ 3,000 mls/hr 03/13/19 15:11 Normal Saline - IV 03/14/19 15:11 PRN PRN Hypotension during Dialysis Insulin Aspart 1 vial 03/13/19 11:00 03/14/19 12:21 Novolog Vial Sliding Scale - SQ 2 units ACHS ROB Administration Protocol Metoprolol Succinate 100 mg 03/14/19 10:00 03/14/19 10:31 Toprol Xl - PO Not Given DAILY ROB Pantoprazole Sodium 40 mg 03/14/19 10:00 03/14/19 12:24 Protonix Iv IVPUSH 40 mg DAILY ROB Administration Home Medications Medication Instructions Recorded Metoprolol Succinate [Toprol XL -] 100 mg PO DAILY 02/12/16 Ferrous Sulfate 325 mg PO TID 02/14/16 Cholecalciferol (Vitamin D3) 2,000 unit PO DAILY 01/29/17 [Vitamin D -] hydrALAZINE HCL [Apresoline -] 100 mg PO TID 01/29/17 Docusate Sodium [Colace -] 100 mg PO TID #90 cap 01/31/17 Cyanocobalamin [Vitamin B12 -] 5,000 mcg PO DAILY 01/27/19 Fluticasone Prop 0.05% Nasal 1 - 2 spray NS DAILY 01/27/19 [Flonase -] Gabapentin [Neurontin -] 100 mg PO HS 01/27/19 Rosuvastatin Calcium [Crestor] 20 mg PO DAILY 01/27/19 Calcium Acetate [Phoslo -] 667 mg PO TIDCM #60 capsule 02/03/19 Lancets/Blood Glucose Strips [Fora 1 each ACHS #100 combo..pkg 02/03/19 [id number] Strp-Lnct] Miscellaneous Medical Supply 1 each .ROUTE ASDIR #1 kit 02/03/19 [Glucometer Device] Sodium Bicarbonate - 650 mg PO BID #60 tablet 02/03/19 Aspirin [Ecotrin] 81 mg PO DAILY 03/12/19 Cholecalciferol (Vitamin D3) 50,000 unit PO WEEKLY 03/12/19 [D3-50] Docusate Sodium [Colace] 100 mg PO TID 03/12/19 Furosemide [Lasix -] 40 mg PO BID 03/12/19 Sitagliptin Phosphate [Januvia] 50 mg PO DAILY 03/12/19
[2019-03-14] MEDS ORDERED: INSULIN (NOVOLOG) ASPART 100 UNITS/ML 10ML VIAL ONE ×2 (18:16→20:55)
--- NOTE | 2019-03-14 18:19 | PN ---
Progress Note (short form) - Note Progress Note: covering dr reina fernandez 1. CKD stage 5 now ESRD requiring dialysis 2. CKD related Anemia 3. Metabolic acidosis 4. Hypertension 5. CHF/Fluid overload 6. DM Type 2 Current Medications Calcium Acetate (Phoslo -) 667 mg PO TIDCM [facility] Last Admin: 03/14/19 17:45 Dose: 667 mg Furosemide (Lasix -) 80 mg PO DAILY [facility] Last Admin: 03/14/19 10:31 Dose: Not Given Heparin Sodium (Porcine) (Heparin -) 5,000 unit SQ TID [facility] Last Admin: 03/14/19 13:57 Dose: 5,000 unit Hydralazine HCl (Apresoline -) 25 mg PO BID [facility] Last Admin: 03/14/19 10:31 Dose: Not Given Sodium Chloride (Normal Saline -) 250 mls @ 3,000 mls/hr IV PRN PRN PRN Reason: Hypotension during Dialysis Stop: 03/14/19 15:11 Insulin Aspart (Novolog Vial Sliding Scale -) 1 vial SQ ACHS [facility]; Protocol Last Admin: 03/14/19 17:39 Dose: 4 units Metoprolol Succinate (Toprol Xl -) 100 mg PO DAILY [facility] Last Admin: 03/14/19 10:31 Dose: Not Given Pantoprazole Sodium (Protonix Iv) 40 mg IVPUSH DAILY [facility] Last Admin: 03/14/19 12:24 Dose: 40 mg Last Vital Signs Temp Pulse Resp BP Pulse Ox 98.3 F 18 L 97 H 137/73 98 03/14/19 14:25 03/14/19 14:25 03/14/19 14:25 03/14/19 14:25 03/14/19 11:50 CBC, BMP 03/14/19 07:25 03/14/19 07:25 esrd anemia htn Plan- outpatient hd placement prefers TTS and Unit on [address]
[2019-03-15] MEDS: HEPARIN NA (PORCINE) 5,000 UNITS/ML 1ML VIAL SQ SCH ×3 (06:32→21:27)
[2019-03-15] MEDS: INSULIN SLIDING SCALE (NOVOLOG) 1 VIAL SQ SCH ×4 (06:39→21:27)
[2019-03-15] MEDS ORDERED: INSULIN (NOVOLOG) ASPART 100 UNITS/ML 10ML VIAL ONE ×3 (06:43→18:39)
[2019-03-15] MEDS: CALCIUM ACETATE 667 MG CAPSULE (FP) PO SCH ×3 (08:25→17:38)
[2019-03-15] MEDS: FUROSEMIDE 40 MG TABLET (FP) PO SCH (10:28)
[2019-03-15] MEDS: hydrALAZINE HCL 25 MG TABLET (FP) PO SCH ×2 (10:28→21:27)
[2019-03-15] MEDS: PANTOPRAZOLE SODIUM 40 MG VIAL IVPUSH SCH (10:28)
[2019-03-15 11:43] LABS: BLOOD UREA NITROGEN 19.8 mg/dL (7-18); CALCIUM 7.3 mg/dL (8.5-10.1); POTASSIUM 3.3 mmol/L (3.5-5.1)
[2019-03-15] MEDS ORDERED: KCL 10 MEQ IVPB 10 MEQ/100 ML INFUS.BAG IVPB SCH (12:15)
--- NOTE | 2019-03-15 13:15 | PN ---
Physical Exam: SUBJECTIVE: Patient seen and examined. Pt feels so much better since starting dialysis. although pt experience dry mouth and diaphoresis overnight responsive to orange juice. blood glucose was in the 100s. OBJECTIVE: Vital Signs Period Temp Pulse Resp BP Sys/Bo Pulse Ox Last 24 Hr 98.2 F-99.0 F 18-76 20-97 137-150/47-73 98 GENERAL: The patient is awake, alert, AOOx3, in no acute distress. HEAD: Normal with no signs of trauma. EYES: PERRL, extraocular movements intact, sclera anicteric, conjunctiva clear. No ptosis. ENT: oropharynx clear without exudates, moist mucous membranes. LUNGS: Breath sounds equal, clear to auscultation bilaterally, no wheezes, no crackles, no accessory muscle use. HEART: Regular rate and rhythm, S1, S2 without murmur, rub or gallop. ABDOMEN: Soft, nontender, nondistended, normoactive bowel sounds, no guarding, no rebound, no hepatosplenomegaly, no masses. EXTREMITIES: 2+ pulses, warm, well-perfused, no edema. NEUROLOGICAL: Cranial nerves II through XII grossly intact. Normal speech, gait not observed. SKIN: Warm, dry, normal turgor. BLACK LESION IN BACK OF NEG WITH 2 COLOR TONE BUT <6MM Laboratory Results - last 24 hr 03/14/19 03/14/19 03/14/19 17:35 21:40 23:45 Sodium Potassium Chloride Carbon Dioxide Anion Gap BUN Creatinine Est GFR (CKD-EPI)AfAm Est GFR (CKD-EPI)NonAf POC Glucometer 203 215 142 Random Glucose Calcium 03/15/19 03/15/19 03/15/19 06:36 10:25 12:00 Sodium 142 Potassium 3.3 L Chloride 106 Carbon Dioxide 29 Anion Gap 8 BUN 19.8 H Creatinine 5.0 H Est GFR (CKD-EPI)AfAm 11.80 Est GFR (CKD-EPI)NonAf 10.18 POC Glucometer 135 235 Random Glucose 226 H Calcium 7.3 L Active Medications Generic Name Dose Route Start Last Admin Trade Name Freq PRN Reason Stop Dose Admin Calcium Acetate 667 mg 03/13/19 12:00 03/15/19 12:05 Phoslo - PO 667 mg TIDCM ROB Administration Furosemide 80 mg 03/14/19 10:00 03/15/19 10:28 Lasix - PO 80 mg DAILY ROB Administration Heparin Sodium (Porcine) 5,000 unit 03/13/19 14:00 03/15/19 06:32 Heparin - SQ Not Given TID ROB Hydralazine HCl 25 mg 03/13/19 22:00 03/15/19 10:28 Apresoline - PO 25 mg BID ROB Administration Sodium Chloride 250 mls @ 3,000 mls/hr 03/13/19 15:11 Normal Saline - IV 03/14/19 15:11 PRN PRN Hypotension during Dialysis Insulin Aspart 1 vial 03/13/19 11:00 03/15/19 12:02 Novolog Vial Sliding Scale - SQ 4 units ACHS ROB Administration Protocol Metoprolol Succinate 100 mg 03/14/19 10:00 03/15/19 10:28 Toprol Xl - PO 100 mg DAILY ROB Administration Pantoprazole Sodium 40 mg 03/14/19 10:00 03/15/19 10:28 Protonix Iv IVPUSH 40 mg DAILY ROB Administration Potassium Chloride 40 meq 03/15/19 13:10 K-Dur - PO 03/15/19 13:11 ONCE ONE ASSESSMENT/PLAN: 78 y.o. M PMH HTN, CHF, CKD stage 4 w/ ESRD (initially refusing dialysis), anemia, L sided hearing loss presenting w/ AMS and SOB. Fluid overload likely 2/2 advanced renal disease Pt had @ HD session so far. mentation significantly improved. Lasix, phoslo Strict Is & Os Per Nephro O/p [facility] B and C pending with o/p ppd on D/C Hyperkalemia potassium 3.3 today. repleted with oral potassium. repeat BMP s/p HD Acute toxic metabolic encephalopathy Pt mentation improved AOx3-cont neuro check TSH 0.91 and FT4 0.88 HTN On hydralazine 35mg BID, metoprolol 100mg daily Normocytic anemia iron studies Fe 66,TIBC 286, Iron sat 23, Unsat IBC 220, transferrin 206, ferritin 29.6 FOBT negative JOSE DAVID and Iron given during Dialysis DM ISS BGMs DVT PPX Heparin SQ Visit type - Emergency Visit Emergency Visit: Yes ED Registration Date: 03/11/19 Care time: The patient presented to the Emergency Department on the above date and was hospitalized for further evaluation of their emergent condition. - New Patient This patient is new to me today: No - Critical Care Critical Care patient: No - Discharge Referral Referred to [facility] Med P.C.: No ATTENDING PHYSICIAN STATEMENT I saw and evaluated the patient. I reviewed the resident's note and discussed the case with the resident. I agree with the resident's findings and plan as documented. SUBJECTIVE: OBJECTIVE: ASSESSMENT AND PLAN:
[2019-03-15] MEDS ORDERED: POTASSIUM CHLORIDE TABS 20 MEQ TABLET.ER (FP) PO ONE (14:00)
--- NOTE | 2019-03-15 15:35 | PN ---
Teaching Attending Note Name of Resident: Giovana Christianson ATTENDING PHYSICIAN STATEMENT I saw and evaluated the patient. I reviewed the resident's note and discussed the case with the resident. I agree with the resident's findings and plan as documented. SUBJECTIVE: patient feels better with no acute distress. had his 2nd HD yesterday. OBJECTIVE: Vital Signs Temperature 98.5 F 03/15/19 14:00 Pulse Rate 66 03/15/19 14:00 Respiratory Rate 20 03/15/19 14:00 Blood Pressure 144/52 L 03/15/19 14:00 O2 Sat by Pulse Oximetry (%) 98 03/14/19 21:00 GENERAL: The patient is awake, alert, and fully oriented, in no acute distress. HEAD: Normal with no signs of trauma. EYES: PERRL, extraocular movements intact, sclera anicteric, conjunctiva clear. ENT: Ears normal, oropharynx clear without exudates, moist mucous membranes. NECK: Trachea midline, full range of motion, supple. positive for permacath on the left side of the chest LUNGS: Breath sounds equal, clear to auscultation bilaterally, no wheezes, no crackles, no accessory muscle use. HEART: Regular rate and rhythm, S1, S2 without murmur, rub or gallop. ABDOMEN: Soft, nontender, nondistended, normoactive bowel sounds, no guarding, no rebound, no hepatosplenomegaly, no masses. EXTREMITIES: 2+ pulses, warm, well-perfused, no edema. NEUROLOGICAL: Cranial nerves II through XII grossly intact. Normal speech, gait not observed. PSYCH: Normal mood, normal affect. SKIN: Warm, dry, normal turgor, no rashes or lesions noted CBCD WBC 6.2 K/mm3 (4.0-10.0) 03/14/19 07:25 RBC 2.63 M/mm3 (4.00-5.60) L 03/14/19 07:25 Hgb 7.9 GM/dL (11.7-16.9) L 03/14/19 07:25 Hct 23.9 % (35.4-49) L 03/14/19 07:25 MCV 91.1 fl (80-96) 03/14/19 07:25 MCHC 33.1 g/dl (32.0-35.9) 03/14/19 07:25 RDW 17.8 % (11.9-15.9) H 03/14/19 07:25 Plt Count 168 K/MM3 (134-434) 03/14/19 07:25 MPV 8.4 fl (7.5-11.1) 03/14/19 07:25 CMP Sodium 142 mmol/L (136-145) 03/15/19 10:25 Potassium 3.3 mmol/L (3.5-5.1) L 03/15/19 10:25 Chloride 106 mmol/L (98-107) 03/15/19 10:25 Carbon Dioxide 29 mmol/L (21-32) 03/15/19 10:25 Anion Gap 8 MMOL/L (8-16) 03/15/19 10:25 BUN 19.8 mg/dL (7-18) H 03/15/19 10:25 Creatinine 5.0 mg/dL (0.55-1.3) H 03/15/19 10:25 Random Glucose 226 mg/dL (74-106) H 03/15/19 10:25 Calcium 7.3 mg/dL (8.5-10.1) L 03/15/19 10:25 Total Bilirubin 0.5 mg/dL (0.2-1) 03/14/19 07:25 AST 9 U/L (15-37) L 03/14/19 07:25 ALT 10 U/L (13-61) L 03/14/19 07:25 Alkaline Phosphatase 104 U/L (45-117) 03/14/19 07:25 Total Protein 5.0 g/dl (6.4-8.2) L 03/14/19 07:25 Albumin 2.2 g/dl (3.4-5.0) L 03/14/19 07:25 CARDIAC ENZYMES Troponin I < 0.02 ng/ml (0.00-0.05) 03/11/19 17:30 Current Medications Generic Name Dose Route Start Last Admin Trade Name Freq PRN Reason Stop Dose Admin Calcium Acetate 667 mg 03/13/19 12:00 03/15/19 12:05 Phoslo - PO 667 mg TIDCM ROB Administration Furosemide 80 mg 03/14/19 10:00 03/15/19 10:28 Lasix - PO 80 mg DAILY ROB Administration Heparin Sodium (Porcine) 5,000 unit 03/13/19 14:00 03/15/19 14:39 Heparin - SQ 5,000 unit TID ROB Administration Hydralazine HCl 25 mg 03/13/19 22:00 03/15/19 10:28 Apresoline - PO 25 mg BID ROB Administration Sodium Chloride 250 mls @ 3,000 mls/hr 03/13/19 15:11 Normal Saline - IV 03/14/19 15:11 PRN PRN Hypotension during Dialysis Insulin Aspart 1 vial 03/13/19 11:00 03/15/19 12:02 Novolog Vial Sliding Scale - SQ 4 units ACHS ROB Administration Protocol Metoprolol Succinate 100 mg 03/14/19 10:00 03/15/19 10:28 Toprol Xl - PO 100 mg DAILY ROB Administration Pantoprazole Sodium 40 mg 03/14/19 10:00 03/15/19 10:28 Protonix Iv IVPUSH 40 mg DAILY ROB Administration Home Medications Medication Instructions Recorded Metoprolol Succinate [Toprol XL -] 100 mg PO DAILY 02/12/16 Ferrous Sulfate 325 mg PO TID 02/14/16 Cholecalciferol (Vitamin D3) 2,000 unit PO DAILY 01/29/17 [Vitamin D -] hydrALAZINE HCL [Apresoline -] 100 mg PO TID 01/29/17 Docusate Sodium [Colace -] 100 mg PO TID #90 cap 01/31/17 Cyanocobalamin [Vitamin B12 -] 5,000 mcg PO DAILY 01/27/19 Fluticasone Prop 0.05% Nasal 1 - 2 spray NS DAILY 01/27/19 [Flonase -] Gabapentin [Neurontin -] 100 mg PO HS 01/27/19 Rosuvastatin Calcium [Crestor] 20 mg PO DAILY 01/27/19 Calcium Acetate [Phoslo -] 667 mg PO TIDCM #60 capsule 02/03/19 Lancets/Blood Glucose Strips [Fora 1 each ACHS #100 combo..pkg 02/03/19 [id number] Strp-Lnct] Miscellaneous Medical Supply 1 each .ROUTE ASDIR #1 kit 02/03/19 [Glucometer Device] Sodium Bicarbonate - 650 mg PO BID #60 tablet 02/03/19 Aspirin [Ecotrin] 81 mg PO DAILY 03/12/19 Cholecalciferol (Vitamin D3) 50,000 unit PO WEEKLY 03/12/19 [D3-50] Docusate Sodium [Colace] 100 mg PO TID 03/12/19 Furosemide [Lasix -] 40 mg PO BID 03/12/19 Sitagliptin Phosphate [Januvia] 50 mg PO DAILY 03/12/19 ASSESSMENT AND PLAN: 78 year old gentleman with history of CKD stage 5, DM type 2, hypertension, hearing loss, chronic anemia who was sent to the ED from our office with altered mental status, shortness of breath and generalized weakness. #Acute over CKD stage 5, ESRD , HD x 2 yesterday s/p permacath nephro # CKD related Anemia: on IV iron ,if Hgb < 7 will need PRBC transfusion # Hypertension controlled continue home meds # CHF/Fluid overload continue Lasix 80mg Daily # DM Type 2 on Januvia DVT Px: heparin sq possible dc in am
[2019-03-15] MEDS ORDERED: PT OWN MED DRAWER 7, Y5N ONE (20:54)
--- NOTE | 2019-03-15 21:37 | PN ---
Progress Note (short form) - Note Progress Note: covering dr reina fernandez 1. CKD stage 5 now ESRD requiring dialysis 2. CKD related Anemia 3. Metabolic acidosis 4. Hypertension 5. CHF/Fluid overload 6. DM Type 2 Current Medications Calcium Acetate (Phoslo -) 667 mg PO TIDCM [facility] Last Admin: 03/15/19 17:38 Dose: 667 mg Furosemide (Lasix -) 80 mg PO DAILY [facility] Last Admin: 03/15/19 10:28 Dose: 80 mg Heparin Sodium (Porcine) (Heparin -) 5,000 unit SQ TID [facility] Last Admin: 03/15/19 21:27 Dose: Not Given Hydralazine HCl (Apresoline -) 25 mg PO BID [facility] Last Admin: 03/15/19 21:27 Dose: 25 mg Sodium Chloride (Normal Saline -) 250 mls @ 3,000 mls/hr IV PRN PRN PRN Reason: Hypotension during Dialysis Stop: 03/14/19 15:11 Insulin Aspart (Novolog Vial Sliding Scale -) 1 vial SQ ACHS [facility]; Protocol Last Admin: 03/15/19 21:27 Dose: 2 units Metoprolol Succinate (Toprol Xl -) 100 mg PO DAILY [facility] Last Admin: 03/15/19 10:28 Dose: 100 mg Pantoprazole Sodium (Protonix Iv) 40 mg IVPUSH DAILY [facility] Last Admin: 03/15/19 10:28 Dose: 40 mg Last Vital Signs Temp Pulse Resp BP Pulse Ox 98.1 F 71 20 141/57 L 97 03/15/19 18:09 03/15/19 18:09 03/15/19 18:09 03/15/19 18:09 03/15/19 10:30 alert in nad Lungs clear Abd soft nontender Ext no edema CBC, BMP 03/15/19 10:25 CBC, BMP 03/14/19 07:25 03/14/19 07:25 IMP- esrd anemia htn Plan- outpatient hd placement prefers TTS and the Unit on [facility]
[2019-03-16] MEDS: HEPARIN NA (PORCINE) 5,000 UNITS/ML 1ML VIAL SQ SCH ×3 (06:25→21:21)
[2019-03-16] MEDS: INSULIN SLIDING SCALE (NOVOLOG) 1 VIAL SQ SCH ×4 (06:33→21:22)
[2019-03-16] MEDS: CALCIUM ACETATE 667 MG CAPSULE (FP) PO SCH ×3 (09:00→17:48)
[2019-03-16] MEDS: FUROSEMIDE 40 MG TABLET (FP) PO SCH (09:51)
[2019-03-16] MEDS: hydrALAZINE HCL 25 MG TABLET (FP) PO SCH ×2 (09:51→21:21)
[2019-03-16] MEDS ORDERED: SODIUM CHLORIDE 250 ML IV PRN (11:19)
--- NOTE | 2019-03-16 12:45 | PN ---
Progress Note (short form) - Note Progress Note: Renal follow up for CKD stage 5/ESRD Seen and examined at the bedside awake and alert no acute complaints denies any sob, cp, fever, chills making urine had last dialysis on Saturday Vital Signs Temperature 98.4 F 03/16/19 06:00 Pulse Rate 61 03/16/19 06:00 Respiratory Rate 20 03/16/19 06:00 Blood Pressure 163/56 L 03/16/19 06:00 O2 Sat by Pulse Oximetry (%) 97 03/15/19 21:00 Intake & Output 03/13/19 03/14/19 03/15/19 03/16/19 23:59 23:59 23:59 23:59 Intake Total 2365 320 1100 400 Output Total 1010 Balance 3537 899 5378 400 Weight 122.606 kg 77.247 kg 77.7 kg 78.245 kg NAD awake and alert RRR CTA no LE edema CBC, BMP 03/14/19 07:25 03/15/19 10:25 Current Medications Calcium Acetate (Phoslo -) 667 mg PO TIDCM [facility] Last Admin: 03/16/19 12:34 Dose: 667 mg Furosemide (Lasix -) 80 mg PO DAILY [facility] Last Admin: 03/16/19 09:51 Dose: 80 mg Heparin Sodium (Porcine) (Heparin -) 5,000 unit SQ TID [facility] Last Admin: 03/16/19 06:25 Dose: Not Given Hydralazine HCl (Apresoline -) 25 mg PO BID [facility] Last Admin: 03/16/19 09:51 Dose: 25 mg Sodium Chloride (Normal Saline -) 250 mls @ 3,000 mls/hr IV PRN PRN PRN Reason: Hypotension during Dialysis Stop: 03/17/19 11:19 Insulin Aspart (Novolog Vial Sliding Scale -) 1 vial SQ ACHS [facility]; Protocol Last Admin: 03/16/19 12:27 Dose: 4 units Metoprolol Succinate (Toprol Xl -) 100 mg PO DAILY [facility] Last Admin: 03/16/19 09:51 Dose: 100 mg Pantoprazole Sodium (Protonix Iv) 40 mg IVPUSH DAILY [facility] Last Admin: 03/15/19 10:28 Dose: 40 mg 78 year old gentleman with history of CKD stage 5, DM type 2, hypertension, hearing loss, chronic anemia who was sent to the ED from our office with altered mental status, shortness of breath and generalized weakness. 1. CKD stage 5 now ESRD requiring dialysis 2. CKD related Anemia 3. Metabolic acidosis 4. Hypertension 5. CHF/Fluid overload 6. DM Type 2 For dialysis today with possible PRBC transfusion based on Hgb levels outpatient HD placement pending Will give Epogen IV with HD Continue hydralazine, Lasix and metoprolol Renal diet and 1.2L fluid restriction discharge planning once outpatient HD is arranged Slava Gloria DO
[2019-03-16 13:22] LABS: HEMATOCRIT 29.7 % (35.4-49); MCH 30.4 pg (25.7-33.7); MCHC 33.3 g/dl (32.0-35.9); MEAN CELL VOLUME 91.2 fl (80-96); MEAN PLT VOLUME 8.7 fl (7.5-11.1); PLATELET COUNT 150 K/MM3 (134-434); RBC 3.26 M/mm3 (4.00-5.60); RDW 16.3 % (11.9-15.9); WHITE BLOOD COUNT 7.1 K/mm3 (4.0-10.0)
[2019-03-16 13:32] LABS: ALBUMIN 2.4 g/dl (3.4-5.0); BILIRUBIN,TOTAL 0.5 mg/dL (0.2-1); BLOOD UREA NITROGEN 27.8 mg/dL (7-18); CALCIUM 7.5 mg/dL (8.5-10.1); CREATININE 5.6 mg/dL (0.55-1.3); POTASSIUM 3.8 mmol/L (3.5-5.1); TOT PROT 5.5 g/dl (6.4-8.2)
[2019-03-16 13:35] LABS: HEMOGLOBIN 9.9 GM/dL (11.7-16.9)
[2019-03-16] MEDS ORDERED: ROSUVASTATIN CA 20 MG TABLET (FP) PO SCH (14:00)
[2019-03-16] MEDS: PANTOPRAZOLE SODIUM 40 MG VIAL IVPUSH SCH (14:21)
--- NOTE | 2019-03-16 15:28 | PN ---
Physical Exam: SUBJECTIVE: Patient seen and examined. Pt offered no complaints. OBJECTIVE: Vital Signs Period Temp Pulse Resp BP Sys/Bo Pulse Ox Last 24 Hr 98.1 F-98.5 F 58-89 18-20 132-163/56-82 97 GENERAL: The patient is awake, alert, AOOx3, in no acute distress. HEAD: Normal with no signs of trauma. EYES: PERRL, extraocular movements intact, sclera anicteric, conjunctiva clear. No ptosis. ENT: oropharynx clear without exudates, moist mucous membranes. LUNGS: Breath sounds equal, clear to auscultation bilaterally, no wheezes, no crackles, no accessory muscle use. HEART: Regular rate and rhythm, S1, S2 without murmur, rub or gallop. ABDOMEN: Soft, nontender, nondistended, normoactive bowel sounds, no guarding, no rebound, no hepatosplenomegaly, no masses. EXTREMITIES: 2+ pulses, warm, well-perfused, no edema. NEUROLOGICAL: Cranial nerves II through XII grossly intact. Normal speech, gait not observed. SKIN: Warm, dry, normal turgor. BLACK LESION IN BACK OF NEG WITH 2 COLOR TONE BUT <6MM Laboratory Results - last 24 hr 03/11/19 03/13/19 03/13/19 19:20 12:30 12:30 WBC RBC Hgb Hct MCV MCH MCHC RDW Plt Count MPV Sodium Potassium Chloride Carbon Dioxide Anion Gap BUN Creatinine Est GFR (CKD-EPI)AfAm Est GFR (CKD-EPI)NonAf POC Glucometer Random Glucose Calcium Total Bilirubin AST ALT Alkaline Phosphatase Total Protein Albumin Hep Bs Antigen Negative Hep C Ab Diagnostic 0.1 Blood Type O POSITIVE Antibody Screen Negative Crossmatch See Detail 03/15/19 03/15/19 03/16/19 17:31 21:24 06:31 WBC RBC Hgb Hct MCV MCH MCHC RDW Plt Count MPV Sodium Potassium Chloride Carbon Dioxide Anion Gap BUN Creatinine Est GFR (CKD-EPI)AfAm Est GFR (CKD-EPI)NonAf POC Glucometer 205 183 116 Random Glucose Calcium Total Bilirubin AST ALT Alkaline Phosphatase Total Protein Albumin Hep Bs Antigen Hep C Ab Diagnostic Blood Type Antibody Screen Crossmatch 03/16/19 03/16/19 03/16/19 12:10 12:50 12:50 WBC RBC Hgb Hct MCV MCH MCHC RDW Plt Count MPV Sodium 140 Potassium 3.8 Chloride 105 Carbon Dioxide 27 Anion Gap 8 BUN 27.8 H Creatinine 5.6 H Est GFR (CKD-EPI)AfAm 10.29 Est GFR (CKD-EPI)NonAf 8.88 POC Glucometer 234 Random Glucose 232 H Calcium 7.5 L Total Bilirubin 0.5 AST 13 L ALT 9 L Alkaline Phosphatase 102 Total Protein 5.5 L Albumin 2.4 L Hep Bs Antigen Hep C Ab Diagnostic Blood Type O POSITIVE Antibody Screen Negative Crossmatch See Detail 03/16/19 12:50 WBC 7.1 RBC 3.26 L Hgb 9.9 L Hct 29.7 L D MCV 91.2 MCH 30.4 MCHC 33.3 RDW 16.3 H Plt Count 150 MPV 8.7 Sodium Potassium Chloride Carbon Dioxide Anion Gap BUN Creatinine Est GFR (CKD-EPI)AfAm Est GFR (CKD-EPI)NonAf POC Glucometer Random Glucose Calcium Total Bilirubin AST ALT Alkaline Phosphatase Total Protein Albumin Hep Bs Antigen Hep C Ab Diagnostic Blood Type Antibody Screen Crossmatch Active Medications Generic Name Dose Route Start Last Admin Trade Name Freq PRN Reason Stop Dose Admin Aspirin 81 mg 03/16/19 14:00 Ecotrin - PO DAILY ROB Calcium Acetate 667 mg 03/13/19 12:00 03/16/19 12:34 Phoslo - PO 667 mg TIDCM ROB Administration Docusate Sodium 100 mg 03/16/19 14:00 Colace - PO TID ROB Fluticasone Propionate 1 spray 03/16/19 14:00 Flonase - NS DAILY ROB Furosemide 80 mg 03/14/19 10:00 03/16/19 09:51 Lasix - PO 80 mg DAILY ROB Administration Gabapentin 100 mg 03/16/19 22:00 Neurontin - PO HS ROB Heparin Sodium (Porcine) 5,000 unit 03/13/19 14:00 03/16/19 06:25 Heparin - SQ Not Given TID ROB Hydralazine HCl 25 mg 03/13/19 22:00 03/16/19 09:51 Apresoline - PO 25 mg BID ROB Administration Sodium Chloride 250 mls @ 3,000 mls/hr 03/16/19 11:19 Normal Saline - IV 03/17/19 11:19 PRN PRN Hypotension during Dialysis Insulin Aspart 1 vial 03/13/19 11:00 03/16/19 12:27 Novolog Vial Sliding Scale - SQ 4 units ACHS ROB Administration Protocol Metoprolol Succinate 100 mg 03/14/19 10:00 03/16/19 09:51 Toprol Xl - PO 100 mg DAILY ROB Administration ASSESSMENT/PLAN: 78 y.o. M PMH HTN,diastolic CHF, CKD stage 5 w/ ESRD (initially refusing dialysis), anemia, L sided hearing loss presenting w/ AMS and SOB. Fluid overload likely 2/2 advanced renal disease Pt had @ HD session so far. mentation significantly improved. Lasix, phoslo Strict Is & Os Per Nephro O/p HD TTS and unit on [address] pending Heb Bs antigen negative and hep C 0.1 o/p ppd on D/C Hyperkalemia potassium 3.8today. monitor BMP Acute toxic metabolic encephalopathy resolved AOx3-cont neuro check HTN On hydralazine 25mg BID, metoprolol 100mg daily Normocytic anemia iron studies Fe 66,TIBC 286, Iron sat 23, Unsat IBC 220, transferrin 206, ferritin 29.6 FOBT negative epogen given during HD DM ISS BGMs DVT PPX Heparin SQ Visit type - Emergency Visit Emergency Visit: Yes ED Registration Date: 03/11/19 Care time: The patient presented to the Emergency Department on the above date and was hospitalized for further evaluation of their emergent condition. - New Patient This patient is new to me today: No - Critical Care Critical Care patient: No - Discharge Referral Referred to [facility] Med P.C.: No ATTENDING PHYSICIAN STATEMENT I saw and evaluated the patient. I reviewed the resident's note and discussed the case with the resident. I agree with the resident's findings and plan as documented. SUBJECTIVE: OBJECTIVE: ASSESSMENT AND PLAN:
--- NOTE | 2019-03-16 16:36 | PN ---
Teaching Attending Note Name of Resident: Giovana Christianson ATTENDING PHYSICIAN STATEMENT I saw and evaluated the patient. I reviewed the resident's note and discussed the case with the resident. I agree with the resident's findings and plan as documented. SUBJECTIVE: Patient is feeling better with no acute distress OBJECTIVE: Vital Signs Temperature 98.5 F 03/16/19 14:19 Pulse Rate 59 L 03/16/19 15:56 Respiratory Rate 18 03/16/19 15:56 Blood Pressure 142/61 03/16/19 15:56 O2 Sat by Pulse Oximetry (%) 97 03/15/19 21:00 GENERAL: The patient is awake, alert, and fully oriented, in no acute distress. HEAD: Normal with no signs of trauma. EYES: PERRL, extraocular movements intact, sclera anicteric, conjunctiva clear. ENT: Ears normal, oropharynx clear without exudates, moist mucous membranes. NECK: Trachea midline, full range of motion, supple. positive for permacath on the left side of the chest LUNGS: Breath sounds equal, clear to auscultation bilaterally, no wheezes, no crackles, no accessory muscle use. HEART: Regular rate and rhythm, S1, S2 without murmur, rub or gallop. ABDOMEN: Soft, nontender, nondistended, normoactive bowel sounds, no guarding, no rebound, no hepatosplenomegaly, no masses. EXTREMITIES: 2+ pulses, warm, well-perfused, no edema. NEUROLOGICAL: Cranial nerves II through XII grossly intact. Normal speech, gait not observed. PSYCH: Normal mood, normal affect. SKIN: Warm, dry, normal turgor, no rashes or lesions noted CBCD WBC 7.1 K/mm3 (4.0-10.0) 03/16/19 12:50 RBC 3.26 M/mm3 (4.00-5.60) L 03/16/19 12:50 Hgb 9.9 GM/dL (11.7-16.9) L 03/16/19 12:50 Hct 29.7 % (35.4-49) L D 03/16/19 12:50 MCV 91.2 fl (80-96) 03/16/19 12:50 MCHC 33.3 g/dl (32.0-35.9) 03/16/19 12:50 RDW 16.3 % (11.9-15.9) H 03/16/19 12:50 Plt Count 150 K/MM3 (134-434) 03/16/19 12:50 MPV 8.7 fl (7.5-11.1) 03/16/19 12:50 CMP Sodium 140 mmol/L (136-145) 03/16/19 12:50 Potassium 3.8 mmol/L (3.5-5.1) 03/16/19 12:50 Chloride 105 mmol/L (98-107) 03/16/19 12:50 Carbon Dioxide 27 mmol/L (21-32) 03/16/19 12:50 Anion Gap 8 MMOL/L (8-16) 03/16/19 12:50 BUN 27.8 mg/dL (7-18) H 03/16/19 12:50 Creatinine 5.6 mg/dL (0.55-1.3) H 03/16/19 12:50 Random Glucose 232 mg/dL (74-106) H 03/16/19 12:50 Calcium 7.5 mg/dL (8.5-10.1) L 03/16/19 12:50 Total Bilirubin 0.5 mg/dL (0.2-1) 03/16/19 12:50 AST 13 U/L (15-37) L 03/16/19 12:50 ALT 9 U/L (13-61) L 03/16/19 12:50 Alkaline Phosphatase 102 U/L (45-117) 03/16/19 12:50 Total Protein 5.5 g/dl (6.4-8.2) L 03/16/19 12:50 Albumin 2.4 g/dl (3.4-5.0) L 03/16/19 12:50 CARDIAC ENZYMES Troponin I < 0.02 ng/ml (0.00-0.05) 03/11/19 17:30 Current Medications Generic Name Dose Route Start Last Admin Trade Name Derek PRN Reason Stop Dose Admin Aspirin 81 mg 03/16/19 14:00 Ecotrin - PO DAILY ROB Calcium Acetate 667 mg 03/13/19 12:00 03/16/19 12:34 Phoslo - PO 667 mg TIDCM ROB Administration Docusate Sodium 100 mg 03/16/19 14:00 Colace - PO TID ROB Fluticasone Propionate 1 spray 03/16/19 14:00 Flonase - NS DAILY [facility] Furosemide 80 mg 03/14/19 10:00 03/16/19 09:51 Lasix - PO 80 mg DAILY ROB Administration Gabapentin 100 mg 03/16/19 22:00 Neurontin - PO HS [facility] Heparin Sodium (Porcine) 5,000 unit 03/13/19 14:00 03/16/19 15:32 Heparin - SQ Not Given TID [facility] Hydralazine HCl 25 mg 03/13/19 22:00 03/16/19 09:51 Apresoline - PO 25 mg BID ROB Administration Sodium Chloride 250 mls @ 3,000 mls/hr 03/16/19 11:19 Normal Saline - IV 03/17/19 11:19 PRN PRN Hypotension during Dialysis Insulin Aspart 1 vial 03/13/19 11:00 03/16/19 12:27 Novolog Vial Sliding Scale - SQ 4 units ACHS ROB Administration Protocol Metoprolol Succinate 100 mg 03/14/19 10:00 03/16/19 09:51 Toprol Xl - PO 100 mg DAILY [facility] Administration Home Medications Medication Instructions Recorded Metoprolol Succinate [Toprol XL -] 100 mg PO DAILY 02/12/16 Ferrous Sulfate 325 mg PO TID 02/14/16 hydrALAZINE HCL [Apresoline -] 100 mg PO TID 01/29/17 Cyanocobalamin [Vitamin B12 -] 5,000 mcg PO DAILY 01/27/19 Fluticasone Prop 0.05% Nasal 1 - 2 spray NS DAILY 01/27/19 [Flonase -] Gabapentin [Neurontin -] 100 mg PO HS 01/27/19 Rosuvastatin Calcium [Crestor] 20 mg PO DAILY 01/27/19 Calcium Acetate [Phoslo -] 667 mg PO TIDCM #60 capsule 02/03/19 Sodium Bicarbonate - 650 mg PO BID #60 tablet 02/03/19 Aspirin [Ecotrin] 81 mg PO DAILY 03/12/19 Cholecalciferol (Vitamin D3) 50,000 unit PO WEEKLY 03/12/19 [D3-50] Docusate Sodium [Colace] 100 mg PO TID 03/12/19 Furosemide [Lasix -] 40 mg PO BID 03/12/19 Sitagliptin Phosphate [Januvia] 50 mg PO DAILY 03/12/19 ASSESSMENT AND PLAN: 78 year old gentleman with history of CKD stage 5, DM type 2, hypertension, hearing loss, chronic anemia who was sent to the ED from our office with altered mental status, shortness of breath and generalized weakness. #Acute over CKD stage 5, ESRD , HD x 2 yesterday s/p permacath nephro , patient is needing an arrangment for dialysis TTRS, rita/reina on the case. # CKD related Anemia: on IV iron ,if Hgb < 7 will need PRBC transfusion # Hypertension controlled continue home meds # CHF/Fluid overload continue Lasix 80mg Daily # DM Type 2 on Januvia DVT Px: heparin sq possible dc in am once HD is arranged as an outpatient.
[2019-03-16] MEDS ORDERED: PT OWN MED DRAWER 7, Y5N ONE ×4 (17:25→21:49)
[2019-03-16] MEDS: DOCUSATE SODIUM 100 MG CAPSULE (FP) PO SCH ×2 (17:48→21:21)
[2019-03-16] MEDS: FLUTICASONE PROP 0.05% 16 GM NASAL SPRAY NS SCH (17:49)
[2019-03-16] MEDS: ASPIRIN COATED 81 MG TABLET.EC PO SCH (17:49)
[2019-03-16] MEDS ORDERED: INSULIN (NOVOLOG) ASPART 100 UNITS/ML 10ML VIAL ONE ×2 (19:36→20:58)
[2019-03-16] MEDS: GABAPENTIN 100 MG CAPSULE (FP) PO SCH (21:21)
[2019-03-17] MEDS: DOCUSATE SODIUM 100 MG CAPSULE (FP) PO SCH ×3 (06:20→21:39)
[2019-03-17] MEDS: HEPARIN NA (PORCINE) 5,000 UNITS/ML 1ML VIAL SQ SCH ×3 (06:20→21:39)
[2019-03-17] MEDS: INSULIN SLIDING SCALE (NOVOLOG) 1 VIAL SQ SCH ×4 (06:29→22:44)
[2019-03-17 09:27] LABS: BLOOD UREA NITROGEN 18.5 mg/dL (7-18); CALCIUM 7.6 mg/dL (8.5-10.1); CREATININE 4.2 mg/dL (0.55-1.3); POTASSIUM 4.5 mmol/L (3.5-5.1)
[2019-03-17] MEDS: FLUTICASONE PROP 0.05% 16 GM NASAL SPRAY NS SCH (11:04)
[2019-03-17] MEDS: FUROSEMIDE 40 MG TABLET (FP) PO SCH (11:05)
[2019-03-17] MEDS: ASPIRIN COATED 81 MG TABLET.EC PO SCH (11:05)
[2019-03-17] MEDS: hydrALAZINE HCL 25 MG TABLET (FP) PO SCH ×2 (11:05→21:39)
[2019-03-17] MEDS: CALCIUM ACETATE 667 MG CAPSULE (FP) PO SCH ×3 (11:08→18:55)
--- NOTE | 2019-03-17 13:11 | PN ---
Physical Exam: SUBJECTIVE: Patient seen and examined. pt offered no complaints OBJECTIVE: Vital Signs Period Temp Pulse Resp BP Sys/Bo Pulse Ox Last 24 Hr 97.8 F-98.5 F 59-82 18-20 129-158/54-84 95-99 GENERAL: The patient is awake, alert, AOOx3, in no acute distress. HEAD: Normal with no signs of trauma. EYES: PERRL, extraocular movements intact, sclera anicteric, conjunctiva clear. No ptosis. ENT: oropharynx clear without exudates, moist mucous membranes. LUNGS: Breath sounds equal, clear to auscultation bilaterally, no wheezes, no crackles, no accessory muscle use. HEART: Regular rate and rhythm, S1, S2 without murmur, rub or gallop. ABDOMEN: Soft, nontender, nondistended, normoactive bowel sounds, no guarding, no rebound, no hepatosplenomegaly, no masses. EXTREMITIES: 2+ pulses, warm, well-perfused, no edema. SKIN: Warm, dry, normal turgor. BLACK LESION IN BACK OF NEG WITH 2 COLOR TONE BUT <6MM Laboratory Results - last 24 hr 03/11/19 03/16/19 03/16/19 19:20 12:50 12:50 WBC RBC Hgb Hct MCV MCH MCHC RDW Plt Count MPV Sodium 140 Potassium 3.8 Chloride 105 Carbon Dioxide 27 Anion Gap 8 BUN 27.8 H Creatinine 5.6 H Est GFR (CKD-EPI)AfAm 10.29 Est GFR (CKD-EPI)NonAf 8.88 POC Glucometer Random Glucose 232 H Calcium 7.5 L Total Bilirubin 0.5 AST 13 L ALT 9 L Alkaline Phosphatase 102 Total Protein 5.5 L Albumin 2.4 L Blood Type O POSITIVE O POSITIVE Antibody Screen Negative Negative Crossmatch See Detail See Detail 03/16/19 03/16/19 03/16/19 12:50 17:46 21:16 WBC 7.1 RBC 3.26 L Hgb 9.9 L Hct 29.7 L D MCV 91.2 MCH 30.4 MCHC 33.3 RDW 16.3 H Plt Count 150 MPV 8.7 Sodium Potassium Chloride Carbon Dioxide Anion Gap BUN Creatinine Est GFR (CKD-EPI)AfAm Est GFR (CKD-EPI)NonAf POC Glucometer 147 273 Random Glucose Calcium Total Bilirubin AST ALT Alkaline Phosphatase Total Protein Albumin Blood Type Antibody Screen Crossmatch 03/17/19 03/17/19 03/17/19 06:22 08:20 10:54 WBC RBC Hgb Hct MCV MCH MCHC RDW Plt Count MPV Sodium 139 Potassium 4.5 Chloride 102 Carbon Dioxide 33 H Anion Gap 4 L BUN 18.5 H Creatinine 4.2 H Est GFR (CKD-EPI)AfAm 14.57 Est GFR (CKD-EPI)NonAf 12.57 POC Glucometer 114 223 Random Glucose 142 H Calcium 7.6 L Total Bilirubin AST ALT Alkaline Phosphatase Total Protein Albumin Blood Type Antibody Screen Crossmatch Active Medications Generic Name Dose Route Start Last Admin Trade Name Freq PRN Reason Stop Dose Admin Aspirin 81 mg 03/16/19 14:00 03/17/19 11:05 Ecotrin - PO 81 mg DAILY ROB Administration Calcium Acetate 667 mg 03/13/19 12:00 03/17/19 11:08 Phoslo - PO 667 mg TIDCM ROB Administration Docusate Sodium 100 mg 03/16/19 14:00 03/17/19 06:20 Colace - PO 100 mg TID ROB Administration Fluticasone Propionate 1 spray 03/16/19 14:00 03/17/19 11:04 Flonase - NS 1 spray DAILY ROB Administration Furosemide 80 mg 03/14/19 10:00 03/17/19 11:05 Lasix - PO 80 mg DAILY ROB Administration Gabapentin 100 mg 03/16/19 22:00 03/16/19 21:21 Neurontin - PO 100 mg HS ROB Administration Heparin Sodium (Porcine) 5,000 unit 03/13/19 14:00 03/17/19 06:20 Heparin - SQ Not Given TID ROB Hydralazine HCl 25 mg 03/13/19 22:00 03/17/19 11:05 Apresoline - PO 25 mg BID ROB Administration Insulin Aspart 1 vial 03/13/19 11:00 03/17/19 11:06 Novolog Vial Sliding Scale - SQ 4 units ACHS ROB Administration Protocol Metoprolol Succinate 100 mg 03/14/19 10:00 03/17/19 11:05 Toprol Xl - PO 100 mg DAILY ROB Administration ASSESSMENT/PLAN: 78 y.o. M PMH HTN,diastolic CHF, CKD stage 5 w/ ESRD (initially refusing dialysis), anemia, L sided hearing loss presenting w/ AMS and SOB. Fluid overload likely 2/2 advanced renal disease Pt had @ HD session so far. mentation significantly improved. Lasix, phoslo Strict Is & Os O/p HD TTS pending Heb Bs antigen negative and hep C 0.1 o/p ppd on D/C Hyperkalemia resolved monitor BMP Acute toxic metabolic encephalopathy resolved AOx3-cont neuro check HTN On hydralazine 25mg BID, metoprolol 100mg daily Normocytic anemia iron studies Fe 66,TIBC 286, Iron sat 23, Unsat IBC 220, transferrin 206, ferritin 29.6 FOBT negative epogen given during HD DM ISS BGMs DVT PPX Heparin SQ Visit type - Emergency Visit Emergency Visit: Yes ED Registration Date: 03/11/19 Care time: The patient presented to the Emergency Department on the above date and was hospitalized for further evaluation of their emergent condition. - New Patient This patient is new to me today: No - Critical Care Critical Care patient: No - Discharge Referral Referred to [facility] Med P.C.: No ATTENDING PHYSICIAN STATEMENT I saw and evaluated the patient. I reviewed the resident's note and discussed the case with the resident. I agree with the resident's findings and plan as documented. SUBJECTIVE: OBJECTIVE: ASSESSMENT AND PLAN:
--- NOTE | 2019-03-17 14:30 | PN ---
Progress Note (short form) - Note Progress Note: Renal follow up for CKD stage 5/ESRD Seen and examined at the bedside awake and alert no acute complaints denies any sob, cp, fever, chills Vital Signs Temperature 97.7 F 03/17/19 13:30 Pulse Rate 64 03/17/19 13:30 Respiratory Rate 20 03/17/19 13:30 Blood Pressure 134/60 03/17/19 13:30 O2 Sat by Pulse Oximetry (%) 95 03/17/19 09:00 Vital Signs Temperature 97.7 F 03/17/19 13:30 Pulse Rate 64 03/17/19 13:30 Respiratory Rate 20 03/17/19 13:30 Blood Pressure 134/60 03/17/19 13:30 O2 Sat by Pulse Oximetry (%) 95 03/17/19 09:00 NAD awake and alert RRR CTA no LE edema CBC, BMP 03/16/19 12:50 03/17/19 08:20 Current Medications Aspirin (Ecotrin -) 81 mg PO DAILY [facility] Last Admin: 03/17/19 11:05 Dose: 81 mg Calcium Acetate (Phoslo -) 667 mg PO TIDCM [facility] Last Admin: 03/17/19 11:08 Dose: 667 mg Docusate Sodium (Colace -) 100 mg PO TID [facility] Last Admin: 03/17/19 06:20 Dose: 100 mg Fluticasone Propionate (Flonase -) 1 spray NS DAILY [facility] Last Admin: 03/17/19 11:04 Dose: 1 spray Furosemide (Lasix -) 80 mg PO DAILY [facility] Last Admin: 03/17/19 11:05 Dose: 80 mg Gabapentin (Neurontin -) 100 mg PO HS [facility] Last Admin: 03/16/19 21:21 Dose: 100 mg Heparin Sodium (Porcine) (Heparin -) 5,000 unit SQ TID [facility] Last Admin: 03/17/19 06:20 Dose: Not Given Hydralazine HCl (Apresoline -) 25 mg PO BID [facility] Last Admin: 03/17/19 11:05 Dose: 25 mg Insulin Aspart (Novolog Vial Sliding Scale -) 1 vial SQ ACHS [facility]; Protocol Last Admin: 03/17/19 11:06 Dose: 4 units Metoprolol Succinate (Toprol Xl -) 100 mg PO DAILY [facility] Last Admin: 10/01/19 11:05 Dose: 100 mg 78 year old gentleman with history of CKD stage 5, DM type 2, hypertension, hearing loss, chronic anemia who was sent to the ED from our office with altered mental status, shortness of breath and generalized weakness. 1. CKD stage 5 now ESRD requiring dialysis 2. CKD related Anemia 3. Metabolic acidosis 4. Hypertension 5. CHF/Fluid overload 6. DM Type 2 s/p dialysis yesterday, no acute need for treatment today. next planned dialysis is Saturday outpatient HD placement pending. spoke to social work from HD unit Will give Epogen IV with HD Continue hydralazine, Lasix and metoprolol Renal diet and 1.2L fluid restriction discharge planning once outpatient HD is arranged Slava Gloria DO
[2019-03-17] MEDS ORDERED: INSULIN (NOVOLOG) ASPART 100 UNITS/ML 10ML VIAL ONE (16:06)
--- NOTE | 2019-03-17 17:09 | PN ---
Teaching Attending Note Name of Resident: Rashard Veliz ATTENDING PHYSICIAN STATEMENT I saw and evaluated the patient. I reviewed the resident's note and discussed the case with the resident. I agree with the resident's findings and plan as documented. SUBJECTIVE: No fever or chills. No COLLINS , no SOB no CP . OBJECTIVE: NAd Cv : RRR, 3/6 Sm at RUSB with radiation to carotid . Lungs: CTAB Ext : no edema or erythema Abd: soft, NT, ND , NL BS permacath site is clean with no erythema ASSESSMENT AND PLAN: 78 y/o man with h/o CKD 5, DM , HTN, anemia, who presented with AMs and SOB and he was found to be uremic, anemic , and hyperkalemic 1- ESRD: s/p permacath in place. next HD on Saturday cont epo with HD cont po lasix daily for volume management 2- H/o HTN:cont HZN and metoprolol 3- DM : cont SSI . resume Januvia with renal dosing at dc 4- chronic normocytic anemia: cont iron sulfate and epo with HD. DVT Px: heparin sq Dispo : depends on out pt HD arrangements
[2019-03-17] MEDS: FERROUS SO4 325 MG TABLET (FP) PO SCH (21:39)
[2019-03-17] MEDS: GABAPENTIN 100 MG CAPSULE (FP) PO SCH (21:39)
[2019-03-18] MEDS: DOCUSATE SODIUM 100 MG CAPSULE (FP) PO SCH ×3 (05:42→21:12)
[2019-03-18] MEDS: HEPARIN NA (PORCINE) 5,000 UNITS/ML 1ML VIAL SQ SCH ×3 (06:04→21:12)
[2019-03-18] MEDS: INSULIN SLIDING SCALE (NOVOLOG) 1 VIAL SQ SCH ×4 (06:04→21:12)
[2019-03-18] MEDS: CALCIUM ACETATE 667 MG CAPSULE (FP) PO SCH ×3 (09:46→17:36)
[2019-03-18] MEDS: ASPIRIN COATED 81 MG TABLET.EC PO SCH (09:47)
[2019-03-18] MEDS: FERROUS SO4 325 MG TABLET (FP) PO SCH ×2 (09:47→21:11)
[2019-03-18] MEDS: FUROSEMIDE 40 MG TABLET (FP) PO SCH (10:57)
[2019-03-18] MEDS: hydrALAZINE HCL 25 MG TABLET (FP) PO SCH ×2 (10:57→21:12)
[2019-03-18] MEDS ORDERED: INSULIN (NOVOLOG) ASPART 100 UNITS/ML 10ML VIAL ONE (12:19)
[2019-03-18] MEDS ORDERED: SODIUM CHLORIDE 250 ML IV PRN (12:57)
--- NOTE | 2019-03-18 13:05 | PN ---
Progress Note (short form) - Note Progress Note: Renal follow up for CKD stage 5/ESRD Seen and examined at the bedside no acute complaints no sob, cp, abd pain, fever or chills making urine Vital Signs Temperature 98.4 F 03/18/19 05:48 Pulse Rate 59 L 03/18/19 05:48 Respiratory Rate 18 03/18/19 05:48 Blood Pressure 132/54 L 03/18/19 05:48 O2 Sat by Pulse Oximetry (%) 95 03/17/19 09:00 Intake & Output 03/15/19 03/16/19 03/17/19 03/18/19 23:59 23:59 23:59 23:59 Intake Total 1100 1700 820 620 Output Total 3000 Balance 1100 -1300 820 620 Weight 77.7 kg 78.245 kg 78.562 kg 78.585 kg NAD awake and alert RRR CTA no LE edema CBC, BMP 03/16/19 12:50 03/17/19 08:20 Current Medications Aspirin (Ecotrin -) 81 mg PO DAILY [facility] Last Admin: 03/18/19 09:47 Dose: 81 mg Calcium Acetate (Phoslo -) 667 mg PO TIDCM [facility] Last Admin: 03/18/19 12:33 Dose: 667 mg Docusate Sodium (Colace -) 100 mg PO TID [facility] Last Admin: 03/18/19 05:42 Dose: 100 mg Epoetin Aakash (Procrit -) 10,000 unit SQ ONCE ONE Stop: 03/18/19 12:58 Ferrous Sulfate (Feosol -) 325 mg PO BID [facility] Last Admin: 03/18/19 09:47 Dose: 325 mg Fluticasone Propionate (Flonase -) 1 spray NS DAILY [facility] Last Admin: 03/17/19 11:04 Dose: 1 spray Furosemide (Lasix -) 80 mg PO DAILY [facility] Last Admin: 03/18/19 10:57 Dose: 80 mg Gabapentin (Neurontin -) 100 mg PO HS [facility] Last Admin: 03/17/19 21:39 Dose: 100 mg Heparin Sodium (Porcine) (Heparin -) 5,000 unit SQ TID [facility] Last Admin: 03/18/19 06:04 Dose: 5,000 unit Hydralazine HCl (Apresoline -) 25 mg PO BID [facility] Last Admin: 10/02/19 10:57 Dose: 25 mg Sodium Chloride (Normal Saline -) 250 mls @ 3,000 mls/hr IV PRN PRN PRN Reason: Hypotension during Dialysis Stop: 03/19/19 12:57 Insulin Aspart (Novolog Vial Sliding Scale -) 1 vial SQ ACHS [facility]; Protocol Last Admin: 03/18/19 12:33 Dose: 2 units Metoprolol Succinate (Toprol Xl -) 100 mg PO DAILY [facility] Last Admin: 03/18/19 10:57 Dose: 100 mg 78 year old gentleman with history of CKD stage 5, DM type 2, hypertension, hearing loss, chronic anemia who was sent to the ED from our office with altered mental status, shortness of breath and generalized weakness. 1. CKD stage 5 now ESRD requiring dialysis 2. CKD related Anemia 3. Metabolic acidosis 4. Hypertension 5. CHF/Fluid overload 6. DM Type 2 Still awaiting acceptance at outpatient HD unit. They want hepatitis B surface antibody, and hepatitis B core antibody in addition to Ag levels. Called [facility] and added it to the piror collected labs. Will arrange for HD today and then next HD on Saturday. Hopefully serologic studies will be resulted by Saturday and he can be discharged Will give Epogen IV with HD Continue hydralazine, Lasix and metoprolol Renal diet and 1.2L fluid restriction discharge planning once outpatient HD is arranged Slava Gloria DO
[2019-03-18] MEDS ORDERED: EPOETIN ALFA 10,000 UNIT/1 ML VIAL SQ ONE (13:15)
[2019-03-18 14:07] LABS: BASO % 0.7 % (0-2.0); EOS % 3.6 % (0-4.5); HEMOGLOBIN 9.4 GM/dL (11.7-16.9); LYMPH % 19.9 % (8-40); MCH 30.1 pg (25.7-33.7); MCHC 32.5 g/dl (32.0-35.9); MEAN CELL VOLUME 92.4 fl (80-96); MEAN PLT VOLUME 8.7 fl (7.5-11.1); NEUT % 61.8 % (42.8-82.8); PLATELET COUNT 132 K/MM3 (134-434); RBC 3.14 M/mm3 (4.00-5.60); RDW 16.8 % (11.9-15.9); WHITE BLOOD COUNT 6.3 K/mm3 (4.0-10.0)
[2019-03-18 14:29] LABS: BLOOD UREA NITROGEN 32.5 mg/dL (7-18); CALCIUM 7.4 mg/dL (8.5-10.1); CREATININE 5.2 mg/dL (0.55-1.3)
--- NOTE | 2019-03-18 14:45 | PN ---
Physical Exam: SUBJECTIVE: Patient seen and examined.Pt offered no complaints. OBJECTIVE: Vital Signs Period Temp Pulse Resp BP Sys/Bo Pulse Ox Last 24 Hr 97.5 F-98.4 F 57-62 18-20 124-150/52-70 GENERAL: The patient is awake, alert, AOOx3, in no acute distress. HEAD: Normal with no signs of trauma. EYES: PERRL, extraocular movements intact, sclera anicteric, conjunctiva clear. No ptosis. ENT: oropharynx clear without exudates, moist mucous membranes. LUNGS: Breath sounds equal, clear to auscultation bilaterally, no wheezes, no crackles, no accessory muscle use. HEART: Regular rate and rhythm, S1, S2 without murmur, rub or gallop. ABDOMEN: Soft, nontender, nondistended, normoactive bowel sounds, no guarding, no rebound, no hepatosplenomegaly, no masses. EXTREMITIES: 2+ pulses, warm, well-perfused, no edema. SKIN: Warm, dry, normal turgor. BLACK LESION IN BACK OF NEG WITH 2 COLOR TONE BUT <6MM Laboratory Results - last 24 hr 03/17/19 03/17/19 03/18/19 16:13 21:47 06:01 WBC RBC Hgb Hct MCV MCH MCHC RDW Plt Count MPV Absolute Neuts (auto) Neutrophils % Lymphocytes % Monocytes % Eosinophils % Basophils % Nucleated RBC % Sodium Potassium Chloride Carbon Dioxide Anion Gap BUN Creatinine Est GFR (CKD-EPI)AfAm Est GFR (CKD-EPI)NonAf POC Glucometer 137 213 108 Random Glucose Calcium 03/18/19 03/18/19 03/18/19 12:13 13:35 13:35 WBC 6.3 RBC 3.14 L Hgb 9.4 L Hct 29.0 L MCV 92.4 MCH 30.1 MCHC 32.5 RDW 16.8 H Plt Count 132 L MPV 8.7 Absolute Neuts (auto) 3.9 Neutrophils % 61.8 Lymphocytes % 19.9 Monocytes % 14.0 H Eosinophils % 3.6 D Basophils % 0.7 Nucleated RBC % 0 Sodium 136 Potassium 4.0 Chloride 99 Carbon Dioxide 29 Anion Gap 8 BUN 32.5 H Creatinine 5.2 H Est GFR (CKD-EPI)AfAm 11.25 Est GFR (CKD-EPI)NonAf 9.71 POC Glucometer 192 Random Glucose 235 H Calcium 7.4 L Active Medications Generic Name Dose Route Start Last Admin Trade Name Derek PRN Reason Stop Dose Admin Aspirin 81 mg 03/16/19 14:00 03/18/19 09:47 Ecotrin - PO 81 mg DAILY ROB Administration Calcium Acetate 667 mg 03/13/19 12:00 03/18/19 12:33 Phoslo - PO 667 mg TIDCM ROB Administration Docusate Sodium 100 mg 03/16/19 14:00 03/18/19 05:42 Colace - PO 100 mg TID ROB Administration Ferrous Sulfate 325 mg 03/17/19 22:00 03/18/19 09:47 Feosol - PO 325 mg BID ROB Administration Fluticasone Propionate 1 spray 03/16/19 14:00 03/17/19 11:04 Flonase - NS 1 spray DAILY ROB Administration Furosemide 80 mg 03/14/19 10:00 03/18/19 10:57 Lasix - PO 80 mg DAILY ROB Administration Gabapentin 100 mg 03/16/19 22:00 03/17/19 21:39 Neurontin - PO 100 mg HS ROB Administration Heparin Sodium (Porcine) 5,000 unit 03/13/19 14:00 03/18/19 06:04 Heparin - SQ 5,000 unit TID ROB Administration Hydralazine HCl 25 mg 03/13/19 22:00 03/18/19 10:57 Apresoline - PO 25 mg BID ROB Administration Sodium Chloride 250 mls @ 3,000 mls/hr 03/18/19 12:57 Normal Saline - IV 03/19/19 12:57 PRN PRN Hypotension during Dialysis Insulin Aspart 1 vial 03/13/19 11:00 03/18/19 12:33 Novolog Vial Sliding Scale - SQ 2 units ACHS ROB Administration Protocol Metoprolol Succinate 100 mg 03/14/19 10:00 03/18/19 10:57 Toprol Xl - PO 100 mg DAILY ROB Administration ASSESSMENT/PLAN: 78 y.o. M PMH HTN,diastolic CHF, CKD stage 5 w/ ESRD (initially refusing dialysis), anemia, L sided hearing loss presenting w/ AMS and SOB. Fluid overload likely 2/2 advanced renal disease Pt had @ HD session so far. HD today next scheduled for saturday mentation significantly improved. Lasix, phoslo Strict Is & Os O/p HD TTS pending Hepatitis A and B panel sent and hep C 0.1 o/p ppd on D/C Hyperkalemia resolved monitor BMP Acute toxic metabolic encephalopathy resolved AOx3-cont neuro check HTN On hydralazine 25mg BID, metoprolol 100mg daily Normocytic anemia iron studies Fe 66,TIBC 286, Iron sat 23, Unsat IBC 220, transferrin 206, ferritin 29.6 FOBT negative epogen given during HD DM ISS BG has been in 190s and 200s. add other agent? DVT PPX Heparin SQ Visit type - Emergency Visit Emergency Visit: Yes ED Registration Date: 03/11/19 Care time: The patient presented to the Emergency Department on the above date and was hospitalized for further evaluation of their emergent condition. - New Patient This patient is new to me today: No - Critical Care Critical Care patient: No - Discharge Referral Referred to [facility] Med P.C.: No ATTENDING PHYSICIAN STATEMENT I saw and evaluated the patient. I reviewed the resident's note and discussed the case with the resident. I agree with the resident's findings and plan as documented. SUBJECTIVE: OBJECTIVE: ASSESSMENT AND PLAN:
[2019-03-18 15:26] VITALS: BMI 24.8
[2019-03-18] MEDS: FLUTICASONE PROP 0.05% 16 GM NASAL SPRAY NS SCH (17:30)
--- NOTE | 2019-03-18 18:32 | PN ---
Teaching Attending Note Name of Resident: Giovana Christianson ATTENDING PHYSICIAN STATEMENT I saw and evaluated the patient. I reviewed the resident's note and discussed the case with the resident. I agree with the resident's findings and plan as documented. SUBJECTIVE: No fever or chills. NO SOB OBJECTIVE: NAd Cv : RRR, 3/6 Sm at RUSB with radiation to carotid . Lungs: CTAB Ext: no edema or erythema Abd: soft, NT, ND , NL BS permacath site is clean with no erythema. ASSESSMENT AND PLAN: 78 y/o man with h/o CKD 5, DM , HTN, anemia, who presented with AMs and SOB and he was found to be uremic, anemic , and hyperkalemic 1- ESRD: s/p permacath in place. HD today cont epo with HD cont po lasix daily for volume management follow Hep B serology 2- H/o HTN:cont HZN and metoprolol 3- DM : cont SSI . resume Januvia 4- Chronic normocytic anemia: cont iron sulfate and epo with HD. DVT Px: heparin sq
[2019-03-18] MEDS: GABAPENTIN 100 MG CAPSULE (FP) PO SCH (21:11)
[2019-03-19] MEDS: INSULIN SLIDING SCALE (NOVOLOG) 1 VIAL SQ SCH ×4 (06:16→22:21)
[2019-03-19] MEDS: DOCUSATE SODIUM 100 MG CAPSULE (FP) PO SCH ×3 (06:17→22:20)
[2019-03-19] MEDS: sitaGLIPtin PHOSPHATE 50 MG TABLET PO SCH (06:17)
[2019-03-19] MEDS: HEPARIN NA (PORCINE) 5,000 UNITS/ML 1ML VIAL SQ SCH ×3 (06:17→22:21)
--- NOTE | 2019-03-19 09:00 | PN ---
Teaching Attending Note Name of Resident: Giovana Christianson ATTENDING PHYSICIAN STATEMENT I saw and evaluated the patient. I reviewed the resident's note and discussed the case with the resident. I agree with the resident's findings and plan as documented. SUBJECTIVE: no pain , no fever or chills. No COLLINS . No SOB , no CP . no cough. OBJECTIVE: NAd Cv : RRR, 3/6 Sm at RUSB with radiation to carotid . Lungs: CTAB Ext: no edema or erythema on upper or lower extremities Permacath site is clean with no erythema. ASSESSMENT AND PLAN: 78 y/o man with h/o CKD 5, DM , HTN, anemia, who presented with AMs and SOB and he was found to be uremic, anemic , and hyperkalemic 1- ESRD: s/p permacath in place. next Hd on Saturday Cont Epo with HD Cont po lasix daily for volume management. follow Hep B serology. 2- H/o HTN: cont HZN and metoprolol 3- DM: cont SSI. cont Januvia 4- Chronic normocytic anemia: cont iron sulfate and Epo with HD. DVT Px: heparin sq Dispo: depends on out pt HD arrangements.
[2019-03-19] MEDS: CALCIUM ACETATE 667 MG CAPSULE (FP) PO SCH ×3 (09:16→17:56)
--- NOTE | 2019-03-19 11:11 | PN ---
Physical Exam: SUBJECTIVE: Patient seen and examined. pt offered no complaints OBJECTIVE: Vital Signs Period Temp Pulse Resp BP Sys/Bo Pulse Ox Last 24 Hr 98.1 F-98.3 F 60-63 18-20 113-154/48-59 95 GENERAL: The patient is awake, alert, AOOx3, in no acute distress. HEAD: Normal with no signs of trauma. EYES: PERRL, extraocular movements intact, sclera anicteric, conjunctiva clear. No ptosis. ENT: oropharynx clear without exudates, moist mucous membranes. LUNGS: Breath sounds equal, clear to auscultation bilaterally, no wheezes, no crackles, no accessory muscle use. HEART: Regular rate and rhythm, S1, S2 without murmur, rub or gallop. ABDOMEN: Soft, nontender, nondistended, normoactive bowel sounds, no guarding, no rebound, no hepatosplenomegaly, no masses. EXTREMITIES: 2+ pulses, warm, well-perfused, no edema. SKIN: Warm, dry, normal turgor. BLACK LESION IN BACK OF NEG WITH 2 COLOR TONE BUT <6MM Laboratory Results - last 24 hr 03/13/19 03/18/19 03/18/19 12:30 12:13 13:35 WBC 6.3 RBC 3.14 L Hgb 9.4 L Hct 29.0 L MCV 92.4 MCH 30.1 MCHC 32.5 RDW 16.8 H Plt Count 132 L MPV 8.7 Absolute Neuts (auto) 3.9 Neutrophils % 61.8 Lymphocytes % 19.9 Monocytes % 14.0 H Eosinophils % 3.6 D Basophils % 0.7 Nucleated RBC % 0 Sodium Potassium Chloride Carbon Dioxide Anion Gap BUN Creatinine Est GFR (CKD-EPI)AfAm Est GFR (CKD-EPI)NonAf POC Glucometer 192 Random Glucose Calcium Hep Bs Antigen Negative Hep B Core Ab Interpret Negative 03/18/19 03/18/19 03/18/19 13:35 17:24 21:09 WBC RBC Hgb Hct MCV MCH MCHC RDW Plt Count MPV Absolute Neuts (auto) Neutrophils % Lymphocytes % Monocytes % Eosinophils % Basophils % Nucleated RBC % Sodium 136 Potassium 4.0 Chloride 99 Carbon Dioxide 29 Anion Gap 8 BUN 32.5 H Creatinine 5.2 H Est GFR (CKD-EPI)AfAm 11.25 Est GFR (CKD-EPI)NonAf 9.71 POC Glucometer 156 201 Random Glucose 235 H Calcium 7.4 L Hep Bs Antigen Hep B Core Ab Interpret 03/19/19 05:36 WBC RBC Hgb Hct MCV MCH MCHC RDW Plt Count MPV Absolute Neuts (auto) Neutrophils % Lymphocytes % Monocytes % Eosinophils % Basophils % Nucleated RBC % Sodium Potassium Chloride Carbon Dioxide Anion Gap BUN Creatinine Est GFR (CKD-EPI)AfAm Est GFR (CKD-EPI)NonAf POC Glucometer 118 Random Glucose Calcium Hep Bs Antigen Hep B Core Ab Interpret Active Medications Generic Name Dose Route Start Last Admin Trade Name Freq PRN Reason Stop Dose Admin Aspirin 81 mg 03/16/19 14:00 03/18/19 09:47 Ecotrin - PO 81 mg DAILY ROB Administration Calcium Acetate 667 mg 03/13/19 12:00 03/19/19 09:16 Phoslo - PO 667 mg TIDCM ROB Administration Docusate Sodium 100 mg 03/16/19 14:00 03/19/19 06:17 Colace - PO 100 mg TID ROB Administration Ferrous Sulfate 325 mg 03/17/19 22:00 03/18/19 21:11 Feosol - PO 325 mg BID ROB Administration Fluticasone Propionate 1 spray 03/16/19 14:00 03/18/19 17:30 Flonase - NS 1 spray DAILY ROB Administration Furosemide 80 mg 03/14/19 10:00 03/18/19 10:57 Lasix - PO 80 mg DAILY ROB Administration Gabapentin 100 mg 03/16/19 22:00 03/18/19 21:11 Neurontin - PO 100 mg HS ROB Administration Heparin Sodium (Porcine) 5,000 unit 03/13/19 14:00 03/19/19 06:17 Heparin - SQ 5,000 unit TID ROB Administration Hydralazine HCl 25 mg 03/13/19 22:00 03/18/19 21:12 Apresoline - PO 25 mg BID ROB Administration Sodium Chloride 250 mls @ 3,000 mls/hr 03/18/19 12:57 Normal Saline - IV 03/19/19 12:57 PRN PRN Hypotension during Dialysis Insulin Aspart 1 vial 03/13/19 11:00 03/19/19 06:16 Novolog Vial Sliding Scale - SQ Not Given ACHS ROB Protocol Metoprolol Succinate 100 mg 03/14/19 10:00 03/18/19 10:57 Toprol Xl - PO 100 mg DAILY ROB Administration Sitagliptin Phosphate 50 mg 03/19/19 07:00 03/19/19 06:17 Januvia - PO 50 mg AM ROB Administration ASSESSMENT/PLAN: 78 y.o. M PMH HTN,diastolic CHF, CKD stage 5 w/ ESRD (initially refusing dialysis), anemia, L sided hearing loss presenting w/ AMS and SOB. Fluid overload likely 2/2 advanced renal disease Pt had HD yesterday next scheduled for saturday mentation significantly improved. Lasix, phoslo Strict Is & Os O/p HD TTS pending Hepatitis A and B panel sent and hep C 0.1 o/p ppd on D/C Hyperkalemia resolved monitor BMP Acute toxic metabolic encephalopathy resolved AOx3-cont neuro check HTN On hydralazine 25mg BID, metoprolol 100mg daily Normocytic anemia & Thrombocytopenia Anemia: Iron sulfate & epogen given during HD Thrombocytopenia: after chart review pt was always in the low 200s and upper 100s (190s). Possibly related to HD? DM ISS BG initially running high. home med Januvia restarted DVT PPX Heparin SQ Visit type - Emergency Visit Emergency Visit: Yes ED Registration Date: 03/11/19 Care time: The patient presented to the Emergency Department on the above date and was hospitalized for further evaluation of their emergent condition. - New Patient This patient is new to me today: No - Critical Care Critical Care patient: No - Discharge Referral Referred to [facility] Med P.C.: No ATTENDING PHYSICIAN STATEMENT I saw and evaluated the patient. I reviewed the resident's note and discussed the case with the resident. I agree with the resident's findings and plan as documented. SUBJECTIVE: OBJECTIVE: ASSESSMENT AND PLAN:
[2019-03-19] MEDS: FERROUS SO4 325 MG TABLET (FP) PO SCH ×2 (11:14→22:20)
[2019-03-19] MEDS: FUROSEMIDE 40 MG TABLET (FP) PO SCH (11:14)
[2019-03-19] MEDS: ASPIRIN COATED 81 MG TABLET.EC PO SCH (11:14)
[2019-03-19] MEDS: hydrALAZINE HCL 25 MG TABLET (FP) PO SCH ×2 (11:14→22:20)
[2019-03-19] MEDS: FLUTICASONE PROP 0.05% 16 GM NASAL SPRAY NS SCH (11:15)
[2019-03-19] MEDS ORDERED: INSULIN (NOVOLOG) ASPART 100 UNITS/ML 10ML VIAL ONE ×2 (11:37→17:00)
--- NOTE | 2019-03-19 18:23 | PN ---
Progress Note (short form) - Note Progress Note: Renal follow up for CKD stage 5/ESRD Seen and examined at the bedside no acute complaints Vital Signs Temperature 98.5 F 03/19/19 17:18 Pulse Rate 63 03/19/19 17:18 Respiratory Rate 20 03/19/19 17:18 Blood Pressure 152/68 03/19/19 17:18 O2 Sat by Pulse Oximetry (%) 97 03/19/19 09:00 Intake & Output 03/16/19 03/17/19 03/18/19 03/19/19 23:59 23:59 23:59 23:59 Intake Total 6647 216 3567 750 Output Total 3000 500 Balance -7053 975 9727 750 Weight 78.245 kg 78.562 kg 78.471 kg 78.5 kg NAD awake and alert RRR CTA no LE edema CBC, BMP 03/18/19 13:35 03/18/19 13:35 Current Medications Aspirin (Ecotrin -) 81 mg PO DAILY [facility] Last Admin: 03/19/19 11:14 Dose: 81 mg Calcium Acetate (Phoslo -) 667 mg PO TIDCM [facility] Last Admin: 03/19/19 17:56 Dose: 667 mg Docusate Sodium (Colace -) 100 mg PO TID [facility] Last Admin: 03/19/19 14:44 Dose: 100 mg Ferrous Sulfate (Feosol -) 325 mg PO BID [facility] Last Admin: 03/19/19 11:14 Dose: 325 mg Fluticasone Propionate (Flonase -) 1 spray NS DAILY [facility] Last Admin: 03/19/19 11:15 Dose: 1 spray Furosemide (Lasix -) 80 mg PO DAILY [facility] Last Admin: 03/19/19 11:14 Dose: 80 mg Gabapentin (Neurontin -) 100 mg PO HS [facility] Last Admin: 03/18/19 21:11 Dose: 100 mg Heparin Sodium (Porcine) (Heparin -) 5,000 unit SQ TID [facility] Last Admin: 03/19/19 14:43 Dose: 5,000 unit Hydralazine HCl (Apresoline -) 25 mg PO BID [facility] Last Admin: 03/19/19 11:14 Dose: 25 mg Insulin Aspart (Novolog Vial Sliding Scale -) 1 vial SQ [facility]; Protocol Last Admin: 03/19/19 16:40 Dose: 4 units Metoprolol Succinate (Toprol Xl -) 100 mg PO DAILY [facility] Last Admin: 03/19/19 11:14 Dose: 100 mg Sitagliptin Phosphate (Januvia -) 50 mg PO AM [facility] Last Admin: 03/19/19 06:17 Dose: 50 mg 78 year old gentleman with history of CKD stage 5, DM type 2, hypertension, hearing loss, chronic anemia who was sent to the ED from our office with altered mental status, shortness of breath and generalized weakness. 1. CKD stage 5 now ESRD requiring dialysis 2. CKD related Anemia 3. Metabolic acidosis 4. Hypertension 5. CHF/Fluid overload 6. DM Type 2 for HD tomorrow and then planned D/c continue JOSE DAVID with HD for anemia renal diet Slava Gloria DO
[2019-03-19] MEDS: GABAPENTIN 100 MG CAPSULE (FP) PO SCH (22:20)
[2019-03-20] MEDS: DOCUSATE SODIUM 100 MG CAPSULE (FP) PO SCH ×2 (06:36→14:00)
[2019-03-20] MEDS: sitaGLIPtin PHOSPHATE 50 MG TABLET PO SCH (06:36)
[2019-03-20] MEDS: HEPARIN NA (PORCINE) 5,000 UNITS/ML 1ML VIAL SQ SCH (06:37)
[2019-03-20] MEDS: INSULIN SLIDING SCALE (NOVOLOG) 1 VIAL SQ SCH ×3 (06:39→18:00)
[2019-03-20] MEDS: CALCIUM ACETATE 667 MG CAPSULE (FP) PO SCH ×3 (08:55→18:02)
[2019-03-20] MEDS: FUROSEMIDE 40 MG TABLET (FP) PO SCH (10:15)
[2019-03-20] MEDS: hydrALAZINE HCL 25 MG TABLET (FP) PO SCH (10:15)
[2019-03-20] MEDS: FERROUS SO4 325 MG TABLET (FP) PO SCH (10:15)
[2019-03-20] MEDS: ASPIRIN COATED 81 MG TABLET.EC PO SCH (10:16)
[2019-03-20] MEDS: FLUTICASONE PROP 0.05% 16 GM NASAL SPRAY NS SCH (10:17)
[2019-03-20] MEDS ORDERED: SODIUM CHLORIDE 250 ML IV PRN ×2 (11:22→18:23)
[2019-03-20] MEDS ORDERED: EPOETIN ALFA 10,000 UNIT/1 ML VIAL IVPUSH ONE (11:30)
[2019-03-20 11:45] LABS: HEMATOCRIT 27.9 % (35.4-49); MCH 30.4 pg (25.7-33.7); MCHC 32.4 g/dl (32.0-35.9); MEAN CELL VOLUME 93.8 fl (80-96); MEAN PLT VOLUME 9.4 fl (7.5-11.1); PLATELET COUNT 123 K/MM3 (134-434); RBC 2.97 M/mm3 (4.00-5.60); WHITE BLOOD COUNT 7.5 K/mm3 (4.0-10.0)
[2019-03-20 12:23] LABS: CALCIUM 7.6 mg/dL (8.5-10.1); CREATININE 4.3 mg/dL (0.55-1.3); PHOSPHOROUS 2.7 mg/dL (2.5-4.9); POTASSIUM 3.8 mmol/L (3.5-5.1)
--- NOTE | 2019-03-20 14:06 | PN ---
Physical Exam: SUBJECTIVE: Patient seen and examined OBJECTIVE: Vital Signs Period Temp Pulse Resp BP Sys/Bo Pulse Ox Last 24 Hr 97.9 F-98.5 F 58-69 18-20 119-192/47-73 97 GENERAL: The patient is awake, alert, and fully oriented, in no acute distress. HEAD: Normal with no signs of trauma. EYES: PERRL, extraocular movements intact, sclera anicteric, conjunctiva clear. No ptosis. ENT: Ears normal, nares patent, oropharynx clear without exudates, moist mucous membranes. NECK: Trachea midline, full range of motion, supple. LUNGS: Breath sounds equal, clear to auscultation bilaterally, no wheezes, no crackles, no accessory muscle use. HEART: Regular rate and rhythm, S1, S2 without murmur, rub or gallop. ABDOMEN: Soft, nontender, nondistended, normoactive bowel sounds, no guarding, no rebound, no hepatosplenomegaly, no masses. EXTREMITIES: 2+ pulses, warm, well-perfused, no edema. NEUROLOGICAL: Cranial nerves II through XII grossly intact. Normal speech, gait not observed. PSYCH: Normal mood, normal affect. SKIN: Warm, dry, normal turgor, no rashes or lesions noted Laboratory Results - last 24 hr 03/13/19 03/16/19 03/18/19 12:30 12:50 13:35 WBC RBC Hgb Hct MCV MCH MCHC RDW Plt Count MPV Sodium Potassium Chloride Carbon Dioxide Anion Gap BUN Creatinine Est GFR (CKD-EPI)AfAm Est GFR (CKD-EPI)NonAf POC Glucometer Random Glucose Calcium Phosphorus Hep Bs Antibody, Quant Hep B Core IgM Ab Negative Hepatitis Be Antibody Negative Crossmatch See Detail 03/18/19 03/19/19 03/19/19 13:35 16:34 22:18 WBC RBC Hgb Hct MCV MCH MCHC RDW Plt Count MPV Sodium Potassium Chloride Carbon Dioxide Anion Gap BUN Creatinine Est GFR (CKD-EPI)AfAm Est GFR (CKD-EPI)NonAf POC Glucometer 211 236 Random Glucose Calcium Phosphorus Hep Bs Antibody, Quant <3.1 L Hep B Core IgM Ab Hepatitis Be Antibody Crossmatch 03/20/19 03/20/19 03/20/19 06:38 11:10 11:10 WBC 7.5 RBC 2.97 L Hgb 9.0 L Hct 27.9 L MCV 93.8 MCH 30.4 MCHC 32.4 RDW 17.0 H Plt Count 123 L MPV 9.4 Sodium 140 Potassium 3.8 Chloride 103 Carbon Dioxide 29 Anion Gap 8 BUN 34.0 H Creatinine 4.3 H Est GFR (CKD-EPI)AfAm 14.16 Est GFR (CKD-EPI)NonAf 12.22 POC Glucometer 146 Random Glucose 233 H Calcium 7.6 L Phosphorus 2.7 Hep Bs Antibody, Quant Hep B Core IgM Ab Hepatitis Be Antibody Crossmatch 03/20/19 11:47 WBC RBC Hgb Hct MCV MCH MCHC RDW Plt Count MPV Sodium Potassium Chloride Carbon Dioxide Anion Gap BUN Creatinine Est GFR (CKD-EPI)AfAm Est GFR (CKD-EPI)NonAf POC Glucometer 209 Random Glucose Calcium Phosphorus Hep Bs Antibody, Quant Hep B Core IgM Ab Hepatitis Be Antibody Crossmatch Active Medications Generic Name Dose Route Start Last Admin Trade Name Freq PRN Reason Stop Dose Admin Aspirin 81 mg 03/16/19 14:00 03/20/19 10:16 Ecotrin - PO 81 mg DAILY ROB Administration Calcium Acetate 667 mg 03/13/19 12:00 03/19/19 17:56 Phoslo - PO 667 mg TIDCM ROB Administration Docusate Sodium 100 mg 03/16/19 14:00 03/20/19 06:36 Colace - PO 100 mg TID ROB Administration Ferrous Sulfate 325 mg 03/17/19 22:00 03/20/19 10:15 Feosol - PO 325 mg BID ROB Administration Fluticasone Propionate 1 spray 03/16/19 14:00 03/20/19 10:17 Flonase - NS 1 spray DAILY ROB Administration Furosemide 80 mg 03/14/19 10:00 03/20/19 10:15 Lasix - PO 80 mg DAILY ROB Administration Gabapentin 100 mg 03/16/19 22:00 03/19/19 22:20 Neurontin - PO 100 mg HS ROB Administration Hydralazine HCl 25 mg 03/13/19 22:00 03/20/19 10:15 Apresoline - PO 25 mg BID ROB Administration Sodium Chloride 250 mls @ 3,000 mls/hr 03/20/19 18:23 Normal Saline - IV 03/20/19 18:24 PRN PRN Hypotension during Dialysis Insulin Aspart 1 vial 03/13/19 11:00 03/20/19 06:39 Novolog Vial Sliding Scale - SQ Not Given ACHS ROB Protocol Metoprolol Succinate 100 mg 03/14/19 10:00 03/20/19 10:16 Toprol Xl - PO 100 mg DAILY ROB Administration Sitagliptin Phosphate 50 mg 03/19/19 07:00 03/20/19 06:36 Januvia - PO 50 mg AM ORB Administration ASSESSMENT/PLAN: ATTENDING PHYSICIAN STATEMENT I saw and evaluated the patient. I reviewed the resident's note and discussed the case with the resident. I agree with the resident's findings and plan as documented. SUBJECTIVE: OBJECTIVE: ASSESSMENT AND PLAN:
[2019-03-20 15:14] VITALS: BP 107/52; PULSE 86; TEMP 98.3
--- NOTE | 2019-03-20 16:04 | PN ---
Teaching Attending Note Name of Resident: Rashard Veliz ATTENDING PHYSICIAN STATEMENT I saw and evaluated the patient. I reviewed the resident's note and discussed the case with the resident. I agree with the resident's findings and plan as documented. SUBJECTIVE: No fever or chills. no COLLINS . No CP or SOB OBJECTIVE: NAd Cv : RRR, 3/6 SM at RUSB with radiation to carotid . Lungs: CTAB. Ext: no edema or erythema on upper or lower extremities. Permacath site is clean with no erythema. ASSESSMENT AND PLAN: 78 y/o man with h/o CKD 5, DM , HTN, anemia, who presented with AMs and SOB and he was found to be uremic, anemic , and hyperkalemic 1- ESRD: s/p permacath in place. next Hd Saturday at 10:30 in [facility] dialyisis derwent Cont Epo with HD Cont po lasix daily for volume management. hep B serology reviewed by dr. Gloria 2- H/o HTN: cont HZN and metoprolol 3- DM: cont Januvia at dc 4- Chronic normocytic anemia: cont iron sulfate and Epo with HD. DC home today
--- NOTE | 2019-03-20 17:09 | PN ---
Progress Note (short form) - Note Progress Note: Renal follow up for CKD stage 5/ESRD Seen and examined during dialysis catheter with good blood flow BP stable, UF goal 1L pt without any acute complaints Vital Signs Temperature 98.3 F 03/20/19 15:13 Pulse Rate 86 03/20/19 15:13 Respiratory Rate 20 03/20/19 15:13 Blood Pressure 107/52 L 03/20/19 15:13 O2 Sat by Pulse Oximetry (%) 97 03/20/19 09:00 NAD awake and alert RRR CTA no LE edema CBC, BMP 03/20/19 11:10 03/20/19 11:10 Current Medications Aspirin (Ecotrin -) 81 mg PO DAILY [facility] Last Admin: 03/20/19 10:16 Dose: 81 mg Calcium Acetate (Phoslo -) 667 mg PO TIDCM [facility] Last Admin: 03/20/19 12:55 Dose: Not Given Docusate Sodium (Colace -) 100 mg PO TID [facility] Last Admin: 03/20/19 06:36 Dose: 100 mg Ferrous Sulfate (Feosol -) 325 mg PO BID [facility] Last Admin: 03/20/19 10:15 Dose: 325 mg Fluticasone Propionate (Flonase -) 1 spray NS DAILY [facility] Last Admin: 03/20/19 10:17 Dose: 1 spray Furosemide (Lasix -) 80 mg PO DAILY [facility] Last Admin: 03/20/19 10:15 Dose: 80 mg Gabapentin (Neurontin -) 100 mg PO HS [facility] Last Admin: 03/19/19 22:20 Dose: 100 mg Hydralazine HCl (Apresoline -) 25 mg PO BID [facility] Last Admin: 03/20/19 10:15 Dose: 25 mg Sodium Chloride (Normal Saline -) 250 mls @ 3,000 mls/hr IV PRN PRN PRN Reason: Hypotension during Dialysis Stop: 03/20/19 18:24 Insulin Aspart (Novolog Vial Sliding Scale -) 1 vial SQ ACHS [facility]; Protocol Last Admin: 03/20/19 12:54 Dose: Not Given Metoprolol Succinate (Toprol Xl -) 100 mg PO DAILY [facility] Last Admin: 03/20/19 10:16 Dose: 100 mg Sitagliptin Phosphate (Januvia -) 50 mg PO AM [facility] Last Admin: 03/20/19 06:36 Dose: 50 mg 78 year old gentleman with history of CKD stage 5, DM type 2, hypertension, hearing loss, chronic anemia who was sent to the ED from our office with altered mental status, shortness of breath and generalized weakness. 1. CKD stage 5 now ESRD requiring dialysis 2. CKD related Anemia 3. Metabolic acidosis 4. Hypertension 5. CHF/Fluid overload 6. DM Type 2 tolerated HD well this morning. outpatient dialysis is arranged and he will have his next treatment on Saturday at 10:30 AM at [facility] dialysis. Continue Lasix and hydralazine. Renal diet Instructed patient to keep dialysis catheter site dry and clean. Stable for discharge Slava Gloria DO
[2019-03-20 21:08] LABS: HEP B CORE AB, TOT Negative (Negative)
--- NOTE | 2019-03-24 18:26 | DS ---
Physical Exam: SUBJECTIVE: Patient seen and examined. Pt. denies any acute complaints today. Pt. asking when he can go home. OBJECTIVE: PHYSICAL EXAM GENERAL: The patient is awake, alert, and fully oriented, in no acute distress. HEAD: Normal with no signs of trauma. EYES: Sclera anicteric, conjunctiva clear. ENT: Ears normal, nares patent, oropharynx clear without exudates, moist mucous membranes. LUNGS: Breath sounds equal, clear to auscultation bilaterally, no wheezes, no crackles, no accessory muscle use. HEART: Regular rate and rhythm, S1, S2 ABDOMEN: Soft, nontender, nondistended, normoactive bowel sounds EXTREMITIES: 2+ dorsal pedal pulses, warm, well-perfused, no edema. NEUROLOGICAL: Cranial nerves II through XII grossly intact. Normal speech, gait not observed. PSYCH: Normal mood, normal affect. SKIN: Warm, dry, normal turgor, no rashes or lesions noted. LABS HOSPITAL COURSE: Date of Admission:03/11/19 Date of Discharge: 03/24/19 Pt. is a 78 y.o. w/ PMHx. of HTN, CHF, CKD stage 4 w/ ESRD (refusing dialysis), anemia, L. sided hearing loss presented from nephrology clinic with altered mental status, generalized weakness and SOB. Head CT was negative. CXR unremarkable for acute pathology. UA was negative for infection. Nephrology consult was appreciated by Dr. Gloria. Pt. was convinced to begin hemodialysis and underwent multiple rounds of HD with pRBCs transfusions after having Permacath placed by appreciated vascular surgery consult, Dr. Townsend. Pt. has RUE AV Fistula however it had not been used in over 3 years because of prior history of infection at [facility]. Hepatitis panel was sent and was negative. Hospital course was complicated because of social work issues in finding a HD center. Hospital course was discussed and agreed upon with Pt. and medical staff. Minutes to complete discharge: 35 Discharge Summary Problems reviewed: Yes Reason For Visit: SOB/ACUTE RENAL FAILURE Condition: Improved - Instructions Diet, Activity, Other Instructions: You came in for nausea, vomiting, confusion and shortness of breath. When we evaluated you we found that you also had electrolyte abnormalities because of kidney failure. We placed a catheter into you to give you hemodialysis. We treated you with multiple rounds of hemodialysis and transfused you with blood at the same time because you were anemic. You do NOT have Hepatitis A, B or C. We observed you in the hospital and arranged for you to have dialysis on Saturday , and Saturdays at [facility] at 10:30 AM. Please resume your home medications as prescribed. we increased your hydralazine from twice a day to a three times a day dosing . Please follow up with your PCP, Dr. Camargo, within 1 week Please follow up with your Paint Roller Assembler, Dr. Gloria within 1 week. Please return to the ED if you are having confusion, chest pain, shortness of breath, fever, chills or any concerning symptoms. Referrals: Sandro Camargo MD [Staff Physician] - 1 Week Slava Gloria MD [Staff Physician] - 1 Week Disposition: HOME - Home Medications Comprehensive Discharge Medication List: Ambulatory Orders Metoprolol Succinate [Toprol XL -] 100 mg PO DAILY 02/12/16 Ferrous Sulfate 325 mg PO TID 02/14/16 hydrALAZINE HCL [Apresoline -] 100 mg PO TID 01/29/17 Cyanocobalamin [Vitamin B12 -] 5,000 mcg PO DAILY 01/27/19 Fluticasone Prop 0.05% Nasal [Flonase -] 1 - 2 spray NS DAILY 01/27/19 Gabapentin [Neurontin -] 100 mg PO HS 01/27/19 Rosuvastatin Calcium [Crestor] 20 mg PO DAILY 01/27/19 Calcium Acetate [Phoslo -] 667 mg PO TIDCM #60 capsule 02/03/19 Sodium Bicarbonate - 650 mg PO BID #60 tablet 02/03/19 Aspirin [Ecotrin] 81 mg PO DAILY 03/12/19 Cholecalciferol (Vitamin D3) [D3-50] 50,000 unit PO WEEKLY 03/12/19 Docusate Sodium [Colace] 100 mg PO TID 03/12/19 Furosemide [Lasix -] 40 mg PO BID 03/12/19 Sitagliptin Phosphate [Januvia] 50 mg PO DAILY 03/12/19 This patient is new to me today: No Emergency Visit: Yes ED Registration Date: 03/11/19 Care time: The patient presented to the Emergency Department on the above date and was hospitalized for further evaluation of their emergent condition. Critical Care patient: No - Discharge Referral Referred to [facility] No ATTENDING PHYSICIAN STATEMENT I saw and evaluated the patient. I reviewed the resident's note and discussed the case with the resident. I agree with the resident's findings and plan as documented. SUBJECTIVE: OBJECTIVE: ASSESSMENT AND PLAN:
== END 2019-03-20 19:10 | disposition home or self-care (01) | DRG 291 ==
LOC: JER 16:24 → JERBED 18:21 → J5S 03-12 04:06
PROVIDERS: ADMIT Internal Medicine; ATTEND Internal Medicine
PROC: B548ZZA Ultrasonography of Superior Vena Cava, Guidance (ICD-10-PCS; 2019-03-13)
PROC: 5A1D70Z Performance of Urinary Filtration, Intermittent, Less than 6 Hours Per Day (ICD-10-PCS; 2019-03-13)
PROC: 30233N1 Transfusion of Nonautologous Red Blood Cells into Peripheral Vein, Percutaneous Approach (ICD-10-PCS; 2019-03-13)
PROC: 02HV33Z Insertion of Infusion Device into Superior Vena Cava, Percutaneous Approach (ICD-10-PCS; principal; 2019-03-13 10:30)
DX: I13.2 Hypertensive heart and chronic kidney disease with heart failure and with stage 5 chronic kidney disease, or end stage renal disease (principal); N18.6 End stage renal disease; G93.41 Metabolic encephalopathy; E87.2 Acidosis; I50.32 Chronic diastolic (congestive) heart failure; I50.9 Heart failure, unspecified; D64.9 Anemia, unspecified; E87.5 Hyperkalemia; E88.09 Other disorders of plasma-protein metabolism, not elsewhere classified; D63.1 Anemia in chronic kidney disease
CPT/HCPCS: 36415; 36430; 36511; 70450-TC; 71045-TC-FY; 76000-TC-FY; 80048; 80053; 81003; 82140; 82272; 82728; 82962; 83540; 83550; 83735; 83880; 84100; 84439; 84443; 84466; 84484; 85025; 85027; 85610; 85730; 86317; 86704; 86705; 86706; 86707; 86708; 86709; 86803; 86850; 86900; 86901; 86922; 87086; 87340; 93005; 93010; 94760; 99283-25; J0885; J1644; J1756; P9038; P9058

== ENCOUNTER 2019-03-24 15:36 | Inpatient (IN) | payer OTHER ==
--- NOTE | 2019-03-24 16:41 | PDOC ---
Attending Attestation - Resident Resident Name: Kasandra Herrera - ED Attending Attestation I have performed the following: I have examined & evaluated the patient, The case was reviewed & discussed with the resident, I agree w/resident's findings & plan, Exceptions are as noted - HPI HPI: 03/24/19 16:38 78 M with h/o HTN, CHF, CKD stage 4 w/ ESRD, anemia, L sided hearing loss, presenting to ED with clogged permacath. Pt states last HD was 4 days ago. Today , pt went to dialysis, but he was told his permacath had clotted. Pt denies any complaints at this time. - Physicial Exam PE: 03/24/19 16:40 "GENERAL: Awake, alert, and fully oriented, in no acute distress. HEAD: No signs of trauma EYES: PERRLA, EOMI, sclera anicteric, conjunctiva clear ENT: Auricles normal inspection, hearing grossly normal, nares patent, oropharynx clear without exudates. Moist mucosa NECK: Nontender, no stepoffs, Normal ROM, supple, no lymphadenopathy, JVD, or masses LUNGS: Breath sounds equal, clear to auscultation bilaterally. No wheezes, and no crackles HEART: Regular rate and rhythm, normal S1 and S2, no murmurs, rubs or gallops ABDOMEN: Soft, nontender, normoactive bowel sounds. No guarding, no rebound. No masses EXTREMITIES: Normal range of motion, no edema. No clubbing or cyanosis. No cords, erythema, or tenderness NEUROLOGICAL: Cranial nerves II through XII intact. 5/5 strength and sensation in all extremities, Normal speech, normal gait, normal cerebellar function SKIN: Warm, Dry, normal turgor, no rashes or lesions noted. - Medical Decision Making 03/24/19 16:40 78 M with malfunctioning permacath. - Labs - C/s Dr. Townsend, vascular
[2019-03-24 16:51] LABS: BASO % 0.9 % (0-2.0); EOS % 3.3 % (0-4.5); HEMATOCRIT 30.7 % (35.4-49); HEMOGLOBIN 9.8 GM/dL (11.7-16.9); LYMPH % 23.3 % (8-40); MCH 30.7 pg (25.7-33.7); MCHC 32.1 g/dl (32.0-35.9); MEAN CELL VOLUME 95.5 fl (80-96); MEAN PLT VOLUME 8.9 fl (7.5-11.1); NEUT % 56.5 % (42.8-82.8); PLATELET COUNT 178 K/MM3 (134-434); RBC 3.21 M/mm3 (4.00-5.60); RDW 18.1 % (11.9-15.9); WHITE BLOOD COUNT 4.9 K/mm3 (4.0-10.0)
--- NOTE | 2019-03-24 17:03 | PDOC ---
History of Present Illness - General Chief Complaint: Dialysis Shunt Problem Stated Complaint: Dialysis Shunt Problem Time Seen by Provider: 03/24/19 16:05 History Source: Patient Exam Limitations: No Limitations - History of Present Illness Initial Comments: 03/24/19 16:58 78y M with PMH of ESRD stage 5 starting HD, HTN, DM, Anemia, Neuropathy presenting to ED from dialysis for inability to access permacath. Permacath was placed last week. Patient was recently discharged from hospital 03/20 for AMS likely 2/2 uremia, hyperkalemia. He has a R AVF which has not been accessed for 3y due to an infection. Denies chest pain, sob, abdominal pain, swelling, fevers , chills, cough, lightheadedness. PMD: Renal: Crystal [place] Vasc: Kristian PMH: see hpi PSH: see hpi Meds: see med rec Allergies: ampicillin, clindamycin, sulbactam Past History - Past Medical History Allergies/Adverse Reactions: Allergies Allergy/AdvReac Type Severity Reaction Status Date / Time ampicillin [From Unasyn] AdvReac Rash Verified 01/27/19 22:44 clindamycin AdvReac Verified 01/27/19 22:44 sulbactam [From Unasyn] AdvReac Rash Verified 01/27/19 22:44 Home Medications: Ambulatory Orders Metoprolol Succinate [Toprol XL -] 100 mg PO DAILY 02/12/16 Ferrous Sulfate 325 mg PO TID 02/14/16 hydrALAZINE HCL [Apresoline -] 100 mg PO TID 01/29/17 Cyanocobalamin [Vitamin B12 -] 5,000 mcg PO DAILY 01/27/19 Fluticasone Prop 0.05% Nasal [Flonase -] 1 - 2 spray NS DAILY 01/27/19 Gabapentin [Neurontin -] 100 mg PO HS 01/27/19 Rosuvastatin Calcium [Crestor] 20 mg PO DAILY 01/27/19 Calcium Acetate [Phoslo -] 667 mg PO TIDCM #60 capsule 02/03/19 Sodium Bicarbonate - 650 mg PO BID #60 tablet 02/03/19 Aspirin [Ecotrin] 81 mg PO DAILY 03/12/19 Cholecalciferol (Vitamin D3) [D3-50] 50,000 unit PO WEEKLY 03/12/19 Docusate Sodium [Colace] 100 mg PO TID 03/12/19 Furosemide [Lasix -] 40 mg PO BID 03/12/19 Sitagliptin Phosphate [Januvia] 50 mg PO DAILY 03/12/19 Anemia: Yes Asthma: No Cancer: No Cardiac Disorders: (cad,) CVA: No COPD: No CHF: Yes Dementia: No Diabetes: Yes Dialysis: Yes (tue,charly,fri) GI Disorders: Yes (GERD) Disorders: No HTN: Yes Hypercholesterolemia: Yes Liver Disease: No Seizures: No Thyroid Disease: No - Surgical History Abdominal Surgery: No Appendectomy: No Cardiac Surgery: No Cholecystectomy: No Lung Surgery: No Neurologic Surgery: Yes (back sx) Orthopedic Surgery: Yes (left middle finger amputated.) - Immunization History Immunization Up to Date: Yes - Psycho Social/Smoking Cessation Hx Smoking History: Former smoker Have you smoked in the past 12 months: No Number of Cigarettes Smoked Daily: 10 If you are a former smoker, when did you quit?: 5 years ago Information on smoking cessation initiated: No Hx Alcohol Use: No Drug/Substance Use Hx: No Substance Use Type: None Hx Substance Use Treatment: No Review of Systems - Review of Systems Constitutional: No: Symptoms Reported HEENTM: No: Symptoms Reported Respiratory: No: Symptoms reported Cardiac (ROS): No: Symptoms Reported ABD/GI: No: Symptoms Reported : No: Symptoms Reported Musculoskeletal: No: Symptoms Reported Integumentary: No: Symptoms Reported Neurological: No: Symptoms reported *Physical Exam - Vital Signs Last Vital Signs Temp Pulse Resp BP Pulse Ox 97.4 F L 74 18 173/66 H 100 03/24/19 15:55 03/24/19 15:55 03/24/19 15:55 03/24/19 15:55 03/24/19 16:38 - Physical Exam General Appearance: Yes: Nourished, Appropriately Dressed. No: Apparent Distress HEENT: positive: EOMI, ANGELIA, Normal ENT Inspection Neck: positive: Trachea midline, Supple. negative: Decreased range of motion Respiratory/Chest: positive: Lungs Clear, Normal Breath Sounds, Other (L sided permacath). negative: Crackles, Rales, Rhonchi, Stridor, Wheezing Cardiovascular: positive: Regular Rhythm, Regular Rate, S1, S2. negative: Edema , JVD, Murmur Vascular Pulses: Dorsalis-Pedis (R): 2+, Doralis-Pedis (L): 2+ Gastrointestinal/Abdominal: positive: Normal Bowel Sounds, Soft. negative: Guarding, Rebound, Tenderness Musculoskeletal: negative: CVA Tenderness Extremity: positive: Normal Capillary Refill, Other (R AVF). negative: Pedal Edema, Swelling, Calf Tenderness Integumentary: positive: Normal Color, Dry, Warm Neurologic: positive: mobile solutions architect II-XII NML intact, Fully Oriented, Alert, Normal Mood/ Affect, Normal Response, Motor Strength 10/19 ED Treatment Course - LABORATORY CBC & Chemistry Diagram: 03/24/19 16:30 03/24/19 16:30 - ADDITIONAL ORDERS Additional order review: 03/24/19 16:30 RBC 3.21 L MCV 95.5 MCHC 32.1 RDW 18.1 H MPV 8.9 Neutrophils % 56.5 Lymphocytes % 23.3 Monocytes % 16.0 H Eosinophils % 3.3 Basophils % 0.9 - RADIOLOGY Radiology Studies Ordered: Category Date Time Status CHEST X-RAY PORTABLE* [RAD] Stat Radiology 03/24/19 16:19 Taken Medical Decision Making - Medical Decision Making 03/24/19 19:07 78y M with PMH of ESRD starting HD, Anemia, HTN presenting from dialysis center for failure to dialyze via permacath. No active complaints at this time. last HD was 03/20. vitals: hypertensive but no signs of stroke. denies cp, sob. will order labs to check electrolytes and ekg, cxr. ekg: nsr at 66bpm. normal intervals. no peaked T waves. no signs of ischemia. labs significant for Cr 6.2, H/H at baseline. Talked to Dr. Townsend who will follow patient in regards to permacath. Admitted med/surg for dialysis catheter failure Discharge - Discharge Information Problems reviewed: Yes Clinical Impression/Diagnosis: Dialysis catheter clot or failure CKD (chronic kidney disease) Qualifiers: Chronic kidney disease stage: stage 5, not on chronic dialysis Qualified Code(s ): N18.5 - Chronic kidney disease, stage 5 Condition: Stable - Follow up/Referral - Patient Discharge Instructions - Post Discharge Activity
[2019-03-24 17:16] LABS: ALBUMIN 2.4 g/dl (3.4-5.0); ALK PHOS 90 U/L (45-117); ANION GAP 10 MMOL/L (8-16); BILIRUBIN,TOTAL 0.3 mg/dL (0.2-1); BLOOD UREA NITROGEN 41.8 mg/dL (7-18); CALCIUM 7.4 mg/dL (8.5-10.1); CHLORIDE 111 mmol/L (98-107); CO2 22 mmol/L (21-32); CREATININE 6.2 mg/dL (0.55-1.3); GLUCOSE,RANDOM 137 mg/dL (74-106); POTASSIUM 4.6 mmol/L (3.5-5.1); SGOT/AST 23 U/L (15-37); SGPT/ALT 11 U/L (13-61); SODIUM 143 mmol/L (136-145); TOT PROT 5.4 g/dl (6.4-8.2)
[2019-03-24 17:18] LABS: INR 0.97 (0.83-1.09); PROTHROMBIN TIME (PATIENT) 11.5 SEC (9.7-13.0)
[2019-03-24] MEDS ORDERED: hydrALAZINE HCL 50 MG TABLET (FP) PO ONE (18:39)
--- NOTE | 2019-03-24 18:40 | HP ---
<Shay Butt - Last Filed: 03/24/19 19:43> CHIEF COMPLAINT: Permacath failure PCP: None (Previously Dr. Walter) Nephro: Dr. Radha Appiah Vascular: Dr. Eriberto Townsend HISTORY OF PRESENT ILLNESS: 78yo M with ESRD (t/t/S at [place] [facility]), HFpEF, HTN, T2DM who presents today from his dialysis center. Pt was recently discharged and at that time was seen for shortness of breath 2/2 ESRD. During this time he initiated dialysis and was sent home with outpatient dialysis after receiving a permacath. Pt reports he went to dialysis today per his regular schedule and when they went to draw off his permacath the machine did not work. As a result they had sent him here for evaluation. Pt reports he feels in his usual state of health and notes how he has chronic leg numbness. Otherwise he denies fever/ chills, n/v/d/c, cough, shortness of breath, chest pain, palpitations, abdominal pain, unusual weakness numbness or tingling, headaches. Of note pt had AVF in RUE placed at [facility] 2 years prior however had an infection which resulted in graft failure and inability to use fistula. 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 Back surgery ( with residual LExt numbness) Social History: Smoking: denies Alcohol: denies Drugs: denies Family History: Diabetes: Mother, Heart Disease: Father Allergies ampicillin [From Unasyn] Adverse Reaction (Verified 01/27/19 22:44) Rash clindamycin Adverse Reaction (Verified 01/27/19 22:44) sulbactam [From Unasyn] Adverse Reaction (Verified 01/27/19 22:44) Rash HOME MEDICATIONS: Home Medications Medication Instructions Recorded Metoprolol Succinate [Toprol XL -] 100 mg PO DAILY 02/12/16 Ferrous Sulfate 325 mg PO TID 02/14/16 hydrALAZINE HCL [Apresoline -] 100 mg PO TID 01/29/17 Cyanocobalamin [Vitamin B12 -] 5,000 mcg PO DAILY 01/27/19 Fluticasone Prop 0.05% Nasal 1 - 2 spray NS DAILY 01/27/19 [Flonase -] Gabapentin [Neurontin -] 100 mg PO HS 01/27/19 Rosuvastatin Calcium [Crestor] 20 mg PO DAILY 01/27/19 Calcium Acetate [Phoslo -] 667 mg PO TIDCM #60 capsule 02/03/19 Sodium Bicarbonate - 650 mg PO BID #60 tablet 02/03/19 Aspirin [Ecotrin] 81 mg PO DAILY 03/12/19 Cholecalciferol (Vitamin D3) 50,000 unit PO WEEKLY 03/12/19 [D3-50] Docusate Sodium [Colace] 100 mg PO TID 03/12/19 Furosemide [Lasix -] 40 mg PO BID 03/12/19 Sitagliptin Phosphate [Januvia] 50 mg PO DAILY 03/12/19 REVIEW OF SYSTEMS As per [facility] PHYSICAL EXAMINATION Vital Signs - 24 hr 03/24/19 03/24/19 15:55 16:38 Temperature 97.4 F L Pulse Rate 74 Respiratory 18 Rate Blood Pressure 173/66 H O2 Sat by Pulse 100 100 Oximetry (%) GENERAL: Awake, alert, and fully oriented, in no acute distress. HEENT: NC/AT, SANAM, sclera anicteric, MMM NECK: No JVD LUNGS: CTA bilaterally. No wheezes, and no crackles. No accessory muscle use. HEART: RRR, normal S1 and S2 without murmur ABDOMEN: Soft, NT/ND, normoactive bowel sounds, no guarding EXTREMITIES: RUE AVF palpable pulse, 2+ DP pulses, warm, well-perfused. No calf tenderness. No peripheral edema. NEUROLOGICAL: + symmetrical numbness in b/l lower extremities. strength intact PSYCHIATRIC: Cooperative. Good eye contact. Appropriate mood and affect. SKIN: Warm, dry, normal turgor, no rashes Laboratory Results - last 24 hr 03/24/19 03/24/19 03/24/19 16:30 16:30 16:30 WBC 4.9 RBC 3.21 L Hgb 9.8 L Hct 30.7 L MCV 95.5 MCH 30.7 MCHC 32.1 RDW 18.1 H Plt Count 178 D MPV 8.9 Absolute Neuts (auto) 2.8 Neutrophils % 56.5 Lymphocytes % 23.3 Monocytes % 16.0 H Eosinophils % 3.3 Basophils % 0.9 Nucleated RBC % 0 PT with INR INR Sodium 143 Potassium 4.6 Chloride 111 H Carbon Dioxide 22 Anion Gap 10 BUN 41.8 H Creatinine 6.2 H Est GFR (CKD-EPI)AfAm 9.10 Est GFR (CKD-EPI)NonAf 7.85 Random Glucose 137 H Calcium 7.4 L Magnesium 2.1 Total Bilirubin 0.3 AST 23 ALT 11 L Alkaline Phosphatase 90 Troponin I < 0.02 Total Protein 5.4 L Albumin 2.4 L 03/24/19 16:30 WBC RBC Hgb Hct MCV MCH MCHC RDW Plt Count MPV Absolute Neuts (auto) Neutrophils % Lymphocytes % Monocytes % Eosinophils % Basophils % Nucleated RBC % PT with INR 11.50 INR 0.97 Sodium Potassium Chloride Carbon Dioxide Anion Gap BUN Creatinine Est GFR (CKD-EPI)AfAm Est GFR (CKD-EPI)NonAf Random Glucose Calcium Magnesium Total Bilirubin AST ALT Alkaline Phosphatase Troponin I Total Protein Albumin Active Medications Gabapentin (Neurontin -) 100 mg PO HS ROB Hydralazine HCl (Apresoline -) 100 mg PO TID ROB Insulin Aspart (Novolog Vial Sliding Scale -) 1 vial SQ ACHS ROB; Protocol Metoprolol Succinate (Toprol Xl -) 100 mg PO DAILY ROB Rosuvastatin Calcium (Crestor -) 20 mg PO DAILY ROB Sodium Bicarbonate (Sodium Bicarbonate -) 650 mg PO BID [facility] ASSESSMENT/PLAN: Permacath failure Hypertensive Urgency ESRD on HD (T/T/S) HFpEF Anemia of chronic disease HLD Type 2 DM --Pt without symptoms and no indications for emergent dialysis at this time --CXR reviewed; minor effusion LLL if not exaggerated by soft tissue shadowing --Dr. Townsend notified and plan for permacath exchange tomorrow --Type and screen --AM labs ordered including INR --CXR resulted --ECG unchanged from previous --Pt did not take afternoon medications today: --Hydralazine 100mg PO once to be given --Monitor BP: goal ~140s SBP --Continue Toprol XL 100mg qdaily --Continue Crestor 20mg qdaily --Continue Sodium bicarbonate supplementation 650mg BID --BGM ACHS; holding all oral glycemia control --Cover ISS ACHS FEN: Fluids: None electrolyte abnormalities: HypoCalcemia (corrected 7.48) Nutrition: NPO at midnight for permacath exchange PPX: DVT - SCDs only; hold chemical prophylaxis tonight for pt's procedure tomorrow Dispo: M/S admit; permacath exchange tomorrow Case discussed with Dr. Paolo Butt, DO - IM PGY-3 Visit type - Emergency Visit Emergency Visit: Yes ED Registration Date: 03/24/19 Care time: The patient presented to the Emergency Department on the above date and was hospitalized for further evaluation of their emergent condition. - New Patient This patient is new to me today: Yes Date on this admission: 03/24/19 - Critical Care Critical Care patient: No ATTENDING PHYSICIAN STATEMENT I saw and evaluated the patient. I reviewed the resident's note and discussed the case with the resident. I agree with the resident's findings and plan as documented. SUBJECTIVE: OBJECTIVE: ASSESSMENT AND PLAN: <Eduardo Boone - Last Filed: 03/25/19 11:58> Attending Addendum I have seen and examined the indicated patient independently/along with the resident team. I have personally verified all ricketts exam findings and historical components. I have personally interpreted all diagnostics indicated per todays orders and reviewed interpretation of indicated subspecialty services. This patient meets a high level of medical complexity and warrants inpatient admission to avoid decompensation and worsening of the indicated illness. 60 minutes have been spent in the completion of this admission. S: Agree with historical findings as outlined in resident documentation regarding history of present illness. Please refer to their note for further documentation. 10 system ROS completed and is negative aside from indicated issues in the resident/attending history of present illness and full documentation. Past Medical History and Past Surgical Histories reviewed in depth; per resident note Social history is reviewed; per resident note; Complete family history is reviewed with patient and is non-pertinent aside from the indicated issues outlined above. No sudden history of cardiac . O: All vital signs reviewed per ER records and are as per EMR NAD, AAO, Resting in bed; mentating at baseline per prior encounters NC AT EOMI PERRLA Neck supple, trachea midline, no song LN RRR s1/2 Lungs CTAB, w/ sym expansion NT ND +BS No skin breakdown or rashes noted CN2-12 wnl, no new focal deficits noted Muscle tone normal, no deficits in motor function or strength noted Normal mood, appropriate behavior, average insight A/P: Patient seen, examined, and discussed in depth with resident team. Problem list reviewed per resident note and agree with their discussion aside from as supplemented by myself below. Problems include: -Permacath failure. -ESRD on TTS HD -Hypertensive Urgency (asx, did not take home meds-will dose and monitor) -HFpEF (No song exacerbation; not on O2 at this point) Continue to monitor on the floor; agree with plan as documented per resident note. ATTENDING PHYSICIAN STATEMENT I saw and evaluated the patient. I reviewed the resident's note and discussed the case with the resident. I agree with the resident's findings and plan as documented. SUBJECTIVE: OBJECTIVE: ASSESSMENT AND PLAN:
[2019-03-24] MEDS ORDERED: hydrALAZINE HCL 25 MG TABLET (FP) ONE ×2 (19:41→21:27)
[2019-03-24] MEDS ORDERED: CALCIUM GLUCONATE 10% - 1,000 MG/10 ML VIAL IVPUSH ONE (19:49)
[2019-03-24 21:10] LABS: INR 0.93 (0.83-1.09)
[2019-03-24] MEDS ORDERED: GABAPENTIN 100 MG CAPSULE (FP) ONE (21:27)
[2019-03-24] MEDS ORDERED: INSULIN (NOVOLOG) ASPART 100 UNITS/ML 10ML VIAL ONE (21:35)
[2019-03-24] MEDS: INSULIN SLIDING SCALE (NOVOLOG) 1 VIAL SQ SCH (21:56)
[2019-03-24] MEDS: hydrALAZINE HCL 50 MG TABLET (FP) PO SCH (21:56)
[2019-03-24] MEDS: SODIUM BICARBONATE 650 MG TABLET PO SCH (21:56)
[2019-03-24] MEDS ORDERED: ROSUVASTATIN CA 10 MG TABLET (FP) PO SCH (22:00)
[2019-03-24] MEDS ORDERED: GABAPENTIN 100 MG CAPSULE (FP) PO SCH (22:00)
[2019-03-25] MEDS ORDERED: hydrALAZINE HCL 25 MG TABLET (FP) ONE (05:41)
[2019-03-25] MEDS: INSULIN SLIDING SCALE (NOVOLOG) 1 VIAL SQ SCH ×3 (06:28→19:11)
[2019-03-25] MEDS: hydrALAZINE HCL 50 MG TABLET (FP) PO SCH ×2 (06:39→14:20)
[2019-03-25 07:46] LABS: HEMOGLOBIN 9.6 GM/dL (11.7-16.9); MCH 31.2 pg (25.7-33.7); MCHC 33.1 g/dl (32.0-35.9); MEAN CELL VOLUME 94.1 fl (80-96); MEAN PLT VOLUME 8.8 fl (7.5-11.1); PLATELET COUNT 180 K/MM3 (134-434); RBC 3.09 M/mm3 (4.00-5.60); RDW 18.6 % (11.9-15.9); WHITE BLOOD COUNT 5.1 K/mm3 (4.0-10.0)
[2019-03-25 08:03] LABS: BLOOD UREA NITROGEN 44.5 mg/dL (7-18); CALCIUM 7.2 mg/dL (8.5-10.1); CREATININE 6.3 mg/dL (0.55-1.3); MAGNESIUM 2.1 mg/dL (1.8-2.4); POTASSIUM 4.8 mmol/L (3.5-5.1)
[2019-03-25] MEDS ORDERED: ROSUVASTATIN CA 20 MG TABLET (FP) PO SCH (10:00)
[2019-03-25] MEDS: SODIUM BICARBONATE 650 MG TABLET PO SCH (11:17)
--- NOTE | 2019-03-25 12:12 | EKG ---
Test Reason : Blood Pressure : / mmHG Vent. Rate : 066 BPM Atrial Rate : 066 BPM P-R Int : 186 ms QRS Dur : 090 ms QT Int : 414 ms P-R-T Axes : 055 020 008 degrees QTc Int : 434 ms POOR DATA QUALITY, INTERPRETATION MAY BE ADVERSELY AFFECTED NORMAL SINUS RHYTHM NORMAL ECG WHEN COMPARED WITH ECG OF 11-MAR-2019 18:32, NO SIGNIFICANT CHANGE WAS FOUND Confirmed by AVINASH PATEL, SUZANNE ([id number]) on 03/25/2019 12:12:40 PM Referred By: Confirmed By:SUZANNE DA SILVA MD
--- NOTE | 2019-03-25 13:28 | PN ---
Progress Note (short form) - Note Progress Note: Renal follow up for ESRD on HD Pt was re-admitted due to non-functioning HD catheter. s/p recent admission during which pt was started on dialysis. Seen and examined at the [facility]. Upset about catheter not working and having to come to the ER. No sob, cp, abd pain, fever or chills. Last dialysis was Saturday. Vital Signs Temperature 97.5 F L 03/25/19 10:30 Pulse Rate 75 03/25/19 10:30 Respiratory Rate 20 03/25/19 10:30 Blood Pressure 152/62 03/25/19 10:30 O2 Sat by Pulse Oximetry (%) 95 03/25/19 10:30 Intake & Output 03/22/19 03/23/19 03/24/19 03/25/19 23:59 23:59 23:59 23:59 Weight 77.111 kg NAD awake and alert RRR CTA no LE edema CBC, BMP 03/25/19 06:58 03/25/19 06:58 Current Medications Gabapentin (Neurontin -) 100 mg PO HS [facility] Last Admin: 03/24/19 21:56 Dose: 100 mg Hydralazine HCl (Apresoline -) 100 mg PO TID [facility] Last Admin: 03/25/19 06:39 Dose: 100 mg Insulin Aspart (Novolog Vial Sliding Scale -) 1 vial SQ ACHS [facility]; Protocol Last Admin: 03/25/19 12:25 Dose: Not Given Metoprolol Succinate (Toprol Xl -) 100 mg PO DAILY [facility] Last Admin: 03/25/19 11:17 Dose: 100 mg Rosuvastatin Calcium (Crestor -) 10 mg PO HS [facility] Last Admin: 03/24/19 21:56 Dose: 10 mg Sodium Bicarbonate (Sodium Bicarbonate -) 650 mg PO BID [facility] Last Admin: 03/25/19 11:17 Dose: 650 mg 78 year old gentleman with history of CKD5/ESRD, hypertension, DM, HF presented from home with non-functioning HD catheter. 1. ESRD on HD 2. Non-functioning HD catheter 3. Hypertension 4. DM For catheter exchange with vascular surgery today. no acute need for dialysis today. Can resume as outpatient tomorrow. for discharge home after catheter exchange. Discussed case with primary team. Slava Gloria DO
[2019-03-25 14:23] VITALS: BMI 27.1
[2019-03-25] MEDS ORDERED: PROPOFOL 20 ML ONE (17:05)
[2019-03-25] MEDS ORDERED: MIDAZOLAM HCL 2 MG/2 ML SINGLE DOSE VIAL ONE ×2 (17:05→17:16)
[2019-03-25] MEDS ORDERED: oxyCODONE HCL 5 MG TABLET PO PRN ×2 (17:23→17:58)
[2019-03-25] MEDS ORDERED: ONDANSETRON 4 MG/2 ML VIAL IVPUSH PRN ×2 (17:23→17:58)
[2019-03-25] MEDS ORDERED: PROMETHAZINE HCL 25 MG/1 ML VIAL IVPB PRN (17:23)
[2019-03-25] MEDS ORDERED: LIDOCAINE HCL 1%, 10 MG/ML (20ML VIAL) SNB ONE (17:29)
--- NOTE | 2019-03-25 17:37 | OP ---
Operative Note - Note: Operative Date: 03/25/19 Pre-Operative Diagnosis: malfunctioning permacath Operation: permacath exchange Post-Operative Diagnosis: Same as Pre-op Surgeon: Clyde Townsend Anesthesia: Fractional Estimated Blood Loss (mls): 10 Operative Report Dictated: Yes
[2019-03-25] MEDS ORDERED: PROMETHAZINE HCL 25 MG/1 ML VIAL IVPUSH PRN (17:58)
[2019-03-25 18:39] VITALS: TEMP 98.1
--- NOTE | 2019-03-25 19:45 | DS ---
Physical Exam: SUBJECTIVE: Patient seen and examined OBJECTIVE: Vital Signs Period Temp Pulse Resp BP Sys/Bo Pulse Ox Last 24 Hr 97.5 F-98.4 F 52-75 14-20 136-163/53-69 95-100 PHYSICAL EXAM GENERAL: The patient is awake, alert, and fully oriented, in no acute distress. HEAD: Normal with no signs of trauma. EYES: PERRL, extraocular movements intact, sclera anicteric, conjunctiva clear. ENT: Ears normal, nares patent, oropharynx clear without exudates, moist mucous membranes. NECK: Trachea midline, full range of motion, supple. LUNGS: Breath sounds equal, clear to auscultation bilaterally, no wheezes, no crackles, no accessory muscle use. HEART: Regular rate and rhythm, S1, S2 without murmur, rub or gallop. ABDOMEN: Soft, nontender, nondistended, normoactive bowel sounds, no guarding, no rebound, no hepatosplenomegaly, no masses. EXTREMITIES: 2+ pulses, warm, well-perfused, no edema. NEUROLOGICAL: Cranial nerves II through XII grossly intact. Normal speech, gait not observed. PSYCH: Normal mood, normal affect. SKIN: Warm, dry, normal turgor, no rashes or lesions noted. LABS Laboratory Results - last 24 hr 03/24/19 03/24/19 03/24/19 20:00 20:00 21:30 WBC RBC Hgb Hct MCV MCH MCHC RDW Plt Count MPV PT with INR 11.00 INR 0.93 Sodium Potassium Chloride Carbon Dioxide Anion Gap BUN Creatinine Est GFR (CKD-EPI)AfAm Est GFR (CKD-EPI)NonAf POC Glucometer 206 Random Glucose Calcium Magnesium Blood Type O POSITIVE Antibody Screen Negative 03/25/19 03/25/19 03/25/19 06:15 06:58 06:58 WBC 5.1 RBC 3.09 L Hgb 9.6 L Hct 29.0 L MCV 94.1 MCH 31.2 MCHC 33.1 RDW 18.6 H Plt Count 180 MPV 8.8 PT with INR INR Sodium 142 Potassium 4.8 Chloride 111 H Carbon Dioxide 24 Anion Gap 8 BUN 44.5 H Creatinine 6.3 H Est GFR (CKD-EPI)AfAm 8.92 Est GFR (CKD-EPI)NonAf 7.70 POC Glucometer 94 Random Glucose 105 Calcium 7.2 L Magnesium 2.1 Blood Type Antibody Screen 03/25/19 12:24 WBC RBC Hgb Hct MCV MCH MCHC RDW Plt Count MPV PT with INR INR Sodium Potassium Chloride Carbon Dioxide Anion Gap BUN Creatinine Est GFR (CKD-EPI)AfAm Est GFR (CKD-EPI)NonAf POC Glucometer 118 ptpyRandom Glucose Calcium Magnesium Blood Type Antibody Screen HOSPITAL COURSE: Date of Admission:03/24/19 78yo M with ESRD (t/t/S at [facility] [place]), HFpEF, HTN, T2DM who presents today from his dialysis center. Pt found to have malfunction of the permacath s/p permacath exchange by . ESRD on HD TTRSa, going for HD in am Date of Discharge: 03/25/19 Minutes to complete discharge: 35 Discharge Summary Problems reviewed: Yes Reason For Visit: CHRONIC KIDNEY DISEASE Current Active Problems Dialysis catheter clot or failure (Acute) CKD (chronic kidney disease) (Chronic) Condition: Stable - Instructions Diet, Activity, Other Instructions: You came into the ED because your permacath failed. We took a picture of your chest which showed no acute pathology.Vascular surgery, Dr Townsend replaced your catheter and you are ready to resume dialysis on an outpatient basis tomorrow. Medications: Please resume all of your home medications. Follow up: Please follow up with your primary care physician within one week from discharge. Also follow up with Dr Gloria, nephrology within one week If you begin to experience shortness of breath, chest pain, dizziness, altered mental status, bleeding or fevers please return to ED immediately. Referrals: Jayshree Soto MD [Primary Care Provider] - 1 Week Slava Gloria MD [Staff Physician] - 1 Week Disposition: HOME - Home Medications Comprehensive Discharge Medication List: Ambulatory Orders Metoprolol Succinate [Toprol XL -] 100 mg PO DAILY 02/12/16 Ferrous Sulfate 325 mg PO TID 02/14/16 hydrALAZINE HCL [Apresoline -] 100 mg PO TID 01/29/17 Cyanocobalamin [Vitamin B12 -] 5,000 mcg PO DAILY 01/27/19 Fluticasone Prop 0.05% Nasal [Flonase -] 1 - 2 spray NS DAILY 01/27/19 Gabapentin [Neurontin -] 100 mg PO HS 01/27/19 Rosuvastatin Calcium [Crestor] 20 mg PO DAILY 01/27/19 Calcium Acetate [Phoslo -] 667 mg PO TIDCM #60 capsule 02/03/19 Sodium Bicarbonate - 650 mg PO BID #60 tablet 02/03/19 Aspirin [Ecotrin] 81 mg PO DAILY 03/12/19 Cholecalciferol (Vitamin D3) [D3-50] 50,000 unit PO WEEKLY 03/12/19 Docusate Sodium [Colace] 100 mg PO TID 03/12/19 Furosemide [Lasix -] 40 mg PO BID 03/12/19 Sitagliptin Phosphate [Januvia] 50 mg PO DAILY 03/12/19 Problem List - Problems (1) Dialysis catheter clot or failure Code(s): KAZ4717 - (2) Anemia Code(s): D64.9 - ANEMIA, UNSPECIFIED Qualifiers: Anemia type: due to chronic kidney disease Chronic kidney disease stage: stage 4 (severe) Qualified Code(s): N18.4 - Chronic kidney disease, stage 4 ( severe) (3) CKD (chronic kidney disease) Code(s): N18.9 - CHRONIC KIDNEY DISEASE, UNSPECIFIED Qualifiers: Chronic kidney disease stage: stage 5, not on chronic dialysis Qualified Code(s): N18.5 - Chronic kidney disease, stage 5 (4) Diabetes mellitus type 2 with complications Code(s): E11.8 - TYPE 2 DIABETES MELLITUS WITH UNSPECIFIED COMPLICATIONS (5) Diabetic neuropathy Code(s): E11.40 - TYPE 2 DIABETES MELLITUS WITH DIABETIC NEUROPATHY, UNSP (6) GERD (gastroesophageal reflux disease) Code(s): K21.9 - GASTRO-ESOPHAGEAL REFLUX DISEASE WITHOUT ESOPHAGITIS (7) Hyperlipidemia Code(s): E78.5 - HYPERLIPIDEMIA, UNSPECIFIED (8) Hypertension Code(s): I10 - ESSENTIAL (PRIMARY) HYPERTENSION Qualifiers: Hypertension type: essential hypertension Qualified Code(s): I10 - Essential (primary) hypertension (9) DVT prophylaxis Code(s): HSI2977 - This patient is new to me today: No Emergency Visit: Yes ED Registration Date: 03/24/19 Care time: The patient presented to the Emergency Department on the above date and was hospitalized for further evaluation of their emergent condition. Critical Care patient: No - Discharge Referral Referred to [facility] No ATTENDING PHYSICIAN STATEMENT I saw and evaluated the patient. I reviewed the resident's note and discussed the case with the resident. I agree with the resident's findings and plan as documented. SUBJECTIVE: OBJECTIVE: ASSESSMENT AND PLAN:
[2019-03-25 20:20] VITALS: BP 141/60; PULSE 76
--- NOTE | 2019-03-25 20:31 | PN ---
Teaching Attending Note Name of Resident: Giovana Christianson ATTENDING PHYSICIAN STATEMENT I saw and evaluated the patient. I reviewed the resident's note and discussed the case with the resident. I agree with the resident's findings and plan as documented. SUBJECTIVE: Patient is a 78yo male presented due to having malfunction of the permacath and was not able to have HD , was send to ED for further care. OBJECTIVE: Vital Signs Temperature 98.1 F 03/25/19 18:37 Pulse Rate 76 03/25/19 20:00 Respiratory Rate 20 03/25/19 20:00 Blood Pressure 141/60 03/25/19 20:00 O2 Sat by Pulse Oximetry (%) 100 03/25/19 18:15 GENERAL: The patient is awake, alert, and fully oriented, in no acute distress. HEAD: Normal with no signs of trauma. EYES: PERRL, extraocular movements intact, sclera anicteric, conjunctiva clear. ENT: Ears normal, oropharynx clear without exudates, moist mucous membranes. NECK: Trachea midline, full range of motion, supple. LUNGS: Breath sounds equal, clear to auscultation bilaterally, no wheezes, no crackles, no accessory muscle use. HEART: Regular rate and rhythm, S1, S2 without murmur, rub or gallop. ABDOMEN: Soft, nontender, nondistended, normoactive bowel sounds, no guarding, no rebound, no hepatosplenomegaly, no masses. EXTREMITIES: 2+ pulses, warm, well-perfused, no edema. NEUROLOGICAL: Cranial nerves II through XII grossly intact. Normal speech, gait not observed. PSYCH: Normal mood, normal affect. SKIN: Warm, dry, normal turgor, no rashes or lesions noted CBCD WBC 5.1 K/mm3 (4.0-10.0) 03/25/19 06:58 RBC 3.09 M/mm3 (4.00-5.60) L 03/25/19 06:58 Hgb 9.6 GM/dL (11.7-16.9) L 03/25/19 06:58 Hct 29.0 % (35.4-49) L 03/25/19 06:58 MCV 94.1 fl (80-96) 03/25/19 06:58 MCHC 33.1 g/dl (32.0-35.9) 03/25/19 06:58 RDW 18.6 % (11.9-15.9) H 03/25/19 06:58 Plt Count 180 K/MM3 (134-434) 03/25/19 06:58 MPV 8.8 fl (7.5-11.1) 03/25/19 06:58 CMP Sodium 142 mmol/L (136-145) 03/25/19 06:58 Potassium 4.8 mmol/L (3.5-5.1) 03/25/19 06:58 Chloride 111 mmol/L (98-107) H 03/25/19 06:58 Carbon Dioxide 24 mmol/L (21-32) 03/25/19 06:58 Anion Gap 8 MMOL/L (8-16) 03/25/19 06:58 BUN 44.5 mg/dL (7-18) H 03/25/19 06:58 Creatinine 6.3 mg/dL (0.55-1.3) H 03/25/19 06:58 Random Glucose 105 mg/dL (74-106) 03/25/19 06:58 Calcium 7.2 mg/dL (8.5-10.1) L 03/25/19 06:58 Total Bilirubin 0.3 mg/dL (0.2-1) 03/24/19 16:30 AST 23 U/L (15-37) 03/24/19 16:30 ALT 11 U/L (13-61) L 03/24/19 16:30 Alkaline Phosphatase 90 U/L (45-117) 03/24/19 16:30 Total Protein 5.4 g/dl (6.4-8.2) L 03/24/19 16:30 Albumin 2.4 g/dl (3.4-5.0) L 03/24/19 16:30 CARDIAC ENZYMES Troponin I < 0.02 ng/ml (0.00-0.05) 03/24/19 16:30 Home Medications Medication Instructions Recorded Metoprolol Succinate [Toprol XL -] 100 mg PO DAILY 02/12/16 Ferrous Sulfate 325 mg PO TID 02/14/16 hydrALAZINE HCL [Apresoline -] 100 mg PO TID 01/29/17 Cyanocobalamin [Vitamin B12 -] 5,000 mcg PO DAILY 01/27/19 Fluticasone Prop 0.05% Nasal 1 - 2 spray NS DAILY 01/27/19 [Flonase -] Gabapentin [Neurontin -] 100 mg PO HS 01/27/19 Rosuvastatin Calcium [Crestor] 20 mg PO DAILY 01/27/19 Calcium Acetate [Phoslo -] 667 mg PO TIDCM #60 capsule 02/03/19 Sodium Bicarbonate - 650 mg PO BID #60 tablet 02/03/19 Aspirin [Ecotrin] 81 mg PO DAILY 03/12/19 Cholecalciferol (Vitamin D3) 50,000 unit PO WEEKLY 03/12/19 [D3-50] Docusate Sodium [Colace] 100 mg PO TID 03/12/19 Furosemide [Lasix -] 40 mg PO BID 03/12/19 Sitagliptin Phosphate [Januvia] 50 mg PO DAILY 03/12/19 ASSESSMENT AND PLAN: # malfunction of the permacath s/p permacath exchange by . #ESRD on HD TTRSa, going for HD in am will discharge the patient home
[2019-03-25] MEDS ORDERED: hydrALAZINE HCL 50 MG TABLET (FP) PO SCH (22:00)
[2019-03-25] MEDS ORDERED: GABAPENTIN 100 MG CAPSULE (FP) PO SCH (22:00)
[2019-03-25] MEDS ORDERED: SODIUM BICARBONATE 650 MG TABLET PO SCH (22:00)
[2019-03-25] MEDS ORDERED: ROSUVASTATIN CA 10 MG TABLET (FP) PO SCH (22:00)
[2019-03-25] MEDS ORDERED: INSULIN SLIDING SCALE (NOVOLOG) 1 VIAL SQ SCH (22:00)
--- NOTE | 2019-03-27 16:26 | PATH ---
Surgical Pathology Report Patient Name: ZAINA HERNANDEZ Med. Rec. #: [id number] /Age/Gender: 1940 (Age: 78) / M Account: [id number] Location: [address] [place] [address]/[facility] Taken: 03/25/2019 Received: 03/26/2019 Reported: 03/27/2019 Physicians: Roque Varela M.D. Specimen(s) Received REMOVED PERMA CATHETER Clinical History Exchange of permacath Final Diagnosis REMOVED PERMACATH: CONSISTENT WITH PERMACATH. GROSS EXAMINATION ONLY. Electronically Signed Quentin Claire M.D. Gross Description Specimen in a container, labeled "removed permacath", consists of one portion of plastic tube measuring 40 cm in length with double lumen at one end, consistent with a permacath. Gross examination only. NAVEEN/03/26/2019 yee/03/26/2019
--- NOTE | 2019-03-30 09:21 | OP ---
DATE OF OPERATION: 03/25/2019 PREOPERATIVE DIAGNOSIS: Malfunctioning Perma-Cath. POSTOPERATIVE DIAGNOSIS: Malfunctioning Perma-Cath. PROCEDURE: Perma-Cath exchange. SURGEON: Clyde Watson DO ANESTHESIA: Fractional. ESTIMATED BLOOD LOSS: 10 mL. INDICATIONS: Patient is a 78-year-old male who has a left IJ Perma-Catheter that was placed a week and a half ago and now is malfunctioning. It was decided that he would need a PermCath exchange with a longer catheter. Patient was consented for the procedure understanding all risks, benefits, and alternatives. Was then taken to the operating room. DESCRIPTION OF PROCEDURE: Once in the operating room, was laid on the operating room table in supine manner, and the area of the left neck and chest were prepped and draped in a sterile surgical manner. We then injected 10 mL of lidocaine 1% at the exit site of the PermCath. We then went ahead and dissected the Perma-Cath cuff and freed up the PermCath. We then placed a 0.035 floppy guidewire through the PermCath and down into the SVC. We removed the PermCath. We then placed a 27 PermCath over a guidewire, 27 PermCath was placed outside the right atrium. We removed our wire. We then anthony back on each port of the catheter, and there was good flow. Heparinized saline was injected, 2000 units of IV heparin was injected. At this point, 4-0 Biosyn was used in 2 simple stitches. One simple stitch was placed at the exit site, 3-0 nylon was used, and the catheter was adjusted to the skin, 4 x 4 and Tegaderms were placed. Patient tolerated the procedure with no complications. Patient transferred to PACU in stable condition where a chest x-ray will be ordered. CLYDE WATSON DO TOLL BRIDGE ATTENDANT/[id number]
== END 2019-03-25 20:25 | disposition home or self-care (01) | DRG 314 ==
LOC: JER 15:36 → JERBED 17:45 → J5S 03-25 12:34
PROVIDERS: ADMIT Internal Medicine; ATTEND Internal Medicine
PROC: 02HV33Z Insertion of Infusion Device into Superior Vena Cava, Percutaneous Approach (ICD-10-PCS; 2019-03-25)
PROC: 02PYX3Z Removal of Infusion Device from Great Vessel, External Approach (ICD-10-PCS; principal; 2019-03-25 16:30)
DX: T82.41XA Breakdown (mechanical) of vascular dialysis catheter, initial encounter (principal); N18.6 End stage renal disease; I13.2 Hypertensive heart and chronic kidney disease with heart failure and with stage 5 chronic kidney disease, or end stage renal disease; I50.32 Chronic diastolic (congestive) heart failure; D63.8 Anemia in other chronic diseases classified elsewhere; I16.0 Hypertensive urgency; E87.5 Hyperkalemia; Y84.1 Kidney dialysis as the cause of abnormal reaction of the patient, or of later complication, without mention of misadventure at the time of the procedure; G62.9 Polyneuropathy, unspecified
CPT/HCPCS: 36415; 71045-TC-FY; 80048; 80053; 82962; 83735; 84484; 85025; 85027; 85610; 86850; 86900; 86901; 88300-TC; 93005; 93010; 94760; 99285-25

== ENCOUNTER 2019-07-26 16:06 | Inpatient (IN) | payer OTHER ==
--- NOTE | 2019-07-26 17:26 | PDOC ---
History of Present Illness - General Chief Complaint: Revisit, Lab Variance Stated Complaint: sent by doctor History Source: Patient Exam Limitations: No Limitations - History of Present Illness Initial Comments: 07/26/19 17:33 79 yo M with a hx of polyp removal (within the past year), ESRD (right arm AV; dialysis 01/2019-04/2019; refuses dialysis), DM, and HTN presents to the emergency department with abnormal lab values. Per the patient's PMD (Dr. Vail), he states the patient was hyperkalemia, elevated creatinine, and anemic. Per the patient, he states he does not want any dialysis to be done, however wants to be transfused and treated for the hyperkalemia. Per the patient , he does not want dialysis because he feels worse when he was on it and understands the risks associated with not doing it. Denies the following: fevers , chills, SOB, chest pain, abdominal pain, vomiting, nausea, diarrhea, hematochezia, melena, leg pain/swelling, and dysuria. Endorses global fatigue. Allergies: as per chart Past History - Past Medical History Allergies/Adverse Reactions: Allergies Allergy/AdvReac Type Severity Reaction Status Date / Time ampicillin [From Unasyn] AdvReac Rash Verified 07/26/19 16:14 clindamycin AdvReac Verified 07/26/19 16:14 sulbactam [From Unasyn] AdvReac Rash Verified 07/26/19 16:14 Home Medications: Ambulatory Orders Metoprolol Succinate [Toprol XL -] 100 mg PO DAILY 02/12/16 hydrALAZINE HCL [Apresoline -] 100 mg PO TID 01/29/17 Cyanocobalamin [Vitamin B12 -] 5,000 mcg PO DAILY 01/27/19 Fluticasone Prop 0.05% Nasal [Flonase -] 1 - 2 spray NS DAILY 01/27/19 Gabapentin [Neurontin -] 100 mg PO HS 01/27/19 Rosuvastatin Calcium [Crestor] 20 mg PO DAILY 01/27/19 Calcium Acetate [Phoslo -] 667 mg PO TIDCM #60 capsule 02/03/19 Cholecalciferol (Vitamin D3) [D3-50] 50,000 unit PO WEEKLY 03/12/19 Docusate Sodium [Colace] 100 mg PO TID 03/12/19 Sitagliptin Phosphate [Januvia] 50 mg PO DAILY 03/12/19 Ferrous Sulfate [Feosol] 325 mg PO BID #60 tablet 07/29/19 Pantoprazole Sodium [Protonix] 40 mg PO DAILY #30 tablet. 07/29/19 Sodium Bicarbonate - 650 mg PO TID #90 tablet 07/29/19 Sodium Zirconium Cyclosilicate [Lokelma] 10 gm PO DAILY #30 packet 07/29/19 Torsemide [Demadex -] 80 mg PO DAILY #120 tablet 07/29/19 Anemia: Yes Asthma: No Cancer: No Cardiac Disorders: No (cad,) CVA: No COPD: No CHF: Yes Dementia: No Diabetes: Yes Dialysis: Yes (stopped 3 months ago) GI Disorders: Yes (GERD) Disorders: No HTN: Yes Hypercholesterolemia: Yes Liver Disease: No Seizures: No Thyroid Disease: No - Surgical History Abdominal Surgery: No Appendectomy: No Cardiac Surgery: No Cholecystectomy: No Lung Surgery: No Neurologic Surgery: Yes (back sx) Orthopedic Surgery: Yes (left middle finger amputated.) - Immunization History Immunization Up to Date: Yes - Psycho Social/Smoking Cessation Hx Smoking History: Never smoked Have you smoked in the past 12 months: No Number of Cigarettes Smoked Daily: 10 If you are a former smoker, when did you quit?: 5 years ago Hx Alcohol Use: No Drug/Substance Use Hx: No Substance Use Type: None Hx Substance Use Treatment: No Review of Systems - Review of Systems Able to Perform ROS?: Yes Is the patient limited Tanzanian proficient: No Constitutional: Yes: Weakness. No: Chills, Diaphoresis, Fever HEENTM: No: Eye Pain, Ear Pain, Nose Pain, Throat Pain, Mouth Pain Respiratory: No: Cough, Shortness of Breath, Hemoptysis Cardiac (ROS): No: Chest Pain, Lightheadedness, Palpitations, Chest Tightness ABD/GI: No: Constipated, Diarrhea, Nausea, Rectal Bleeding, Vomiting, Tarry Stools : No: Burning, Dysuria, Hematuria Musculoskeletal: No: Back Pain, Joint Pain, Neck Pain Integumentary: No: Bruising, Erythema, Rash Neurological: No: Headache, Numbness, Tingling, Tremors Psychiatric: No: Change in Appetite Endocrine: No: Unexplained Weight Loss Hematologic/Lymphatic: Yes: Anemia *Physical Exam - Vital Signs Last Vital Signs Temp Pulse Resp BP Pulse Ox 97.6 F 90 18 171/56 H 100 07/26/19 16:10 07/26/19 16:10 07/26/19 16:10 07/26/19 16:10 07/26/19 16:10 - Physical Exam General Appearance: Yes: Nourished, Appropriately Dressed, Other (pale on apperance). No: Apparent Distress, Intoxicated HEENT: positive: EOMI, ANGELIA, Normal Voice, Symmetrical, Pharynx Normal, Pale Conjunctivae, Hearing Grossly Normal. negative: Scleral Icterus (R), Scleral Icterus (L), Muffled/Hoarse voice, Pharyngeal Erythema, Tonsillar Exudate, Tonsillar Erythema, Nasal Congestion, Rhinorrhea, Sinus Tenderness, Excessive drooling Neck: positive: Trachea midline, Supple. negative: Tender, Lymphadenopathy (R) , Lymphadenopathy (L), Tender lateral, Tender midline Respiratory/Chest: positive: Lungs Clear, Normal Breath Sounds. negative: Chest Tender, Respiratory Distress, Accessory Muscle Use, Crackles, Rales, Rhonchi, Stridor, Wheezing Cardiovascular: positive: Regular Rhythm, Regular Rate, S1, S2. negative: Systolic Murmur Gastrointestinal/Abdominal: positive: Normal Bowel Sounds, Flat, Soft. negative : Tender, Distended, Guarding, Rebound Lymphatic: negative: Adenopathy Musculoskeletal: positive: Normal Inspection. negative: CVA Tenderness, Vertebral Tenderness Extremity: positive: Normal Capillary Refill, Normal Inspection, Normal Range of Motion. negative: Tender, Swelling, Calf Tenderness Integumentary: positive: Normal Color, Dry, Warm Neurologic: positive: director merit system II-XII NML intact, Fully Oriented, Alert, Normal Mood/ Affect ED Treatment Course - LABORATORY CBC & Chemistry Diagram: 07/29/19 07:00 07/29/19 07:00 Medical Decision Making - Medical Decision Making 79 yo M with a hx of polyp removal (within the past year), ESRD (right arm AV; dialysis 01/2019-04/2019; refuses dialysis), DM, and HTN presents to the emergency department with abnormal lab values. Initial vitals: Initial Vital Signs Temp Pulse Resp BP Pulse Ox 97.6 F 90 18 171/56 H 100 07/26/19 16:10 07/26/19 16:10 07/26/19 16:10 07/26/19 16:10 07/26/19 16:10 Work up: patient presents to the Laboratory Tests 07/26/19 07/26/19 07/26/19 17:52 17:52 17:52 WBC 5.6 RBC 1.61 L Hgb 5.3 L* Hct 16.4 L D MCV 102.1 H MCH 33.2 MCHC 32.6 RDW 15.2 D Plt Count 184 MPV 8.5 Absolute Neuts (auto) 3.6 Neutrophils % 65.1 Lymphocytes % 19.4 Monocytes % 10.3 H Eosinophils % 4.5 Basophils % 0.7 Nucleated RBC % 0 PT with INR 11.50 INR 0.97 Sodium 139 Potassium 5.6 H Chloride 108 H Carbon Dioxide 20 L Anion Gap 11 BUN 88.1 H Creatinine 7.7 H* Est GFR (CKD-EPI)AfAm 6.95 Est GFR (CKD-EPI)NonAf 6.00 Random Glucose 279 H Calcium 7.5 L Magnesium 3.0 H Iron 116 TIBC 248 L Iron Saturation 46 H Unsaturated IBC 132 L Ferritin 90.7 Total Bilirubin 0.2 AST 12 L ALT 13 Alkaline Phosphatase 87 Total Protein 5.9 L Albumin 2.8 L Blood Type Antibody Screen Crossmatch 07/26/19 17:52 WBC RBC Hgb Hct MCV MCH MCHC RDW Plt Count MPV Absolute Neuts (auto) Neutrophils % Lymphocytes % Monocytes % Eosinophils % Basophils % Nucleated RBC % PT with INR INR Sodium Potassium Chloride Carbon Dioxide Anion Gap BUN Creatinine Est GFR (CKD-EPI)AfAm Est GFR (CKD-EPI)NonAf Random Glucose Calcium Magnesium Iron TIBC Iron Saturation Unsaturated IBC Ferritin Total Bilirubin AST ALT Alkaline Phosphatase Total Protein Albumin Blood Type O POSITIVE Antibody Screen Negative Crossmatch See Detail Patient's hemoglobin is 5.3. The patient has potassium of 5.6 and creatinine of 7.7 which is consistent with non compliance with dialysis in the setting of ESRD. The EKG shows ventrocuilar rate of 71 bpm with NSR with TWI in v5, iii, avf, and II. The patient has hyperacute t waves in V2-V3 consistent with hyperkalemia. No ST elevations or depressions. Calcium, insulin, dextrose, and bicarb ordered for the patient for EKG changes consistent with hyperkalemia. Patient noted to be anemic; will order transfusion Patient to be admitted for hyperkalemia with EKG changes and anemia. CXR consistent with possible left base infiltrate vs atelectasis. patient is afebrile without leukocytosis. findings relayed to admitting team 07/26/19 19:55 DNI Will allow CPR and defibrillation, however denies wanting medications used in the event of a cardiac arrest. Absolutely will not allow the use of dialysis Dispo: Admit Discharge - Discharge Information Problems reviewed: Yes Clinical Impression/Diagnosis: Anemia Qualifiers: Anemia type: due to chronic kidney disease Chronic kidney disease stage: stage 4 (severe) Qualified Code(s): N18.4 - Chronic kidney disease, stage 4 (severe) CKD (chronic kidney disease) Qualifiers: Chronic kidney disease stage: stage 5, not on chronic dialysis Qualified Code(s ): N18.5 - Chronic kidney disease, stage 5 - Follow up/Referral - Patient Discharge Instructions - Post Discharge Activity
[2019-07-26 18:16] LABS: BASO % 0.7 % (0-2.0); EOS % 4.5 % (0-4.5); HEMATOCRIT 16.4 % (35.4-49); LYMPH % 19.4 % (8-40); MCH 33.2 pg (25.7-33.7); MCHC 32.6 g/dl (32.0-35.9); MEAN CELL VOLUME 102.1 fl (80-96); MEAN PLT VOLUME 8.5 fl (7.5-11.1); MONO % 10.3 % (3.8-10.2); NEUT % 65.1 % (42.8-82.8); PLATELET COUNT 184 K/MM3 (134-434); RBC 1.61 M/mm3 (4.00-5.60); RDW 15.2 % (11.9-15.9); WHITE BLOOD COUNT 5.6 K/mm3 (4.0-10.0)
[2019-07-26 18:24] LABS: HEMOGLOBIN 5.3 GM/dL (11.7-16.9)
--- NOTE | 2019-07-26 18:24 | PDOC ---
Attending Attestation - Resident Resident Name: Eduardo Hines - ED Attending Attestation I have performed the following: I have examined & evaluated the patient, The case was reviewed & discussed with the resident, I agree w/resident's findings & plan, Exceptions are as noted - HPI HPI: 07/26/19 18:20 79 yo M ESRD previously on dialysis for 2 mo, now refusing, DM, and HTN presents to the emergency department with abnormal lab values. pt called in by dr Vail for anemia hgb of 5.6, elevated potassium 6, and elevated creatinine. in past had refused dialysis and transfusion. pt does report decreased appetitie, but no sob, no weakness. no n/v. is aware of anemia, at this time agreeable to transfusion. h/o polyp in colon which was resected in past 1 yr ago. no h/o ugi bleed. no recent blood in stool, or dark stools. no c/o cp . - Physicial Exam PE: 07/26/19 18:27 awake alert lungs clear bilat heart rrr no mrg abd soft nt nd ext wwp no edema. no calf tenderness. awake alert oriented x 3. - Medical Decision Making 07/26/19 18:27 79 yo male h/o dm htn esrd not on dialysis ( refusing) here with anemia, hyperkalemia, uremia. plan transfuse one unit. slow. no current six of fluid overload. pt refusing dialysis is ok with getting medicationf or hyperkalemia. also reports DNR
[2019-07-26 18:37] LABS: INR 0.97 (0.83-1.09); PROTHROMBIN TIME (PATIENT) 11.5 SEC (9.7-13.0)
[2019-07-26] MEDS ORDERED: CALCIUM GLUCONATE 10% - 1,000 MG/10 ML VIAL IVPUSH ONE (19:01)
[2019-07-26] MEDS ORDERED: SODIUM BICARBONATE 8.4% 50 MEQ/50 ML DISP.SYRIN IVPUSH ONE (19:02)
[2019-07-26] MEDS ORDERED: INSULIN REGULAR HUMAN 100 UNITS/ML *VIAL IVPUSH ONE (19:02)
[2019-07-26] MEDS ORDERED: DEXTROSE 50%-WATER - 25 GM/50 ML VIAL IVPUSH ONE (19:03)
[2019-07-26 19:08] LABS: ALBUMIN 2.8 g/dl (3.4-5.0); BILIRUBIN,TOTAL 0.2 mg/dL (0.2-1); BLOOD UREA NITROGEN 88.1 mg/dL (7-18); CALCIUM 7.5 mg/dL (8.5-10.1); POTASSIUM 5.6 mmol/L (3.5-5.1); TOT PROT 5.9 g/dl (6.4-8.2)
[2019-07-26 19:27] LABS: CREATININE 7.7 mg/dL (0.55-1.3)
[2019-07-26] MEDS ORDERED: INSULIN REGULAR HUMAN 100 UNITS/ML *VIAL ONE (19:56)
[2019-07-26] MEDS ORDERED: SODIUM BICARBONATE 8.4% - 50 ML ONE ×2 (19:56→19:57)
[2019-07-26] MEDS ORDERED: DEXTROSE 50%-WATER - 25 GM/50 ML VIAL ONE (19:56)
[2019-07-26] MEDS ORDERED: CALCIUM GLUCONATE 10% - 1,000 MG/10 ML VIAL ONE (19:57)
--- NOTE | 2019-07-26 20:29 | PN ---
Teaching Attending Note Name of Resident: Shay De La Cruz ATTENDING PHYSICIAN STATEMENT I saw and evaluated the patient. I reviewed the resident's note and discussed the case with the resident. I agree with the resident's findings and plan as documented. SUBJECTIVE: 79 yo man w/ ESRD previously on dialysis for 2 months, now refusing, uncontrolled DM, and HTN presents with abnormal lab values after called by PCP. Pt called in by Dr. Vail for anemia w/ hgb of 5.6, elevated potassium 6, and elevated creatinine. Previously patient was refusing dialysis and transfusion. At this time patient was agreeable to blood transfusion. Risks of refusing dialysis were explained to patient and he understood. He understand that refusal will result in ultimately. OBJECTIVE: Last Vital Signs Temp Pulse Resp BP Pulse Ox 97.6 F 90 18 171/56 H 98 07/26/19 16:10 07/26/19 16:10 07/26/19 16:10 07/26/19 16:10 07/26/19 17:40 GENERAL: Well developed, well nourished. Awake and alert. No acute distress. HEENT: Normocephalic, atraumatic. PERRLA, EOMI. No conjunctival pallor. Sclera are non- icteric. Moist mucous membranes. Oropharynx is clear. NECK: Supple. Full ROM. No JVD. Carotid pulses 2+ and symmetric, without bruits. No thyromegaly. No lymphadenopathy. CARDIOVASCULAR: Regular rate and rhythm. No murmurs, rubs, or gallops. Distal pulses are 2+ and symmetric. PULMONARY: No evidence of respiratory distress. Lungs clear to auscultation bilaterally. No wheezing, rales or rhonchi. ABDOMINAL: Soft. Non-tender. Non-distended. No rebound or guarding. No organomegaly. Normoactive bowel sounds. MUSCULOSKELETAL Normal range of motion at all joints. No bony deformities or tenderness. No CVA tenderness. EXTREMITIES: No cyanosis. No clubbing. No edema. No calf tenderness. SKIN: Warm and dry. Normal capillary refill. No rashes. No jaundice. PSYCHIATRIC: Cooperative. Good eye contact. Appropriate mood and affect. Abnormal Lab Results 07/26/19 07/26/19 07/26/19 17:52 17:52 17:52 RBC 1.61 L Hgb 5.3 L* Hct 16.4 L D MCV 102.1 H Monocytes % 10.3 H Potassium 5.6 H Chloride 108 H Carbon Dioxide 20 L BUN 88.1 H Creatinine 7.7 H* Random Glucose 279 H Calcium 7.5 L Magnesium 3.0 H AST 12 L Total Protein 5.9 L Albumin 2.8 L Crossmatch See Detail Imaging studies reviewed ASSESSMENT AND PLAN: 79-year-old male with acute on chronic anemia. Previously was noted to be normocytic now macrocytic. Suspect likely anemia secondary to renal failure. Should rule out GI bleed, vitamin B12 deficiency, thyroid disorders which might contribute to anemia. Admit to [facility] Transfuse 2 units of PRBCs for goal of over 7 g/dL hemoglobin Monitor for signs of bleeding Ferritin, iron studies, vitamin B12 level, TSH Monitor vital signs closely Check CBC after transfusion #Uncontrolled diabetes mellitus NovoLog sliding scale A1c Basal insulin Diabetic diet #End-stage renal disease on hemodialysis-Now currently refusing. Explained to patient doses will result in and he understands. He wishes only comfort measures at this time and to be treated medically. Renal consult Palliative care consult to establish goals of care, may likely need hospice if refusing hemodialysis permanently Ergocalciferol, calcitriol Lipitor Sodium bicarb 3 times daily Repeat potassium and administer insulin and D50 if still high Furosemide 40 mg IV and then 40 p.o. daily EPO as per renal Ferrous sulfate #Uncontrolled hypertensionlikely secondary to fluid overload from kidney failure Furosemide 40 mg p.o. twice daily toprolol XL SCDs for DVT prophylaxis
--- NOTE | 2019-07-26 20:52 | CONSULT ---
Consult Consult Specialty:: Nephrology Reason for Consultation:: ESRD - History of Present Illness Chief Complaint: sent in from PMD for anemia History of Present Illness: Coverage for Dr Gloria Pt is an 79 year old gentleman with pmhx of ckd5/esrd now off of HD, anemia, dm and htn who was sent in for abnormal labs and low hg. He says that he decided to stop dialysis and had his permacath removed several months ago. He is aware of his kidney disease and is still refusing dialysis therapy. He agrees to medical management of hyperkalemia and agrees to transfusion. He denies shortness of breath. He does complain of weakness. His and daughter in law are at bedside. - Past Medical History Cardio/Vascular: Yes: HTN Gastrointestinal: Yes: Other (colon polyps) Renal/: Yes: Renal Failure, Renal Inusuff Heme/Onc: Yes: Anemia Endocrine: Yes: Diabetes Mellitus - Alcohol/Substance Use Hx Alcohol Use: No History of Substance Use: reports: None - Smoking History Smoking history: Never smoked Have you smoked in the past 12 months: No Aproximately how many cigarettes per day: 10 If you are a former smoker, when did you quit?: 5 years ago - Social History Usual Living Arrangement: With Spouse ADL: Independent History of Recent Travel: No Home Medications - Allergies Allergies/Adverse Reactions: Allergies Allergy/AdvReac Type Severity Reaction Status Date / Time ampicillin [From Unasyn] AdvReac Rash Verified 07/26/19 16:14 clindamycin AdvReac Verified 07/26/19 16:14 sulbactam [From Unasyn] AdvReac Rash Verified 07/26/19 16:14 - Home Medications Home Medications: Ambulatory Orders Metoprolol Succinate [Toprol XL -] 100 mg PO DAILY 02/12/16 Ferrous Sulfate 325 mg PO TID 02/14/16 hydrALAZINE HCL [Apresoline -] 100 mg PO TID 01/29/17 Cyanocobalamin [Vitamin B12 -] 5,000 mcg PO DAILY 01/27/19 Fluticasone Prop 0.05% Nasal [Flonase -] 1 - 2 spray NS DAILY 01/27/19 Gabapentin [Neurontin -] 100 mg PO HS 01/27/19 Rosuvastatin Calcium [Crestor] 20 mg PO DAILY 01/27/19 Calcium Acetate [Phoslo -] 667 mg PO TIDCM #60 capsule 02/03/19 Sodium Bicarbonate - 650 mg PO BID #60 tablet 02/03/19 Aspirin [Ecotrin] 81 mg PO DAILY 03/12/19 Cholecalciferol (Vitamin D3) [D3-50] 50,000 unit PO WEEKLY 03/12/19 Docusate Sodium [Colace] 100 mg PO TID 03/12/19 Furosemide [Lasix -] 40 mg PO BID 03/12/19 Sitagliptin Phosphate [Januvia] 50 mg PO DAILY 03/12/19 Family Medical History Family History: Denies Review of Systems - Review of Systems Constitutional: reports: Malaise Eyes: reports: No Symptoms HENT: reports: No Symptoms Neck: reports: No Symptoms Cardiovascular: reports: No Symptoms Respiratory: reports: No Symptoms Gastrointestinal: reports: No Symptoms Genitourinary: reports: No Symptoms Musculoskeletal: reports: Muscle Weakness Integumentary: reports: No Symptoms Neurological: reports: No Symptoms Endocrine: reports: No Symptoms Hematology/Lymphatic: reports: No Symptoms Psychiatric: reports: No Symptoms Physical Exam Vital Signs: Vital Signs Temperature 97.6 F 07/26/19 20:36 Pulse Rate 70 07/26/19 20:36 Respiratory Rate 16 07/26/19 20:36 Blood Pressure 168/64 07/26/19 20:36 O2 Sat by Pulse Oximetry (%) 98 07/26/19 20:36 Constitutional: Yes: No Distress Eyes: Yes: WNL Neck: Yes: WNL Cardiovascular: Yes: S1, S2 Respiratory: Yes: CTA Bilaterally Gastrointestinal: Yes: Soft Renal/: Yes: WNL Musculoskeletal: Yes: WNL Edema: LLE: Trace, RLE: Trace Neurological: Yes: Oriented Psychiatric: Yes: Oriented Labs: CBC, BMP 07/26/19 17:52 07/26/19 17:52 Imaging - Results Chest X-ray: Report Reviewed Assessment/Plan Impression 1. CKD stage 5/esrd now off of HD 2. anemia 3. hyperkalemia 4. acidosis 5. htn 6. dm Plan - offered HD to pt and he refused - transfuse prbc - treat potassium medically - can add lokelma - add sodium bicarb - can use lasix if he developed overload - check iron stores - may benefit from epo - consider palliative care eval
[2019-07-26] MEDS ORDERED: FUROSEMIDE 40 MG/4 ML INJECTABLE VIAL IVPUSH ONE (22:09)
[2019-07-26] MEDS ORDERED: FUROSEMIDE 40 MG/4 ML INJECTABLE VIAL ONE (22:34)
[2019-07-26] MEDS ORDERED: INSULIN (NOVOLOG) ASPART 100 UNITS/ML 10ML VIAL ONE (22:34)
[2019-07-26] MEDS: SODIUM BICARBONATE 650 MG TABLET PO SCH (23:25)
[2019-07-26] MEDS: hydrALAZINE HCL 50 MG TABLET (FP) PO SCH (23:35)
[2019-07-26] MEDS: SODIUM ZIRCONIUM CYCLOSILICATE (LOKELMA) 5 GM PACKET PO SCH (23:35)
--- NOTE | 2019-07-26 23:43 | HP ---
CHIEF COMPLAINT: generalized weakness, sent in by PCP PCP: Dr. Cassius Vail HISTORY OF PRESENT ILLNESS: Cassius Medina is an 79 year old male with a past medical history of ESRD (refusing dialysis, has AV fistula on R arm), DM, HTN, HFpEF, colonic poly removal within the last year presenting with a 2 week history of generalized weakness. Patient noted that he was feeling weak and lightheaded but denied any falls, syncopal episodes, head hits. He stated that he was not able to move around with his walker as he usually does and felt tired. Denied melena, hematochezia, n/v/c/d, chest pain, shortness of breath, fever, chills, cough, numbness/tingling, focal weakness, dysuria, hematuria, abdominal pain. He had a regularly scheduled appointment with his PCP and had labs drawn which he was called about today which noted hyperkalemia, anemia, elevated CRE. Patient presented to the emergency room for further workup. Patient noted that he is refusing dialysis and has refused it since April claiming that it makes him feel worse. He only wants medication management of his chronic disorders and acute lab abnormalities. Denied recent sick contacts or travel. ER course was notable for: (1) BP 171/56 (2) Hgb 5.3, MCV 102.1, BUN 88.1, CRE 7.7 (3) CXR with noted LLL infiltrate/atelectasis Recent Travel: denies PAST MEDICAL HISTORY: as above PAST SURGICAL HISTORY: L middle finger amputation, AVF fistula in R arm, back surgery Social History: Smoking: former smoker Alcohol: denies Drugs: denies Allergies ampicillin [From Unasyn] Adverse Reaction (Verified 07/26/19 16:14) Rash clindamycin Adverse Reaction (Verified 07/26/19 16:14) sulbactam [From Unasyn] Adverse Reaction (Verified 07/26/19 16:14) Rash HOME MEDICATIONS: Home Medications Medication Instructions Recorded Metoprolol Succinate [Toprol XL -] 100 mg PO DAILY 02/12/16 Ferrous Sulfate 325 mg PO TID 02/14/16 hydrALAZINE HCL [Apresoline -] 100 mg PO TID 01/29/17 Cyanocobalamin [Vitamin B12 -] 5,000 mcg PO DAILY 01/27/19 Fluticasone Prop 0.05% Nasal 1 - 2 spray NS DAILY 01/27/19 [Flonase -] Gabapentin [Neurontin -] 100 mg PO HS 01/27/19 Rosuvastatin Calcium [Crestor] 20 mg PO DAILY 01/27/19 Calcium Acetate [Phoslo -] 667 mg PO TIDCM #60 capsule 02/03/19 Sodium Bicarbonate - 650 mg PO BID #60 tablet 02/03/19 Aspirin [Ecotrin] 81 mg PO DAILY 03/12/19 Cholecalciferol (Vitamin D3) 50,000 unit PO WEEKLY 03/12/19 [D3-50] Docusate Sodium [Colace] 100 mg PO TID 03/12/19 Furosemide [Lasix -] 40 mg PO BID 03/12/19 Sitagliptin Phosphate [Januvia] 50 mg PO DAILY 03/12/19 REVIEW OF SYSTEMS CONSTITUTIONAL: generalized weakness Absent: fever, chills, diaphoresis, malaise, weight change HEENT: Absent: rhinorrhea, nasal congestion, throat pain, throat swelling, difficulty swallowing, visual changes CARDIOVASCULAR: lightheadedness Absent: chest pain, syncope, palpitations, irregular heart rate, peripheral edema RESPIRATORY: Absent: cough, shortness of breath, dyspnea with exertion, orthopnea, wheezing GASTROINTESTINAL: Absent: abdominal pain, abdominal distension, nausea, vomiting, diarrhea, constipation GENITOURINARY: Absent: dysuria, frequency, urgency, hesitancy, hematuria, flank pain MUSCULOSKELETAL: Absent: myalgia, arthralgia, joint swelling, back pain, neck pain SKIN: Absent: rash, itching, pallor HEMATOLOGIC/IMMUNOLOGIC: Absent: easy bleeding, easy bruising, lymphadenopathy, frequent infections ENDOCRINE: Absent: unexplained weight gain, unexplained weight loss, heat intolerance, cold intolerance NEUROLOGIC: Absent: headache, focal weakness or paresthesias, dizziness, unsteady gait, seizure, mental status changes PSYCHIATRIC: Absent: anxiety, depression, suicidal or homicidal ideation, hallucinations. PHYSICAL EXAMINATION Vital Signs - 24 hr 07/26/19 07/26/19 07/26/19 16:10 17:40 20:00 Temperature 97.6 F 97.8 F Pulse Rate 90 Pulse Rate [ 75 Right Radial] Respiratory 18 18 Rate Blood Pressure 171/56 H Blood Pressure 166/58 L [Left Arm] O2 Sat by Pulse 100 98 97 Oximetry (%) 07/26/19 07/26/19 07/26/19 20:21 20:36 22:48 Temperature 97.7 F 97.6 F 97.6 F Pulse Rate Pulse Rate [ 73 70 67 Right Radial] Respiratory 16 16 16 Rate Blood Pressure Blood Pressure 161/59 L 168/64 138/52 L [Left Arm] O2 Sat by Pulse 97 98 98 Oximetry (%) GENERAL: Awake, alert, and fully oriented, in no acute distress. HEAD: Normal with no signs of trauma. EYES: Pupils equal, round and reactive to light, extraocular movements intact, sclera anicteric, conjunctiva clear. EARS, NOSE, THROAT: Oropharynx clear without exudates. Moist mucous membranes. NECK: Normal range of motion, supple without lymphadenopathy, JVD. LUNGS: Breath sounds equal, clear to auscultation bilaterally. No wheezes, and no crackles. No accessory muscle use. HEART: Regular rate and rhythm, normal S1 and S2 without murmur, rub. ABDOMEN: Soft, nontender, not distended, normoactive bowel sounds, no guarding, no rebound, no masses. MUSCULOSKELETAL: Normal range of motion at all joints. No bony deformities or tenderness. No CVA tenderness. UPPER EXTREMITIES: 2+ pulses, warm, well-perfused. No cyanosis. No clubbing. No peripheral edema. Noted R arm AV fistula with bruit and thrill. LOWER EXTREMITIES: 2+ pulses, warm, well-perfused. No calf tenderness. No peripheral edema. NEUROLOGICAL: Cranial nerves II-XII intact. 5/5 muscle strength upper and lower extremities. PSYCHIATRIC: Cooperative. Good eye contact. Appropriate mood and affect. Judgment intact. SKIN: Warm, dry, normal turgor, no rashes or lesions noted, normal capillary refill. Laboratory Results - last 24 hr 07/26/19 07/26/19 07/26/19 17:52 17:52 17:52 WBC 5.6 RBC 1.61 L Hgb 5.3 L* Hct 16.4 L D MCV 102.1 H MCH 33.2 MCHC 32.6 RDW 15.2 D Plt Count 184 MPV 8.5 Absolute Neuts (auto) 3.6 Neutrophils % 65.1 Lymphocytes % 19.4 Monocytes % 10.3 H Eosinophils % 4.5 Basophils % 0.7 Nucleated RBC % 0 PT with INR 11.50 INR 0.97 Sodium 139 Potassium 5.6 H Chloride 108 H Carbon Dioxide 20 L Anion Gap 11 BUN 88.1 H Creatinine 7.7 H* Est GFR (CKD-EPI)AfAm 6.95 Est GFR (CKD-EPI)NonAf 6.00 POC Glucometer Random Glucose 279 H Calcium 7.5 L Magnesium 3.0 H Total Bilirubin 0.2 AST 12 L ALT 13 Alkaline Phosphatase 87 Total Protein 5.9 L Albumin 2.8 L Blood Type Antibody Screen Crossmatch 07/26/19 07/26/19 17:52 23:25 WBC RBC Hgb Hct MCV MCH MCHC RDW Plt Count MPV Absolute Neuts (auto) Neutrophils % Lymphocytes % Monocytes % Eosinophils % Basophils % Nucleated RBC % PT with INR INR Sodium Potassium Chloride Carbon Dioxide Anion Gap BUN Creatinine Est GFR (CKD-EPI)AfAm Est GFR (CKD-EPI)NonAf POC Glucometer 105 Random Glucose Calcium Magnesium Total Bilirubin AST ALT Alkaline Phosphatase Total Protein Albumin Blood Type O POSITIVE Antibody Screen Negative Crossmatch See Detail EKG--> NSR, T wave inversions in II,II, aVF, high T waves in V2, V3, QTc 421 ASSESSMENT/PLAN: Cassius Medina is an 79 year old male with a past medical history of ESRD (refusing dialysis, has AV fistula on R arm), DM, HTN, HFpEF, colonic poly removal within the last year admitted for anemia requiring transfusion and hyperkalemia. Anemia - likely in setting of ESRD - iron studies noting anemia of chronic disease - B12/folate - transfusion of 2 PRBCs, transfusion parameters of Hgb 7 - post transfusion Hgb 7.8 - continue home Lasix - nephrology consulted, recs appreciated - on home ferrous sulfate and Vit B12 Hyperkalemia - likely in setting of ESRD - noted T waves on EKG, mostly unchanged since previous EKG, repeat EKG in morning - given calcium gluconate, insulin, D50 - given Lokelma - continue to monitor and medically treat - nephrology consulted Metabolic Acidosis - anion gap 11 - likely in setting of uremia - sodium bicarb tid ESRD - has AVF, refusing dialysis - nephrology consulted - palliative care consulted - on calcium acetate for phosphate binder EKG changes noting T wave inversion in inferior leads - cardiac profile ordered - no symptoms as per patient HTN - continue home hydralazine, Toprol XL DM - BGM - ISS - A1c HFpEF - caution with fluids - continue home Lasix HLD - Crestor 20mg daily DVT PPx - SCDs - no chemical AC in setting of anemia requiring transfusion FEN - no standing fluids - continue to monitor electrolytes and replete as necessary, hyperkalemia noted and correcting, monitor phos - renal diet Dispo - admit to Med-surg Family Medical History Family Hx Cardiac Disorders: Father Family Hx Diabetes: Mother Visit type - Emergency Visit Emergency Visit: Yes ED Registration Date: 07/26/19 Care time: The patient presented to the Emergency Department on the above date and was hospitalized for further evaluation of their emergent condition. - New Patient This patient is new to me today: Yes Date on this admission: 07/27/19 - Critical Care Critical Care patient: No
[2019-07-26] MEDS: INSULIN SLIDING SCALE (NOVOLOG) 1 VIAL SQ SCH (23:57)
[2019-07-27 02:10] LABS: EOS % 4.9 % (0-4.5); HEMATOCRIT 23.4 % (35.4-49); HEMOGLOBIN 7.8 GM/dL (11.7-16.9); MCH 32.1 pg (25.7-33.7); MCHC 33.3 g/dl (32.0-35.9); MEAN CELL VOLUME 96.5 fl (80-96); NEUT % 60.1 % (42.8-82.8); PLATELET COUNT 165 K/MM3 (134-434); RBC 2.42 M/mm3 (4.00-5.60); RDW 16.8 % (11.9-15.9); WHITE BLOOD COUNT 5.5 K/mm3 (4.0-10.0)
[2019-07-27 02:36] LABS: BLOOD UREA NITROGEN 79.8 mg/dL (7-18); CALCIUM 7.8 mg/dL (8.5-10.1); PHOSPHOROUS 5.3 mg/dL (2.5-4.9); POTASSIUM 5.6 mmol/L (3.5-5.1)
[2019-07-27 02:40] LABS: CREATININE 7.5 mg/dL (0.55-1.3)
[2019-07-27] MEDS ORDERED: INSULIN REGULAR HUMAN 100 UNITS/ML *VIAL IVPUSH ONE ×2 (02:58→18:58)
[2019-07-27] MEDS ORDERED: DEXTROSE 50%-WATER - 25 GM/50 ML VIAL IVPUSH ONE (02:58)
[2019-07-27] MEDS ORDERED: DEXTROSE 50%-WATER - 25 GM/50 ML VIAL ONE (05:27)
[2019-07-27] MEDS ORDERED: INSULIN REGULAR HUMAN 100 UNITS/ML *VIAL ONE (05:27)
[2019-07-27] MEDS ORDERED: FERROUS SO4 325 MG TABLET (FP) PO SCH (06:00)
[2019-07-27] MEDS: INSULIN SLIDING SCALE (NOVOLOG) 1 VIAL SQ SCH ×4 (07:51→21:41)
[2019-07-27 07:54] LABS: BASO % 0.6 % (0-2.0); EOS % 4.5 % (0-4.5); HEMATOCRIT 24.5 % (35.4-49); HEMOGLOBIN 8.1 GM/dL (11.7-16.9); LYMPH % 20.5 % (8-40); MCH 31.3 pg (25.7-33.7); MCHC 32.9 g/dl (32.0-35.9); MEAN PLT VOLUME 8.2 fl (7.5-11.1); MONO % 6.6 % (3.8-10.2); NEUT % 67.8 % (42.8-82.8); PLATELET COUNT 164 K/MM3 (134-434); RBC 2.58 M/mm3 (4.00-5.60); RDW 17.5 % (11.9-15.9)
[2019-07-27] MEDS ORDERED: FUROSEMIDE 40 MG TABLET (FP) ONE (07:58)
[2019-07-27] MEDS ORDERED: FERROUS SO4 325 MG TABLET (FP) ONE (07:58)
[2019-07-27] MEDS ORDERED: DOCUSATE SODIUM 100 MG CAPSULE (FP) PO ONE (07:58)
[2019-07-27] MEDS ORDERED: hydrALAZINE HCL 25 MG TABLET (FP) ONE ×2 (07:58→07:59)
[2019-07-27] MEDS: DOCUSATE SODIUM 100 MG CAPSULE (FP) PO SCH ×3 (08:02→21:42)
[2019-07-27] MEDS: FERROUS SO4 325 MG TABLET (FP) PO SCH ×3 (08:02→17:24)
[2019-07-27] MEDS: SODIUM BICARBONATE 650 MG TABLET PO SCH ×3 (08:02→21:42)
[2019-07-27] MEDS: hydrALAZINE HCL 50 MG TABLET (FP) PO SCH ×3 (08:02→21:42)
[2019-07-27] MEDS: FUROSEMIDE 40 MG TABLET (FP) PO SCH ×2 (08:02→17:04)
--- NOTE | 2019-07-27 08:15 | PN ---
Physical Exam: SUBJECTIVE: Patient seen and examined. Pt asymtpomatic and afebrile. Explained the risks and benefits of not pursuing dialysis. Pt understand. Reports DNI status. Will complete Molst form. No c/o overnight. Denies f/c/n/v/d/sob/cp OBJECTIVE: Last Vital Signs Temp Pulse Resp BP Pulse Ox 97.7 F 67 18 182/83 H 100 07/26/19 23:45 07/27/19 06:36 07/27/19 06:36 07/27/19 06:36 07/27/19 06:36 GENERAL: Awake, alert, and fully oriented, in no acute distress. EYES: Pupils equal, round and reactive to light, extraocular movements intact, sclera anicteric, conjunctiva clear. EARS, NOSE, THROAT: Oropharynx clear without exudates. Moist mucous membranes. LUNGS: Breath sounds equal, clear to auscultation bilaterally. No wheezes, and no crackles. No accessory muscle use. HEART: Regular rate and rhythm, normal S1 and S2 without murmur, rub. ABDOMEN: Soft, nontender, not distended, normoactive bowel sounds, no guarding, no rebound, no masses. MUSCULOSKELETAL: Normal range of motion at all joints. No bony deformities or tenderness. No CVA tenderness. UPPER EXTREMITIES: 2+ pulses, warm, well-perfused. No cyanosis. No clubbing. No peripheral edema. Noted R arm AV fistula with bruit and thrill. LOWER EXTREMITIES: 2+ pulses, warm, well-perfused. No calf tenderness. No peripheral edema. NEUROLOGICAL: Cranial nerves II-XII intact. 5/5 muscle strength upper and lower extremities. PSYCHIATRIC: Cooperative. Good eye contact. Judgment intact. SKIN: Warm, dry, normal turgor, no rashes or lesions noted, normal capillary refill. Laboratory Results - last 24 hr CBC,CMP WBC 5.0 K/mm3 (4.0-10.0) 07/27/19 05:57 RBC 2.58 M/mm3 (4.00-5.60) L 07/27/19 05:57 Hgb 8.1 GM/dL (11.7-16.9) L 07/27/19 05:57 Hct 24.5 % (35.4-49) L 07/27/19 05:57 MCV 95.0 fl (80-96) 07/27/19 05:57 MCH 31.3 pg (25.7-33.7) 07/27/19 05:57 MCHC 32.9 g/dl (32.0-35.9) 07/27/19 05:57 RDW 17.5 % (11.9-15.9) H 07/27/19 05:57 Plt Count 164 K/MM3 (134-434) 07/27/19 05:57 MPV 8.2 fl (7.5-11.1) 07/27/19 05:57 Absolute Neuts (auto) 3.4 K/mm3 (1.5-8.0) 07/27/19 05:57 Neutrophils % 67.8 % (42.8-82.8) 07/27/19 05:57 Lymphocytes % 20.5 % (8-40) 07/27/19 05:57 Monocytes % 6.6 % (3.8-10.2) 07/27/19 05:57 Eosinophils % 4.5 % (0-4.5) 07/27/19 05:57 Basophils % 0.6 % (0-2.0) 07/27/19 05:57 Nucleated RBC % 0 % (0-0) 07/27/19 05:57 Sodium 140 mmol/L (136-145) 07/27/19 01:15 Potassium 5.6 mmol/L (3.5-5.1) H 07/27/19 01:15 Chloride 110 mmol/L (98-107) H 07/27/19 01:15 Carbon Dioxide 21 mmol/L (21-32) 07/27/19 01:15 Anion Gap 9 MMOL/L (8-16) 07/27/19 01:15 BUN 79.8 mg/dL (7-18) H 07/27/19 01:15 Creatinine 7.5 mg/dL (0.55-1.3) H* 07/27/19 01:15 Est GFR (CKD-EPI)AfAm 7.18 07/27/19 01:15 Est GFR (CKD-EPI)NonAf 6.19 07/27/19 01:15 POC Glucometer 107 UNITS (80-120) 07/27/19 07:50 Random Glucose 191 mg/dL (74-106) H 07/27/19 01:15 Calcium 7.8 mg/dL (8.5-10.1) L 07/27/19 01:15 Phosphorus 5.3 mg/dL (2.5-4.9) H 07/27/19 01:15 Magnesium 3.0 mg/dL (1.8-2.4) H 07/26/19 17:52 Iron 116 ug/dL (50-175) 07/26/19 17:52 TIBC 248 ug/dL (250-450) L 07/26/19 17:52 Iron Saturation 46 % (17.5-39) H 07/26/19 17:52 Unsaturated IBC 132 ug/dL (200-275) L 07/26/19 17:52 Ferritin 90.7 ng/ml (8-388) 07/26/19 17:52 Total Bilirubin 0.2 mg/dL (0.2-1) 07/26/19 17:52 AST 12 U/L (15-37) L 07/26/19 17:52 ALT 13 U/L (13-61) 07/26/19 17:52 Alkaline Phosphatase 87 U/L (45-117) 07/26/19 17:52 Creatine Kinase 82 U/L (26-308) 07/27/19 01:15 Troponin I 0.05 ng/ml (0.00-0.05) 07/27/19 01:15 Total Protein 5.9 g/dl (6.4-8.2) L 07/26/19 17:52 Albumin 2.8 g/dl (3.4-5.0) L 07/26/19 17:52 Active Medications Current Medications Calcium Acetate (Phoslo -) 667 mg PO TIDCM [facility] Cyanocobalamin (Vitamin B12 -) 5,000 mcg PO DAILY [facility] Docusate Sodium (Colace -) 100 mg PO TID [facility] Ferrous Sulfate (Feosol -) 325 mg PO TIDCM [facility] Fluticasone Propionate (Flonase -) 1 - 2 spray NS DAILY [facility] Furosemide (Lasix -) 40 mg PO BIDLASIX ROB Gabapentin (Neurontin -) 100 mg PO HS [facility] Hydralazine HCl (Apresoline -) 100 mg PO TID [facility] Last Admin: 07/26/19 23:35 Dose: 100 mg Insulin Aspart (Novolog Vial Sliding Scale -) 1 vial SQ ACHS [facility]; Protocol Last Admin: 07/27/19 07:51 Dose: Not Given Metoprolol Succinate (Toprol Xl -) 100 mg PO DAILY [facility] Rosuvastatin Calcium (Crestor -) 20 mg PO [facility] Sodium Bicarbonate (Sodium Bicarbonate -) 650 mg PO TID [facility] Last Admin: 07/26/19 23:25 Dose: 650 mg Sodium Zirconium Cyclosilicate (Lokelma) 10 gm PO DAILY [facility] Last Admin: 07/26/19 23:35 Dose: 10 gm Home Medications Medication Instructions Recorded Metoprolol Succinate [Toprol XL -] 100 mg PO DAILY 02/12/16 Ferrous Sulfate 325 mg PO TID 02/14/16 hydrALAZINE HCL [Apresoline -] 100 mg PO TID 01/29/17 Cyanocobalamin [Vitamin B12 -] 5,000 mcg PO DAILY 01/27/19 Fluticasone Prop 0.05% Nasal 1 - 2 spray NS DAILY 01/27/19 [Flonase -] Gabapentin [Neurontin -] 100 mg PO HS 01/27/19 Rosuvastatin Calcium [Crestor] 20 mg PO DAILY 01/27/19 Calcium Acetate [Phoslo -] 667 mg PO TIDCM #60 capsule 02/03/19 Sodium Bicarbonate - 650 mg PO BID #60 tablet 02/03/19 Aspirin [Ecotrin] 81 mg PO DAILY 03/12/19 Cholecalciferol (Vitamin D3) 50,000 unit PO WEEKLY 03/12/19 [D3-50] Docusate Sodium [Colace] 100 mg PO TID 03/12/19 Furosemide [Lasix -] 40 mg PO BID 03/12/19 Sitagliptin Phosphate [Januvia] 50 mg PO DAILY 03/12/19 ASSESSMENT/PLAN: 79 year old male with a past medical history of ESRD (refusing dialysis, has AV fistula on R arm), DM, HTN, HFpEF, colonic poly removal within the last year admitted for anemia requiring transfusion and hyperkalemia. #Anemia likely in setting of ESRD Pt declines dialysis iron studies noting anemia of chronic disease B12/folate wnl s/p transfusion of 2 PRBCs, transfusion parameters of Hgb 7 Will continue medical management of CKD. Continue Lasix 40mg BID Will check stool occult blood- r/o GIB F/u with Nephro for Epogen 20,000 weekly continue calcium acetate TID with meals If no signs of GI bleed, can d/c home with close f/u Discussed with pt in length about hospice, palliative and DNR/ DNI Pt agreed to be DNI but not DNRI, he would like resuscitation efforts, and pain managements No tubes, no feeding tubes, no dialysis #Left Pleural effusion Left lower low infiltrates + effusion- might need LA later X ray likely chronic vs 2/2 to ESRD #Hyperkalemia likely in setting of ESRD EKG f/u Sodium Bicarbonate 650mg TID Lokelma 10mg daily for hyperkalemia Renal diet #HTN Goal BP < 140/90 continue home hydralazine, Toprol XL #DM BGM ISS A1c #HFpEF caution with fluids continue home Lasix #HLD Crestor 10mg daily #DVT PPx SCDs no chemical AC in setting of anemia requiring transfusion #FEN no standing fluids continue to monitor electrolytes and replete as necessary, hyperkalemia noted and correcting, monitor phos renal diet Dispo: monitor K and Glucose, complete MOLST form, if gluc elevated, consider Insulin 5U Visit type - Emergency Visit Emergency Visit: Yes ED Registration Date: 07/26/19 Care time: The patient presented to the Emergency Department on the above date and was hospitalized for further evaluation of their emergent condition. - New Patient This patient is new to me today: Yes Date on this admission: 07/27/19 - Critical Care Critical Care patient: No - Discharge Referral Referred to [facility] Med [facility] No ATTENDING PHYSICIAN STATEMENT I saw and evaluated the patient. I reviewed the resident's note and discussed the case with the resident. I agree with the resident's findings and plan as documented. SUBJECTIVE: OBJECTIVE: ASSESSMENT AND PLAN:
[2019-07-27 08:38] LABS: BLOOD UREA NITROGEN 85.7 mg/dL (7-18); CALCIUM 7.9 mg/dL (8.5-10.1); MAGNESIUM 2.9 mg/dL (1.8-2.4); PHOSPHOROUS 4.9 mg/dL (2.5-4.9); POTASSIUM 5.2 mmol/L (3.5-5.1)
[2019-07-27 08:41] LABS: CREATININE 7.4 mg/dL (0.55-1.3)
--- NOTE | 2019-07-27 08:55 | PN ---
Teaching Attending Note Name of Resident: Nito Matson ATTENDING PHYSICIAN STATEMENT I saw and evaluated the patient. I reviewed the resident's note and discussed the case with the resident. I agree with the resident's findings and plan as documented. SUBJECTIVE: No new issues; seen on the floor. Pending consultation. Discussed with resdient team; agree with the plan as delineated in their note aside from as supplemented by myself. No bleeding noted 10 sys ROS done and negative aside from HPI OBJECTIVE: VS labs imaging reviewed NAD AAO resting in bed NT ND +BS Cn2-12 wnl, no fnd Normal mood, appropriate behavior. ASSESSMENT AND PLAN: 79-year-old male with acute on chronic anemia. Acute on chronic anemia, r/o GIB ESRD needs HD, refusing, consider palliative consult Uncontrolled DM Chronic Metabolic Acidosis Uncontrolled HTN Multiple Drug Allergies Overweight Full Code
--- NOTE | 2019-07-27 09:32 | EKG ---
Test Reason : Blood Pressure : / mmHG Vent. Rate : 071 BPM Atrial Rate : 071 BPM P-R Int : 206 ms QRS Dur : 104 ms QT Int : 388 ms P-R-T Axes : 038 041 -59 degrees QTc Int : 421 ms NORMAL SINUS RHYTHM T WAVE ABNORMALITY, CONSIDER INFERIOR ISCHEMIA ABNORMAL ECG WHEN COMPARED WITH ECG OF 24-MAR-2019 16:51, T WAVE INVERSION MORE EVIDENT IN INFERIOR LEADS NONSPECIFIC T WAVE ABNORMALITY NOW EVIDENT IN LATERAL LEADS Confirmed by Scott Doyle ([id number]) on 07/27/2019 9:31:57 AM Referred By: Confirmed By:Scott Doyle
[2019-07-27] MEDS ORDERED: metoPROLOL SUCCINATE 25 MG TAB.SR.24H (FP) PO ONE (09:45)
[2019-07-27] MEDS ORDERED: SODIUM BICARBONATE 650 MG TABLET PO SCH (10:00)
[2019-07-27] MEDS ORDERED: cloNIDine HCL 0.1 MG TABLET ONE (11:21)
[2019-07-27] MEDS ORDERED: cloNIDine HCL 0.1 MG TABLET PO ONE (11:30)
--- NOTE | 2019-07-27 12:15 | ECHO ---
Name: NELLY REIDSUNNYEL Exam:Adult Echocardiogram Study Date: 07/27/2019 11:38 AM Age: 79 yrs Reason For Study: CHF Height: 68 in Weight: 180 lb BSA: 2.0 m2 MMode/2D Measurements & Calculations IVSd: 1.6 cm Ao root diam: 3.8 cm LVIDd: 4.3 cm LA dimension: 3.1 cm LVIDs: 2.8 cm ACS: 2.4 cm LVPWd: 1.6 cm EDV(Teich): 82.1 ml LVOT diam: 2.0 cm ESV(Teich): 29.6 ml LAV (MOD-bp): 59.0 ml TAPSE: 2.4 cm RV S Fran: 24.4 cm/sec Doppler Measurements & Calculations MV E max fran: 59.8 cm/sec Ao V2 max: 157.5 cm/sec MV A max fran: 105.3 cm/sec Ao max P.9 mmHg MV E/A: 0.57 Ao V2 mean: 98.2 cm/sec MV dec time: 0.30 sec Ao mean P.6 mmHg Ao V2 VTI: 28.7 cm MONSERRAT(I,D): 2.2 cm2 MONSERRAT(V,D): 2.0 cm2 LV V1 max P.0 mmHg SV(LVOT): 63.8 ml LV V1 mean P.0 mmHg LV V1 max: 100.4 cm/sec LV V1 mean: 64.5 cm/sec LV V1 VTI: 20.4 cm TR max fran: 225.3 cm/sec PA V2 max: 100.4 cm/sec TR max P.5 mmHg PA max P.0 mmHg Med Peak E' Fran: 3.1 cm/sec Pulm Sys Fran: 71.0 cm/sec Med E/e': 19.2 Pulm Bo Fran: 55.0 cm/sec Lat Peak E' Fran: 6.7 cm/sec Pulm S/D: 1.3 Lat E/e': 8.9 Procedure The study was technically difficult with many images being suboptimal in quality. Left Ventricle The left ventricle is normal in size. There is moderate concentric left ventricular hypertrophy. Left ventricular systolic function is normal. Ejection Fraction = 60-65%. The transmitral spectral Doppler flow pattern is suggestive of impaired LV relaxation. The left ventricular wall motion is normal. Right Ventricle The right ventricle is normal size. The right ventricular systolic function is normal. Atria Normal left and right atrial size and function. Mitral Valve The mitral valve is grossly normal. There is trace to mild mitral regurgitation. Tricuspid Valve The tricuspid valve is not well visualized, but is grossly normal. There is trace tricuspid regurgita tion. Aortic Valve There is mild to moderate aortic sclerosis.;. No hemodynamically significant valvular aortic stenosis . No aortic regurgitation is present. Pulmonic Valve The pulmonic valve is not well visualized. Great Vessels The aortic root is not well visualized. Pericardium/Pleura There is no pericardial effusion. Not well visualize; Fat pad. Interpretation Summary LV: Normal size, moderate LVH, normal sustolic function EF 60-65%, impaired relaxation RV: Normal Sclerotic aortic valve with normal function. Scott Doyle 07/27/2019 12:14 PM
[2019-07-27] MEDS: CALCIUM ACETATE 667 MG CAPSULE (FP) PO SCH ×3 (12:37→17:26)
[2019-07-27] MEDS: FLUTICASONE PROP 0.05% 16 GM NASAL SPRAY NS SCH (12:37)
[2019-07-27] MEDS: SODIUM ZIRCONIUM CYCLOSILICATE (LOKELMA) 5 GM PACKET PO SCH (12:37)
[2019-07-27] MEDS: CYANOCOBALAMIN 1,000 MCG TABLET (FP) PO SCH (12:38)
--- NOTE | 2019-07-27 15:32 | PN ---
Progress Note (short form) - Note Progress Note: Renal follow up for CKD stage 5 Seen and examined at the bedside awake and alert offers no acute complaints feels better denies any sob, cp, abd pain, N/V, confusion or lethargy no leg swelling making urine Vital Signs Temperature 97.9 F 07/27/19 13:20 Pulse Rate 80 07/27/19 13:20 Respiratory Rate 18 07/27/19 13:20 Blood Pressure 95/58 L 07/27/19 13:20 O2 Sat by Pulse Oximetry (%) 96 07/27/19 13:20 Intake & Output 07/24/19 07/25/19 07/26/19 07/27/19 23:59 23:59 23:59 23:59 Intake Total 900 Output Total 1000 Balance -100 Weight 81.647 kg NAD awake and alert neck supple RRR CTA, no rales or wheeze soft NT/ND no LE edema CBC, BMP 07/27/19 05:57 07/27/19 05:57 Current Medications Calcium Acetate (Phoslo -) 667 mg PO TIDCM [facility] Last Admin: 07/27/19 12:37 Dose: 667 mg Cyanocobalamin (Vitamin B12 -) 5,000 mcg PO DAILY [facility] Last Admin: 07/27/19 12:38 Dose: 5,000 mcg Docusate Sodium (Colace -) 100 mg PO TID [facility] Last Admin: 07/27/19 08:02 Dose: 100 mg Ferrous Sulfate (Feosol -) 325 mg PO TIDCM [facility] Last Admin: 07/27/19 08:02 Dose: 325 mg Fluticasone Propionate (Flonase -) 1 - 2 spray NS DAILY [facility] Last Admin: 07/27/19 12:37 Dose: Not Given Furosemide (Lasix -) 40 mg PO BIDLASIX [facility] Last Admin: 07/27/19 08:02 Dose: 40 mg Gabapentin (Neurontin -) 100 mg PO [facility] Hydralazine HCl (Apresoline -) 100 mg PO TID [facility] Last Admin: 07/27/19 08:02 Dose: 100 mg Insulin Aspart (Novolog Vial Sliding Scale -) 1 vial SQ ACHS [facility]; Protocol Last Admin: 07/27/19 07:51 Dose: Not Given Metoprolol Succinate (Toprol Xl -) 100 mg PO DAILY [facility] Last Admin: 07/27/19 12:37 Dose: 100 mg Rosuvastatin Calcium (Crestor -) 10 mg PO [facility] Sodium Bicarbonate (Sodium Bicarbonate -) 650 mg PO TID [facility] Last Admin: 07/27/19 08:02 Dose: 650 mg Sodium Zirconium Cyclosilicate (Lokelma) 10 gm PO DAILY [facility] Last Admin: 07/27/19 12:37 Dose: 10 gm 79 year old gentleman with pmhx of ckd5/esrd now off of HD, anemia, dm and htn who was sent in for abnormal labs and low hg. 1. CKD stage 5 2. Acute on chronic anemia 3. hypertension 4. CHF/Fluid overload 5. DM type 2 6. Hyperkalemia Pt had discontinued dialysis as an outpatient. He is aware that his renal function is poor and likely will increase his risk of being off dialysis. He does not wish to restart dialysis. Will continue medical management of CKD. Continue Lasix 40mg BID, Sodium Bicarbonate 650mg TID Started on Lokelma 10mg daily for hyperkalemia Renal diet s/p PRBC transfusion wit good response check stool occult blood to r/o GI bleed Give Epogen 20,000 units SC once weekly until Hgb > 10 Goal BP < 140/90 Continue Metoprolol and hydrazine. Can consider addition of CCB (amlodipine) if needed continue calcium acetate TID with meals if no sign of GI bleed can consider discharge with close outpatient follow up Thank you Slava Nevarez DO
[2019-07-27] MEDS ORDERED: INSULIN (NOVOLOG) ASPART 100 UNITS/ML 10ML VIAL ONE (20:10)
[2019-07-27] MEDS: GABAPENTIN 100 MG CAPSULE PO SCH (21:41)
[2019-07-27] MEDS: ROSUVASTATIN CA 10 MG TABLET (FP) PO SCH (21:42)
[2019-07-27] MEDS ORDERED: HEPARIN NA (PORCINE) 5,000 UNITS/ML 1ML VIAL SQ SCH (22:00)
[2019-07-28] MEDS: SODIUM BICARBONATE 650 MG TABLET PO SCH ×3 (05:54→21:06)
[2019-07-28] MEDS: FUROSEMIDE 40 MG TABLET (FP) PO SCH (05:55)
[2019-07-28] MEDS: hydrALAZINE HCL 50 MG TABLET (FP) PO SCH ×3 (05:55→21:06)
[2019-07-28] MEDS: DOCUSATE SODIUM 100 MG CAPSULE (FP) PO SCH ×3 (05:55→21:06)
[2019-07-28] MEDS: INSULIN SLIDING SCALE (NOVOLOG) 1 VIAL SQ SCH ×4 (06:08→21:11)
[2019-07-28 07:41] LABS: HEMATOCRIT 22.9 % (35.4-49); HEMOGLOBIN 7.7 GM/dL (11.7-16.9); MCH 32.1 pg (25.7-33.7); MCHC 33.7 g/dl (32.0-35.9); MEAN CELL VOLUME 95.2 fl (80-96); MEAN PLT VOLUME 8.1 fl (7.5-11.1); PLATELET COUNT 156 K/MM3 (134-434); RBC 2.41 M/mm3 (4.00-5.60); RDW 17.1 % (11.9-15.9); WHITE BLOOD COUNT 5.8 K/mm3 (4.0-10.0)
[2019-07-28 07:55] LABS: ALBUMIN 2.4 g/dl (3.4-5.0); BILIRUBIN,TOTAL 0.6 mg/dL (0.2-1); BLOOD UREA NITROGEN 87.8 mg/dL (7-18); CALCIUM 7.9 mg/dL (8.5-10.1); MAGNESIUM 2.6 mg/dL (1.8-2.4); PHOSPHOROUS 5.6 mg/dL (2.5-4.9); POTASSIUM 5.9 mmol/L (3.5-5.1); TOT PROT 5.2 g/dl (6.4-8.2)
[2019-07-28 08:06] LABS: CREATININE 7.6 mg/dL (0.55-1.3)
[2019-07-28] MEDS: FERROUS SO4 325 MG TABLET (FP) PO SCH ×3 (08:41→16:49)
[2019-07-28] MEDS: CALCIUM ACETATE 667 MG CAPSULE (FP) PO SCH ×3 (08:41→16:50)
[2019-07-28] MEDS ORDERED: CALCIUM GLUCONATE 10% - 1,000 MG/10 ML VIAL IVPUSH ONE (08:50)
[2019-07-28] MEDS ORDERED: DEXTROSE 50%-WATER - 25 GM/50 ML VIAL IVPUSH ONE ×2 (09:00→10:15)
[2019-07-28] MEDS ORDERED: INSULIN REGULAR HUMAN 100 UNITS/ML *VIAL IVPUSH ONE ×3 (09:00)
[2019-07-28] MEDS: FLUTICASONE PROP 0.05% 16 GM NASAL SPRAY NS SCH ×2 (09:50→19:13)
[2019-07-28] MEDS: CYANOCOBALAMIN 1,000 MCG TABLET (FP) PO SCH (10:16)
[2019-07-28] MEDS: SODIUM ZIRCONIUM CYCLOSILICATE (LOKELMA) 5 GM PACKET PO SCH (10:22)
[2019-07-28] MEDS ORDERED: DEXTROSE 50%-WATER 25 GM/50 ML DISP.SYRIN IVPUSH ONE (10:30)
[2019-07-28] MEDS ORDERED: PT OWN MED DRAWER 7, Y5N ONE (10:39)
[2019-07-28 11:36] VITALS: BMI 27.2
[2019-07-28] MEDS: TORSEMIDE 20 MG TABLET (FP) PO SCH (12:28)
--- NOTE | 2019-07-28 12:59 | EKG ---
Test Reason : Blood Pressure : / mmHG Vent. Rate : 059 BPM Atrial Rate : 059 BPM P-R Int : 212 ms QRS Dur : 100 ms QT Int : 442 ms P-R-T Axes : 013 018 -53 degrees QTc Int : 437 ms SINUS BRADYCARDIA WITH 1ST DEGREE A-V BLOCK T WAVE ABNORMALITY, CONSIDER INFERIOR ISCHEMIA ABNORMAL ECG WHEN COMPARED WITH ECG OF 27-JUL-2019 15:41, NO SIGNIFICANT CHANGE WAS FOUND Confirmed by Julio César Lau MD ([id number]) on 07/28/2019 12:59:22 PM Referred By: Carroll SLADE Confirmed By:Julio César Lau MD
--- NOTE | 2019-07-28 13:04 | EKG ---
Test Reason : Blood Pressure : / mmHG Vent. Rate : 064 BPM Atrial Rate : 064 BPM P-R Int : 230 ms QRS Dur : 098 ms QT Int : 438 ms P-R-T Axes : 022 012 -32 degrees QTc Int : 451 ms SINUS RHYTHM WITH SINUS ARRHYTHMIA WITH 1ST DEGREE A-V BLOCK T WAVE ABNORMALITY, CONSIDER INFERIOR ISCHEMIA ABNORMAL ECG WHEN COMPARED WITH ECG OF 26-JUL-2019 18:56, NO SIGNIFICANT CHANGE WAS FOUND Confirmed by Julio César Lau MD ([id number]) on 07/28/2019 1:03:47 PM Referred By: Jimenez MACKENZIE Confirmed By:Julio César Lau MD
--- NOTE | 2019-07-28 13:55 | PN ---
Progress Note (short form) - Note Progress Note: Renal follow up for CKD stage 5 Seen and examined at the bedside awake and alert offers no acute complaints denies any sob, cp, abd pain, N/V, confusion or lethargy making urine no muscle weakness or palpitations Vital Signs Temperature 97.7 F 07/28/19 13:47 Pulse Rate 60 07/28/19 13:47 Respiratory Rate 20 07/28/19 13:47 Blood Pressure 126/47 L 07/28/19 13:47 O2 Sat by Pulse Oximetry (%) 99 07/27/19 21:00 Intake & Output 07/25/19 07/26/19 07/27/19 07/28/19 23:59 23:59 23:59 23:59 Intake Total 1400 500 Output Total 1000 Balance 400 500 Weight 81.647 kg 82.236 kg 81.193 kg NAD awake and alert neck supple RRR CTA, no rales or wheeze soft NT/ND no LE edema CBC, BMP 07/28/19 07:05 Current Medications Calcium Acetate (Phoslo -) 667 mg PO TIDCM [facility] Last Admin: 07/28/19 12:28 Dose: 667 mg Cyanocobalamin (Vitamin B12 -) 5,000 mcg PO DAILY [facility] Last Admin: 07/28/19 10:16 Dose: 5,000 mcg Docusate Sodium (Colace -) 100 mg PO TID [facility] Last Admin: 07/28/19 13:51 Dose: 100 mg Ferrous Sulfate (Feosol -) 325 mg PO TIDCM [facility] Last Admin: 07/28/19 12:28 Dose: 325 mg Fluticasone Propionate (Flonase -) 1 - 2 spray NS DAILY [facility] Last Admin: 07/28/19 09:50 Dose: 1 spray Gabapentin (Neurontin -) 100 mg PO HS [facility] Last Admin: 07/27/19 21:41 Dose: Not Given Hydralazine HCl (Apresoline -) 100 mg PO TID [facility] Last Admin: 07/28/19 13:51 Dose: 100 mg Insulin Aspart (Novolog Vial Sliding Scale -) 1 vial SQ ACHS [facility]; Protocol Last Admin: 07/28/19 12:20 Dose: Not Given Metoprolol Succinate (Toprol Xl -) 100 mg PO DAILY [facility] Last Admin: 07/28/19 10:15 Dose: Not Given Rosuvastatin Calcium (Crestor -) 10 mg PO HS [facility] Last Admin: 07/27/19 21:42 Dose: 10 mg Sodium Bicarbonate (Sodium Bicarbonate -) 650 mg PO TID [facility] Last Admin: 07/28/19 13:51 Dose: 650 mg Sodium Zirconium Cyclosilicate (Lokelma) 10 gm PO DAILY [facility] Last Admin: 07/28/19 10:22 Dose: 10 gm Torsemide (Demadex -) 80 mg PO DAILY [facility] Last Admin: 07/28/19 12:28 Dose: 80 mg 79 year old gentleman with pmhx of ckd5/esrd now off of HD, anemia, dm and htn who was sent in for abnormal labs and low hg. 1. CKD stage 5 2. Acute on chronic anemia 3. hypertension 4. CHF/Fluid overload 5. DM type 2 6. Hyperkalemia Renal function unchanged He does not wish to restart dialysis. Will continue medical management of CKD. Continue Lasix 40mg BID, Sodium Bicarbonate 650mg TID K noted to be 5.9 this am, given Calcium gluconate Repat BMP pending, if > 6 would start IVF and concurrently give loop diuretics Continue Lokelma 10mg daily Renal diet s/p PRBC transfusion wit good response check stool occult blood to r/o GI bleed Continue Epogen 20,000 units SC once weekly until Hgb > 10 Goal BP < 140/90 Continue Metoprolol and hydrazine. Can consider addition of CCB (amlodipine) if needed continue calcium acetate TID with meals Thank you Slava Nevarez DO
[2019-07-28 14:09] LABS: BLOOD UREA NITROGEN 87.5 mg/dL (7-18); CALCIUM 8.3 mg/dL (8.5-10.1); POTASSIUM 5.2 mmol/L (3.5-5.1)
[2019-07-28 14:23] LABS: CREATININE 7.6 mg/dL (0.55-1.3)
--- NOTE | 2019-07-28 16:39 | CON.GI ---
Consult Consult Specialty:: GI Referred by:: Hospitalist Service Reason for Consultation:: FOBT + - History of Present Illness Chief Complaint: Weakness History of Present Illness: 79M admitted for evaluation of 2 weeks of weakness, tremors, diminished appetite. Noted FOBT +. Has a chronic anemia as well. Seen 02/02 for evaluation of anemia. Noted to be FOBT +. Initially refused but then agree to colonoscopy. Had colonoscopy at that time performed by Dr. Camacho. It revealed multiple colon polyps including a 1.3cm pedunculated polyp at the hepatic flexure that was friable. She advised a follow-up colonoscopy in 6 months to assure complete resection of that particular polyp and she tattoed the site. He Has received transfusions in the past for anemia. Had EGD/ Colonoscopy with Dr. Silveira in 2011. Colonoscopy revealed multiple colon polyps and a repeat in 1 year was suggested. EGD revealed antral erosions. He believes that he had procedures after that at [facility], however, in review of [employer] I did not see any other procedures. He denies overt bleeding, melena, change in bowel habits. - History Source History Provided By: Patient, Medical Record Limitations to Obtaining History: No Limitations - Past Medical History Cardio/Vascular: Yes: HTN Gastrointestinal: Yes: Other (colon polyps) Renal/: Yes: Renal Failure, Renal Inusuff Endocrine: Yes: Diabetes Mellitus - Alcohol/Substance Use Hx Alcohol Use: No History of Substance Use: reports: None - Smoking History Smoking history: Former smoker Have you smoked in the past 12 months: No Aproximately how many cigarettes per day: 40 If you are a former smoker, when did you quit?: 15 years - Social History Usual Living Arrangement: With Spouse ADL: Independent History of Recent Travel: No Home Medications - Allergies Allergies/Adverse Reactions: Allergies Allergy/AdvReac Type Severity Reaction Status Date / Time ampicillin [From Unasyn] AdvReac Rash Verified 07/26/19 16:14 clindamycin AdvReac Verified 07/26/19 16:14 sulbactam [From Unasyn] AdvReac Rash Verified 07/26/19 16:14 - Home Medications Home Medications: Ambulatory Orders Metoprolol Succinate [Toprol XL -] 100 mg PO DAILY 02/12/16 Ferrous Sulfate 325 mg PO TID 02/14/16 hydrALAZINE HCL [Apresoline -] 100 mg PO TID 01/29/17 Cyanocobalamin [Vitamin B12 -] 5,000 mcg PO DAILY 01/27/19 Fluticasone Prop 0.05% Nasal [Flonase -] 1 - 2 spray NS DAILY 01/27/19 Gabapentin [Neurontin -] 100 mg PO HS 01/27/19 Rosuvastatin Calcium [Crestor] 20 mg PO DAILY 01/27/19 Calcium Acetate [Phoslo -] 667 mg PO TIDCM #60 capsule 02/03/19 Sodium Bicarbonate - 650 mg PO BID #60 tablet 02/03/19 Aspirin [Ecotrin] 81 mg PO DAILY 03/12/19 Cholecalciferol (Vitamin D3) [D3-50] 50,000 unit PO WEEKLY 03/12/19 Docusate Sodium [Colace] 100 mg PO TID 03/12/19 Furosemide [Lasix -] 40 mg PO BID 03/12/19 Sitagliptin Phosphate [Januvia] 50 mg PO DAILY 03/12/19 Losartan Potassium 100 mg PO DAILY 07/27/19 Family Medical History Other Family History: No family history of colorectal cancer or other GI malignancy Review of Systems - Review of Systems Constitutional: reports: Loss of Appetite, Weakness Cardiovascular: denies: Chest Pain Respiratory: denies: SOB Gastrointestinal: denies: Abdominal Pain Physical Exam-GI Vital Signs: Vital Signs Temperature 97.7 F 07/28/19 13:47 Pulse Rate 60 07/28/19 13:47 Respiratory Rate 20 07/28/19 13:47 Blood Pressure 126/47 L 07/28/19 13:47 O2 Sat by Pulse Oximetry (%) 99 07/28/19 09:00 Constitutional: Yes: Calm Eyes: No: Sclera Icterus Cardiovascular: Yes: Regular Rate and Rhythm, Murmur (2/6 systolic murmur at the RSB) Respiratory: Yes: CTA Bilaterally Gastrointestinal Inspection: No: Scars ...Auscultate: Yes: Normoactive Bowel Sounds ...Palpate: Yes: Soft. No: Splenomegaly, Tenderness ...Percussion: No: Tympanitic Edema: No (No LE edema) Neurological: Yes: Alert Labs: CBC, BMP 07/28/19 07:05 07/28/19 12:50 INR, PTT INR 0.97 (0.83-1.09) 07/26/19 17:52 Problem List - Problems (1) Anemia Assessment/Plan: Likely multifactorial: Discussed repeat colonoscopy as well as an upper endoscopy with Mr. Skyler Medina to assess previously noted polyp site and to exclude alternate sources of bleeding. We discussed potential risks of the procedure like but not limited to bleeding, perforation requiring surgery to repair, infection, sedation medication effects all of which could be potentially life threatening. He is refusing colonoscopy. he is agreeable to upper endoscopy. If medically cleared , can have EGD 07/29. NPO after midnight Hematology evaluation Code(s): D64.9 - ANEMIA, UNSPECIFIED Qualifiers: Anemia type: due to chronic kidney disease Chronic kidney disease stage: stage 4 (severe) Qualified Code(s): N18.4 - Chronic kidney disease, stage 4 ( severe)
--- NOTE | 2019-07-28 17:05 | PN ---
Physical Exam: SUBJECTIVE: Patient seen and examined. Pt asymtpomatic and afebrile. Explained the risks and benefits of not pursuing dialysis. Pt understand. Reports DNI status. Molst form completed. No c/o overnight. Denies f/c/n/v/d/sob/cp OBJECTIVE: Vital Signs Period Temp Pulse Resp BP Sys/Bo Pulse Ox Last 24 Hr 97.6 F-98.3 F 58-70 18-20 119-127/47-72 99-99 GENERAL: Awake, alert, and fully oriented, in no acute distress. EYES: Pupils equal, round and reactive to light, extraocular movements intact, sclera anicteric, conjunctiva clear. EARS, NOSE, THROAT: Oropharynx clear without exudates. Moist mucous membranes. LUNGS: Breath sounds equal, clear to auscultation bilaterally. No wheezes, and no crackles. No accessory muscle use. HEART: Regular rate and rhythm, normal S1 and S2 without murmur, rub. ABDOMEN: Soft, nontender, not distended, normoactive bowel sounds, no guarding, no rebound, no masses. MUSCULOSKELETAL: Normal range of motion at all joints. No bony deformities or tenderness. No CVA tenderness. UPPER EXTREMITIES: 2+ pulses, warm, well-perfused. No cyanosis. No clubbing. No peripheral edema. Noted R arm AV fistula with bruit and thrill. Rectal exam: exam positive for dark stool on glove, external sphincter tone intact, prostate gland smooth and size wnl, internal hemorrhoids felt, no tenderness, no masses or nodules palpated at the 12 to 6 O clock position. LOWER EXTREMITIES: 2+ pulses, warm, well-perfused. No calf tenderness. No peripheral edema. NEUROLOGICAL: Cranial nerves II-XII intact. 5/5 muscle strength upper and lower extremities. PSYCHIATRIC: Cooperative. Good eye contact. Judgment intact. SKIN: Warm, dry, normal turgor, no rashes or lesions noted, normal capillary refill. Laboratory Results - last 24 hr CBC,CMP WBC 5.8 K/mm3 (4.0-10.0) 07/28/19 07:05 RBC 2.41 M/mm3 (4.00-5.60) L 07/28/19 07:05 Hgb 7.7 GM/dL (11.7-16.9) L 07/28/19 07:05 Hct 22.9 % (35.4-49) L 07/28/19 07:05 MCV 95.2 fl (80-96) 07/28/19 07:05 MCH 32.1 pg (25.7-33.7) 07/28/19 07:05 MCHC 33.7 g/dl (32.0-35.9) 07/28/19 07:05 RDW 17.1 % (11.9-15.9) H 07/28/19 07:05 Plt Count 156 K/MM3 (134-434) 07/28/19 07:05 MPV 8.1 fl (7.5-11.1) 07/28/19 07:05 Absolute Neuts (auto) 3.4 K/mm3 (1.5-8.0) 07/27/19 05:57 Neutrophils % 67.8 % (42.8-82.8) 07/27/19 05:57 Lymphocytes % 20.5 % (8-40) 07/27/19 05:57 Monocytes % 6.6 % (3.8-10.2) 07/27/19 05:57 Eosinophils % 4.5 % (0-4.5) 07/27/19 05:57 Basophils % 0.6 % (0-2.0) 07/27/19 05:57 Nucleated RBC % 0 % (0-0) 07/27/19 05:57 Sodium 139 mmol/L (136-145) 07/28/19 12:50 Potassium 5.2 mmol/L (3.5-5.1) H 07/28/19 12:50 Chloride 106 mmol/L (98-107) 07/28/19 12:50 Carbon Dioxide 24 mmol/L (21-32) 07/28/19 12:50 Anion Gap 9 MMOL/L (8-16) 07/28/19 12:50 BUN 87.5 mg/dL (7-18) H 07/28/19 12:50 Creatinine 7.6 mg/dL (0.55-1.3) H* 07/28/19 12:50 Est GFR (CKD-EPI)AfAm 7.06 07/28/19 12:50 Est GFR (CKD-EPI)NonAf 6.09 07/28/19 12:50 POC Glucometer 114 UNITS (80-120) 07/28/19 16:19 Random Glucose 178 mg/dL (74-106) H 07/28/19 12:50 Hemoglobin A1c % 5.0 % (4.2-6.3) 07/27/19 05:57 Calcium 8.3 mg/dL (8.5-10.1) L 07/28/19 12:50 Phosphorus 5.6 mg/dL (2.5-4.9) H 07/28/19 07:05 Magnesium 2.6 mg/dL (1.8-2.4) H 07/28/19 07:05 Iron 116 ug/dL (50-175) 07/26/19 17:52 TIBC 248 ug/dL (250-450) L 07/26/19 17:52 Iron Saturation 46 % (17.5-39) H 07/26/19 17:52 Unsaturated IBC 132 ug/dL (200-275) L 07/26/19 17:52 Ferritin 90.7 ng/ml (8-388) 07/26/19 17:52 Total Bilirubin 0.6 mg/dL (0.2-1) 07/28/19 07:05 AST 8 U/L (15-37) L 07/28/19 07:05 ALT 9 U/L (13-61) L 07/28/19 07:05 Alkaline Phosphatase 83 U/L (45-117) 07/28/19 07:05 Creatine Kinase 82 U/L (26-308) 07/27/19 01:15 Troponin I 0.05 ng/ml (0.00-0.05) 07/27/19 01:15 Total Protein 5.2 g/dl (6.4-8.2) L 07/28/19 07:05 Albumin 2.4 g/dl (3.4-5.0) L 07/28/19 07:05 Vitamin B12 763 pg/ml (193-986) 07/27/19 05:57 Serum Folate 8 ng/mL (3.1-17.5) 07/27/19 05:57 TSH 1.12 uIU/ml (0.358-3.74) D 07/27/19 05:57 Active Medications Generic Name Dose Route Start Last Admin Trade Name Freq PRN Reason Stop Dose Admin Calcium Acetate 667 mg 07/27/19 08:00 07/28/19 16:50 Phoslo - PO 667 mg TIDCM ROB Administration Cyanocobalamin 5,000 mcg 07/27/19 10:00 07/28/19 10:16 Vitamin B12 - PO 5,000 mcg DAILY ROB Administration Docusate Sodium 100 mg 07/27/19 06:00 07/28/19 13:51 Colace - PO 100 mg TID ROB Administration Ferrous Sulfate 325 mg 07/27/19 06:49 07/28/19 16:49 Feosol - PO 325 mg TIDCM ROB Administration Fluticasone Propionate 1 - 2 spray 07/27/19 10:00 07/27/19 12:37 Flonase - NS Not Given DAILY ROB Gabapentin 100 mg 07/27/19 22:00 07/27/19 21:41 Neurontin - PO Not Given HS [facility] Hydralazine HCl 100 mg 07/26/19 22:00 07/28/19 13:51 Apresoline - PO 100 mg TID ROB Administration Insulin Aspart 1 vial 07/26/19 22:00 07/28/19 16:49 Novolog Vial Sliding Scale - SQ Not Given ACHS [facility] Protocol Metoprolol Succinate 100 mg 07/27/19 10:00 07/28/19 10:15 Toprol Xl - PO Not Given DAILY ROB Rosuvastatin Calcium 10 mg 07/27/19 22:00 07/27/19 21:42 Crestor - PO 10 mg HS ROB Administration Sodium Bicarbonate 650 mg 07/26/19 22:00 07/28/19 13:51 Sodium Bicarbonate - PO 650 mg TID ROB Administration Sodium Zirconium Cyclosilicate 10 gm 07/26/19 21:00 07/28/19 10:22 Lokelma PO 10 gm DAILY [facility] Administration Torsemide 80 mg 07/28/19 11:30 07/28/19 12:28 Demadex - PO 80 mg DAILY [facility] Administration ASSESSMENT/PLAN: 79 year old male with a past medical history of ESRD (refusing dialysis, has AV fistula on R arm), DM, HTN, HFpEF, colonic poly removal within the last year admitted for anemia requiring transfusion and hyperkalemia. #Anemia likely in setting of ESRD Pt declines dialysis transfusion parameters of Hgb 7 Continue Lasix 40mg BID F/u with Nephro for Epogen 20,000 weekly continue calcium acetate TID with meals Discussed with pt in length about hospice, palliative and DNR/ DNI Pt agreed to be DNI but not DNRI, he would like resuscitation efforts, and pain managements No tubes, no feeding tubes, no dialysis FOBT+, could be 2/2 to iron supplements GI consulted- Dr. Valentine- appreciate consult Plan for EGD tomorrow in am NPO after MN MOLST form complete #Left Pleural effusion Left lower low infiltrates + effusion- might need LA later X ray likely chronic vs 2/2 to ESRD #Hyperkalemia likely in setting of ESRD EKG- baseline Sodium Bicarbonate 650mg TID Lokelma 10mg daily for hyperkalemia Insulin 10 U pushed today with D5 and Ca-gluconate #HTN Goal BP < 140/90 continue home hydralazine, Toprol XL #DM BGM ISS A1c #HFpEF caution with fluids continue home Lasix #HLD Crestor 10mg daily #DVT PPx SCDs #FEN no standing fluids continue to monitor electrolytes and replete as necessary, hyperkalemia noted and correcting, monitor phos NPO after midnight Dispo: monitor K and Glucose, EGD for tomorrow Visit type - Emergency Visit Emergency Visit: Yes ED Registration Date: 07/26/19 Care time: The patient presented to the Emergency Department on the above date and was hospitalized for further evaluation of their emergent condition. - New Patient This patient is new to me today: Yes Date on this admission: 07/29/19 - Critical Care Critical Care patient: No - Discharge Referral Referred to [facility] Med P.C.: No ATTENDING PHYSICIAN STATEMENT I saw and evaluated the patient. I reviewed the resident's note and discussed the case with the resident. I agree with the resident's findings and plan as documented. SUBJECTIVE: OBJECTIVE: ASSESSMENT AND PLAN:
--- NOTE | 2019-07-28 19:20 | PN ---
Teaching Attending Note Name of Resident: Nito Matson ATTENDING PHYSICIAN STATEMENT I saw and evaluated the patient. I reviewed the resident's note and discussed the case with the resident. I agree with the resident's findings and plan as documented. SUBJECTIVE: Feels well. No complaints. No fever/chills. OBJECTIVE: Afebrile, Hemodynamically Stable. AAO x 3. Last Vital Signs Temp Pulse Resp BP Pulse Ox 98.3 F 59 L 18 137/50 L 99 07/28/19 18:50 07/28/19 18:50 07/28/19 18:50 07/28/19 18:50 07/28/19 09:00 HEENT - Atraumatic, Normocephalic. Heart - S1, S2, RRR Lungs - clear to auscultation Abdomen - Soft, non-tender. Bowel Sounds normal. Extremities - No edema, no calf tenderness. RUE AVFistula. Laboratory Results - last 24 hr 07/27/19 07/28/19 07/28/19 20:45 05:53 07:05 WBC 5.8 RBC 2.41 L Hgb 7.7 L Hct 22.9 L MCV 95.2 MCH 32.1 MCHC 33.7 RDW 17.1 H Plt Count 156 MPV 8.1 Sodium Potassium Chloride Carbon Dioxide Anion Gap BUN Creatinine Est GFR (CKD-EPI)AfAm Est GFR (CKD-EPI)NonAf POC Glucometer 185 127 Random Glucose Calcium Phosphorus Magnesium Total Bilirubin AST ALT Alkaline Phosphatase Total Protein Albumin Stool Occult Blood 07/28/19 07/28/19 07/28/19 07:05 11:28 12:30 WBC RBC Hgb Hct MCV MCH MCHC RDW Plt Count MPV Sodium 139 Potassium 5.9 H Chloride 110 H Carbon Dioxide 22 Anion Gap 7 L BUN 87.8 H Creatinine 7.6 H* Est GFR (CKD-EPI)AfAm 7.06 Est GFR (CKD-EPI)NonAf 6.09 POC Glucometer 144 Random Glucose 144 H Calcium 7.9 L Phosphorus 5.6 H Magnesium 2.6 H Total Bilirubin 0.6 AST 8 L ALT 9 L Alkaline Phosphatase 83 Total Protein 5.2 L Albumin 2.4 L Stool Occult Blood Positive 07/28/19 07/28/19 12:50 16:19 WBC RBC Hgb Hct MCV MCH MCHC RDW Plt Count MPV Sodium 139 Potassium 5.2 H Chloride 106 Carbon Dioxide 24 Anion Gap 9 BUN 87.5 H Creatinine 7.6 H* Est GFR (CKD-EPI)AfAm 7.06 Est GFR (CKD-EPI)NonAf 6.09 POC Glucometer 114 Random Glucose 178 H Calcium 8.3 L Phosphorus Magnesium Total Bilirubin AST ALT Alkaline Phosphatase Total Protein Albumin Stool Occult Blood Current Medications Generic Name Dose Route Start Last Admin Trade Name Freq PRN Reason Stop Dose Admin Calcium Acetate 667 mg 07/27/19 08:00 07/28/19 16:50 Phoslo - PO 667 mg TIDCM ROB Administration Cyanocobalamin 5,000 mcg 07/27/19 10:00 07/28/19 10:16 Vitamin B12 - PO 5,000 mcg DAILY ROB Administration Docusate Sodium 100 mg 07/27/19 06:00 07/28/19 13:51 Colace - PO 100 mg TID ROB Administration Ferrous Sulfate 325 mg 07/27/19 06:49 07/28/19 16:49 Feosol - PO 325 mg TIDCM ROB Administration Fluticasone Propionate 1 - 2 spray 07/27/19 10:00 07/28/19 19:13 Flonase - NS Not Given DAILY ROB Gabapentin 100 mg 07/27/19 22:00 07/27/19 21:41 Neurontin - PO Not Given HS [facility] Hydralazine HCl 100 mg 07/26/19 22:00 07/28/19 13:51 Apresoline - PO 100 mg TID ROB Administration Insulin Aspart 1 vial 07/26/19 22:00 07/28/19 16:49 Novolog Vial Sliding Scale - SQ Not Given ACHS [facility] Protocol Metoprolol Succinate 100 mg 07/27/19 10:00 07/28/19 10:15 Toprol Xl - PO Not Given DAILY ROB Rosuvastatin Calcium 10 mg 07/27/19 22:00 07/27/19 21:42 Crestor - PO 10 mg HS ROB Administration Sodium Bicarbonate 650 mg 07/26/19 22:00 07/28/19 13:51 Sodium Bicarbonate - PO 650 mg TID ROB Administration Sodium Zirconium Cyclosilicate 10 gm 07/26/19 21:00 07/28/19 10:22 Lokelma PO 10 gm DAILY ROB Administration Torsemide 80 mg 07/28/19 11:30 07/28/19 12:28 Demadex - PO 80 mg DAILY ROB Administration Home Medications Medication Instructions Recorded Metoprolol Succinate [Toprol XL -] 100 mg PO DAILY 02/12/16 Ferrous Sulfate 325 mg PO TID 02/14/16 hydrALAZINE HCL [Apresoline -] 100 mg PO TID 01/29/17 Cyanocobalamin [Vitamin B12 -] 5,000 mcg PO DAILY 01/27/19 Fluticasone Prop 0.05% Nasal 1 - 2 spray NS DAILY 01/27/19 [Flonase -] Gabapentin [Neurontin -] 100 mg PO HS 01/27/19 Rosuvastatin Calcium [Crestor] 20 mg PO DAILY 01/27/19 Calcium Acetate [Phoslo -] 667 mg PO TIDCM #60 capsule 02/03/19 Sodium Bicarbonate - 650 mg PO BID #60 tablet 02/03/19 Aspirin [Ecotrin] 81 mg PO DAILY 03/12/19 Cholecalciferol (Vitamin D3) 50,000 unit PO WEEKLY 03/12/19 [D3-50] Docusate Sodium [Colace] 100 mg PO TID 03/12/19 Furosemide [Lasix -] 40 mg PO BID 03/12/19 Sitagliptin Phosphate [Januvia] 50 mg PO DAILY 03/12/19 Losartan Potassium 100 mg PO DAILY 07/27/19 ASSESSMENT AND PLAN: 79 year old male with a past medical history of ESRD (previously on HD via AVF RUE, now refusing dialysis), DM 2, HTN, HFpEF, s/p colonic polyp removal admitted with anemia requiring transfusion and hyperkalemia. 1. Macrocytic Anemia, etiology multifactorial - Chronic blood Loss/CKD5-ESRD H/H 7.7/22.9 s/p 2 units PRBCs. EPO as per Nephrology Iron and B12 supplementation ongoing. FOBT positive - seen by GI - for EGD tomorrow. Declines [place]. Medically stable for procedure. No further optimization required. 2. Hyperkalemia secondary to CKD 5-ESRD (previously on HD - now declines further HD) IV Lasix changed to Torsemide. Bicarb/Lokelma/Epo as per Nephrology Monitor K s/p Insulin/Dextrose, Lokelma 3. HTN - Continue Hydralazine, Toprol XL. Losartan held. 4. DM 2 - Maintain on Novolog sliding scale. Hold Januvia. 5. HLD - Continue Crestor. DVT Px - SCDs. Heparin/Lovenox held due to Anemia requiring transfusion with positive FOBT
[2019-07-28] MEDS: GABAPENTIN 100 MG CAPSULE PO SCH (21:06)
[2019-07-28] MEDS: ROSUVASTATIN CA 10 MG TABLET (FP) PO SCH (21:06)
[2019-07-28] MEDS ORDERED: INSULIN (NOVOLOG) ASPART 100 UNITS/ML 10ML VIAL ONE (21:11)
[2019-07-29] MEDS: DOCUSATE SODIUM 100 MG CAPSULE (FP) PO SCH ×2 (05:56→15:09)
[2019-07-29] MEDS: hydrALAZINE HCL 50 MG TABLET (FP) PO SCH ×2 (05:56→14:57)
[2019-07-29] MEDS: SODIUM BICARBONATE 650 MG TABLET PO SCH ×2 (05:56→14:57)
[2019-07-29] MEDS: INSULIN SLIDING SCALE (NOVOLOG) 1 VIAL SQ SCH ×3 (05:59→16:25)
[2019-07-29 07:33] LABS: HEMATOCRIT 23.9 % (35.4-49); MCH 32.1 pg (25.7-33.7); MCHC 33.6 g/dl (32.0-35.9); MEAN CELL VOLUME 95.4 fl (80-96); MEAN PLT VOLUME 8.3 fl (7.5-11.1); PLATELET COUNT 155 K/MM3 (134-434); RDW 16.7 % (11.9-15.9); WHITE BLOOD COUNT 5.3 K/mm3 (4.0-10.0)
[2019-07-29 08:07] LABS: ALBUMIN 2.4 g/dl (3.4-5.0); BILIRUBIN,TOTAL 0.4 mg/dL (0.2-1); BLOOD UREA NITROGEN 89.2 mg/dL (7-18); CALCIUM 8.1 mg/dL (8.5-10.1); TOT PROT 5.3 g/dl (6.4-8.2)
[2019-07-29 08:24] LABS: CREATININE 7.7 mg/dL (0.55-1.3)
[2019-07-29] MEDS: CYANOCOBALAMIN 1,000 MCG TABLET (FP) PO SCH (10:01)
[2019-07-29] MEDS: FERROUS SO4 325 MG TABLET (FP) PO SCH ×3 (10:02→16:35)
[2019-07-29] MEDS: TORSEMIDE 20 MG TABLET (FP) PO SCH (10:03)
[2019-07-29] MEDS: CALCIUM ACETATE 667 MG CAPSULE (FP) PO SCH ×3 (10:03→16:44)
[2019-07-29] MEDS ORDERED: PT OWN MED DRAWER 7, Y5N ONE (13:40)
--- NOTE | 2019-07-29 14:32 | PN ---
Progress Note (short form) - Note Progress Note: EGD with mucosal abnormality at GE junction, biopsied, single antral polyp, biopsied, and micronodular gastric body, also biopsied. Suggest: Await biopsy results Renal diet Favor colonoscopy; patient refuses IV iron repletion Follow counts
[2019-07-29] MEDS: SODIUM ZIRCONIUM CYCLOSILICATE (LOKELMA) 5 GM PACKET PO SCH (14:57)
[2019-07-29] MEDS: FLUTICASONE PROP 0.05% 16 GM NASAL SPRAY NS SCH (15:37)
--- NOTE | 2019-07-29 16:26 | PN ---
Physical Exam: SUBJECTIVE: Patient seen and examined OBJECTIVE: Vital Signs Period Temp Pulse Resp BP Sys/Bo Pulse Ox Last 24 Hr 97.9 F-98.6 F 57-74 10-20 109-142/40-65 95-100 GENERAL: Awake, alert, and fully oriented, in no acute distress. EYES: Pupils equal, round and reactive to light, extraocular movements intact, sclera anicteric, conjunctiva clear. EARS, NOSE, THROAT: Oropharynx clear without exudates. Moist mucous membranes. LUNGS: Breath sounds equal, clear to auscultation bilaterally. No wheezes, and no crackles. No accessory muscle use. HEART: Regular rate and rhythm, normal S1 and S2 without murmur, rub. ABDOMEN: Soft, nontender, not distended, normoactive bowel sounds, no guarding, no rebound, no masses. UPPER EXTREMITIES: 2+ pulses, warm, well-perfused. No cyanosis. No clubbing. No peripheral edema. Noted R arm AV fistula with bruit and thrill. Rectal exam: exam positive for dark stool on glove, external sphincter tone intact, prostate gland smooth and size wnl, internal hemorrhoids felt, no tenderness, no masses or nodules palpated at the 12 to 6 O clock position. NEUROLOGICAL: Cranial nerves II-XII intact. 5/5 muscle strength upper and lower extremities. PSYCHIATRIC: Cooperative. Good eye contact. Judgment intact. SKIN: Warm, dry, normal turgor, no rashes or lesions noted, normal capillary refill. Laboratory Results - last 24 hr 07/28/19 07/29/19 07/29/19 21:04 05:54 07:00 WBC RBC Hgb Hct MCV MCH MCHC RDW Plt Count MPV Sodium Cancelled Potassium Cancelled Chloride Cancelled Carbon Dioxide Cancelled Anion Gap Cancelled BUN Cancelled Creatinine Cancelled Est GFR (CKD-EPI)AfAm Cancelled Est GFR (CKD-EPI)NonAf Cancelled POC Glucometer 278 121 Random Glucose Cancelled Calcium Cancelled Total Bilirubin AST ALT Alkaline Phosphatase Total Protein Albumin 07/29/19 07/29/19 07/29/19 07:00 07:00 10:54 WBC 5.3 RBC 2.50 L Hgb 8.0 L Hct 23.9 L MCV 95.4 MCH 32.1 MCHC 33.6 RDW 16.7 H Plt Count 155 MPV 8.3 Sodium 139 Potassium 5.0 Chloride 109 H Carbon Dioxide 20 L Anion Gap 10 BUN 89.2 H Creatinine 7.7 H* Est GFR (CKD-EPI)AfAm 6.95 Est GFR (CKD-EPI)NonAf 6.00 POC Glucometer 135 Random Glucose 145 H Calcium 8.1 L Total Bilirubin 0.4 AST 8 L ALT 10 L Alkaline Phosphatase 82 Total Protein 5.3 L Albumin 2.4 L 07/29/19 16:20 WBC RBC Hgb Hct MCV MCH MCHC RDW Plt Count MPV Sodium Potassium Chloride Carbon Dioxide Anion Gap BUN Creatinine Est GFR (CKD-EPI)AfAm Est GFR (CKD-EPI)NonAf POC Glucometer 188 Random Glucose Calcium Total Bilirubin AST ALT Alkaline Phosphatase Total Protein Albumin Active Medications Generic Name Dose Route Start Last Admin Trade Name Freq PRN Reason Stop Dose Admin Calcium Acetate 667 mg 07/27/19 08:00 07/29/19 14:44 Phoslo - PO Not Given TIDCM ROB Cyanocobalamin 5,000 mcg 07/27/19 10:00 07/29/19 10:01 Vitamin B12 - PO 5,000 mcg DAILY ROB Administration Docusate Sodium 100 mg 07/27/19 06:00 07/29/19 15:09 Colace - PO Not Given TID ROB Ferrous Sulfate 325 mg 07/27/19 06:49 07/29/19 14:44 Feosol - PO Not Given TIDCM ROB Fluticasone Propionate 1 - 2 spray 07/27/19 10:00 07/29/19 15:37 Flonase - NS 2 sprays DAILY ROB Administration Gabapentin 100 mg 07/27/19 22:00 07/28/19 21:06 Neurontin - PO 100 mg HS ROB Administration Hydralazine HCl 100 mg 07/26/19 22:00 07/29/19 14:57 Apresoline - PO 100 mg TID ROB Administration Iron Sucrose 200 mg/ Sodium 100 mls @ 100 mls/hr 07/29/19 16:18 Chloride IVPB 07/29/19 17:17 ONCE ONE Insulin Aspart 1 vial 07/26/19 22:00 07/29/19 13:05 Novolog Vial Sliding Scale - SQ Not Given ACHS ROB Protocol Metoprolol Succinate 100 mg 07/27/19 10:00 07/29/19 10:05 Toprol Xl - PO Not Given DAILY ROB Rosuvastatin Calcium 10 mg 07/27/19 22:00 07/28/19 21:06 Crestor - PO 10 mg HS ROB Administration Sodium Bicarbonate 650 mg 07/26/19 22:00 07/29/19 14:57 Sodium Bicarbonate - PO 650 mg TID ROB Administration Sodium Zirconium Cyclosilicate 10 gm 07/26/19 21:00 07/29/19 14:57 Lokelma PO 10 gm DAILY ROB Administration Torsemide 80 mg 07/28/19 11:30 07/29/19 10:03 Demadex - PO 80 mg DAILY ROB Administration ASSESSMENT/PLAN: 79 year old male with a past medical history of ESRD (refusing dialysis, has AV fistula on R arm), DM, HTN, HFpEF, colonic poly removal within the last year admitted for anemia requiring transfusion and hyperkalemia. #Anemia likely in setting of ESRD Pt declines dialysis transfusion parameters of Hgb 7 Continue Lasix 40mg BID F/u with Nephro for Epogen 20,000 weekly continue calcium acetate TID with meals Pt agreed to be DNI but not DNRI, he would like resuscitation efforts, and pain managements No tubes, no feeding tubes, no dialysis GI consulted appreciated EGD completed Polyps seen, excised. Biopsies taken at GE junction, polyp and micronodular gastric body Put out a call for Dr. Benitez- waiting on response Pt refuses colonoscopy IV iron repletion #Left Pleural effusion Left lower low infiltrates + effusion- might need LA later X ray likely chronic vs 2/2 to ESRD #Hyperkalemia likely in setting of ESRD Sodium Bicarbonate 650mg TID Lokelma 10mg daily for hyperkalemia Insulin 10 U pushed today with D5 and Ca-gluconate #HTN Goal BP < 140/90 continue home hydralazine, Toprol XL #DM BGM ISS A1c #HFpEF caution with fluids continue home Lasix #HLD Crestor 10mg daily #DVT PPx SCDs #FEN no standing fluids continue to monitor electrolytes and replete Renal diet Dispo: monitor K and Glucose, f/u biopsy results, if normal, likely discharge tomorrow Visit type - Emergency Visit Emergency Visit: Yes ED Registration Date: 07/26/19 Care time: The patient presented to the Emergency Department on the above date and was hospitalized for further evaluation of their emergent condition. - New Patient This patient is new to me today: Yes Date on this admission: 07/29/19 - Critical Care Critical Care patient: No - Discharge Referral Referred to [facility] Med P.C.: No ATTENDING PHYSICIAN STATEMENT I saw and evaluated the patient. I reviewed the resident's note and discussed the case with the resident. I agree with the resident's findings and plan as documented. SUBJECTIVE: OBJECTIVE: ASSESSMENT AND PLAN:
[2019-07-29] MEDS ORDERED: INSULIN (NOVOLOG) ASPART 100 UNITS/ML 10ML VIAL ONE (16:50)
--- NOTE | 2019-07-29 16:59 | DS ---
Physical Exam: SUBJECTIVE: Patient seen and examined. Pt reports no symptoms, issues or c/o. Afebrile and asymptomatic. Denies f/c/n/v/d/sob/cp. OBJECTIVE: Vital Signs Period Temp Pulse Resp BP Sys/Bo Pulse Ox Last 24 Hr 97.9 F-98.6 F 57-74 10-20 109-142/40-65 95-100 PHYSICAL EXAM GENERAL: Awake, alert, and fully oriented, in no acute distress. EYES: extraocular movements intact, sclera anicteric, conjunctiva clear. EARS, NOSE, THROAT: Oropharynx clear without exudates. Moist mucous membranes. LUNGS: Breath sounds equal, clear to auscultation bilaterally. HEART: Regular rate and rhythm, normal S1 and S2 without murmur, rub. ABDOMEN: Soft, nontender, not distended, normoactive bowel sounds, no guarding, no rebound, no masses. UPPER EXTREMITIES: 2+ pulses, warm, well-perfused. No cyanosis. No clubbing. No peripheral edema. Noted R arm AV fistula with bruit and thrill. Rectal exam: exam positive for dark stool on glove, external sphincter tone intact, prostate gland smooth and size wnl, internal hemorrhoids felt, no tenderness, no masses or nodules palpated at the 12 to 6 O clock position. NEUROLOGICAL: Cranial nerves II-XII intact. 5/5 muscle strength upper and lower extremities. PSYCHIATRIC: Cooperative. Good eye contact. Judgment intact. SKIN: Warm, dry, normal turgor, no rashes or lesions noted, normal capillary refill. LABS Laboratory Results - last 24 hr CBC,CMP WBC 5.3 K/mm3 (4.0-10.0) 07/29/19 07:00 RBC 2.50 M/mm3 (4.00-5.60) L 07/29/19 07:00 Hgb 8.0 GM/dL (11.7-16.9) L 07/29/19 07:00 Hct 23.9 % (35.4-49) L 07/29/19 07:00 MCV 95.4 fl (80-96) 07/29/19 07:00 MCH 32.1 pg (25.7-33.7) 07/29/19 07:00 MCHC 33.6 g/dl (32.0-35.9) 07/29/19 07:00 RDW 16.7 % (11.9-15.9) H 07/29/19 07:00 Plt Count 155 K/MM3 (134-434) 07/29/19 07:00 MPV 8.3 fl (7.5-11.1) 07/29/19 07:00 Absolute Neuts (auto) 3.4 K/mm3 (1.5-8.0) 07/27/19 05:57 Neutrophils % 67.8 % (42.8-82.8) 07/27/19 05:57 Lymphocytes % 20.5 % (8-40) 07/27/19 05:57 Monocytes % 6.6 % (3.8-10.2) 07/27/19 05:57 Eosinophils % 4.5 % (0-4.5) 07/27/19 05:57 Basophils % 0.6 % (0-2.0) 07/27/19 05:57 Nucleated RBC % 0 % (0-0) 07/27/19 05:57 Sodium 139 mmol/L (136-145) 07/29/19 07:00 Potassium 5.0 mmol/L (3.5-5.1) 07/29/19 07:00 Chloride 109 mmol/L (98-107) H 07/29/19 07:00 Carbon Dioxide 20 mmol/L (21-32) L 07/29/19 07:00 Anion Gap 10 MMOL/L (8-16) 07/29/19 07:00 BUN 89.2 mg/dL (7-18) H 07/29/19 07:00 Creatinine 7.7 mg/dL (0.55-1.3) H* 07/29/19 07:00 Est GFR (CKD-EPI)AfAm 6.95 07/29/19 07:00 Est GFR (CKD-EPI)NonAf 6.00 07/29/19 07:00 POC Glucometer 188 UNITS (80-120) 07/29/19 16:20 Random Glucose 145 mg/dL (74-106) H 07/29/19 07:00 Hemoglobin A1c % 5.0 % (4.2-6.3) 07/27/19 05:57 Calcium 8.1 mg/dL (8.5-10.1) L 07/29/19 07:00 Phosphorus 5.6 mg/dL (2.5-4.9) H 07/28/19 07:05 Magnesium 2.6 mg/dL (1.8-2.4) H 07/28/19 07:05 Iron 116 ug/dL (50-175) 07/26/19 17:52 TIBC 248 ug/dL (250-450) L 07/26/19 17:52 Iron Saturation 46 % (17.5-39) H 07/26/19 17:52 Unsaturated IBC 132 ug/dL (200-275) L 07/26/19 17:52 Ferritin 90.7 ng/ml (8-388) 07/26/19 17:52 Total Bilirubin 0.4 mg/dL (0.2-1) 07/29/19 07:00 AST 8 U/L (15-37) L 07/29/19 07:00 ALT 10 U/L (13-61) L 07/29/19 07:00 Alkaline Phosphatase 82 U/L (45-117) 07/29/19 07:00 Creatine Kinase 82 U/L (26-308) 07/27/19 01:15 Troponin I 0.05 ng/ml (0.00-0.05) 07/27/19 01:15 Total Protein 5.3 g/dl (6.4-8.2) L 07/29/19 07:00 Albumin 2.4 g/dl (3.4-5.0) L 07/29/19 07:00 Vitamin B12 763 pg/ml (193-986) 07/27/19 05:57 Serum Folate 8 ng/mL (3.1-17.5) 07/27/19 05:57 TSH 1.12 uIU/ml (0.358-3.74) D 07/27/19 05:57 HOSPITAL COURSE: Date of Admission:07/26/19 79 year old male with a past medical history of ESRD (refusing dialysis, has AV fistula on R arm), DM, HTN, HFpEF, colonic poly removal within the last year admitted for anemia requiring transfusion and hyperkalemia. Pt required 2 transfusions of PRBCs to improve his H/H. Pt also was continued on his lasix. Once his symptoms imrpoved he was offered dialysis as ESRD was the culprit causing his symtpoms. Pt was adamantly against Dialysis and refused it everytime. Pt would only like conservative management. Nephro was consulted and pt was started on sodium bicarbonate, Torsemide and lokelma. Pt was then found to be SOBT positive and was evaluated by GI for an EGD, which was done and showed Polyps that were excised. Biopsies taken at GE junction, polyp and micronodular gastric body. Pending biopsy results, pt requested be discharged. After reassessing pt's condition, he was stable to be discharged. His losartan, aspirin and lasix was discontinued. He was sent home on bicarbonate, toresmide, lokelma, colace, protonix and ferrous sulfate. He was also given one bag of IV venofer. He was advised to f/u with boarding house manager, GI, Nephro and PCP. noted T waves on EKG, mostly unchanged since previous EKG CXR with noted LLL infiltrate/atelectasis EGD with mucosal abnormality at GE junction, biopsied, single antral polyp, biopsied, and micronodular gastric body, also biopsied. Pt agreed to be DNI but not DNRI, he would like resuscitation efforts, and pain managements Date of Discharge: 07/29/19 Minutes to complete discharge: 40 Discharge Summary Problems reviewed: Yes Reason For Visit: CHRONIC KIDNEY DISEASE Condition: Improved - Instructions Diet, Activity, Other Instructions: You were sent to the hospital by your PCP due to abnormal lab values. You also had complaints of generalized weakness. In the hospital, you were found to have high potassium levels and abnormal kidney function. You were given medication help correct your electrolytes. You were seen by a kidney doctor who strongly advised close outpatient follow up. Additionally, you were found to have blood in your stool. You were seen by a GI doctor who performed an endoscopy during which tissues samples were taken for lab testing. During your hospital stay, your symptoms improved. You are now stable for discharge. Medications We have made the following changes to your medications: Please STOP taking Aspirin due to GI blood loss Please STOP taking Furosemide. Please START taking Torsemide 80 mg once a day by mouth. Please STOP taking Losartan to avoid worsening kidney function. Please START taking Sodium Bicarbonate 650 mg three times a day by mouth. Please START taking Lokelma 10 mg once a day by mouth. Please START taking Colace twice a day daily Please START taking Ferrous sulfate twice a day daily Please START taking Protonix 40 mg Daily You will additionally need iron supplementation until you reach an appropriate hemoglobin level to treat your anemia. We advise that you follow up with a boarding house manager for outpatient treatment. You may continue taking the rest of your home medications as prescribed. Follow Up Please return to have CBC and BMP labs drawn on 07/31/19 to check hemoglobin and potassium levels. Please follow up with your primary care physician within 1 week. Please follow up with your drill hand, Dr. Gloria, within 1 week. Please follow up with your GI doctor, Dano Chavis, within 1 week. You will need outpatient follow up for your stomach biopsy results. Please follow up with your boarding house manager. If you do not have one, you may make an appointment to see Dr. Yoon for further evaluation of your anemia which will require IV iron supplementation weekly. If you have worsening and persistent chest pain, shortness of breath, fever/ chills, nausea/vomiting or other associated symptoms, please proceed to your nearest emergency room immediately. Referrals: Cassius Vail MD [Primary Care Provider] - 1 Week Brendan Yoon MD [Staff Physician] - 1 Week Slava Gloria MD [Staff Physician] - 1 Week Dano Benitez MD [Staff Physician] - 1 Week Disposition: HOME - Home Medications Comprehensive Discharge Medication List: Ambulatory Orders Metoprolol Succinate [Toprol XL -] 100 mg PO DAILY 02/12/16 Ferrous Sulfate 325 mg PO TID 02/14/16 hydrALAZINE HCL [Apresoline -] 100 mg PO TID 01/29/17 Cyanocobalamin [Vitamin B12 -] 5,000 mcg PO DAILY 01/27/19 Fluticasone Prop 0.05% Nasal [Flonase -] 1 - 2 spray NS DAILY 01/27/19 Gabapentin [Neurontin -] 100 mg PO HS 01/27/19 Rosuvastatin Calcium [Crestor] 20 mg PO DAILY 01/27/19 Calcium Acetate [Phoslo -] 667 mg PO TIDCM #60 capsule 02/03/19 Aspirin [Ecotrin] 81 mg PO DAILY 03/12/19 Cholecalciferol (Vitamin D3) [D3-50] 50,000 unit PO WEEKLY 03/12/19 Docusate Sodium [Colace] 100 mg PO TID 03/12/19 Sitagliptin Phosphate [Januvia] 50 mg PO DAILY 03/12/19 Sodium Bicarbonate - 650 mg PO TID #90 tablet 07/29/19 Sodium Zirconium Cyclosilicate [Lokelma] 10 gm PO DAILY #30 packet 07/29/19 Torsemide [Demadex -] 80 mg PO DAILY #30 tablet 07/29/19 This patient is new to me today: Yes Date on this admission: 07/29/19 Emergency Visit: Yes ED Registration Date: 07/26/19 Care time: The patient presented to the Emergency Department on the above date and was hospitalized for further evaluation of their emergent condition. Critical Care patient: No - Discharge Referral Referred to [facility] Med P.C.: No ATTENDING PHYSICIAN STATEMENT I saw and evaluated the patient. I reviewed the resident's note and discussed the case with the resident. I agree with the resident's findings and plan as documented. SUBJECTIVE: OBJECTIVE: ASSESSMENT AND PLAN:
[2019-07-29 17:09] VITALS: BP 131/58; PULSE 70; TEMP 98.3
[2019-07-29] MEDS ORDERED: IRON SUCROSE INJECTION 200 MG in SODIUM CHLORIDE 90 ML IVPB ONE (17:15)
--- NOTE | 2019-07-29 18:01 | PN ---
Teaching Attending Note Name of Resident: Nito Matson ATTENDING PHYSICIAN STATEMENT I saw and evaluated the patient. I reviewed the resident's note and discussed the case with the resident. I agree with the resident's findings and plan as documented. SUBJECTIVE: Feels well. No complaints. No fever/chills. OBJECTIVE: Afebrile, Hemodynamically Stable. AAO x 3. Last Vital Signs Temp Pulse Resp BP Pulse Ox 98.3 F 70 18 131/58 L 99 07/29/19 17:07 07/29/19 17:07 07/29/19 17:07 07/29/19 17:07 07/29/19 14:38 Heart - S1, S2, RRR Lungs - clear to auscultation Abdomen - Soft, non-tender. Bowel Sounds normal. Extremities - No edema, no calf tenderness. RUE AV Fistula. Laboratory Results - last 24 hr 07/28/19 07/29/19 07/29/19 21:04 05:54 07:00 WBC RBC Hgb Hct MCV MCH MCHC RDW Plt Count MPV Sodium Cancelled Potassium Cancelled Chloride Cancelled Carbon Dioxide Cancelled Anion Gap Cancelled BUN Cancelled Creatinine Cancelled Est GFR (CKD-EPI)AfAm Cancelled Est GFR (CKD-EPI)NonAf Cancelled POC Glucometer 278 121 Random Glucose Cancelled Calcium Cancelled Total Bilirubin AST ALT Alkaline Phosphatase Total Protein Albumin 07/29/19 07/29/19 07/29/19 07:00 07:00 10:54 WBC 5.3 RBC 2.50 L Hgb 8.0 L Hct 23.9 L MCV 95.4 MCH 32.1 MCHC 33.6 RDW 16.7 H Plt Count 155 MPV 8.3 Sodium 139 Potassium 5.0 Chloride 109 H Carbon Dioxide 20 L Anion Gap 10 BUN 89.2 H Creatinine 7.7 H* Est GFR (CKD-EPI)AfAm 6.95 Est GFR (CKD-EPI)NonAf 6.00 POC Glucometer 135 Random Glucose 145 H Calcium 8.1 L Total Bilirubin 0.4 AST 8 L ALT 10 L Alkaline Phosphatase 82 Total Protein 5.3 L Albumin 2.4 L 07/29/19 16:20 WBC RBC Hgb Hct MCV MCH MCHC RDW Plt Count MPV Sodium Potassium Chloride Carbon Dioxide Anion Gap BUN Creatinine Est GFR (CKD-EPI)AfAm Est GFR (CKD-EPI)NonAf POC Glucometer 188 Random Glucose Calcium Total Bilirubin AST ALT Alkaline Phosphatase Total Protein Albumin Current Medications Generic Name Dose Route Start Last Admin Trade Name Freq PRN Reason Stop Dose Admin Calcium Acetate 667 mg 07/27/19 08:00 07/29/19 16:44 Phoslo - PO 667 mg TIDCM ROB Administration Cyanocobalamin 5,000 mcg 07/27/19 10:00 07/29/19 10:01 Vitamin B12 - PO 5,000 mcg DAILY ROB Administration Docusate Sodium 100 mg 07/27/19 06:00 07/29/19 15:09 Colace - PO Not Given TID ROB Ferrous Sulfate 325 mg 07/27/19 06:49 07/29/19 16:35 Feosol - PO 325 mg TIDCM ROB Administration Fluticasone Propionate 1 - 2 spray 07/27/19 10:00 07/29/19 15:37 Flonase - NS 2 sprays DAILY ROB Administration Gabapentin 100 mg 07/27/19 22:00 07/28/19 21:06 Neurontin - PO 100 mg HS ROB Administration Hydralazine HCl 100 mg 07/26/19 22:00 07/29/19 14:57 Apresoline - PO 100 mg TID ROB Administration Iron Sucrose 200 mg/ Sodium 100 mls @ 100 mls/hr 07/29/19 17:15 07/29/19 17: 26 Chloride IVPB 07/29/19 18:14 100 mls/hr ONCE ONE Administration Insulin Aspart 1 vial 07/26/19 22:00 07/29/19 16:25 Novolog Vial Sliding Scale - SQ 2 units ACHS ROB Administration Protocol Metoprolol Succinate 100 mg 07/27/19 10:00 07/29/19 10:05 Toprol Xl - PO Not Given DAILY ROB Rosuvastatin Calcium 10 mg 07/27/19 22:00 07/28/19 21:06 Crestor - PO 10 mg HS ROB Administration Sodium Bicarbonate 650 mg 07/26/19 22:00 07/29/19 14:57 Sodium Bicarbonate - PO 650 mg TID ROB Administration Sodium Zirconium Cyclosilicate 10 gm 07/26/19 21:00 07/29/19 14:57 Lokelma PO 10 gm DAILY ROB Administration Torsemide 80 mg 07/28/19 11:30 07/29/19 10:03 Demadex - PO 80 mg DAILY ORB Administration Home Medications Medication Instructions Recorded Metoprolol Succinate [Toprol XL -] 100 mg PO DAILY 02/12/16 Ferrous Sulfate 325 mg PO TID 02/14/16 hydrALAZINE HCL [Apresoline -] 100 mg PO TID 01/29/17 Cyanocobalamin [Vitamin B12 -] 5,000 mcg PO DAILY 01/27/19 Fluticasone Prop 0.05% Nasal 1 - 2 spray NS DAILY 01/27/19 [Flonase -] Gabapentin [Neurontin -] 100 mg PO HS 01/27/19 Rosuvastatin Calcium [Crestor] 20 mg PO DAILY 01/27/19 Calcium Acetate [Phoslo -] 667 mg PO TIDCM #60 capsule 02/03/19 Protonix 40mg daily Cholecalciferol (Vitamin D3) 50,000 unit PO WEEKLY 03/12/19 [D3-50] Docusate Sodium [Colace] 100 mg PO TID 03/12/19 Sitagliptin Phosphate [Januvia] 50 mg PO DAILY 03/12/19 Sodium Bicarbonate - 650 mg PO TID #90 tablet 07/29/19 Sodium Zirconium Cyclosilicate 10 gm PO DAILY #30 packet 07/29/19 [Lokelma] Torsemide [Demadex -] 80 mg PO DAILY #120 tablet 07/29/19 ASSESSMENT AND PLAN: 79 year old male with a past medical history of ESRD (previously on HD via AVF RUE, now refusing dialysis), DM 2, HTN, HFpEF, s/p colonic polyp removal admitted with anemia requiring transfusion and hyperkalemia. 1. Macrocytic Anemia, etiology multifactorial - Chronic blood Loss/CKD5-ESRD H/H 8.0/23.9 s/p 2 units PRBCs. EPO as per Nephrology Iron and B12 supplementation ongoing. IV Venofer as per GI. FOBT positive - seen by GI - s/p EGD - multiple sites biopsied - mucosal abnormality at GE junction, single antral polyp, and micronodular gastric body; no bleeding source identified. Patient continued to decline colonoscopy. H.H Stable. Medically stable for discharge with out-patient GI follow up. Hold Aspirin. PPI. 2. Hyperkalemia secondary to CKD 5-ESRD (previously on HD - now declines further HD) IV Lasix changed to Torsemide. Bicarb/Lokelma/Epo as per Nephrology Monitor K s/p Insulin/Dextrose, Lokelma Repeat Labs on 07/31/19 3. HTN - Continue Hydralazine, Toprol XL. Losartan held. 4. DM 2 - resume Januvia on discharge. 5. HLD - Continue Crestor. Medically optimized for discharge with repeat labs on 07/31/19 and GI and Nephrology follow up.
--- NOTE | 2019-07-30 12:05 | PATH ---
Surgical Pathology Report Patient Name: ZAINA HERNANDEZ Med. Rec. #: [id number] /Age/Gender: 1940 (Age: 79) / M Account: [id number] Location: [facility] MED/SURG Taken: 07/29/2019 Received: 07/29/2019 Reported: 07/30/2019 Physicians: MD Dano Kruger MD Specimen(s) Received A: ANTRAL POLYP B: BODY NODULE C: EG JUNCTION Clinical History Iron deficiency anemia Postoperative diagnosis: Same Final Diagnosis A. ANTRAL POLYP, BIOPSY: GASTRIC MUCOSA WITH REACTIVE GASTROPATHY AND FOCAL FOVEOLAR HYPERPLASTIC CHANGE. NEGATIVE FOR INTESTINAL METAPLASIA. RESULT OF IMMUNOSTAIN FOR H. PYLORI IS PENDING. AN ADDENDUM REPORT TO FOLLOW. B. BODY NODULE, BIOPSY: GASTRIC MUCOSA WITH MILD CHRONIC GASTRITIS AND FOCAL FOVEOLAR HYPERPLASIA. NEGATIVE FOR INTESTINAL METAPLASIA. RESULT OF IMMUNOSTAIN FOR H. PYLORI IS PENDING. AN ADDENDUM REPORT TO FOLLOW. C. GE JUNCTION, BIOPSY: FRAGMENTS OF SUPERFICIAL BENIGN COLUMNAR EPITHELIUM WITH EDEMATOUS CHANGE IN THE STROMA. SEE COMMENT. NEGATIVE FOR INTESTINAL METAPLASIA. NO SQUAMOUS EPITHELIUM PRESENT. Comment: The biopsy material is scanty and superficial. Multiple serial levels of H&E stained sections attempted. If there is persistent concern for malignancy, re-sampling is suggested. Electronically Signed Quentin Claire M.D. Addendum Reported: 07/31/2019 Addendum Diagnosis Results of immunostain for H. Pylori show as following: A. ANTRAL POLYP, BIOPSY: IMMUNOSTAIN FOR H. PYLORI IS NEGATIVE. B. BODY NODULE, BIOPSY: IMMUNOSTAIN FOR H. PYLORI IS NEGATIVE. Comment: Immunostain for H. Pylori performed at [place], [place] ([id number]) and interpreted at [facility]. Positive and negative controls (internal if applicable) show appropriate results. Quentin Claire M.D. Gross Description A. Received in formalin, labeled "biopsy antral polyp" are 2 melchor, irregular portions of soft tissue averaging 0.2 cm. in greatest dimension. The specimens are submitted in toto in one cassette. B. Received in formalin, labeled "biopsy body nodule" are 2 melchor, irregular portions of soft tissue averaging 0.3 cm. in greatest dimension. The specimens are submitted in toto in one cassette. C. Received in formalin, labeled "biopsy GE junction" are 2 melchor, irregular portions of soft tissue averaging 0.2 cm. in greatest dimension. The specimens are submitted in toto in one cassette. 07/[facility]
== END 2019-07-29 19:00 | disposition home or self-care (01) | DRG 291 ==
LOC: JER 16:06 → JERBED 19:12 → J7W 07-27 13:58
PROVIDERS: ADMIT Internal Medicine
PROC: 30233N1 Transfusion of Nonautologous Red Blood Cells into Peripheral Vein, Percutaneous Approach (ICD-10-PCS; 2019-07-26)
PROC: 0DB38ZX Excision of Lower Esophagus, Via Natural or Artificial Opening Endoscopic, Diagnostic (ICD-10-PCS; 2019-07-29)
PROC: 0DB68ZX Excision of Stomach, Via Natural or Artificial Opening Endoscopic, Diagnostic (ICD-10-PCS; principal; 2019-07-29 10:45)
DX: I13.2 Hypertensive heart and chronic kidney disease with heart failure and with stage 5 chronic kidney disease, or end stage renal disease (principal); J90 Pleural effusion, not elsewhere classified; J98.11 Atelectasis; E11.22 Type 2 diabetes mellitus with diabetic chronic kidney disease; I50.30 Unspecified diastolic (congestive) heart failure; N18.6 End stage renal disease; D63.1 Anemia in chronic kidney disease; E87.5 Hyperkalemia; Z91.15 Patient's noncompliance with renal dialysis; Z99.2 Dependence on renal dialysis; Z87.891 Personal history of nicotine dependence
CPT/HCPCS: 36415; 36430; 36511; 71045-TC-FY; 80048; 80053; 82272; 82550; 82607; 82728; 82746; 82962; 83036; 83540; 83550; 83735; 84100; 84443; 84484; 85025; 85027; 85610; 86850; 86900; 86901; 86922; 93005; 93010; 93306-TC; 99284-25; J0735; J1756; P9038; P9058